=== PATIENT | male | born 1945 | race Caucasian/White ===

== ENCOUNTER 2018-11-05 12:49 | Inpatient (IN) ==
[2018-11-05 13:38] LABS: Basophils # (auto) 0.07 K/uL (0-0.2); Basophils % (auto) 0.8 %; Eosinophils # (auto) 0.49 K/uL (0-0.5); Eosinophils % (auto) 5.3 %; Hematocrit (blood only) 43.8 % (42-52); Hemoglobin 16.2 g/dL (14.0-18.0); Immature Granulocytes # (auto) 0.01 K/uL (0.00-0.02); Immature Granulocytes % (auto) 0.1 %; Lymphocytes # (auto) 3.57 K/uL (1.2-3.4); Mean Corpuscular Volume 86.4 fL (80-100); Mean Platelet Volume 10.6 fL (7.4-10.4); Monocytes # (auto) 1.02 K/uL (0.11-0.59); Monocytes % (auto) 11.1 %; Neutrophils % (auto) 43.7 %; Platelet Count 227 K/uL (130-400); RDW Coefficient of Variation 12.9 % (11.5-14.5); Red Blood Count 5.07 M/uL (4.7-6.1); White Blood Count 9.16 K/uL (4.8-10.8)
--- NOTE | 2018-11-05 13:40 | XRay Report ---
SINGLE VIEW CHEST CLINICAL HISTORY: Dyspnea. Atypical chest pain. FINDINGS: An AP, portable, upright chest radiograph is obtained. No prior studies are available for c omparison at the time of dictation. The examination is degraded by portable technique and patient rot ation. The heart is enlarged and there is atherosclerotic calcification of the thoracic aorta. There is mild pulmonary vascular congestion. Trace pleural effusions are suspected. Atelectasis is noted a t the lung bases. No pneumothorax is seen. The skeletal structures are osteopenic. The bony thorax is grossly intact. IMPRESSION: Cardiomegaly with evidence of mild congestive failure. Electronically signed by: Fei Tovar M.D. 11/05/2018 1:39 PM
[2018-11-05 13:53] LABS: Alanine Aminotransferase 59 U/L (12-78); Aspartate Aminotransferase 30 U/L (15-37); BUN Creatinine Ratio 14.4 (10-20); Blood Urea Nitrogen 12 mg/dl (7-18); Calcium 9.1 mg/dl (8.5-10.1); Carbon Dioxide 27 mmol/L (21-32); Chloride 102 mmol/L (98-107); Creatinine Clr Calc Pharmacy 89.1 ml/min; Est GFR (African American) 100.9; Est GFR (Non-African American) 87.1; Glucose 213 mg/dl (70-99); Potassium 3.4 mmol/L (3.5-5.1); Sodium 137 mmol/L (136-145)
[2018-11-05 13:58] LABS: Albumin Globulin Ratio 1.1 (0.9-2); Alkaline Phosphatase 77 U/L (45-117); Bilirubin,Total 1.3 mg/dl (0.2-1); Globulin 3.8 gm/dl (2.5-4.0); NT Pro B Type Natriuretic Pept 81 pg/ml (0-900); Total Protein 7.8 gm/dl (6.4-8.2); Troponin I < 0.015 ng/ml (0-0.045)
[2018-11-05 13:59] LABS: D Dimer 450 ug/L FEU (0-500)
[2018-11-05] MEDS ORDERED: FUROSEMIDE 40 MG/4 ML VIAL IV STA (14:20)
[2018-11-05] MEDS ORDERED: POTASSIUM CHLORIDE 20 MEQ TABCR PO STA (15:27)
--- NOTE | 2018-11-05 15:41 | History & Physical Report ---
Date of Service November 05, 2018 Assessment & Plan (1) SOB (shortness of breath): (2) CHF (congestive heart failure): Pt presented from PCP office for increased SOB. Pt was noted to be SOB in clinic after walking. Reported some baseline SOB on exertion. Denies orthopnea, PND, CP, dizziness, syncope, N/V, diaphoresis. In ER pt afebrile, P: 62, R:22 down to 12, BP: 163/84, initially on 2L O2 with sat 97% and has been off O2 with sat 95% on RA. No leukocytosis, D-Dimer WNL, Negative initial troponin, BNP: 81 CXR: Cardiomegaly with evidence of mild congestive failure. H/O nuclear stress test 05/2017: No evidence induced ischemia, normal wall motion, EF: 62% Pt with untreated JENNIFER -In ER pt given lasix 20mg IV. He diuresed 650ml while in ER. -Will give additional lasix 20mg IV -Monitor I&O and daily weight -Reassess volume status tomorrow -Echo -Monitor CBC, BMP (3) Hypokalemia: K: 3.4 -Replace and monitor (4) CAD (coronary artery disease): 10/28/06 - MARAH to circumflex, marginal at [facility], Dr Hagan No CP. Initial troponin negative. -Continue aspirin, metoprolol, atorvastatin (5) Diabetes mellitus, type II: A1c: 7.7 on 04/2018 Glucose: 213 -A1c in AM -Hold glimepiride -Novolog sliding scale per protocol (6) HTN (hypertension): In ER SBP 150's-160 -Continue lisinopril, metoprolol -Hold HCTZ since received lasix (7) Dyslipidemia: -Continue atorvastatin (8) Neuropathy: -Continue Lyrica (9) JENNIFER (obstructive sleep apnea): Not on CPAP secondary to h/o intolerance to CPAP and insurance issues in the remote past (10) Gout: -Continue allopurinol DVT Prophylaxis -Lovenox SQ Full Code as per discussion with pt, however reports would not want on prolonged life support if poor prognosis Follows with Dr Nixon for routine care Pt was seen and care coordinated with Dr Hairston. See addendum History of Present Illness Chief Complaint: SOB Primary Care Provider: Cristian Nixon MD Pt is 72 y/o M with PMH CAD s/p AMRAH to circumflex in 2006, HTN, dyslipidemia, GERD, gout, DM II, JENNIFER not using CPAP presented to ER from PCP office for shortness of breath. Patient was at PCP office for well visit and was noted to be short of breath after walking in clinic. Patient was placed on 2 L nasal cannula oxygen and given 3 baby aspirin. Patient reports that he has some chronic shortness of breath on exertion however reports "I do not really notice it" and states is able to go outside to feed his chickens and carry 5 gallon water jug. Patient's daughter reports that she notices when he walks across the yard to her house that he is short of breath. Patient denies any chest pain. He reports that at the end of the day will have some mild swelling of ankles which improves with elevating feet. Reports HCTZ seems to control ankle edema and he hasn't noticed worsening LE edema. Patient denies any orthopnea or PND. He reports he often falls asleep in his recliner chair. He states over the past 3 months has gained 7 pounds. Admits to eating moderate amount of sodium in diet. Patient follows with Dr. Chandler cardiology in [place]. denies fever/chills, diaphoresis, N/V/D/C, ESQUIVEL, dizziness, syncope, vision changes, neck pain, palpitations, cough, sore throat, choking, otalgia, rhinorrhea, abdominal pain, paresthesias, weakness, extremity weakness, rashes, urinary symptoms. History nuclear stress test 05/2017: No evidence induced ischemia, normal wall motion, EF: 62% History echo 2015: EF 55%, normal wall motion, borderline LVH, aortic and mitral sclerotic changes, trace-mild mitral, tricuspid and pulmonary insufficiency Allergies Allergy/AdvReac Type Severity Reaction Status Date / Time No Known Allergies Allergy Unverified 11/05/18 14:32 Home Medications Home Medications Medication Instructions Recorded Confirmed Type allopurinol 300 mg PO DAILY 11/05/18 11/05/18 History aspirin [Aspirin Low Dose] 81 mg PO DAILY 11/05/18 11/05/18 History atorvastatin 40 mg PO DAILY 11/05/18 11/05/18 History clopidogrel 75 mg PO DAILY 11/05/18 11/05/18 History glimepiride 4 mg PO DAILY 11/05/18 11/05/18 History lisinopril 10 mg PO BID 11/05/18 11/05/18 History metoprolol tartrate 25 mg PO BID 11/05/18 11/05/18 History multivitamin 1 tab PO DAILY 11/05/18 11/05/18 History pregabalin [Lyrica] 75 mg PO TID 11/05/18 11/05/18 History ranitidine HCl 150 mg PO BID 11/05/18 11/05/18 History furosemide 20 mg PO DAILY #30 tab 11/07/18 Rx potassium chloride 10 meq PO DAILY #30 cap 11/07/18 Rx Past Med/Surg History Medical History Neuropathy (Chronic) Gout (Chronic) JENNIFER (obstructive sleep apnea) (Chronic) CAD (coronary artery disease) (Chronic) HTN (hypertension) (Chronic) Dyslipidemia (Chronic) Diabetes mellitus, type II (Chronic) Surgical History History of cardiac catheterization (Chronic) 10/28/06 - MARAH to circumflex, marginal at [facility], Dr Hagan H/O heart artery stent (Chronic) Family History Brother Coronary heart disease Lung cancer Other Hypertension Social History Preferred Language: Kinyarwanda Communication Ability: Effective Re Recording Mixer Required: No Beliefs That Will Affect Care: None marital status: / Current Living Situation: Alone current occupational status: retired Feels Safe at Home: Yes Safety Concerns: Feels Safe At This Time Smoking Status: Former smoker Cigarettes Per Day: Quit 1985, smoked 2ppd x 25 years ; Hx Alcohol Use: Yes Alcohol type: beer and wine Hx Substance Use: No Review of Systems Review of Systems: All systems reviewed & are unremarkable except as noted in HPI & below Physical Exam Physical Exam: General: no acute distress, obese Head: normocephalic, atraumatic Eyes: PERRL, EOM's intact, conjunctiva non-injected, anicteric ENT: normal inspection external ears, nose, mucous membranes moist Neck: supple, trachea midline Lungs: clear, no respiratory distress, no wheezing/rhonchi/rales CV: RRR, no murmur, no JVD, trace pretibial edema Abd: normal BS, protuberant, soft, non-tender Ext: no cyanosis, no calf tenderness Neuro: A&O x 3, no focal deficits noted, normal affect Skin: warm, dry Results & Data Vital Signs (Past 12 Hours) Vital Signs Temp Pulse Resp BP Pulse Ox 11/05/18 14:33 66 15 94 11/05/18 14:20 61 17 96 11/05/18 14:10 62 15 96 11/05/18 14:00 58 L 18 136/77 89 L 11/05/18 13:50 57 L 13 92 11/05/18 13:40 59 L 14 93 11/05/18 13:30 58 L 16 166/91 H 94 11/05/18 13:29 97 11/05/18 13:20 61 19 95 11/05/18 13:11 63 19 176/95 H 95 11/05/18 13:10 59 L 20 11/05/18 13:06 69 17 11/05/18 12:56 60 16 163/84 H 11/05/18 12:50 36.7 C 62 22 163/84 H 97 Laboratory Results Short CBC 11/05/18 Range/Units 12:30 WBC 9.16 (4.8-10.8) K/uL Hgb 16.2 (14.0-18.0) g/dL Hct 43.8 (42-52) % Plt Count 227 (130-400) K/uL BMP 11/05/18 12:30 Sodium 137 Potassium 3.4 L Chloride 102 Carbon Dioxide 27 BUN 12 Creatinine 0.85 Glucose 213 H Calcium 9.1 Cardiac Enzymes 11/05/18 Range/Units 12:30 Troponin I < 0.015 (0-0.045) ng/ml Liver Function 11/05/18 Range/Units 12:30 Total Bilirubin 1.3 H (0.2-1) mg/dl AST 30 (15-37) U/L ALT 59 (12-78) U/L Alkaline Phosphatase 77 (45-117) U/L Albumin 4.0 (3.4-5.0) gm/dl Diagnostic Findings CXR: IMPRESSION: Cardiomegaly with evidence of mild congestive failure. ECG Rate (beats per minute): 60 Rhythm: sinus rhythm Findings: + 1st degree AV block, + LAFB, + Q waves (Septal) and + RBBB (incomplete) Supervising Physician Co-Signing Physician Notes Pt was seen and examined. Agreed with Jaz HARRIS exam, assessment and plan. 72 y/o M with PMH CAD s/p MARAH to circumflex in 2007, HTN, dyslipidemia, GERD, gout, DM II, JENNIFER not using CPAP was sent from to the ER from PCP office for shortness of breath. Pt said that she became very SOB today after walking to his PCP clinic. Pt said that he is very active. daughter said that she noticed that she started to get SOB when walking across the yard. Denies any chest pain, palpitation, dizziness and SOB. CXR on admission showed cardiomegaly with evidence of mild congestive failure. Will give lasix 40mg IV for today (Received 20 IV already, will give an additional 20mg). Will consult cardiology. Will get an echo. Will eval in am for any additional IV lasix. Will monitor in tele closely. MD Yovanny (1) CHF (congestive heart failure) Heart failure chronicity: unspecified Heart failure type: unspecified Qualified Code(s): I50.9 - Heart failure, unspecified
[2018-11-05] MEDS ORDERED: GLUCOSE 10 TABS/TUBE PO PRN (16:23)
[2018-11-05] MEDS ORDERED: DEXTROSE 50% 50 ML SYRINGE IV PRN (16:23)
[2018-11-05] MEDS ORDERED: ACETAMINOPHEN 325 MG TAB PO PRN (16:23)
[2018-11-05] MEDS ORDERED: CARBOHYDRATES FOR HYPOGLYCEMIA PO PRN (16:23)
[2018-11-05] MEDS ORDERED: NITROGLYCERIN SL 0.4 MG/TAB TAB SL PRN (16:23)
[2018-11-05] MEDS ORDERED: GLUCOSE 40% GEL 15 GM TUBE PO PRN (16:23)
[2018-11-05] MEDS ORDERED: GLUCAGON FOR INJ 1 MG VIAL SQ PRN (16:23)
[2018-11-05] MEDS ORDERED: FUROSEMIDE 20 MG in SYRINGE 0 ML IV ONE (16:45)
[2018-11-05 17:13] LABS: Prothrombin Time 10.3 Seconds (9.0-12.0)
[2018-11-05] MEDS: INSULIN ASPART 100 UNITS/ML 3 ML PEN SC SCH ×2 (18:14→20:58)
[2018-11-05] MEDS: ENOXAPARIN INJ 40 MG/0.4 ML SYR SQ SCH (18:16)
--- NOTE | 2018-11-05 19:36 | Emergency Department Note ---
Entered by Desi Palumbo acting as a scribe for Alejandro Reaves MD History of Present Illness General Chief complaint: Shortness of Breath/Dyspnea Stated complaint: trouble breathing Time Seen by Provider: 11/05/18 13:19 Source: patient History of Present Illness Onset (ago): minute(s) (prior to arrival) Location: chest Severity: moderate (O2 in the 80s) Pain Consistency: + other (episode) Maximum Pain Intensity: 0 Quality: + other (shortness of breath) Exacerbated By: + movement (exertion) Associated symptoms: + denies other symptoms (dizziness, hematochezia, melena) and + other (leg swelling, let antecubital pain); no chest pain, no fever/chills and no nausea/vomiting The patient is a 72 year old male who presents to the Emergency Room with complaints of an episode of shortness of breath starting prior to arrival. The patient states that today he went to his PCP for a checkup and while they were walking him back, he became short of breath. He states that they decided to walk him around a little and look at his O2. He reports that it would drop to the high 80s. He notes that his PCP made not of mild lower extremity edema. The patient states that he feels fine now. He notes that he did have one episode of left antecubital pain that lasted a few seconds. The patient notes that he is on Aspirin and Plavix. The patient denies chest pain, nausea, vomiting, dizziness, hematochezia, melena, recent illness, fever, chills, recent falls, being on O2 at home, a history of pulmonary disease, a history of blood clots, and using an inhaler. Home Medications Home Medications Medication Instructions Recorded Confirmed Type allopurinol 300 mg PO DAILY 11/05/18 11/05/18 History aspirin [Aspirin Low Dose] 81 mg PO DAILY 11/05/18 11/05/18 History atorvastatin 40 mg PO DAILY 11/05/18 11/05/18 History clopidogrel 75 mg PO DAILY 11/05/18 11/05/18 History glimepiride 4 mg PO DAILY 11/05/18 11/05/18 History hydrochlorothiazide 25 mg PO DAILY 11/05/18 11/05/18 History lisinopril 10 mg PO BID 11/05/18 11/05/18 History metoprolol tartrate 25 mg PO BID 11/05/18 11/05/18 History multivitamin 1 tab PO DAILY 11/05/18 11/05/18 History pregabalin [Lyrica] 75 mg PO TID 11/05/18 11/05/18 History ranitidine HCl 150 mg PO BID 11/05/18 11/05/18 History Allergies Allergy/AdvReac Type Severity Reaction Status Date / Time No Known Allergies Allergy Unverified 11/05/18 14:32 Past Med/Surg History Medical History Neuropathy (Chronic) Gout (Chronic) JENNIFER (obstructive sleep apnea) (Chronic) CAD (coronary artery disease) (Chronic) HTN (hypertension) (Chronic) Dyslipidemia (Chronic) Diabetes mellitus, type II (Chronic) Surgical History History of cardiac catheterization (Chronic) 10/28/06 - MARAH to circumflex, marginal at [facility], Dr Hagan H/O heart artery stent (Chronic) Family History Brother Coronary heart disease Lung cancer Other Hypertension Social History Preferred Language: Sami Communication Ability: Effective 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 and A total of 10 systems reviewed and were otherwise negative Physical Exam Vital Signs Vital Signs - 24 hr 11/05/18 12:50 11/05/18 12:56 11/05/18 13:06 Temperature 36.7 C Temperature Source Oral Sepsis Recent Fever Within 48 Hours No Sepsis New/Unexplained Change in Mental Status No Sepsis Action Taken by Nursing No Action Required Pulse Rate 62 60 69 Pulse Rate from SpO2 Sensor Respiratory Rate 22 16 17 Respiratory Effort / Characteristics Non-Labored Spontaneous Respiratory Depth Normal Respiratory Pattern Regular Blood Pressure 163/84 H 163/84 H Blood Pressure Mean 110 110 Blood Pressure Position Lying Pulse Oximetry 97 Oxygen Delivery Method Room Air Oxygen Flow Rate 2 11/05/18 13:10 11/05/18 13:11 11/05/18 13:20 Temperature Temperature Source Sepsis Recent Fever Within 48 Hours Sepsis New/Unexplained Change in Mental Status Sepsis Action Taken by Nursing Pulse Rate 59 L 63 61 Pulse Rate from SpO2 Sensor 55 L 60 Respiratory Rate 20 19 19 Respiratory Effort / Characteristics Respiratory Depth Respiratory Pattern Blood Pressure 176/95 H Blood Pressure Mean 122 Blood Pressure Position Pulse Oximetry 95 95 Oxygen Delivery Method Nasal Cannula Nasal Cannula Oxygen Flow Rate 2 2 11/05/18 13:29 11/05/18 13:30 11/05/18 13:40 Temperature Temperature Source Sepsis Recent Fever Within 48 Hours Sepsis New/Unexplained Change in Mental Status Sepsis Action Taken by Nursing Pulse Rate 58 L 59 L Pulse Rate from SpO2 Sensor 60 58 L Respiratory Rate 16 14 Respiratory Effort / Characteristics Respiratory Depth Respiratory Pattern Blood Pressure 166/91 H Blood Pressure Mean 116 Blood Pressure Position Pulse Oximetry 97 94 93 Oxygen Delivery Method Nasal Cannula Nasal Cannula Nasal Cannula Oxygen Flow Rate 2 2 11/05/18 13:50 11/05/18 14:00 11/05/18 14:10 Temperature Temperature Source Sepsis Recent Fever Within 48 Hours Sepsis New/Unexplained Change in Mental Status Sepsis Action Taken by Nursing Pulse Rate 57 L 58 L 62 Pulse Rate from SpO2 Sensor 57 L 57 L 61 Respiratory Rate 13 18 15 Respiratory Effort / Characteristics Respiratory Depth Respiratory Pattern Blood Pressure 136/77 Blood Pressure Mean 96 Blood Pressure Position Pulse Oximetry 92 89 L 96 Oxygen Delivery Method Nasal Cannula Nasal Cannula Nasal Cannula Oxygen Flow Rate 2 2 2 11/05/18 14:20 11/05/18 14:33 11/05/18 14:40 Temperature Temperature Source Sepsis Recent Fever Within 48 Hours Sepsis New/Unexplained Change in Mental Status Sepsis Action Taken by Nursing Pulse Rate 61 66 60 Pulse Rate from SpO2 Sensor 62 66 56 L Respiratory Rate 17 15 24 Respiratory Effort / Characteristics Respiratory Depth Respiratory Pattern Blood Pressure Blood Pressure Mean Blood Pressure Position Pulse Oximetry 96 94 95 Oxygen Delivery Method Nasal Cannula Room Air Room Air Oxygen Flow Rate 2 11/05/18 14:50 11/05/18 15:00 11/05/18 15:10 Temperature Temperature Source Sepsis Recent Fever Within 48 Hours Sepsis New/Unexplained Change in Mental Status Sepsis Action Taken by Nursing Pulse Rate 60 61 62 Pulse Rate from SpO2 Sensor 60 52 L 61 Respiratory Rate 17 24 23 Respiratory Effort / Characteristics Respiratory Depth Respiratory Pattern Blood Pressure 161/92 H Blood Pressure Mean 115 Blood Pressure Position Pulse Oximetry 93 91 93 Oxygen Delivery Method Room Air Room Air Room Air Oxygen Flow Rate 11/05/18 15:20 11/05/18 15:30 Temperature Temperature Source Sepsis Recent Fever Within 48 Hours Sepsis New/Unexplained Change in Mental Status Sepsis Action Taken by Nursing Pulse Rate 67 65 Pulse Rate from SpO2 Sensor 55 L 57 L Respiratory Rate 12 18 Respiratory Effort / Characteristics Respiratory Depth Respiratory Pattern Blood Pressure 152/90 H Blood Pressure Mean 110 Blood Pressure Position Pulse Oximetry 94 91 Oxygen Delivery Method Room Air Room Air Oxygen Flow Rate General: Non-ill appearing older male in no acute distress. HEENT: Normal cephalic atraumatic. Pupils are equal round and reactive to light. Extraocular movements are intact. Oropharynx is pink with moist mucous membranes. No swelling of the mouth lips or tongue. Neck: Supple with a midline trachea. No meningeal signs or stiffness, no JVD or bruits. No Stridor. Chest: Clear to auscultation bilaterally. No wheezes or rhonchi. No increased work of breathing. Heart: regular rate and rhythm. Abdomen: Soft nontender, nondistended without rebound guarding or rigidity. Extremities: No cyanosis clubbing. Trace pedal edema. No calf tenderness or asymmetry Spine/Back. Non tender to palpation. No CVA tenderness Skin: Good turgor without rashes. Neurologic exam: Cranial nerves two through 12 are intact. Motor and sensation are intact and symmetrical throughout. Course 1327: Past medical records reviewed. The patient was evaluated in room C11B. A complete history and physical exam was performed. 1407: Upon reevaluation, the patient was resting comfortably. I discussed findings and results with him. He verbalized agreement of the treatment plan. 1421: I discussed the patient's case with STEVEN Dodge. She will evaluate the patient for further management. Consultations Consultation #1: I discussed the patient's case with STEVEN Dodge. She will evaluate the patient for further management. Time: 14:21 Administered Medications Enoxaparin Sodium (Lovenox) 40 mg SQ Q24H [facility] Stop: 12/05/18 17:59 Last Admin: 11/05/18 18:16 Dose: Not Given Documented by: [id number] Insulin Aspart (Novolog Flexpen) 0 units SC ACHS NATASHA Stop: 12/05/18 16:29 Last Admin: 11/05/18 18:14 Dose: 4 units Documented by: [id number] Cosigned by: [id number] Discontinued Medications Furosemide (Lasix) 20 mg IV NOW STA Stop: 11/05/18 14:21 Last Admin: 11/05/18 14:34 Dose: 20 mg Documented by: [id number] Furosemide 20 mg/ Syringe 2 mls @ 4 mls/min IV ONE ONE Stop: 11/05/18 16:46 Last Admin: 11/05/18 18:14 Dose: 4 mls/min Documented by: [id number] Potassium Chloride (Klor-Con M20) 40 meq PO NOW STA Stop: 11/05/18 15:28 Last Admin: 11/05/18 15:43 Dose: 40 meq Documented by: [id number] Medical Decision Making Differential Diagnosis Differential diagnoses include CHF, PE, cardiac disease, COPD, pneumonia, anemia, anxiety. Medical Records Attestation: I reviewed the patient's medical records. Home Medications Current Medication List: was personally reviewed by me Laboratory Data Attestation: I reviewed the patient's lab results. Result diagrams: 11/05/18 12:30 11/05/18 12:30 Lab Results 11/05/18 11/05/18 11/05/18 Range/Units 12:30 12:30 12:30 WBC 9.16 (4.8-10.8) K/uL RBC 5.07 (4.7-6.1) M/uL Hgb 16.2 (14.0-18.0) g/dL Hct 43.8 (42-52) % MCV 86.4 (80-100) fL MCH 32.0 (25-34) pg MCHC 37.0 H (32-36) g/dL RDW Std Deviation 41.0 (36.4-46.3) fL RDW Coeff of Sheri 12.9 (11.5-14.5) % Plt Count 227 (130-400) K/uL MPV 10.6 H (7.4-10.4) fL Immature Gran % (Auto) 0.1 % Neut % (Auto) 43.7 % Lymph % (Auto) 39.0 % [place] % (Auto) 11.1 % Eos % (Auto) 5.3 % Baso % (Auto) 0.8 % Immature Gran # (Auto) 0.01 (0.00-0.02) K/uL Neut # (Auto) 4.00 (1.4-6.5) K/uL Lymph # (Auto) 3.57 H (1.2-3.4) K/uL [place] # (Auto) 1.02 H (0.11-0.59) K/uL Eos # (Auto) 0.49 (0-0.5) K/uL Baso # (Auto) 0.07 (0-0.2) K/uL D-Dimer 450 (0-500) ug/L FEU Sodium 137 (136-145) mmol/L Potassium 3.4 L (3.5-5.1) mmol/L Chloride 102 (98-107) mmol/L Carbon Dioxide 27 (21-32) mmol/L Anion Gap 8.0 (3-11) BUN 12 (7-18) mg/dl Creatinine 0.85 (0.6-1.4) mg/dl Est Cr Clr Drug Dosing 89.1 ml/min Est GFR ( Amer) 100.9 Est GFR (Non-Af Amer) 87.1 BUN/Creatinine Ratio 14.4 (10-20) Glucose 213 H (70-99) mg/dl Calcium 9.1 (8.5-10.1) mg/dl Magnesium (1.8-2.4) mg/dl Total Bilirubin 1.3 H (0.2-1) mg/dl AST 30 (15-37) U/L ALT 59 (12-78) U/L Alkaline Phosphatase 77 (45-117) U/L Troponin I < 0.015 (0-0.045) ng/ml NT-Pro-B Natriuret Pep 81 (0-900) pg/ml Total Protein 7.8 (6.4-8.2) gm/dl Albumin 4.0 (3.4-5.0) gm/dl Globulin 3.8 (2.5-4.0) gm/dl Albumin/Globulin Ratio 1.1 (0.9-2) Lipase 82 (73-393) U/L 11/05/18 Range/Units 12:30 WBC (4.8-10.8) K/uL RBC (4.7-6.1) M/uL Hgb (14.0-18.0) g/dL Hct (42-52) % MCV (80-100) fL MCH (25-34) pg MCHC (32-36) g/dL RDW Std Deviation (36.4-46.3) fL RDW Coeff of Sheri (11.5-14.5) % Plt Count (130-400) K/uL MPV (7.4-10.4) fL Immature Gran % (Auto) % Neut % (Auto) % Lymph % (Auto) % [place] % (Auto) % Eos % (Auto) % Baso % (Auto) % Immature Gran # (Auto) (0.00-0.02) K/uL Neut # (Auto) (1.4-6.5) K/uL Lymph # (Auto) (1.2-3.4) K/uL [place] # (Auto) (0.11-0.59) K/uL Eos # (Auto) (0-0.5) K/uL Baso # (Auto) (0-0.2) K/uL D-Dimer (0-500) ug/L FEU Sodium (136-145) mmol/L Potassium (3.5-5.1) mmol/L Chloride (98-107) mmol/L Carbon Dioxide (21-32) mmol/L Anion Gap (3-11) BUN (7-18) mg/dl Creatinine (0.6-1.4) mg/dl Est Cr Clr Drug Dosing ml/min Est GFR ( Amer) Est GFR (Non-Af Amer) BUN/Creatinine Ratio (10-20) Glucose (70-99) mg/dl Calcium (8.5-10.1) mg/dl Magnesium 1.9 (1.8-2.4) mg/dl Total Bilirubin (0.2-1) mg/dl AST (15-37) U/L ALT (12-78) U/L Alkaline Phosphatase (45-117) U/L Troponin I (0-0.045) ng/ml NT-Pro-B Natriuret Pep (0-900) pg/ml Total Protein (6.4-8.2) gm/dl Albumin (3.4-5.0) gm/dl Globulin (2.5-4.0) gm/dl Albumin/Globulin Ratio (0.9-2) Lipase (73-393) U/L Imaging Data Radiologist's Impression: Radiology results as stated below per my review and the radiologist's interpretation: SINGLE VIEW CHEST CLINICAL HISTORY: Dyspnea. Atypical chest pain. FINDINGS: An AP, portable, upright chest radiograph is obtained. No prior studies are available for comparison at the time of dictation. The examination is degraded by portable technique and patient rotation. The heart is enlarged and there is atherosclerotic calcification of the thoracic aorta. There is mild pulmonary vascular congestion. Trace pleural effusions are suspected. Atelectasis is noted at the lung bases. No pneumothorax is seen. The skeletal structures are osteopenic. The bony thorax is grossly intact. IMPRESSION: Cardiomegaly with evidence of mild congestive failure. Electronically signed by: Fei Tovar M.D. 11/05/2018 1:39 PM ECG Data Attestation: I personally reviewed and interpreted this ECG as follows: Indication: SOB/dyspnea Rate (beats per minute): 60 Rhythm: normal sinus Findings: + nonspecific-ST abn, + PAC (frequent) and + RBBB (incomplete) Comparison ECG Date: no prior available Blood Pressure Blood Pressure Findings: Elevated blood pressure Blood Pressure Disposition: further management by hospitalist [facility] Narrative This patient comes in as described above. He was sent over from his doctor's office after having abrupt onset of shortness of breath and hypoxemia. He was there for checkup but when he started walking he got extremely short of breath. There is documented hypoxemia in the high 80s. The patient does get winded from time to time with walking but this is different for him. he has no underlying pulmonary disease and does not use inhalers or oxygen at baseline. IV access established and blood work was obtained. He also do chest x-ray and EKG. EKG shows some ectopy but no ischemic changes. Chest x-ray shows findings consistent with mild CHF. He was given Lasix 20 mgs IV. His troponin is not e levated nor is his BNP. he has no ongoing chest pain or anything to suggest acute ischemia at this point. His d-dimer is within normal limits at 450 and and in a low pretest probability setting makes PE highly unlikely. Given his hypoxemia and new onset CHF type symptoms, I do think he needs to be admitted and observed for further treatment evaluation and cardiac work-up. Have consulted the [facility]ist to see him in the ER for these measures. Impression & Plan CHF (congestive heart failure), SOB (shortness of breath), Hypoxemia, Antiplatelet or antithrombotic long-term use Discharge Plan Visit Data *Final* Discharge Date/Time: 11/05/18 16:02 Chief Complaint: Shortness of Breath/Dyspnea Stated Complaint: trouble breathing ED Provider: Alejandro Reaves Discharge Problem: CHF (congestive heart failure), SOB (shortness of breath), Hypoxemia, Antiplatelet or antithrombotic long-term use Patient Disposition: Admitted As Inpatient Discharge Instructions Interventions: ED Discharge Assessment Last Done: 11/05/18 16:02 The scribe's documentation has been prepared under my direction and personally reviewed by me in its entirety. I confirm that the note above accurately reflects all work, treatment, procedures, and medical decision making performed by me.
[2018-11-05] MEDS: LISINOPRIL 10 MG TAB PO SCH (20:57)
[2018-11-05] MEDS: PREGABALIN 75 MG CAP PO SCH (20:57)
[2018-11-05] MEDS: METOPROLOL TARTRATE 25 MG TAB PO SCH (20:57)
[2018-11-06] MEDS: ASPIRIN 81 MG ECTAB PO SCH (07:43)
[2018-11-06] MEDS: ATORVASTATIN 40 MG TAB PO SCH (07:43)
[2018-11-06] MEDS: METOPROLOL TARTRATE 25 MG TAB PO SCH ×2 (07:44→21:11)
[2018-11-06] MEDS: PREGABALIN 75 MG CAP PO SCH ×3 (07:44→21:13)
[2018-11-06] MEDS: MULTIVITAMIN TAB PO SCH (07:44)
[2018-11-06] MEDS: CLOPIDOGREL BISULFATE 75 MG TAB PO SCH (07:45)
[2018-11-06] MEDS: ALLOPURINOL 300 MG TAB PO SCH (07:45)
[2018-11-06] MEDS: LISINOPRIL 10 MG TAB PO SCH ×2 (07:45→21:11)
[2018-11-06] MEDS: INSULIN ASPART 100 UNITS/ML 3 ML PEN SC SCH ×4 (07:46→21:06)
[2018-11-06 08:07] LABS: Hematocrit (blood only) 46.2 % (42-52); Hemoglobin 16.9 g/dL (14.0-18.0); Mean Corpuscular Hgb Conc 36.6 g/dL (32-36); Mean Corpuscular Volume 86.8 fL (80-100); Mean Platelet Volume 10.4 fL (7.4-10.4); Platelet Count 217 K/uL (130-400); RDW Standard Deviation 41.3 fL (36.4-46.3); Red Blood Count 5.32 M/uL (4.7-6.1); White Blood Count 10.36 K/uL (4.8-10.8)
[2018-11-06 08:41] LABS: BUN Creatinine Ratio 16.3 (10-20); Calcium 9.6 mg/dl (8.5-10.1); Est GFR (Non-African American) 85.4; Magnesium 1.9 mg/dl (1.8-2.4); Potassium 3.4 mmol/L (3.5-5.1)
[2018-11-06 09:10] LABS: Estimated Average Glucose 200 mg/dl; Hemoglobin A1C 8.6 % (4.5-5.6)
--- NOTE | 2018-11-06 12:00 | Hospitalist Progress Note ---
Date of Service November 06, 2018 Assessment & Plan (1) Acute exacerbation of CHF (congestive heart failure): Clinically SOB with exertion and now at rest, h/o CAD and HTN, Pulmonary congestion on imaging, exam findings above consistent with CHF. Responded well to Lasix 20mg IV x 2 doses. 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 Repeat echo ordered today. Pt denies pain and no evidence of active ischemia. Will give an additional dose of Lasix now, and Cardiology to see. (2) Hypokalemia: 2/2 diuretics. Repeat K: 3.4. As I am giving additional Lasix now, additional KCl 40 MEq was ordered. (3) CAD (coronary artery disease): 10/28/06 - MARAH to circumflex, marginal at [facility], Dr Danya Vega CP. Initial troponin negative. -Continue aspirin, metoprolol, atorvastatin (4) Diabetes mellitus, type II: A1C is worse at 8.6. Inpatient glucose is uncontrolled. Adding glargine. Cont current ISS with carb coverage. (5) HTN (hypertension): Controlled with Lisinopril 10mg PO BID. HCTZ on hold while receiving Lasix. (6) Dyslipidemia: -Continue atorvastatin (7) Neuropathy: -Continue Lyrica (8) JENNIFER (obstructive sleep apnea): Not on CPAP secondary to h/o intolerance to CPAP and insurance issues in the remote past (9) DVT prophylaxis: Lovenox Full Code Dispo-home when medically stable. Lives alone. PT/OT consults to ensure safety to return home. Ema Elliott DO [facility] Hospitalist Subjective 72 yo M with h/o CAD s/p BMS in 2006, followed by Dr. Chandler, who presented to the ER as a recommendation by the PCP office. The patient was notably short of breath in the PCP office and when he performed a trial of ambulation, his pulse ox dropped to 88% on room air. He has no h/o heart failure. He hasn't noted a recent decline in dyspnea, but is clearly short of breath at rest. He reports being able to walk to and from his chicken [place] which [place] 125 ft from his home. He reports a h/o "twinges" of chest pain but has no worsening of this and doesn't feel this is significant. He is lasix naive, and was given Lasix overnight with net 1800cc out. He is still somewhat short of breath when speaking to me. Denies any swelling recently. Trop neg x 3 overnight. EKG with some changes but no clear evidence of acute ischemia. On exam a 3/6 ADIEL was noted that was unknown to the patient. Review of outpatient records reveals an echo in 2016 with EF 55%, borderline LVH, aortic and mitral valve sclerosis, and some other trace valve insufficiencies. Review of Systems Review of Systems: All systems reviewed & are unremarkable except as noted in HPI & below Physical Exam Physical Exam: CONSTITUTIONAL: WNWD, vitals as above, generally well- appearing EYES: normal conjunctivae, no scleral icterus ENT: mucous membranes are moist NECK: no JVD but +hepatojugular reflux RESPIRATORY: clear to auscultation bilaterally, no crackles, rales or wheezes, +conversational dyspnea CARDIOVASCULAR: regular rate and rhythm, S1 and 2 heard with 3/6 ADIEL present at LSB, no peripheral edema GASTROINTESTINAL: normal bowel sounds, soft, nontender, nondistended MUSCULOSKELETAL: strength 5/5 throughout, head is normocephalic and atraumatic SKIN: warm and dry NEUROLOGIC: CN 2-12 grossly intact, normal cognition, normal speech, no tremor, no gross focal deficits. PSYCHIATRIC: alert cooperative and oriented to person, place and time. Results & Data Vital Signs (Past 12 Hours) Vital Signs Temp Pulse Pulse Pulse Resp BP Pulse Ox 11/06/18 11:36 36.8 C 63 20 116/70 95 11/06/18 09:00 66 11/06/18 06:55 36.7 C 62 20 123/82 91 11/06/18 03:58 36.6 C 67 18 125/80 91 Laboratory Results Short CBC 11/05/18 11/06/18 Range/Units 12:30 07:21 WBC 9.16 10.36 (4.8-10.8) K/uL Hgb 16.2 16.9 (14.0-18.0) g/dL Hct 43.8 46.2 (42-52) % Plt Count 227 217 (130-400) K/uL BMP 11/05/18 11/06/18 12:30 07:21 Sodium 137 137 Potassium 3.4 L 3.4 L Chloride 102 99 Carbon Dioxide 27 29 BUN 12 15 Creatinine 0.85 0.89 Glucose 213 H 190 H Calcium 9.1 9.6 Cardiac Enzymes 11/05/18 11/05/18 11/06/18 Range/Units 12:30 18:10 00:16 Troponin I < 0.015 < 0.015 < 0.015 (0-0.045) ng/ml Liver Function 11/05/18 Range/Units 12:30 Total Bilirubin 1.3 H (0.2-1) mg/dl AST 30 (15-37) U/L ALT 59 (12-78) U/L Alkaline Phosphatase 77 (45-117) U/L Albumin 4.0 (3.4-5.0) gm/dl Diagnostic Findings SINGLE VIEW CHEST CLINICAL HISTORY: Dyspnea. Atypical chest pain. FINDINGS: An AP, portable, upright chest radiograph is obtained. No prior studies are available for comparison at the time of dictation. The examination is degraded by portable technique and patient rotation. The heart is enlarged and there is atherosclerotic calcification of the thoracic aorta. There is mild pulmonary vascular congestion. Trace pleural effusions are suspected. Atelectasis is noted at the lung bases. No pneumothorax is seen. The skeletal structures are osteopenic. The bony thorax is grossly intact. IMPRESSION: Cardiomegaly with evidence of mild congestive failure. Medications Administered Current Inpatient Medications Acetaminophen (Tylenol) 650 mg PO Q4H PRN PRN Reason: Pain or Fever Stop: 12/05/18 16:22 Allopurinol (Zyloprim) 300 mg PO DAILY NATASHA Stop: 12/06/18 08:59 Last Admin: 11/06/18 07:45 Dose: 300 mg Documented by: Aspirin (Ecotrin Ectab) 81 mg PO DAILY NATASHA Stop: 12/06/18 08:59 Last Admin: 11/06/18 07:43 Dose: 81 mg Documented by: Atorvastatin Calcium (Lipitor) 40 mg PO DAILY NATASHA Stop: 12/06/18 08:59 Last Admin: 11/06/18 07:43 Dose: 40 mg Documented by: Clopidogrel Bisulfate (Plavix) 75 mg PO DAILY NATASHA Stop: 12/06/18 08:59 Last Admin: 11/06/18 07:45 Dose: 75 mg Documented by: Dextrose (Dextrose 50%) 25 - 50 ml IV UD PRN; Protocol PRN Reason: Hypoglycemia Protocol Stop: 12/05/18 16:22 Enoxaparin Sodium (Lovenox) 40 mg SQ Q24H [facility] Stop: 12/05/18 17:59 Last Admin: 11/05/18 18:16 Dose: Not Given Documented by: Glucagon (Glucagen) 1 mg SQ UD PRN; Protocol PRN Reason: Hypoglycemia Protocol Stop: 12/05/18 16:22 Glucose (Glucose 40%) 15 - 30 gm PO UD PRN; Protocol PRN Reason: Hypoglycemia Protocol Stop: 12/05/18 16:22 Glucose (Dex4 Glucose) 4 - 8 tabs PO UD PRN; Protocol PRN Reason: Hypoglycemia Protocol Stop: 12/05/18 16:22 Insulin Aspart (Novolog Flexpen) 0 units SC ACHS NATASHA Stop: 12/05/18 16:29 Last Admin: 11/06/18 07:46 Dose: 9 units Documented by: Lisinopril (Zestril) 10 mg PO BID [facility] Stop: 12/05/18 20:59 Last Admin: 11/06/18 07:45 Dose: 10 mg Documented by: Metoprolol Tartrate (Lopressor) 25 mg PO BID NATASHA Stop: 12/05/18 20:59 Last Admin: 11/06/18 07:44 Dose: 25 mg Documented by: Miscellaneous (Carbohydrates For Hypoglycemia) 15 - 30 gm PO UD PRN PRN Reason: Hypoglycemia Treatment Stop: 12/05/18 16:22 Multivitamins (Multivitamin Tab) 1 tab PO DAILY [facility] Stop: 12/06/18 08:59 Last Admin: 11/06/18 07:44 Dose: 1 tab Documented by: Nitroglycerin (Nitrostat) 0.4 mg SL UD PRN PRN Reason: Chest Pain Stop: 12/05/18 16:22 Pregabalin (Lyrica) 75 mg PO TID [facility] Stop: 12/05/18 20:59 Last Admin: 11/06/18 07:44 Dose: 75 mg Documented by: Ranitidine HCl (Zantac) 150 mg PO BID [facility] Stop: 12/05/18 20:59 Last Admin: 11/06/18 07:45 Dose: 150 mg Documented by:
[2018-11-06] MEDS ORDERED: PERFLUTREN LIPID MICROSPHERE (DEFINITY) IV ONE (12:16)
[2018-11-06] MEDS ORDERED: FUROSEMIDE 20 MG in SYRINGE 0 ML IV ONE (12:30)
[2018-11-06] MEDS ORDERED: POTASSIUM CHLORIDE 20 MEQ TABCR PO ONE (12:30)
[2018-11-06] MEDS: INSULIN GLARGINE SOLOSTAR 100 UNITS/ML 3 ML PEN SC SCH ×2 (13:33→21:06)
[2018-11-06] MEDS: ENOXAPARIN INJ 40 MG/0.4 ML SYR SQ SCH (17:41)
--- NOTE | 2018-11-06 19:17 | Consultation Report ---
DATE OF CONSULTATION: 11/06/2018 INPATIENT CARDIOLOGY CONSULTATION CONSULTATION REQUESTED BY: Dr. Elliott. REASON FOR CONSULTATION: Dyspnea with exertion. HISTORY OF PRESENT ILLNESS: Mr. Ramirez is a very pleasant 72-year-old gentleman who normally follows with Dr. Chandler for his cardiac care. He presented to [facility] from his PCP's office on 11/05/2018 after found to be significantly dyspneic and hypoxic on presentation. The patient was being seen on 11/05/2018 for a normal wellness check when the nursing notes him to be significantly dyspneic after only a few steps. Pulse ox was taken, he was found to be significantly hypoxic. He was placed on oxygen and sent to [facility] Emergency Department. Upon arrival, he was again found to be hypoxic, continued on oxygen. Upon presentation, he was found to be slightly volume overloaded on chest x-ray. His EKG was unremarkable and troponin was negative. He was admitted to telemetry and diuresed overnight for approximately 2 liters. The patient states that he has noticed that he has been dyspneic; however, his family members have been telling him that. He states that he might have been noticing it for the last month or so and states it seems to come and go. He denies experiencing any chest pain, palpitations, lightheadedness, dizziness, or syncope. 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 His last nuclear stress test was in 05/2017, which was nonischemic. Currently, he states he feels fine at rest. PAST SURGICAL HISTORY: 1. Coronary artery disease, status post PCI in 2006, unknown vessel. 2. Three subsequent cardiac catheterizations, most recently he believes a year or two ago with no intervention performed. 3. Left thumb amputation. MEDICAL ILLNESSES: 1. Coronary artery disease. 2. Diabetes. 3. Ambulatory dysfunction. 4. Gout. 5. Hypertension. 6. GERD. 7. Dyslipidemia. FAMILY HISTORY: Noncontributory. SOCIAL HISTORY: The patient has a [id number] history of tobacco use, quit in 1985. Drinks occasional alcohol. Denies any recreational drug use. He is . He lives by himself. 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 He ambulates with the aid of a cane. REVIEW OF SYSTEMS: As per HPI, all other review of systems reviewed and negative at this time. ALLERGIES: No known drug allergies. MEDICATIONS AN OUTPATIENT: 1. Aspirin 81 mg daily. 2. Plavix 75 mg daily. 3. Lisinopril 10 mg b.i.d. 4. Atorvastatin 40 mg daily. 5. Hydrochlorothiazide 25 mg daily. 6. Metoprolol tartrate 25 mg b.i.d. 7. Lyrica 3 times a day. 8. Amaryl. 9. Allopurinol. PHYSICAL EXAMINATION: VITALS: Temperature 36.6, pulse 61, respiratory rate 12, blood pressure 124/78, saturating 90% on room air. GENERAL: Awake, alert, oriented x3, in no acute distress. HEENT: Normocephalic, atraumatic. Pupils equal, round, reactive to light and accommodation. Extraocular muscles intact. Anicteric sclerae. Moist mucous membranes. NECK: No JVD, no bruit. CARDIOVASCULAR: Regular, but distant. Unable to appreciate any murmurs, rubs or gallops. PULMONARY: Clear to auscultation bilaterally with no rales, rhonchi, or wheezing. ABDOMEN: Bowel sounds x4, soft. No rebound, guarding, or tenderness. No organomegaly. EXTREMITIES: No clubbing, cyanosis or edema. +2 pedal pulses bilaterally. SKIN: Warm and dry. TEST RESULTS: A 12-lead EKG performed in the Emergency Department upon presentation, independently reviewed at this time shows normal sinus rhythm with first degree AV block at 60 beats per minute with premature atrial complexes and blocked premature atrial complexes, incomplete right bundle branch block, left anterior fascicular block without significant change compared to previous study of 2016. A 2D echocardiogram was read as technically difficult study. No comparison studies available. Normal LV chamber size with mild concentric LVH, normal LV systolic function, EF 60%-65%, no segmental left ventricular wall motion abnormalities are noted, grade 1 diastolic dysfunction, poorly visualized valvular structures without significant stenosis or regurgitation by Doppler. Normal RV systolic function with a poorly visualized chamber. IMPRESSION: 1. Dyspnea on exertion. 2. Diastolic dysfunction with normal left ventricular systolic function. 3. History of coronary artery disease. 4. Persistent hypoxemia. 5. Diabetes. RECOMMENDATIONS: It was my pleasure to see Mr. Ramirez in consultation today. From a cardiac standpoint, his LV systolic function is preserved without any wall motion abnormalities and given his ongoing dyspnea, I do believe an ischemic evaluation is warranted, so a dobutamine stress echocardiogram will be performed in the a.m. In the meantime, I would recommend evaluation of his pulmonary status as well and consideration may be given to rule out a possible pulmonary embolism. Otherwise, no medication changes will be made at this time.
[2018-11-06] MEDS ORDERED: OPTIRAY 320 125ml IV PRN (19:55)
--- NOTE | 2018-11-06 20:11 | CT Scan Report ---
CT ANGIOGRAM OF THE CHEST CLINICAL HISTORY: Dyspnea. COMPARISON STUDY: Chest x-ray dated 11/05/2018. TECHNIQUE: Following the IV administration of 120 cc of Optiray 320, CT angiogram of the chest was pe rformed from the upper abdomen to the thoracic inlet utilizing the pulmonary embolus protocol. Images are reviewed in the axial, sagittal, and coronal planes. 3-D MIPS images are created and assessed. I V contrast was administered without complication. A dose lowering technique was utilized adhering to the principles of ALARA. CT DOSE: 790.50 mGy.cm FINDINGS: Thyroid: Imaged portions of the thyroid gland are normal in size and attenuation. Thoracic aorta: There is advanced atherosclerotic calcification of the thoracic aorta, which is enma l in caliber and demonstrates standard 3-vessel arch anatomy. The thoracic aorta is not well opacifie d. Pulmonary vasculature: The pulmonary trunk is normal in caliber. There are no filling defects identif ied in main, lobar, or segmental pulmonary branches to suggest pulmonary embolus. Apparent irregular filling defects within segmental branches of the left upper lobe pulmonary artery (axial images #155 and #163) are likely artifactual. Heart: The heart is enlarged and without pericardial effusion. The coronary arteries are densely calc ified. Lungs and pleural spaces: Evaluation of the lung parenchyma is degraded by motion artifact. Dependent atelectasis is observed. No airspace consolidation or pleural effusion is identified. Mild diffuse p eribronchial thickening is noted. The trachea and central airways are clear. There is mild elevation of the right hemidiaphragm. Mediastinum: There is no mediastinal lymphadenopathy. Katie: Clear. Axillae: There is no axillary lymphadenopathy. Upper abdomen: Partially visualized upper abdominal viscera is within normal limits. Skeletal structures: The skeletal structures are osteopenic. Degenerative change is noted throughout the thoracic spine and in the shoulders. No lytic or blastic bony lesions are seen. IMPRESSION: 1. There is no evidence of acute pulmonary embolus in the main, lobar, or segmental pulmonary arterie s. 2. Small apparent filling defects within the left upper lobe pulmonary artery are likely artifactual. Trace chronic thrombus is considered less likely but could have a similar appearance. 3. Cardiomegaly. 4. There is no airspace consolidation or pleural effusion. 5. There is diffuse nonspecific peribronchial thickening. Clinical correlation will be required. 6. Additional findings as above. Electronically signed by: Fei Tovar M.D. 11/06/2018 8:09 PM
[2018-11-07] MEDS: PREGABALIN 75 MG CAP PO SCH (07:59)
[2018-11-07] MEDS: ALLOPURINOL 300 MG TAB PO SCH (08:00)
[2018-11-07] MEDS: CLOPIDOGREL BISULFATE 75 MG TAB PO SCH (08:00)
[2018-11-07] MEDS: ATORVASTATIN 40 MG TAB PO SCH (08:00)
[2018-11-07] MEDS: MULTIVITAMIN TAB PO SCH (08:01)
[2018-11-07] MEDS: ASPIRIN 81 MG ECTAB PO SCH (08:01)
[2018-11-07] MEDS ORDERED: DOBUTamine HCL 12.5 MG/ML 20 ML VIAL IV ONE (08:13)
[2018-11-07] MEDS ORDERED: ATROPINE SULFATE 0.1 MG/ML 10ML SYR IV ONE (08:13)
[2018-11-07] MEDS ORDERED: METOPROLOL TARTRATE 1 MG/ML VIAL IV ONE ×2 (08:13)
[2018-11-07] MEDS: METOPROLOL TARTRATE 25 MG TAB PO SCH (09:36)
[2018-11-07] MEDS: LISINOPRIL 10 MG TAB PO SCH (09:36)
[2018-11-07] MEDS: INSULIN GLARGINE SOLOSTAR 100 UNITS/ML 3 ML PEN SC SCH (09:37)
[2018-11-07] MEDS: INSULIN ASPART 100 UNITS/ML 3 ML PEN SC SCH ×2 (09:38→12:44)
[2018-11-07 10:45] LABS: BUN Creatinine Ratio 18.9 (10-20); Calcium 9.4 mg/dl (8.5-10.1); Creatinine Clr Calc Pharmacy 71.8 ml/min; Est GFR (African American) 83.7; Est GFR (Non-African American) 72.2; Potassium 3.7 mmol/L (3.5-5.1)
--- NOTE | 2018-11-07 10:48 | Discharge Summary ---
Date of Service November 07, 2018 Admission HPI Per Admitting Provider Pt is 72 y/o M with PMH CAD s/p MARAH to circumflex in 2006, HTN, dyslipidemia, GERD, gout, DM II, JENNIFER not using CPAP presented to ER from PCP office for shortness of breath. Patient was at PCP office for well visit and was noted to be short of breath after walking in clinic. Patient was placed on 2 L nasal cannula oxygen and given 3 baby aspirin. Patient reports that he has some chronic shortness of breath on exertion however reports "I do not really notice it" and states is able to go outside to feed his chickens and carry 5 gallon water jug. Patient's daughter reports that she notices when he walks across the yard to her house that he is short of breath. Patient denies any chest pain. He reports that at the end of the day will have some mild swelling of ankles which improves with elevating feet. Reports HCTZ seems to control ankle edema and he hasn't noticed worsening LE edema. Patient denies any orthopnea or PND. He reports he often falls asleep in his recliner chair. He states over the past 3 months has gained 7 pounds. Admits to eating moderate amount of sodium in diet. Patient follows with Dr. Chandler cardiology in [place]. denies fever/chills, diaphoresis, N/V/D/C, ESQUIVEL, dizziness, syncope, vision changes, neck pain, palpitations, cough, sore throat, choking, otalgia, rhinorrhea, abdominal pain, paresthesias, weakness, extremity weakness, rashes, urinary symptoms. History nuclear stress test 05/2017: No evidence induced ischemia, normal wall motion, EF: 62% History echo 2016: EF 55%, normal wall motion, borderline LVH, aortic and mitral sclerotic changes, trace-mild mitral, tricuspid and pulmonary insufficiency Admission Exam Per Admitting Provider General: no acute distress, obese Head: normocephalic, atraumatic Eyes: PERRL, EOM's intact, conjunctiva non-injected, anicteric ENT: normal inspection external ears, nose, mucous membranes moist Neck: supple, trachea midline Lungs: clear, no respiratory distress, no wheezing/rhonchi/rales CV: RRR, no murmur, no JVD, trace pretibial edema Abd: normal BS, protuberant, soft, non-tender Ext: no cyanosis, no calf tenderness Neuro: A&O x 3, no focal deficits noted, normal affect Skin: warm, dry Principal Diagnosis Acute diastolic heart failure exacerbation JENNIFER with CPAP noncompliance Discharge Data Allergies Allergy/AdvReac Type Severity Reaction Status Date / Time No Known Allergies Allergy Unverified 11/05/18 14:32 Consultations 11/05/18 14:22 ED Decision to Admit Stat 11/05/18 16:23 Consult Case Management - Discharge Planning Routine 11/06/18 11:32 Consult Cardiology Routine Ordered Studies 11/06/18 17:59 CT angio chest PE protocol Stat Hospital Course (1) Acute exacerbation of CHF (congestive heart failure): He was admitted to the hospitalist service and started on IV Lasix with good response. Breathing improved overnight. Cardiology was consulted and after serial troponin was negative for active ischemia, he underwent a dobutamine stress echocardiogram. This revealed no arrhythmias with a normal heart rate and blood pressure response to dobutamine infusion. Symptoms were not reproduced at target heart rate. Overall the dobutamine stress echocardiogram was nonischemic. Pulmonary embolus was also considered as a cause of his shortness of breath and a chest CT with contrast was performed but this was negative for blood clot. Small filling defects were the found in the left upper lobe but this was thought to be artifactual. The patient improved from a symptom standpoint and was not hypoxic. At time of discharge a [id number]-ro-izrw examination was performed revealing a hemodynamically stable and afebrile patient in no acute distress. He was mentating ambulating at baseline and tolerating p.o. Physical exam revealed a 3/6 systolic ejection murmur. Otherwise, he was euvolemic with S1-S2 heard on exam. Lungs were clear to auscultation. There was no evidence of peripheral edema. He was discharged in stable condition with close primary care follow-up recommended. (2) CAD (coronary artery disease): (3) Diabetes mellitus, type II: (4) HTN (hypertension): (5) JENNIFER (obstructive sleep apnea): Total Time Total Time Spent Total Time Spent (In Minutes): 60 Total Time Includes: Examination of the Patient, Discharge Planning, Medication Reconciliation and Communication With Other Providers Discharge Plan Discharge Items Patient Disposition: Home - Self-Care Reason For Visit: FLUID OVERLOAD Discharge Diagnosis: Acute diastolic heart failure exacerbation JENNIFER with CPAP noncompliance Condition: Good Discharge Goals: Improve disease control Activity: Resume your previous activity Non-emergency contact: Primary Care Provider and Se[employer]er Call non-emergency contact if: you have any medication questions, your symptoms worsen, your pain is not controlled, your pain is worsening, your pain is unusual for you, your pain is concerning for you and you have a fever Follow-up/Referrals: Cristian Nixon MD [Primary Care Provider] - Diet: Carb Consistent or DM2 and Low Sodium (2gm) Addtl Provider Instructions: Please take all medications as instructed on discharge list below. It is recommended that you follow-up with Dr. Chandler in Cardiology in one week. You have the following appointments scheduled: PRIMARY CARE 11/13/2018 1:00 PM Cristian Nixon MD Internal Medicine [facility] DERMATOLOGY: 12/03/2018 8:40 AM Dayan Deluna PA-C Dermatology [facility] After starting on FUROSEMIDE, you will need non-fasting bloodwork in one week. This can be ordered by your primary care physician. You will need to take POTAS SIUM CHLORIDE every day that you take FUROSEMIDE. HYDROCHLOROTHIAZIDE has been stopped. It was a pleasure taking care of you! Please call if you have any questions or problems. You can reach a [facility] hospitalist on duty at [facility] 24 hours a day by calling [phone]. Take care of yourself. Ema Elliott, [facility] Hospitalist Prescriptions: New furosemide 20 mg tablet 20 mg PO DAILY Qty: 30 RF: 0 potassium chloride 10 mEq capsule, extended release 10 meq PO DAILY Qty: 30 RF: 0 Continued multivitamin Tablet 1 tab PO DAILY RF: 0 atorvastatin 40 mg tablet 40 mg PO DAILY RF: 0 clopidogrel 75 mg tablet 75 mg PO DAILY RF: 0 aspirin [Aspirin Low Dose] 81 mg Tablet,Delayed Release (Dr/Ec) 81 mg PO DAILY RF: 0 ranitidine HCl 150 mg tablet 150 mg PO BID RF: 0 lisinopril 10 mg tablet 10 mg PO BID RF: 0 glimepiride 4 mg tablet 4 mg PO DAILY RF: 0 allopurinol 300 mg tablet 300 mg PO DAILY RF: 0 metoprolol tartrate 25 mg tablet 25 mg PO BID RF: 0 pregabalin [Lyrica] 75 mg Capsule 75 mg PO TID RF: 0 Discontinued hydrochlorothiazide 25 mg tablet 25 mg PO DAILY RF: 0 Stand-Alone Forms: [facility] Discharge Orders: Discharge Order (Routine); Ordered 11/07/18 Ordered By: Ema Elliott Admission Data Admit Date/Time: 11/05/18 15:34 Attending Provider: Ema Elliott Admit Provider: Lc Hairston Primary Care Provider: Cristian Nixon Other Providers: Aldair Blue Wilkerson Service: Telemetry Medical Other Interventions: Discharge Summary Assessment (RN) Last Done: 11/07/18 11:12 DC Date/Time DO NOT enter until pt leaves facility: 11/07/18 12:39
--- NOTE | 2018-11-07 11:19 | Cardiology Progress Note ---
Date of Service November 07, 2018 Assessment & Plan (1) Acute exacerbation of CHF (congestive heart failure): diuresed approx 2L since admission possible cause of dyspnea symptoms improved would d/c home on lasix 20mg po daily with f/u with primary survey research center director within one week ok to d/c to home from cardiac standpoint (2) SOB (shortness of breath): improved with diuresis stress test nonischemic (3) CAD (coronary artery disease): stable with nonischemic stress test I would question the continuation of asa and plavix combination at this time, will defer to primary survey research center director Subjective Pt seen and examined, states that he felt well overnight. States breathing "seems ok today". No chest discomfort overnight. Denies palpitations, lightheadedness or dizziness. tele reviewed: sinus rhythm without arrhythmia or significant ectopy. Review of Systems Review of Systems: All systems reviewed & are unremarkable except as noted in HPI & below Physical Exam Physical Exam: General: Awake, alert and oriented x 3. No acute distress. HEENT: Normocephalic, atraumatic. Pupils equal, round and reactive to light and accommodation. Extraocular muscles are intact. Anicteric sclera. Moist mucous membranes. Neck: No JVD. No bruit. Cardiovascular: Regular. Positive S-4. Normal S-1 and S-2. No S-3. 3/6 holosystolic ejection murmur, left sternal border, mid-clavicular line with radi ation to the axilla. No rubs. Pulmonary: Clear to auscultation bilaterally. No rales, rhonchi, or wheezing. Abdomen: Bowel sounds x 4, soft. No rebound, guarding or tenderness. No organomegaly. Extremities: No clubbing, cyanosis or edema. +2 pedal pulses bilaterally. Skin: Warm and dry. Results & Data Vital Signs (Past 12 Hours) Vital Signs Temp Pulse Pulse Resp BP Pulse Ox 11/07/18 09:35 78 111/70 11/07/18 07:30 56 L 11/07/18 06:42 36.5 C 58 L 18 125/73 90 11/07/18 03:21 36.9 C 60 20 119/67 90 11/07/18 00:15 61 11/06/18 23:21 36.4 C L 59 L 21 148/87 H 97
--- NOTE | 2018-11-10 16:37 | Coding Query ---
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 Please assist us with the following questions. A diagnosis of Congestive Heart Failure is documented in the patient's medical record. To accurately code this diagnosis and to compare patient severity, we ask that you specify the type of heart failure by placing an X within the parenthesis (x). SYSTOLIC HEART FAILURE ( ) Acute ( ) Chronic ( ) Acute on Chronic ( ) Rheumatic ( ) Unknown DIASTOLIC HEART FAILURE (x) Acute ( ) Chronic ( ) Acute on Chronic ( ) Rheumatic ( ) Unknown COMBINED SYSTOLIC AND DIASTOLIC HEART FAILURE ( ) Acute ( ) Chronic ( ) Acute on Chronic ( ) Rheumatic ( ) Unknown Was the CHF Present On Admission? Please check the appropriate box: (x ) Present on Admission ( ) Not Present On Admission ( ) Clinically undetermined Thank you Bernardo BONILLA
== END 2018-11-07 12:39 | disposition home or self-care (01) | DRG 291 ==
LOC: ED 12:49 → 2W 15:34

== ENCOUNTER 2020-02-21 15:31 | Inpatient (IN) ==
--- NOTE | 2020-02-21 16:23 | Emergency Department Note ---
Impression & Plan Hypoxia, Pneumonia, Acute hyponatremia ED Provider Note NAME: VA CHAVIRA AGE: 74 SEX: M : 1945 ARRIVES VIA: Walk-In INFORMANT: Patient ED PROVIDER(S): James Sanders DO CHIEF COMPLAINT: Cough, chills, shortness of breath and pleuritic left-sided chest pain along with a runny nose HPI: Patient is a 74-year-old male who presents to the ER for chills associated with a cough. Symptoms started in the past 24 hours. He started with a dry cough yesterday and a mild headache. He has had chills. He has a left-sided pleuritic chest pain. Pain is only present when he takes a deep breath. He admits to some shortness of breath. No belly pain, nausea, vomiting or diarrhea. No dysuria, urgency or frequency. No exposure to anyone that is been sick. No exposure to anyone with coronavirus that he is aware of. He was in [place] for a fair amount of time. Denies any other complaints at this time. No history of asthma or COPD. He does have a history of CHF. ROS: See above HPI for pertinent positives & negatives. A total of 10 systems reviewed and were otherwise negative. PAST MEDICAL HISTORY:See Below PAST SURGICAL HISTORY:See Below FAMILY HISTORY:See Below SOCIAL HISTORY:See Below HOME MEDICATIONS:See Below ALLERGIES:See Below VITALS:See Below PHYSICAL EXAMINATION: GENERAL: Sitting up in bed, alert, slightly ill-appearing, diaphoretic EYE EXAM: normal conjunctiva. OROPHARYNX: dry mucus membranes NECK: supple, no nuchal rigidity, no adenopathy, non-tender LUNGS: Clear to auscultation. Normal chest wall mechanics HEART: no murmurs, S1 normal and S2 normal ABDOMEN: abdomen soft, non-tender, normo-active bowel sounds, no masses, no rebound or guarding. BACK: Back is symmetrical on inspection and there is no deformity, no midline tenderness, no CVA tenderness. SKIN: no rashes and no bruising UPPER EXTREMITIES: upper extremities are grossly normal. LOWER EXTREMITIES: No pitting edema. Calves are equal bilateral NEURO EXAM: Normal sensorium, cranial nerves II-XII grossly intact, normal speech, no gross weakness of arms, no gross weakness of legs. MEDICAL DECISION MAKING: Patient is a 74-year-old male who presents the ER for upper respiratory symptoms. Upon arrival he is found to be slightly hypoxic to 87% on room air. Placed on 2 L nasal cannula. IV was established blood work was obtained. He was tachypneic and slightly diaphoretic. Labs show leukocytosis of 15,000. No significant anemia. INR unremarkable. BMP with mild hyponatremia. T bili slightly elevated 2.8. Troponin was negative. Lipase unremarkable. Covid was negative. I did CT his chest to further investigate this if he had diffuse patchy infiltrates. CT shows a focal infiltrate which does not appear to be consistent with coronavirus. Patient was given IV fluids IV Rocephin and oral azithromycin. He was updated bedside. Discussed with the hospitalist and admitted for pneumonia with hypoxia. Triage Nursing notes reviewed. Prior medical records reviewed Vital Signs: reviewed and remarkable for HTN and Tachy Differential diagnosis: Differential diagnosis: Etiologies such as viral syndrome, otitis, pharyngitis, pneumonia, influenza, meningitis, urinary tract infection, sepsis, bacteremia, as well as others were entertained. ER treatment provided: See below Diagnostics interpreted by me: ECG: Sinus rhythm rate of 95 Left axis No PVCs Poor baseline QTC 449 Cardiac Monitoring: An order was placed for continuous cardiac monitoring. The monitor shows a rate of 110 with sinus rhythm. Laboratory studies: As stated above and show below. Imaging studies: Chest x-ray shows left focal infiltrate CT angio of the chest shows focal left mid upper lobe infiltrate Consultation(s): Discussed with the hospitalist for further evaluation ED COURSE: Procedures: none Critical Care: I have personally spent 40 minutes of critical care time in the direct management of this patient. This includes bedside care, interpretation of diagnostic studies, and testing, discussion with consultants, patient, and family members, and other required patient management activities. This 40 minutes is in excess of all separately billable procedures. Past Med/Surg History Medical History (Updated 02/21/20 @ 18:30 by James Sanders DO) CAD (coronary artery disease) Cardiac murmur Chest pain recent episode of intermittent chest pain while at rest 2-3 days ago. reports similar episode 3 weeks ago. did not report to hospital or call PCP, cardio. advised to notify pcp, cardio of symptoms. Confusion reports recently woke up with confusion, memory loss x 1 week ago. describes sitting on recliner and then "blacking out" - woke up not able to recall time, location, events of day. did not notify PCP or go to hospital. advised to notify pcp Diabetes mellitus, type 2 NIDDM Dyslipidemia Gout Herniated intervertebral disc [place] (hard of hearing) HTN (hypertension) Neuropathy Neuropathy JENNIFER (obstructive sleep apnea) does not tolerate CPAP/BiPAP Osteoarthritis Surgical History H/O heart artery stent x 1 (2006) - Follows w/ Dr. Chandler History of amputation of left thumb History of cardiac catheterization 2014 - [facility] - no stents 10/28/06 - [facility] to circumflex, marginal at [facility], Dr Hagan History of colonoscopy History of right cataract surgery Family History Brother Coronary heart disease Lung cancer Mother Family history of diabetes mellitus Other Hypertension Social History (Updated 11/05/18 @ 15:47 by Jaz Duque PA-C) Smoking Status: Former smoker Cigarettes Per Day: Quit 1985, smoked 2ppd x 25 years; Second Hand Exposure: No; Hx Alcohol Use: Yes Alcohol type: beer and wine Hx Substance Use: No Preferred Language: [place]an Communication Ability: Effective 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 Required: No Beliefs That Will Affect Care: None marital status: / Current Living Situation: Alone current occupational status: retired Feels Safe at Home: Yes Assistive Devices: Cane, Denture - Upper, Denture - Lower and Glasses Allergies Allergies Allergy/AdvReac Type Severity Reaction Status Date / Time No Known Allergies Allergy Verified 02/21/20 20:05 Home Meds Home Medications Medication Instructions Recorded Confirmed allopurinol 300 mg PO QAM 11/05/18 02/21/20 aspirin [Aspirin Low Dose] 81 mg PO QAM 11/05/18 02/21/20 clopidogrel 75 mg PO QAM 11/05/18 02/21/20 glimepiride 8 mg PO QAM 11/05/18 02/21/20 lisinopril 10 mg PO BID 11/05/18 02/21/20 metoprolol tartrate 25 mg PO BID 11/05/18 02/21/20 multivitamin 1 tab PO QAM 11/05/18 02/21/20 albuterol sulfate 2 puff INHALATION QID PRN 02/21/20 02/21/20 dulaglutide [Trulicity] 0.75 mg SUBCUT WK 02/21/20 02/21/20 famotidine 20 mg PO BID 02/21/20 02/21/20 hydrochlorothiazide 12.5 mg PO DAILY 02/21/20 02/21/20 insulin degludec [Tresiba 22 unit SUBCUT .WITH RABIA MEAL 02/21/20 02/21/20 FlexTouch U-100] pantoprazole 40 mg PO QAM 02/21/20 02/21/20 pregabalin 100 mg PO TID 02/21/20 02/21/20 rosuvastatin 10 mg PO DAILY 02/21/20 02/21/20 Results & Data (ED) Vital Signs Vital Signs - 24 hr 02/21/20 15:46 02/21/20 15:53 02/21/20 16:00 Temperature Temperature Source Pulse Rate 96 H Pulse Rate from SpO2 Sensor Respiratory Rate 18 Respiratory Effort / Characteristics Non-Labored Non-Labored Spontaneous Respiratory Depth Normal Normal Respiratory Pattern Regular Blood Pressure 147/76 H Blood Pressure Mean 99 Pulse Oximetry 93 93 Oxygen Delivery Method Room Air Room Air Oxygen Flow Rate Sepsis Recent Fever Within 48 Hours No Sepsis New/Unexplained Change in Mental Status No Sepsis Action Taken by Nursing No Action Required 02/21/20 16:20 02/21/20 16:26 02/21/20 16:27 Temperature 37.2 C Temperature Source Oral Pulse Rate Pulse Rate from SpO2 Sensor Respiratory Rate Respiratory Effort / Characteristics Respiratory Depth Respiratory Pattern Blood Pressure Blood Pressure Mean Pulse Oximetry 87 L 93 Oxygen Delivery Method Room Air Nasal Cannula Oxygen Flow Rate 2 Sepsis Recent Fever Within 48 Hours Sepsis New/Unexplained Change in Mental Status Sepsis Action Taken by Nursing 02/21/20 16:36 02/21/20 16:38 02/21/20 17:00 Temperature Temperature Source Pulse Rate 95 H 93 H 93 H Pulse Rate from SpO2 Sensor 95 H 90 93 H Respiratory Rate 28 H 30 H 32 H Respiratory Effort / Characteristics Respiratory Depth Respiratory Pattern Blood Pressure 147/86 H 146/80 H Blood Pressure Mean 110 103 Pulse Oximetry 93 93 95 Oxygen Delivery Method Nasal Cannula Nasal Cannula Nasal Cannula Oxygen Flow Rate 3 3 3 Sepsis Recent Fever Within 48 Hours Sepsis New/Unexplained Change in Mental Status Sepsis Action Taken by Nursing 02/21/20 17:30 02/21/20 18:00 02/21/20 18:30 Temperature Temperature Source Pulse Rate 92 H 94 H 93 H Pulse Rate from SpO2 Sensor 90 95 H 93 H Respiratory Rate 27 H 33 H 31 H Respiratory Effort / Characteristics Respiratory Depth Respiratory Pattern Blood Pressure 171/97 H 164/93 H 152/83 H Blood Pressure Mean 104 111 104 Pulse Oximetry 95 95 96 Oxygen Delivery Method Nasal Cannula Nasal Cannula Nasal Cannula Oxygen Flow Rate 3 3 2 Sepsis Recent Fever Within 48 Hours Sepsis New/Unexplained Change in Mental Status Sepsis Action Taken by Nursing 02/21/20 19:00 02/21/20 19:01 02/21/20 19:30 Temperature Temperature Source Pulse Rate 92 H 94 H 92 H Pulse Rate from SpO2 Sensor 92 H 93 H 85 Respiratory Rate 29 H 24 27 H Respiratory Effort / Characteristics Respiratory Depth Respiratory Pattern Blood Pressure 124/78 Blood Pressure Mean 94 Pulse Oximetry 96 97 95 Oxygen Delivery Method Nasal Cannula Nasal Cannula Nasal Cannula Oxygen Flow Rate 2 2 2 Sepsis Recent Fever Within 48 Hours Sepsis New/Unexplained Change in Mental Status Sepsis Action Taken by Nursing Laboratory Data Result diagrams: 02/21/20 16:40 02/21/20 16:40 Lab Results 02/21/20 02/21/20 02/21/20 Range/Units 16:30 16:30 16:40 WBC 15.45 H (4.8-10.8) K/uL RBC 4.95 (4.7-6.1) M/uL Hgb 15.7 (14.0-18.0) g/dL Hct 44.1 (42-52) % MCV 89.1 (80-100) fL MCH 31.7 (25-34) pg MCHC 35.6 (32-36) g/dL RDW Std Deviation 45.0 (36.4-46.3) fL RDW Coeff of Sheri 13.6 (11.5-14.5) % Plt Count 238 (130-400) K/uL MPV 9.9 (7.4-10.4) fL Immature Gran % (Auto) 0.3 % Neut % (Auto) 74.8 % Lymph % (Auto) 11.5 % [place] % (Auto) 13.2 % Eos % (Auto) 0.1 % Baso % (Auto) 0.1 % Neut # (Auto) 11.54 H (1.4-6.5) K/uL Lymph # (Auto) 1.78 (1.2-3.4) K/uL [place] # (Auto) 2.04 H (0.11-0.59) K/uL Eos # (Auto) 0.02 (0-0.5) K/uL Baso # (Auto) 0.02 (0-0.2) K/uL Immature Gran # (Auto) 0.05 H (0.00-0.02) K/uL PT (9.0-12.0) Seconds INR (0.9-1.1) APTT (21.0-31.0) Seconds PTT Ratio Sodium (136-145) mmol/L Potassium (3.5-5.1) mmol/L Chloride (98-107) mmol/L Carbon Dioxide (21-32) mmol/L Anion Gap (3-11) BUN (7-18) mg/dl Creatinine (0.6-1.4) mg/dl Est Cr Clr Drug Dosing ml/min Est GFR ( Amer) Est GFR (Non-Af Amer) BUN/Creatinine Ratio (10-20) Glucose (70-99) mg/dl Lactate (0.4-2.0) mmol/L Calcium (8.5-10.1) mg/dl Total Bilirubin (0.2-1) mg/dl AST (15-37) U/L ALT (12-78) U/L Alkaline Phosphatase (45-117) U/L Troponin I (0-0.045) ng/ml Total Protein (6.4-8.2) gm/dl Albumin (3.4-5.0) gm/dl Globulin (2.5-4.0) gm/dl Albumin/Globulin Ratio (0.9-2) Lipase (73-393) U/L COVID-19 Eval [facility] [place]-CoV[place]2, RNA, NAAT NEGATIVE (NEGATIVE) 02/21/20 02/21/20 02/21/20 Range/Units 16:40 16:40 19:32 WBC (4.8-10.8) K/uL RBC (4.7-6.1) M/uL Hgb (14.0-18.0) g/dL Hct (42-52) % MCV (80-100) fL MCH (25-34) pg MCHC (32-36) g/dL RDW Std Deviation (36.4-46.3) fL RDW Coeff of Sheri (11.5-14.5) % Plt Count (130-400) K/uL MPV (7.4-10.4) fL Immature Gran % (Auto) % Neut % (Auto) % Lymph % (Auto) % [place] % (Auto) % Eos % (Auto) % Baso % (Auto) % Neut # (Auto) (1.4-6.5) K/uL Lymph # (Auto) (1.2-3.4) K/uL [place] # (Auto) (0.11-0.59) K/uL Eos # (Auto) (0-0.5) K/uL Baso # (Auto) (0-0.2) K/uL Immature Gran # (Auto) (0.00-0.02) K/uL PT 11.8 (9.0-12.0) Seconds INR 1.1 (0.9-1.1) APTT 32.7 H (21.0-31.0) Seconds PTT Ratio 1.2 Sodium 133 L (136-145) mmol/L Potassium 3.6 (3.5-5.1) mmol/L Chloride 100 (98-107) mmol/L Carbon Dioxide 25 (21-32) mmol/L Anion Gap 8.0 (3-11) BUN 16 (7-18) mg/dl Creatinine 0.98 (0.6-1.4) mg/dl Est Cr Clr Drug Dosing 73.6 ml/min Est GFR ( Amer) 87.7 Est GFR (Non-Af Amer) 75.6 BUN/Creatinine Ratio 15.9 (10-20) Glucose 137 H (70-99) mg/dl Lactate 1.1 (0.4-2.0) mmol/L Calcium 9.2 (8.5-10.1) mg/dl Total Bilirubin 2.8 H (0.2-1) mg/dl AST 27 (15-37) U/L ALT 32 (12-78) U/L Alkaline Phosphatase 62 (45-117) U/L Troponin I < 0.015 (0-0.045) ng/ml Total Protein 8.3 H (6.4-8.2) gm/dl Albumin 3.5 (3.4-5.0) gm/dl Globulin 4.8 H (2.5-4.0) gm/dl Albumin/Globulin Ratio 0.7 L (0.9-2) Lipase 202 (73-393) U/L COVID-19 Eval Order SARS-CoV-2, RNA, NAAT (NEGATIVE) Administered Medications Discontinued Medications Azithromycin (Azithromycin 250 Mg Tab) 500 mg PO NOW ONE Stop: 02/21/20 17:55 Last Admin: 02/21/20 18:24 Dose: 500 mg Documented by: [id number] Ceftriaxone Sodium (Rocephin) 1,000 mg in 50 mls @ 100 mls/hr IV NOW STA Stop: 02/21/20 18:23 Last Infusion: 02/21/20 18:55 Dose: 0 mls/hr Documented by: [id number] Admin: 02/21/20 18:25 Dose: 100 mls/hr Documented by: [id number] Ioversol (Optiray 320 125ml) 119 ml IV ONCE ONE Stop: 02/21/20 17:50 Last Admin: 02/21/20 17:50 Dose: 119 ml Documented by: [id number] Discharge Plan Visit Data Chief Complaint: Shortness of Breath/Dyspnea Stated Complaint: SOB/WEAK/HEADACHE/CHILLS ED Provider: James Sanders Discharge Problem: Hypoxia, Pneumonia, Acute hyponatremia Forms Stand Alone Forms: [facility] Prescriptions Prescriptions: No Action multivitamin Tablet 1 tab PO QAM RF: 0 clopidogrel 75 mg tablet 75 mg PO QAM RF: 0 aspirin [Aspirin Low Dose] 81 mg Tablet,Delayed Release (Dr/Ec) 81 mg PO QAM RF: 0 lisinopril 10 mg tablet 10 mg PO BID RF: 0 glimepiride 4 mg tablet 8 mg PO QAM RF: 0 allopurinol 300 mg tablet 300 mg PO QAM RF: 0 metoprolol tartrate 25 mg tablet 25 mg PO BID RF: 0 famotidine 20 mg tablet 20 mg PO BID RF: 0 rosuvastatin 10 mg tablet 10 mg PO DAILY RF: 0 pantoprazole 40 mg tablet,delayed release (DR/EC) 40 mg PO QAM RF: 0 pregabalin 100 mg capsule 100 mg PO TID RF: 0 hydrochlorothiazide 12.5 mg capsule 12.5 mg PO DAILY RF: 0 Trulicity 0.75 mg/0.5 mL pen injector 0.75 mg SUBCUT WK RF: 0 Tresiba FlexTouch U-100 100 unit/mL (3 mL) insulin pen 22 unit SUBCUT .WITH RABIA MEAL RF: 0 albuterol sulfate 90 mcg/actuation Hfa Aerosol Inhaler 2 puff INHALATION QID PRN (Reason: Shortness Of Breath Or Wheezing) RF: 0 Discharge Problem: Pneumonia Qualifiers: Pneumonia type: due to unspecified organism Laterality: unspecified laterality Lung location: unspecified part of lung Qualified Code(s): J18.9 - Pneumonia, unspecified organism
[2020-02-21 16:51] LABS: Basophils # (auto) 0.02 K/uL (0-0.2); Basophils % (auto) 0.1 %; Eosinophils # (auto) 0.02 K/uL (0-0.5); Eosinophils % (auto) 0.1 %; Hematocrit (blood only) 44.1 % (42-52); Hemoglobin 15.7 g/dL (14.0-18.0); Immature Granulocytes # (auto) 0.05 K/uL (0.00-0.02); Immature Granulocytes % (auto) 0.3 %; Lymphocytes # (auto) 1.78 K/uL (1.2-3.4); Lymphocytes % (auto) 11.5 %; Mean Corpuscular Hemoglobin 31.7 pg (25-34); Mean Corpuscular Hgb Conc 35.6 g/dL (32-36); Mean Corpuscular Volume 89.1 fL (80-100); Mean Platelet Volume 9.9 fL (7.4-10.4); Monocytes # (auto) 2.04 K/uL (0.11-0.59); Monocytes % (auto) 13.2 %; Neutrophils # (auto) 11.54 K/uL (1.4-6.5); Neutrophils % (auto) 74.8 %; Platelet Count 238 K/uL (130-400); RDW Coefficient of Variation 13.6 % (11.5-14.5); Red Blood Count 4.95 M/uL (4.7-6.1); White Blood Count 15.45 K/uL (4.8-10.8)
[2020-02-21 17:04] LABS: INR 1.1 (0.9-1.1); Partial Thromboplastin Ratio 1.2; Partial Thromboplastin Time 32.7 Seconds (21.0-31.0); Prothrombin Time 11.8 Seconds (9.0-12.0)
--- NOTE | 2020-02-21 17:08 | XRay Report ---
XR chest 1V portable CLINICAL HISTORY: Atypical chest pain COMPARISON STUDY: 11/05/2018 FINDINGS: The heart is mildly enlarged. There are subtle left mid to upper lung zone airspace opacity suspicious for a pneumonia. There is no overt failure. There are no pleural effusions.[ IMPRESSION: 1. Left lung airspace opacity suspicious for pneumonia. Clinical and radiographic follow-up is recomm ended. ACT 112: Negative or not required by law. Electronically signed by: Jose Dias M.D. 02/21/2020 5:07 PM
[2020-02-21 17:09] LABS: Alanine Aminotransferase 32 U/L (12-78); Albumin Level 3.5 gm/dl (3.4-5.0); Aspartate Aminotransferase 27 U/L (15-37); BUN Creatinine Ratio 15.9 (10-20); Blood Urea Nitrogen 16 mg/dl (7-18); Calcium 9.2 mg/dl (8.5-10.1); Carbon Dioxide 25 mmol/L (21-32); Chloride 100 mmol/L (98-107); Creatinine Clr Calc Pharmacy 73.6 ml/min; Est GFR (African American) 87.7; Est GFR (Non-African American) 75.6; Glucose 137 mg/dl (70-99); Lipase 202 U/L (73-393); Potassium 3.6 mmol/L (3.5-5.1); Sodium 133 mmol/L (136-145)
[2020-02-21 17:14] LABS: Albumin Globulin Ratio 0.7 (0.9-2); Alkaline Phosphatase 62 U/L (45-117); Bilirubin,Total 2.8 mg/dl (0.2-1); Globulin 4.8 gm/dl (2.5-4.0); Total Protein 8.3 gm/dl (6.4-8.2); Troponin I < 0.015 ng/ml (0-0.045)
[2020-02-21] MEDS ORDERED: OPTIRAY 320 125ml IV ONE (17:49)
[2020-02-21] MEDS ORDERED: cefTRIAXone SODIUM 1,000 MG/50 ML BAG IV STA (17:54)
[2020-02-21] MEDS ORDERED: AZITHROMYCIN 250 MG TAB PO ONE (17:54)
--- NOTE | 2020-02-21 18:06 | CT Scan Report ---
CT ANGIOGRAM OF THE CHEST CLINICAL HISTORY: Atypical chest pain. Upper respiratory symptoms. Recent travel history. COMPARISON STUDY: 11/06/2018 TECHNIQUE: Following the IV administration of 119 mL of Optiray-320, CT angiogram of the thorax was p erformed from the thoracic inlet to the lung bases utilizing the pulmonary embolus protocol. Images a re reviewed in the axial, sagittal, and coronal planes. IV contrast was administered without complica tion. MIP imaging was performed. A dose lowering technique was utilized adhering to the principles o f ALARA. CT DOSE: 692.76 mGy.cm FINDINGS: There are minimally enlarged mediastinal and hilar lymph nodes, likely reactive. There was no evidence of thoracic aortic dilatation. There were no pulmonary artery filling defects to indicate acute pulmonary embolism. No pleural effusions are visualized. There is ground glass pulmonary consolidation with the left upper lobe indicative of a pneumonia. The re are dependent airspace opacities within the right lower lobe, likely atelectatic. There is suspected hepatic steatosis. There is probable splenomegaly. There are coronary artery calcifications. IMPRESSION: 1. No evidence of acute pulmonary embolism 2. Left upper lobe airspace opacities consistent with pneumonia. Films subsequent to treatment are re commended in follow-up 3. Mild mediastinal and hilar adenopathy, likely reactive 4. Hepatic steatosis and suspected splenomegaly ACT 112: Negative or not required by law. Electronically signed by: Jose Dias M.D. 02/21/2020 6:05 PM
--- NOTE | 2020-02-21 18:27 | History & Physical Report ---
Date of Service February 21, 2020 Assessment & Plan (1) Pneumonia: Community-acquired pneumonia Acute respiratory failure with Hypoxia -CTA: No evidence of acute pulmonary embolism. Left upper lobe airspace opacities consistent with pneumonia. Films subsequent to treatment are recommended in follow-up. Mild mediastinal and hilar adenopathy, likely reactive. Hepatic steatosis and suspected splenomegaly -Normal lactate, procalcitonin levels -Covid screen negative -Biofire:Negative Start broad spectrum IV Antibiotics-Zosyn, Doxy Oxygen support, Duonebs PRN Blood cultures obtained Aspiration precautions May need 2 step prior to DC IV fluids Hyponatremia Received IV fluids Monitor sodium levels Bilirubinemia Likely secondary to hepatic steatosis Monitor LFTs Mechanical fall Rib pain Obtain rib x-ray Incentive spirometry Fall precautions CAD S/P PCI Continue aspirin, Plavix, Lipitor, Metoprolol DM Type II: Will hold oral diabetic meds Last A1c:8.5 on 10/14/19 Patient unsure about home medications--please confirm with PCP as able Update HbA1C ISS, basal Insulin, Accu checks, Diabetic diet Monitor BGs Diastolic heart failure As per records Not on diuretics at home Currently no signs of decompensation GERD Continue PPI Dyslipidemia Continue lipitor Gout On Allopurinol Hypertension Continue lisinopril Hold HCTZ for now JENNIFER H/O intolerance to CPAP DVT Px: Lovenox SQ Code Status Full Code History of Present Illness Chief Complaint: Cough, shortness of breath, pleuritic chest Pain Primary Care Provider: Cristian Nixon MD Patient is a 74-year-old male with history of CAD S/P PCI, DM II, diastolic heart failure, GERD, dyslipidemia, gout, hypertension, JENNIFER and other medical problems presents with history of cough, shortness of breath, pleuritic left- sided chest pain, runny nose since yesterday. Patient admits to traveling to [place] recently but denies any sick contact. He states having left rib pain which increases with deep breathing, sharp in quality, 6/10 intensity, nonradiating, associated with shortness of breath. He states cough is nonproductive denies any hemoptysis. He admits to falling in bathtub today and was able to get up with assistance from his son. He denies any head trauma, loss of consciousness. Also states having dizziness this morning. CTA showed findings consistent with left upper lobe pneumonia and mediastinal/hilar adenopathy. Denies any history of palpitations, orthopnea, hemoptysis, fever, chills, head trauma, LOC, headache, change in vision, double/blurry vision, vertigo, slurred speech, facial deformity, nausea, vomiting, abdominal pain, diarrhea, dysuria, hematuria, recent change in medications . Allergies Allergy/AdvReac Type Severity Reaction Status Date / Time No Known Allergies Allergy Verified 02/21/20 20:05 Home Medications Medication Instructions Recorded Confirmed Type allopurinol 300 mg PO QAM 11/05/18 02/21/20 History aspirin [Aspirin Low Dose] 81 mg PO QAM 11/05/18 02/21/20 History clopidogrel 75 mg PO QAM 11/05/18 02/21/20 History glimepiride 8 mg PO QAM 11/05/18 02/21/20 History lisinopril 10 mg PO BID 11/05/18 02/21/20 History metoprolol tartrate 25 mg PO BID 11/05/18 02/21/20 History multivitamin 1 tab PO QAM 11/05/18 02/21/20 History albuterol sulfate 2 puff INHALATION QID PRN 02/21/20 02/21/20 History atorvastatin [Lipitor] 40 mg PO DAILY 02/21/20 02/21/20 History dulaglutide [Trulicity] 0.75 mg SUBCUT WK 02/21/20 02/21/20 History famotidine 20 mg PO BID 02/21/20 02/21/20 History hydrochlorothiazide 12.5 mg PO DAILY 02/21/20 02/21/20 History insulin degludec [Tresiba 22 unit SUBCUT .WITH RABIA MEAL 02/21/20 02/21/20 History FlexTouch U-100] pantoprazole 40 mg PO QAM 02/21/20 02/21/20 History pregabalin 100 mg PO TID 02/21/20 02/21/20 History Past Med/Surg History Medical History CAD (coronary artery disease) Cardiac murmur Chest pain recent episode of intermittent chest pain while at rest 2-3 days ago. reports similar episode 3 weeks ago. did not report to hospital or call PCP, cardio. advised to notify pcp, cardio of symptoms. Confusion reports recently woke up with confusion, memory loss x 1 week ago. describes sitting on recliner and then "blacking out" - woke up not able to recall time, location, events of day. did not notify PCP or go to hospital. advised to notify pcp Diabetes mellitus, type 2 NIDDM Dyslipidemia Gout Herniated intervertebral disc UPPER [place] (hard of hearing) HTN (hypertension) Neuropathy Neuropathy JENNIFER (obstructive sleep apnea) does not tolerate CPAP/BiPAP Osteoarthritis Surgical History H/O heart artery stent x 1 (2006) - Follows w/ Dr. Chandler History of amputation of left thumb History of cardiac catheterization [address] - [facility] - no stents 10/28/06 - [facility] to circumflex, marginal at [facility], Dr Hagan History of colonoscopy History of right cataract surgery Family History Brother Coronary heart disease Lung cancer Mother Family history of diabetes mellitus Other Hypertension Social History Smoking Status: Former smoker Cigarettes Per Day: Quit 1985, smoked 2ppd x 25 years; Second Hand Exposure: No; Hx Alcohol Use: Yes Alcohol type: beer and wine Hx Substance Use: No Preferred Language: Tristanian Communication Ability: Effective Restoration Ecologist Required: No Beliefs That Will Affect Care: None marital status: / Current Living Situation: Alone current occupational status: retired Feels Safe at Home: Yes Assistive Devices: Cane, Denture - Upper, Denture - Lower and Glasses Review of Systems Review of Systems: All systems reviewed & are unremarkable except as noted in HPI & below Physical Exam Physical Exam: Physical Exam: Vitals signs as noted above General Appearance:Moderately built and nourished, no apparent distress Head: normocephalic, Atraumatic Eyes: normal inspection, EOMI Neck: supple, Trachea midline Respiratory/Chest: Normal breath sounds, scattered wheezes, mild resp distress Cardiovascular: S1, S2, No murmur Abdomen/GI:Soft, Non tender, Bowel sounds present Extremities/Musculoskelatal:normal inspection, Trace B/L LE edema Neurologic/Psych:AAOX3, grossly no focal neurological deficits Skin: normal color, warm Results & Data Results & Data ([facility]) Vital Signs (Past 12 Hours) Vital Signs Temp Pulse Resp BP Pulse Ox 02/21/20 18:00 94 H 33 H 164/93 H 95 02/21/20 17:30 92 H 27 H 171/97 H 95 02/21/20 17:00 93 H 32 H 146/80 H 95 02/21/20 16:38 93 H 30 H 93 02/21/20 16:36 95 H 28 H 147/86 H 93 02/21/20 16:27 93 02/21/20 16:26 87 L 02/21/20 16:20 37.2 C 02/21/20 15:53 93 02/21/20 15:46 96 H 18 147/76 H 93 Laboratory Results Short CBC 02/21/20 Range/Units 16:40 WBC 15.45 H (4.8-10.8) K/uL Hgb 15.7 (14.0-18.0) g/dL Hct 44.1 (42-52) % Plt Count 238 (130-400) K/uL BMP 02/21/20 16:40 Sodium 133 L Potassium 3.6 Chloride 100 Carbon Dioxide 25 BUN 16 Creatinine 0.98 Glucose 137 H Calcium 9.2 Cardiac Enzymes 02/21/20 Range/Units 16:40 Troponin I < 0.015 (0-0.045) ng/ml Liver Function 02/21/20 Range/Units 16:40 Total Bilirubin 2.8 H (0.2-1) mg/dl AST 27 (15-37) U/L ALT 32 (12-78) U/L Alkaline Phosphatase 62 (45-117) U/L Albumin 3.5 (3.4-5.0) gm/dl Diagnostic Findings CTA: 1. No evidence of acute pulmonary embolism 2. Left upper lobe airspace opacities consistent with pneumonia. Films subsequent to treatment are recommended in follow-up 3. Mild mediastinal and hilar adenopathy, likely reactive 4. Hepatic steatosis and suspected splenomegaly ECG Additional Comments: EKG: Junctional rhythm, left axis deviation, QTC 449, incomplete right bundle branch block (1) Pneumonia Laterality: unspecified laterality Lung location: unspecified part of lung Pneumonia type: due to unspecified organism Qualified Code(s): J18.9 - Pneumonia, unspecified organism
[2020-02-21 20:42] LABS: Adenovirus PCR Not Detected (NotDetected); Bordetella parapertussis PCR Not Detected (NotDetected); Bordetella pertussis PCR Not Detected (NotDetected); Chlamydia pneumoniae PCR Not Detected (NotDetected); Coronavirus 229E PCR Not Detected (NotDetected); Coronavirus CoV-2 (COVID19)PCR Not Detected (NotDetected); Coronavirus HKU1 PCR Not Detected (NotDetected); Coronavirus NL63 PCR Not Detected (NotDetected); Coronavirus OC43PCR Not Detected (NotDetected); Human Metapneumovirus PCR Not Detected (NotDetected); Influenza A PCR Not Detected (NotDetected); Influenza B PCR Not Detected (NotDetected); Mycoplasma pneumoniae PCR Not Detected (NotDetected); Parainfluenza Virus 1 PCR Not Detected (NotDetected); Parainfluenza Virus 2 PCR Not Detected (NotDetected); Parainfluenza Virus 3 PCR Not Detected (NotDetected); Parainfluenza Virus 4 PCR Not Detected (NotDetected); Respiratory Syncytial VirusPCR Not Detected (NotDetected); Rhinovirus/Enterovirus PCR Not Detected (NotDetected)
[2020-02-21] MEDS ORDERED: ALBUTEROL HFA 8 GM INHALER INH PRN (20:42)
[2020-02-21] MEDS ORDERED: ACETAMINOPHEN 325 MG TAB PO PRN (21:50)
[2020-02-21] MEDS ORDERED: DEXTROSE 50% 50 ML SYRINGE IV PRN (21:50)
[2020-02-21] MEDS ORDERED: POLYETHYLENE (MIRALAX) 17 GM PACK PO PRN (21:50)
[2020-02-21] MEDS ORDERED: GLUCOSE 40% GEL 15 GM TUBE PO PRN (21:50)
[2020-02-21] MEDS ORDERED: GLUCOSE 10 TABS/TUBE PO PRN (21:50)
[2020-02-21] MEDS ORDERED: ONDANSETRON INJ 2 MG/ML 2 ML VIAL IV PRN (21:50)
[2020-02-21] MEDS ORDERED: CARBOHYDRATES FOR HYPOGLYCEMIA PO PRN (21:50)
[2020-02-21] MEDS ORDERED: GLUCAGON FOR INJ 1 MG VIAL SQ PRN (21:50)
[2020-02-21] MEDS ORDERED: PIPERACILL/TAZOBAC CONSULT ACTIVE PRN (22:04)
[2020-02-21] MEDS ORDERED: PIPERACILLIN/TAZOBACTAM 3.375 GM in DEXTROSE 5% 100 ML IV ONE (22:15)
[2020-02-21] MEDS ORDERED: NSS + 20MEQ KCL 20 MEQ/1,000 ML BAG IV ONE (22:15)
[2020-02-21] MEDS: METOPROLOL TARTRATE 25 MG TAB PO SCH (22:35)
[2020-02-21] MEDS: lisinopril 10 MG TAB PO SCH (22:35)
[2020-02-21] MEDS: DOXYCYCLINE HYCLATE 100 MG CAP PO SCH (22:36)
[2020-02-21] MEDS: FAMOTIDINE 20 MG TAB PO SCH (22:36)
[2020-02-21] MEDS: INSULIN GLARGINE SOLOSTAR 100 UNITS/ML 3 ML PEN SC SCH (22:40)
[2020-02-21] MEDS: INSULIN ASPART 100 UNITS/ML 3 ML PEN SC SCH (22:41)
[2020-02-21] MEDS: PREGABALIN 100 MG CAP PO SCH (22:43)
[2020-02-21] MEDS: ALBUT/IPRATROP 3MG/0.5MG NEB 3 ML VIAL NEB SCH (23:13)
[2020-02-22 02:54] LABS: Appearance Urine Clear (Clear); Bacteria Urine Automated Negative (Negative); Bilirubin Urine Negative (Negative); Blood Urine Negative (Negative); Cast Urine Automated 0 /lpf (0-5); Color Urine Dark Yellow; Epithelial Cell Urine Auto 0-5 /lpf (0-5); Glucose Urine UA 2+ (Negative); Ketones Urine Trace (Negative); Leukocyte Esterase Urine Negative (Negative); Nitrite Urine Negative (Negative); Protein Urine Trace (Negative); RBC Urine Automated 0-4 /hpf (0-4); Specific Gravity Urine 1.042 (1.000-1.030); Urobilinogen Urine Positive (Negative)
[2020-02-22] MEDS: ALBUT/IPRATROP 3MG/0.5MG NEB 3 ML VIAL NEB SCH ×2 (03:04→07:41)
[2020-02-22] MEDS: PIPERACILLIN/TAZOBACTAM 3.375 GM in DEXTROSE 5% 100 ML IV SCH ×2 (04:26→12:00)
[2020-02-22 06:44] LABS: Alanine Aminotransferase 29 U/L (12-78); Albumin Level 3.2 gm/dl (3.4-5.0); Aspartate Aminotransferase 22 U/L (15-37); BUN Creatinine Ratio 15.2 (10-20); Blood Urea Nitrogen 16 mg/dl (7-18); Calcium 8.7 mg/dl (8.5-10.1); Carbon Dioxide 31 mmol/L (21-32); Chloride 101 mmol/L (98-107); Creatinine Clr Calc Pharmacy 70.1 ml/min; Est GFR (African American) 83.5; Est GFR (Non-African American) 72.1; Glucose 184 mg/dl (70-99); Magnesium 2.3 mg/dl (1.8-2.4); Potassium 3.5 mmol/L (3.5-5.1); Sodium 135 mmol/L (136-145)
[2020-02-22 06:50] LABS: Albumin Globulin Ratio 0.7 (0.9-2); Alkaline Phosphatase 57 U/L (45-117); Bilirubin,Total 2.3 mg/dl (0.2-1); Globulin 4.5 gm/dl (2.5-4.0); Total Protein 7.7 gm/dl (6.4-8.2); Troponin I < 0.015 ng/ml (0-0.045)
[2020-02-22 07:30] LABS: Estimated Average Glucose 157 mg/dl; Hemoglobin A1C 7.1 % (4.5-5.6)
--- NOTE | 2020-02-22 08:12 | XRay Report ---
XR ribs LT min 2V CLINICAL HISTORY: Fall COMPARISON: Chest radiograph and chest CT performed earlier today. FINDINGS: Left upper lobe airspace opacity is noted. This was shown on chest CT. No acute left rib f ractures are noted. There is no left pneumothorax. No pleural effusion is noted. Cardiomegaly is note d. IMPRESSION: 1. No left pneumothorax. No acute left rib fractures. 2. Redemonstration of left upper lobe airspace opacity which favors an infectious process.. Radiograp hic follow-up to ensure resolution is recommended. ACT 112: Negative or not required by law. Electronically signed by: Alden Ibarra M.D. 02/22/2020 8:11 AM
[2020-02-22] MEDS: INSULIN ASPART 100 UNITS/ML 3 ML PEN SC SCH ×4 (08:18→21:08)
[2020-02-22] MEDS: allopurinoL 300 MG TAB PO SCH (08:19)
[2020-02-22] MEDS: lisinopril 10 MG TAB PO SCH ×2 (08:19→21:07)
[2020-02-22] MEDS: DOXYCYCLINE HYCLATE 100 MG CAP PO SCH ×2 (08:19→21:07)
[2020-02-22] MEDS: METOPROLOL TARTRATE 25 MG TAB PO SCH ×2 (08:19→21:08)
[2020-02-22] MEDS: PANTOprazole 40 MG TAB PO SCH (08:19)
[2020-02-22] MEDS: ATORVASTATIN 40 MG TAB PO SCH (08:19)
[2020-02-22] MEDS: CLOPIDOGREL BISULFATE 75 MG TAB PO SCH (08:19)
[2020-02-22] MEDS: INSULIN GLARGINE SOLOSTAR 100 UNITS/ML 3 ML PEN SC SCH ×2 (08:19→21:05)
[2020-02-22] MEDS: ASPIRIN 81 MG ECTAB PO SCH (08:19)
[2020-02-22] MEDS: FAMOTIDINE 20 MG TAB PO SCH ×2 (08:19→21:07)
[2020-02-22] MEDS: ENOXAPARIN INJ 40 MG/0.4 ML SYR SQ SCH (08:19)
[2020-02-22] MEDS: PREGABALIN 100 MG CAP PO SCH ×3 (08:24→21:14)
[2020-02-22] MEDS: ALBUTEROL HFA 8 GM INHALER INH SCH ×3 (11:38→19:06)
[2020-02-22 12:23] LABS: Hematocrit (blood only) 41.5 % (42-52); Hemoglobin 14.5 g/dL (14.0-18.0); Mean Corpuscular Hemoglobin 31.6 pg (25-34); Mean Corpuscular Hgb Conc 34.9 g/dL (32-36); Mean Corpuscular Volume 90.4 fL (80-100); Mean Platelet Volume 10.3 fL (7.4-10.4); Platelet Count 254 K/uL (130-400); RDW Coefficient of Variation 13.8 % (11.5-14.5); RDW Standard Deviation 45.6 fL (36.4-46.3); Red Blood Count 4.59 M/uL (4.7-6.1); White Blood Count 16.13 K/uL (4.8-10.8)
[2020-02-22 12:41] LABS: Basophils # (auto) 0.03 K/uL (0-0.2); Basophils % (auto) 0.2 %; Eosinophils # (auto) 0.02 K/uL (0-0.5); Eosinophils % (auto) 0.1 %; Immature Granulocytes # (auto) 0.05 K/uL (0.00-0.02); Immature Granulocytes % (auto) 0.3 %; Lymphocytes # (auto) 2.68 K/uL (1.2-3.4); Lymphocytes % (auto) 16.6 %; Monocytes # (auto) 3.03 K/uL (0.11-0.59); Monocytes % (auto) 18.8 %; Neutrophils # (auto) 10.32 K/uL (1.4-6.5)
--- NOTE | 2020-02-22 20:03 | Hospitalist Progress Note ---
Date of Service February 22, 2020 Assessment & Plan (1) Pneumonia: Community-acquired pneumonia Acute respiratory failure with Hypoxia Per admitting service notes -CTA: No evidence of acute pulmonary embolism. Left upper lobe airspace opacities consistent with pneumonia. Films subsequent to treatment are recommended in follow-up. Mild mediastinal and hilar adenopathy, likely reactive. Hepatic steatosis and suspected splenomegaly -Normal lactate, procalcitonin levels -Covid screen negative -Biofire:Negative Start broad spectrum IV Antibiotics-Zosyn, Doxy Oxygen support, Duonebs PRN Blood cultures obtained Aspiration precautions May need 2 step prior to DC IV fluids 02/22/2020 Improving clinically Get sputum cultures Condition to ceftriaxone plus doxycycline Wean off oxygen accordingly Hyponatremia Received IV fluids Sodium 135 Bilirubinemia Likely secondary to hepatic steatosis Monitor LFTs Mechanical fall Rib pain X-ray: No fractures CT chest: No acute PE Incentive spirometry Fall precautions CAD S/P PCI Continue aspirin, Plavix, Lipitor, Metoprolol DM Type II: Will hold oral diabetic meds Last A1c:8.5 on 10/14/19 Patient unsure about home medications--please confirm with PCP as able Update HbA1C ISS, basal Insulin, Accu checks, Diabetic diet Monitor BGs Diastolic heart failure As per records Not on diuretics at home Euvolemic GERD Continue PPI Dyslipidemia Continue lipitor Gout On Allopurinol Hypertension Continue lisinopril Hold HCTZ for now JENNIFER H/O intolerance to CPAP DVT Px: Lovenox SQ Code Status Full Code Disposition Patient lives by himself at home PT OT will be ordered Admission and Anticipated Discharge Date Admission Date: February 21, 2020 Subjective Follow-up for community-acquired pneumonia, with hypoxia Seen resting in bed, comfortable, not in distress Patient status with no effort or accessory muscle use On room air, O2 sats 87 to 91% States he feels improved today, no active shortness of breath Still has productive cough, brownish sputum No hemoptysis Has mild to moderate left-sided rib pain, worse with coughing or shortness of breath Denies abdominal pain, nausea vomiting, fevers or chills No other symptoms Review of Systems Review of Systems: All systems reviewed & are unremarkable except as noted in Subjective Physical Exam Physical Exam: General- oriented x 3, not in distress, speaks in sentences with no effort or accessory muscle use Eyes- anicteric Neck- no JVD Lungs-mild rhonchi on the right base, clear on the left No wheezing Heart- normal rate, regular rhythm; no murmurs Abdomen- normal bowel sounds, nondistended, soft, nontender Extremities- no pretibial edema, no calf tenderness Neuro- alert, oriented x 3; no gross focal neurologic deficits Skin- warm & dry Results & Data Results & [facility] ([facility]) Vital Signs (Past 12 Hours) Vital Signs Temp Pulse Pulse Resp BP Pulse Ox 02/22/20 19:06 74 18 91 02/22/20 19:03 37.4 C 77 16 138/70 90 02/22/20 16:00 71 02/22/20 15:56 36.5 C 72 16 113/64 91 02/22/20 15:15 70 18 92 02/22/20 11:39 70 19 94 02/22/20 11:19 37.2 C 69 18 113/55 L 93 (1) Pneumonia Laterality: unspecified laterality Lung location: unspecified part of lung Pneumonia type: due to unspecified organism Qualified Code(s): J18.9 - Pneumonia, unspecified organism
[2020-02-22] MEDS: cefTRIAXone SODIUM 2,000 MG in DEXTROSE 5% 50 ML IV SCH (21:03)
--- NOTE | 2020-02-22 21:28 | Electrocardiogram Report ---
Test Reason : Blood Pressure : / mmHG Vent. Rate : 095 BPM Atrial Rate : 096 BPM P-R Int : 246 ms QRS Dur : 096 ms QT Int : 358 ms P-R-T Axes : 000 -55 028 degrees QTc Int : 449 ms Sinus rhythm with 1st degree A-V block Left axis deviation Incomplete right bundle branch block Possible Anterior infarct (cited on or before 06-NOV-2018) Abnormal ECG When compared with ECG of 06-NOV-2018 07:10, Nonspecific T wave abnormality no longer evident in Lateral leads Confirmed by Fred Presley ([id number]) on 02/22/2020 9:28:05 PM Referred By: REFERRED SELF Confirmed By:Fred Presley
--- NOTE | 2020-02-23 05:46 | Electrocardiogram Report ---
Test Reason : Blood Pressure : / mmHG Vent. Rate : 070 BPM Atrial Rate : 070 BPM P-R Int : 248 ms QRS Dur : 094 ms QT Int : 414 ms P-R-T Axes : 055 -45 031 degrees QTc Int : 447 ms Sinus rhythm with 1st degree A-V block Incomplete right bundle branch block Left anterior fascicular block Abnormal ECG When compared with ECG of 21-FEB-2020 16:35, No significant change Confirmed by Fred Presley ([id number]) on 02/23/2020 5:45:49 AM Referred By: REFERRED SELF Confirmed By:Fred Presley
[2020-02-23] MEDS: ALBUTEROL HFA 8 GM INHALER INH SCH (07:13)
[2020-02-23] MEDS: INSULIN ASPART 100 UNITS/ML 3 ML PEN SC SCH ×4 (08:18→20:14)
[2020-02-23] MEDS: PANTOprazole 40 MG TAB PO SCH (08:19)
[2020-02-23] MEDS: FAMOTIDINE 20 MG TAB PO SCH ×2 (08:19→20:09)
[2020-02-23] MEDS: METOPROLOL TARTRATE 25 MG TAB PO SCH ×2 (08:19→20:09)
[2020-02-23] MEDS: INSULIN GLARGINE SOLOSTAR 100 UNITS/ML 3 ML PEN SC SCH ×2 (08:19→20:10)
[2020-02-23] MEDS: ENOXAPARIN INJ 40 MG/0.4 ML SYR SQ SCH (08:19)
[2020-02-23] MEDS: CLOPIDOGREL BISULFATE 75 MG TAB PO SCH (08:19)
[2020-02-23] MEDS: ATORVASTATIN 40 MG TAB PO SCH (08:19)
[2020-02-23] MEDS: lisinopril 10 MG TAB PO SCH ×2 (08:19→20:09)
[2020-02-23] MEDS: DOXYCYCLINE HYCLATE 100 MG CAP PO SCH ×2 (08:19→20:09)
[2020-02-23] MEDS: ASPIRIN 81 MG ECTAB PO SCH (08:19)
[2020-02-23] MEDS: allopurinoL 300 MG TAB PO SCH (08:20)
[2020-02-23] MEDS: PREGABALIN 100 MG CAP PO SCH ×3 (08:22→20:12)
[2020-02-23] MEDS ORDERED: ALBUTEROL HFA 8 GM INHALER INH PRN (10:13)
[2020-02-23] MEDS: cefTRIAXone SODIUM 2,000 MG in DEXTROSE 5% 50 ML IV SCH (20:06)
--- NOTE | 2020-02-23 21:45 | Hospitalist Progress Note ---
Date of Service delayed entry date of service noted below February 23, 2020 Assessment & Plan (1) Pneumonia: Community-acquired pneumonia Acute respiratory failure with Hypoxia Per admitting service notes -CTA: No evidence of acute pulmonary embolism. Left upper lobe airspace opacities consistent with pneumonia. Films subsequent to treatment are recommended in follow-up. Mild mediastinal and hilar adenopathy, likely reactive. Hepatic steatosis and suspected splenomegaly -Normal lactate, procalcitonin levels -Covid screen negative -Biofire:Negative Start broad spectrum IV Antibiotics-Zosyn, Doxy Oxygen support, Duonebs PRN 02/23/2020 Improving clinically weaned off oxygen sputum culture: awaiting collection blood culture: negative so fary transitioned to ceftriaxone plus doxycycline may need 2 step O2 test Hyponatremia Received IV fluids Sodium 135 Bilirubinemia Likely secondary to hepatic steatosis Monitor LFTs Mechanical fall Rib pain X-ray: No fractures CT chest: No acute PE Incentive spirometry Fall precautions CAD S/P PCI Continue aspirin, Plavix, Lipitor, Metoprolol DM Type II: Will hold oral diabetic meds Last A1c:8.5 on 10/14/19 Patient unsure about home medications--please confirm with PCP as able Update HbA1C: 7.1 ISS, basal Insulin, Accu checks, Diabetic diet Monitor BGs Diastolic heart failure As per records Not on diuretics at home Euvolemic GERD Continue PPI Dyslipidemia Continue lipitor Gout On Allopurinol Hypertension Continue lisinopril Hold HCTZ for now JENNIFER H/O intolerance to CPAP DVT Px: Lovenox SQ Code Status Full Code Disposition Patient lives by himself at home PT OT will be ordered Admission and Anticipated Discharge Date Admission Date: February 21, 2020 Subjective ff up for pneumonia seen resting in bed, comfortable, not in distress on room air states he continues to feel better denies dyspnea, has less cough, sputum is now white left sided chest pain improving no other symptoms Review of Systems Review of Systems: All systems reviewed & are unremarkable except as noted in Subjective Physical Exam Physical Exam: General- oriented x 3, not in distress, speaks in sentences with no effort or accessory muscle use Eyes- anicteric Neck- no JVD Lungs- mild crackles left base no wheezing clear on the right Heart- normal rate, regular rhythm; no murmurs Abdomen- normal bowel sounds, nondistended, soft, nontender Extremities- no pretibial edema, no calf tenderness Neuro- alert, oriented x 3; no gross focal neurologic deficits Skin- warm & dry Results & Data Results & Data ([facility]) Vital Signs (Past 12 Hours) Vital Signs Temp Pulse Pulse Resp BP Pulse Ox 02/23/20 19:51 36.7 C 68 18 156/89 H 91 02/23/20 16:00 66 02/23/20 15:49 36.7 C 65 18 147/79 H 91 02/23/20 11:32 36.6 C 66 20 134/79 92 Laboratory Results Laboratory Results - last 24 hr 02/23/20 02/23/20 02/23/20 07:21 11:46 16:58 POC Glucose 118 H 224 H 181 H 02/23/20 20:14 POC Glucose 211 H Diagnostic Findings all noted and reviewed (1) Pneumonia Laterality: unspecified laterality Lung location: unspecified part of lung Pneumonia type: due to unspecified organism Qualified Code(s): J18.9 - Pneumonia, unspecified organism
--- NOTE | 2020-02-24 04:52 | Electrocardiogram Report ---
Test Reason : Blood Pressure : / mmHG Vent. Rate : 073 BPM Atrial Rate : 073 BPM P-R Int : 236 ms QRS Dur : 094 ms QT Int : 400 ms P-R-T Axes : 049 -48 014 degrees QTc Int : 440 ms Sinus rhythm with 1st degree A-V block Incomplete right bundle branch block Left anterior fascicular block Abnormal ECG When compared with ECG of 22-FEB-2020 06:42, No significant change was found Confirmed by Fred Presley ([id number]) on 02/24/2020 4:52:15 AM Referred By: REFERRED SELF Confirmed By:Fred Presley
[2020-02-24] MEDS: INSULIN ASPART 100 UNITS/ML 3 ML PEN SC SCH ×2 (08:09→12:12)
[2020-02-24] MEDS: ENOXAPARIN INJ 40 MG/0.4 ML SYR SQ SCH (08:10)
[2020-02-24] MEDS: METOPROLOL TARTRATE 25 MG TAB PO SCH (08:10)
[2020-02-24] MEDS: ASPIRIN 81 MG ECTAB PO SCH (08:10)
[2020-02-24] MEDS: INSULIN GLARGINE SOLOSTAR 100 UNITS/ML 3 ML PEN SC SCH (08:10)
[2020-02-24] MEDS: ATORVASTATIN 40 MG TAB PO SCH (08:10)
[2020-02-24] MEDS: PREGABALIN 100 MG CAP PO SCH (08:11)
[2020-02-24] MEDS: CLOPIDOGREL BISULFATE 75 MG TAB PO SCH (08:11)
[2020-02-24] MEDS: FAMOTIDINE 20 MG TAB PO SCH (08:11)
[2020-02-24] MEDS: PANTOprazole 40 MG TAB PO SCH (08:12)
[2020-02-24] MEDS: allopurinoL 300 MG TAB PO SCH (08:12)
[2020-02-24] MEDS: DOXYCYCLINE HYCLATE 100 MG CAP PO SCH (08:12)
[2020-02-24] MEDS: lisinopril 10 MG TAB PO SCH (08:12)
[2020-02-24] MEDS ORDERED: AMOXICILLIN/CLAVULANATE 875 MG TAB PO SCH (09:40)
--- NOTE | 2020-02-24 12:24 | Discharge Summary ---
Date of Service February 24, 2020 Admission HPI Per Admitting Provider Patient is a 74-year-old male with history of CAD S/P PCI, DM II, diastolic heart failure, GERD, dyslipidemia, gout, hypertension, JENNIFER and other medical problems presents with history of cough, shortness of breath, pleuritic left- sided chest pain, runny nose since yesterday. Patient admits to traveling to [place] recently but denies any sick contact. He states having left rib pain which increases with deep breathing, sharp in quality, 6/10 intensity, nonradiating, associated with shortness of breath. He states cough is nonproductive denies any hemoptysis. He admits to falling in bathtub today and was able to get up with assistance from his son. He denies any head trauma, loss of consciousness. Also states having dizziness this morning. CTA showed findings consistent with left upper lobe pneumonia and mediastinal/hilar adenopathy. Denies any history of palpitations, orthopnea, hemoptysis, fever, chills, head trauma, LOC, headache, change in vision, double/blurry vision, vertigo, slurred speech, facial deformity, nausea, vomiting, abdominal pain, diarrhea, dysuria, hematuria, recent change in medications . Admission Exam Per Admitting Provider General Appearance:Moderately built and nourished, no apparent distress Head: normocephalic, Atraumatic Eyes: normal inspection, EOMI Neck: supple, Trachea midline Respiratory/Chest: Normal breath sounds, scattered wheezes, mild resp distress Cardiovascular: S1, S2, No murmur Abdomen/GI:Soft, Non tender, Bowel sounds present Extremities/Musculoskelatal:normal inspection, Trace B/L LE edema Neurologic/Psych:AAOX3, grossly no focal neurological deficits Skin: normal color, warm Principal Diagnosis Left lung pneumonia Discharge Exam Constitutional + well hydrated; no acute distress Eyes PERRL, conjunctivae normal, anicteric sclerae ENMT external ear and nose normal, oropharynx normal Respiratory normal respiratory effort; no respiratory distress Mild left lung crackles Cardiovascular RRR, no murmur, no edema Gastrointestinal (Abdomen) normal bowel sounds, soft, nontender, no hepatosplenomegaly Musculoskeletal no cyanosis or clubbing, extremities motor strength 5/5 Neurologic PERRL, EOMI, accommodation nl, no face palsy, no dysarthria Psychiatric A+Ox3, euthymic affect Discharge Data Allergies Allergy/AdvReac Type Severity Reaction Status Date / Time No Known Allergies Allergy Verified 02/21/20 20:05 Consultations 02/21/20 18:12 ED Decision to Admit Stat 02/21/20 21:50 Consult Case Management - Discharge Planning Routine Ordered Studies 02/21/20 16:17 CT angio chest PE protocol Stat There are minimally enlarged mediastinal and hilar lymph nodes, likely reactive. There was no evidence of thoracic aortic dilatation. There were no pulmonary artery filling defects to indicate acute pulmonary embolism. No pleural effusions are visualized. There is ground glass pulmonary consolidation with the left upper lobe indicative of a pneumonia. There are dependent airspace opacities within the right lower lobe, likely atelectatic. There is suspected hepatic steatosis. There is probable splenomegaly. There are coronary artery calcifications. IMPRESSION: 1. No evidence of acute pulmonary embolism 2. Left upper lobe airspace opacities consistent with pneumonia. Films subsequent to treatment are recommended in follow-up 3. Mild mediastinal and hilar adenopathy, likely reactive 4. Hepatic steatosis and suspected splenomegaly Hospital Course (1) Pneumonia: Community-acquired pneumonia Acute respiratory failure with Hypoxia -CTA: No evidence of acute pulmonary embolism. Left upper lobe airspace opacities consistent with pneumonia. Films subsequent to treatment are recommended in follow-up. Mild mediastinal and hilar adenopathy, likely reactive. Hepatic steatosis and suspected splenomegaly -Normal lactate, procalcitonin levels -Covid screen negative -Biofire:Negative Was intially started on IV Antibiotics-Zosyn, Doxy Weaned off oxygen to room air Discharged on augmentin and doxycycline to complete therapy Hyponatremia Sodium 135 Bilirubinemia Likely secondary to hepatic steatosis Total bilirubin was 2.8 on admission, trending down to 2.3 Other liver enzymes were normal Follow up with PCP Mechanical fall Rib pain X-ray: No fractures CT chest: No acute PE Incentive spirometry Fall precautions Was evaluated by PT today and did well CAD S/P PCI Continue aspirin, Plavix, Lipitor, Metoprolol DM Type II: Last A1c:8.5 on 10/14/19 Patient unsure about home medications Please PCP to follow up with patient to ensure adequate adherence Provided DM education and advised to follow dosage instructions Update HbA1C: 7.1 Diastolic heart failure As per records Not on diuretics at home Euvolemic GERD Continue PPI Dyslipidemia Continue lipitor Gout On Allopurinol Hypertension Continue lisinopril and HCTZ JENNIFER H/O intolerance to CPAP Total Time Total Time Spent Total Time Spent (In Minutes): 35 Total Time Includes: Examination of the Patient, Discharge Planning and Medication Reconciliation Discharge Plan Discharge Items Patient Disposition: Home - Self-Care Reason For Visit: PNEUMONIA Discharge Diagnosis: Left lung pneumonia Activity: Resume your previous activity Non-emergency contact: Primary Care Provider Call non-emergency contact if: you have any medication questions and your symptoms worsen Follow-up/Referrals: Cristian Nixon MD [Primary Care Provider] - Diet: Carb Consistent or DM2 and Heart Healthy Addtl Attending Provider Instructions: Mr Ramirez. You came to the hospital complaining cough, shortness of breath and left sided chest pain. You were evaluated and found to have a left lung pneumonia. You were treated with antibiotics. Your symptoms improved. You are being discharged. Please ensure you complete your antibiotics. Please follow up with your Primary Doctor. It was a pleasure taking care of you. Pending Studies at Discharge: No Stand-Alone Forms: [facility], Smoking Cessation Medications and DC Order Prescriptions: New amoxicillin-pot clavulanate [Augmentin] 875-125 mg Tablet 1 tab PO BIDM 3 Days Qty: 6 RF: 0 doxycycline hyclate 100 mg Capsule 100 mg PO BID 3 Days Qty: 6 RF: 0 Continued multivitamin Tablet 1 tab PO QAM RF: 0 clopidogrel 75 mg tablet 75 mg PO QAM RF: 0 aspirin [Aspirin Low Dose] 81 mg Tablet,Delayed Release (Dr/Ec) 81 mg PO QAM RF: 0 lisinopril 10 mg tablet 10 mg PO BID RF: 0 glimepiride 4 mg tablet 8 mg PO QAM RF: 0 allopurinol 300 mg tablet 300 mg PO QAM RF: 0 metoprolol tartrate 25 mg tablet 25 mg PO BID RF: 0 famotidine 20 mg tablet 20 mg PO BID RF: 0 pantoprazole 40 mg tablet,delayed release (DR/EC) 40 mg PO QAM RF: 0 pregabalin 100 mg capsule 100 mg PO TID RF: 0 hydrochlorothiazide 12.5 mg capsule 12.5 mg PO DAILY RF: 0 Trulicity 0.75 mg/0.5 mL pen injector 0.75 mg SUBCUT WK RF: 0 Tresiba FlexTouch U-100 100 unit/mL (3 mL) insulin pen 22 unit SUBCUT .WITH RABIA MEAL RF: 0 albuterol sulfate 90 mcg/actuation Hfa Aerosol Inhaler 2 puff INHALATION QID PRN (Reason: Shortness Of Breath Or Wheezing) RF: 0 atorvastatin [Lipitor] 40 mg Tablet 40 mg PO DAILY RF: 0 Discharge Orders: Discharge Order (Routine); Ordered 02/24/20 Ordered By: Farrah Alan/Other Patient Handouts: Managing Type 2 Diabetes Admission Data Admit Date/Time: 02/21/20 19:40 Attending Provider: Farrah Espana I. Admit Provider: Lowell Hahn Primary Care Provider: Cristian Nixon Other Providers: Lowell Hahn ; Roger Granados Other Interventions: Discharge Summary Assessment (RN) Last Done: 02/24/20 12:39
== END 2020-02-24 13:57 | disposition home or self-care (01) | DRG 193 ==
LOC: ED 15:31 → 2N 19:40 → SUATTDRO 19:40 → 2N 20:52

== ENCOUNTER 2021-09-02 18:01 | Inpatient (IN) ==
[2021-09-02] MEDS ORDERED: ONDANSETRON INJ 2 MG/ML 2 ML VIAL IV STA (18:31)
[2021-09-02] MEDS ORDERED: MoRPHine SULFATE 10 MG/ML CARP/VIAL IV STA (18:31)
[2021-09-02] MEDS ORDERED: SODIUM CHLORIDE 0.9% 1000ML 500 ML IV ONE (18:31)
[2021-09-02] MEDS ORDERED: ACETAMINOPHEN 500 MG TAB PO STA (18:31)
--- NOTE | 2021-09-02 18:35 | Emergency Department Note ---
Impression & Plan SIRS (systemic inflammatory response syndrome), Bilateral pain of leg and foot, Hypoxia, Hypomagnesemia ED Provider Note Name: VA CHAVIRA Age: 75 Sex: M Arrives Via: Walk-In Informant: Patient, family ED Provider: Leo Rayo MD Chief Complaint: Bilateral foot pain Impression: As per impressions above Medical Decision Makin-year-old gentleman with a long history of CHF, DM2, neuropathy, COPD, hypertension, hyperlipidemia arrives for evaluation of severe bilateral lower foot pain, ambulatory dysfunction and general illness. Mild hypoxia and febrile on arrival. Work-up is concerning for infection though no clear source at this time. Given his recent pneumonia and mild hypoxia I would suspect that this is pneumonia that is just not showing up on the x-rays quite yet. He did have a septic work-up initiated but given his good blood pressure and no lactic acidosis he would not need to 30/kg bolus of fluid especially given his CHF h istory. He was empirically given cefepime for coverage. He was given a small dose of morphine with vast improvement in his pain and patient much more comfortable. He has a soft nontender abdomen thus I feel abdominal source of infection seems unlikely and we will hold off on imaging of the abdomen at this time. Patient and family on board with plan to bring him to the hospital for further evaluation and monitoring. Hospitalist consulted. I suspect his bilateral foot pain was his neuropathy being aggravated by systemic infectious etiology. There is no evidence of cellulitis, he has excellent pulses and his movement remains intact. Prior Medical Record and Triage/Nursing Notes reviewed by Me Additional history obtained from family Differentials:Infection, dehydration, metabolic abnormality, hypo/hyperglycemia, electrolyte disturbance, anemia, hypoxia, cardiac sources, intracerebral event, toxicologic, neurologic, as well as other pathologies. Vital Signs: reviewed and remarkable for fever mild tachycardia mild hypoxia Interventions: Morphine IV, cefepime IV, Tylenol IV, normal saline bolus, Zofran IV Labs:Reviewed and remarkable for hypomagnesemia procalcitonin elevation Imagin view chest x-ray no overt evidence of pneumonia or infiltrate as per radiologist Consults:Dr. Jesse Diaz hospitalist Plan: Disposition:Hospitalization. Condition: Good History of Present Illness:75-year-old gentleman arrives for evaluation of pain. Patient with a long history of neuropathy in his feet periodic pains though never has had anything like this before. He notes rapid worsening over the last 48 hours of bilateral foot pain. He notes some essentially from mid whitten down to his toes he is having severe searing pain. He has never had anything like this before. It is worse with any movement. He usually cannot feel his feet. It is associated with some mild confusion the daughter notes this may be chronic. It is also associated with inability to ambulate. She st ates she is very unsteady and stumbling. She denies any neurologic deficits. He has not had any falls or injuries. He denies any abdominal pain, back pain, shortness of breath. He has had a mild cough the last few days as well. He denies any chest pain with this. He has not had any production of his cough. He denies any nausea, vomiting, fevers, chills, headache, neck pain or any other signs or symptoms. He said no recent rashes. Nothing makes this better or worse. He has no medications prior to arrival. He is on pregabalin for his chronic pain control. ROS: See above HPI for pertinent positives & negatives. A total of 10 systems reviewed and were otherwise negative. Past Medical History:See Below Past Surgical History:See Below Family History:See Below Social History:See Below Home Medications:See Below Allergies:nkda Vitals:Blood Pressure: 126/68, Pulse 100, RR 20, T 38.0C, O2 93% on RA Physical Exam: GENERAL: Patient is dehydrated appearing and in moderate distress. EYES: No scleral icterus, unremarkable pupils. ENT: Mucous membranes dry, no nasal congestion. NECK: No masses appreciated, nomeningismus, trachea is midline. RESPIRATORY: No dyspnea. Clear to auscultation and equal bilaterally. No wheeze, no rhonchi. CARDIOVASCULAR: Tachy.No murmurs, rubs, gallops appreciated. GASTROINTESTINAL: Abdomen soft, non-tender, no peritonitis.Bowel sounds positive.No masses appreciated. BACK: No midline tenderness, no CVA tenderness EXTREMITIES: Normal motion all extremities, no cyanosis, no edema. NEUROLOGIC: Minimal sensation in feet though screams in pain at times with light touch. Alert and oriented, no acute motor or sensory deficits, no focal weakness, cranial nerves grossly intact. SKIN: No rash, no jaundice, no diaphoresis. PSYCH: Appropriate GCS: 15 ED Course: Times/Reassessments: Patient vastly improved with IV morphine. He has mild hypoxia and did end up needing a little bit of nasal cannula O2. Leo Rayo MD Past Med/Surg History Medical History (Updated 09/03/21 @ 12:25 by Leo Rayo MD) CAD (coronary artery disease) Cardiac murmur Chest pain recent episode of intermittent chest pain while at rest 2-3 days ago. reports similar episode 3 weeks ago. did not report to hospital or call PCP, cardio. advised to notify pcp, cardio of symptoms. Confusion reports recently woke up with confusion, memory loss x 1 week ago. describes sitting on recliner and then "blacking out" - woke up not able to recall time, location, events of day. did not notify PCP or go to hospital. advised to notify pcp Diabetes mellitus, type 2 NIDDM Dyslipidemia Gout Herniated intervertebral disc [place] (hard of hearing) HTN (hypertension) Neuropathy Neuropathy JENNIFER (obstructive sleep apnea) does not tolerate CPAP/BiPAP Osteoarthritis Surgical History H/O heart artery stent x 1 (2006) - Follows w/ Dr. Chandler History of amputation of left thumb History of cardiac catheterization [address] - [facility] - no stents 10/28/06 - MARAH to circumflex, marginal at [facility] [place], Dr Hagan History of colonoscopy History of right cataract surgery Family History Brother Coronary heart disease Lung cancer Mother Family history of diabetes mellitus Other Hypertension Social History Smoking Status: Former smoker Cigarettes Per Day: Quit 1985, smoked 2ppd x 25 years; Second Hand Exposure: No; Hx Alcohol Use: Yes Alcohol type: beer Hx Substance Use: No Preferred Language: Greek Communication Ability: Effective Programming Internship Required: No Beliefs That Will Affect Care: None marital status: / Current Living Situation: Alone Current Living Situation Comment: family next door current occupational status: retired Feels Safe at Home: Yes Assistive Devices: Cane Allergies Allergies Allergy/AdvReac Type Severity Reaction Status Date / Time No Known Allergies Allergy Verified 09/02/21 19:04 Home Meds Home Medications Medication Instructions Recorded Confirmed allopurinol 300 mg tablet 300 mg PO QAM 11/05/18 09/02/21 aspirin 81 mg tablet,delayed 81 mg PO QAM 11/05/18 09/02/21 release (Lore Low Dose Aspirin) clopidogrel 75 mg tablet 75 mg PO QAM 11/05/18 09/02/21 lisinopril 10 mg tablet 10 mg PO DAILY 11/05/18 09/02/21 metoprolol tartrate 25 mg tablet 25 mg PO BID 11/05/18 09/02/21 multivitamin 1 tab PO QAM 11/05/18 09/02/21 albuterol sulfate 90 mcg/actuation 2 puff INHALATION QID PRN 02/21/20 09/02/21 aerosol inhaler dulaglutide 0.75 mg/0.5 mL 1.5 mg SUBCUT WK 02/21/20 09/02/21 subcutaneous pen injector (Trulicity) famotidine 20 mg tablet 20 mg PO BID 02/21/20 09/02/21 hydrochlorothiazide 12.5 mg capsule 12.5 mg PO DAILY 02/21/20 09/02/21 insulin degludec 100 unit/mL (3 22 unit SUBCUT .WITH RABIA MEAL 02/21/20 09/02/21 mL) subcutaneous pen (Tresiba FlexTouch U-100 insulin) pregabalin 100 mg capsule 150 mg PO TID 02/21/20 09/02/21 atorvastatin 40 mg tablet 40 mg PO DAILY 06/18/21 09/02/21 spironolactone 25 mg tablet 12.5 mg PO DAILY 06/18/21 09/02/21 metformin 09/03/21 Results & Data (ED) Vital Signs Vital Signs - 24 hr 09/02/21 18:04 09/02/21 20:00 09/02/21 20:30 Temperature 38.0 C H Temperature Source Skin Pulse Rate 100 H 85 81 Pulse Rhythm Regular Pulse Strength Normal Respiratory Rate 20 20 24 Respiratory Effort / Characteristics Non-Labored Spontaneous Respiratory Depth Normal Respiratory Pattern Regular Blood Pressure 126/68 141/72 H 144/69 H Blood Pressure Mean 87 95 94 Pulse Oximetry 93 95 95 Oxygen Delivery Method Room Air Nasal Cannula Oxygen Flow Rate 2 Sepsis Recent Fever Within 48 Hours No Sepsis New/Unexplained Change in Mental Status N/A Sepsis Action Taken by Nursing No Action Required 09/02/21 20:38 09/02/21 21:00 09/02/21 21:30 Temperature 37.0 C Temperature Source Pulse Rate 80 78 Pulse Rhythm Pulse Strength Respiratory Rate 22 24 Respiratory Effort / Characteristics Respiratory Depth Respiratory Pattern Blood Pressure 115/58 L 144/64 H Blood Pressure Mean 77 90 Pulse Oximetry 97 94 Oxygen Delivery Method Oxygen Flow Rate Sepsis Recent Fever Within 48 Hours Sepsis New/Unexplained Change in Mental Status Sepsis Action Taken by Nursing Laboratory Data Result diagrams: 09/03/21 06:41 09/03/21 06:41 Lab Results 09/02/21 09/02/21 09/02/21 Range/Units 19:20 19:20 19:20 WBC 9.84 (4.8-10.8) K/uL RBC 4.00 L (4.7-6.1) M/uL Hgb 13.0 L (14.0-18.0) g/dL Hct 37.0 L (42-52) % MCV 92.5 (80-100) fL MCH 32.5 (25-34) pg MCHC 35.1 (32-36) g/dL RDW Std Deviation 49.4 H (36.4-46.3) fL RDW Coeff of Sheri 14.7 H (11.5-14.5) % Plt Count 137 (130-400) K/uL MPV 10.9 H (7.4-10.4) fL Neutrophils % (Manual) 51.7 % Lymphocytes % (Manual) 6.9 % Reactive Lymphs % (Man) 19.0 % Monocytes % (Manual) 19.8 % Eosinophils % (Manual) 1.7 % Basophils % (Manual) 0.9 % Neutrophils # (Manual) 5.09 (1.4-6.5) K/uL Total Absolute Neuts 5.09 (1.4-6.5) K/uL Lymphocytes # (Manual) 0.68 L (1.2-3.4) K/uL Reactive Lymphs # 1.87 K/uL Total Abs Lymphocytes 2.55 (1.2-3.4) K/uL Monocytes # (Manual) 1.95 H (0.11-0.59) K/uL Eosinophils # (Manual) 0.17 (0-0.5) K/uL Basophils # (Manual) 0.09 (0-0.2) K/uL Sodium 133 L (136-145) mmol/L Potassium 4.3 (3.5-5.1) mmol/L Chloride 99 (98-107) mmol/L Carbon Dioxide 24 (21-32) mmol/L Anion Gap 10 (3-11) BUN 27 H (6-23) mg/dl Creatinine 1.22 (0.6-1.4) mg/dl Est Cr Clr Drug Dosing 57.8 ml/min Est GFR ( Amer) 66.8 ml/min Est GFR (Non-Af Amer) 57.6 ml/min BUN/Creatinine Ratio 22.1 H (10-20) Glucose 260 H (70-99(Fasting)) mg/dl Lactate 1.9 (0.4-2.0) mmol/L Calcium 9.5 (8.5-10.1) mg/dl Magnesium 1.4 L (1.7-2.4) mg/dl Total Bilirubin 3.0 H (0.2-1.0) mg/dl Direct Bilirubin 0.4 H (0-0.2) mg/dl AST 28 (13-39) U/L ALT 31 (7-52) U/L Alkaline Phosphatase 63 (34-104) U/L Total Creatine Kinase (30-223) U/L Troponin I High Sens 8.4 (0-20) pg/ml Total Protein 7.8 (6.0-8.3) gm/dl Albumin 4.2 (3.4-5.0) gm/dl Procalcitonin (0-0.5) ng/ml TSH (0.300-4.500) uIu/ml Urine Color Urine Appearance (Clear) Urine pH (4.5-7.5) Ur Specific Bim (1.000-1.030) Urine Protein (Negative) Urine Glucose (UA) (Negative) Urine Ketones (Negative) Urine Blood (Negative) Urine Nitrite (Negative) Urine Bilirubin (Negative) Urine Urobilinogen (Negative) Ur Leukocyte Esterase (Negative) Urine WBC (Auto) (0-5) /hpf Urine RBC (Auto) (0-4) /hpf U Hyaline Cast (Auto) (0-5) /lpf U Epithel Cells (Auto) (0-5) /lpf Urine Bacteria (Auto) (Negative) SARS-CoV-2 (PCR) (Negative) Influenza Type A (PCR) (Neg) Influenza Type B (PCR) (Neg) RSV (RT-PCR) (Neg) 09/02/21 09/02/21 09/02/21 Range/Units 19:20 19:20 19:20 WBC (4.8-10.8) K/uL RBC (4.7-6.1) M/uL Hgb (14.0-18.0) g/dL Hct (42-52) % MCV (80-100) fL MCH (25-34) pg MCHC (32-36) g/dL RDW Std Deviation (36.4-46.3) fL RDW Coeff of Sheri (11.5-14.5) % Plt Count (130-400) K/uL MPV (7.4-10.4) fL Neutrophils % (Manual) % Lymphocytes % (Manual) % Reactive Lymphs % (Man) % Monocytes % (Manual) % Eosinophils % (Manual) % Basophils % (Manual) % Neutrophils # (Manual) (1.4-6.5) K/uL Total Absolute Neuts (1.4-6.5) K/uL Lymphocytes # (Manual) (1.2-3.4) K/uL Reactive Lymphs # K/uL Total Abs Lymphocytes (1.2-3.4) K/uL Monocytes # (Manual) (0.11-0.59) K/uL Eosinophils # (Manual) (0-0.5) K/uL Basophils # (Manual) (0-0.2) K/uL Sodium (136-145) mmol/L Potassium (3.5-5.1) mmol/L Chloride (98-107) mmol/L Carbon Dioxide (21-32) mmol/L Anion Gap (3-11) BUN (6-23) mg/dl Creatinine (0.6-1.4) mg/dl Est Cr Clr Drug Dosing ml/min Est GFR ( Amer) ml/min Est GFR (Non-Af Amer) ml/min BUN/Creatinine Ratio (10-20) Glucose (70-99(Fasting)) mg/dl Lactate (0.4-2.0) mmol/L Calcium (8.5-10.1) mg/dl Magnesium (1.7-2.4) mg/dl Total Bilirubin (0.2-1.0) mg/dl Direct Bilirubin (0-0.2) mg/dl AST (13-39) U/L ALT (7-52) U/L Alkaline Phosphatase (34-104) U/L Total Creatine Kinase (30-223) U/L Troponin I High Sens (0-20) pg/ml Total Protein (6.0-8.3) gm/dl Albumin (3.4-5.0) gm/dl Procalcitonin 1.61 H (0-0.5) ng/ml TSH (0.300-4.500) uIu/ml Urine Color Dark Yellow Urine Appearance Clear (Clear) Urine pH 5.5 (4.5-7.5) Ur Specific Bim 1.026 (1.000-1.030) Urine Protein Trace H (Negative) Urine Glucose (UA) 3+ H (Negative) Urine Ketones Trace H (Negative) Urine Blood Negative (Negative) Urine Nitrite Negative (Negative) Urine Bilirubin Negative (Negative) Urine Urobilinogen Negative (Negative) Ur Leukocyte Esterase Negative (Negative) Urine WBC (Auto) 1-5 (0-5) /hpf Urine RBC (Auto) 0-4 (0-4) /hpf U Hyaline Cast (Auto) 5-10 H (0-5) /lpf U Epithel Cells (Auto) 5-10 H (0-5) /lpf Urine Bacteria (Auto) Negative (Negative) SARS-CoV-2 (PCR) NEGATIVE (Negative) Influenza Type A (PCR) Negative (Neg) Influenza Type B (PCR) Negative (Neg) RSV (RT-PCR) Negative (Neg) 09/02/21 09/02/21 Range/Units 19:20 19:20 WBC (4.8-10.8) K/uL RBC (4.7-6.1) M/uL Hgb (14.0-18.0) g/dL Hct (42-52) % MCV (80-100) fL MCH (25-34) pg MCHC (32-36) g/dL RDW Std Deviation (36.4-46.3) fL RDW Coeff of Sheri (11.5-14.5) % Plt Count (130-400) K/uL MPV (7.4-10.4) fL Neutrophils % (Manual) % Lymphocytes % (Manual) % Reactive Lymphs % (Man) % Monocytes % (Manual) % Eosinophils % (Manual) % Basophils % (Manual) % Neutrophils # (Manual) (1.4-6.5) K/uL Total Absolute Neuts (1.4-6.5) K/uL Lymphocytes # (Manual) (1.2-3.4) K/uL Reactive Lymphs # K/uL Total Abs Lymphocytes (1.2-3.4) K/uL Monocytes # (Manual) (0.11-0.59) K/uL Eosinophils # (Manual) (0-0.5) K/uL Basophils # (Manual) (0-0.2) K/uL Sodium (136-145) mmol/L Potassium (3.5-5.1) mmol/L Chloride (98-107) mmol/L Carbon Dioxide (21-32) mmol/L Anion Gap (3-11) BUN (6-23) mg/dl Creatinine (0.6-1.4) mg/dl Est Cr Clr Drug Dosing ml/min Est GFR ( Amer) ml/min Est GFR (Non-Af Amer) ml/min BUN/Creatinine Ratio (10-20) Glucose (70-99(Fasting)) mg/dl Lactate (0.4-2.0) mmol/L Calcium (8.5-10.1) mg/dl Magnesium (1.7-2.4) mg/dl Total Bilirubin (0.2-1.0) mg/dl Direct Bilirubin (0-0.2) mg/dl AST (13-39) U/L ALT (7-52) U/L Alkaline Phosphatase (34-104) U/L Total Creatine Kinase 177 (30-223) U/L Troponin I High Sens (0-20) pg/ml Total Protein (6.0-8.3) gm/dl Albumin (3.4-5.0) gm/dl Procalcitonin (0-0.5) ng/ml TSH 1.706 (0.300-4.500) uIu/ml Urine Color Urine Appearance (Clear) Urine pH (4.5-7.5) Ur Specific Bim (1.000-1.030) Urine Protein (Negative) Urine Glucose (UA) (Negative) Urine Ketones (Negative) Urine Blood (Negative) Urine Nitrite (Negative) Urine Bilirubin (Negative) Urine Urobilinogen (Negative) Ur Leukocyte Esterase (Negative) Urine WBC (Auto) (0-5) /hpf Urine RBC (Auto) (0-4) /hpf U Hyaline Cast (Auto) (0-5) /lpf U Epithel Cells (Auto) (0-5) /lpf Urine Bacteria (Auto) (Negative) SARS-CoV-2 (PCR) (Negative) Influenza Type A (PCR) (Neg) Influenza Type B (PCR) (Neg) RSV (RT-PCR) (Neg) Administered Medications [facility] ([facility] 300 Mg Tab) [facility]: 10/03/21 08:59 Last Admin: 09/03/21 08:07 Dose: 300 mg Documented by: [id number] Aspirin (Aspirin 81 Mg Ectab) [facility] [place]: 10/03/21 08:59 Last Admin: 09/03/21 08:07 Dose: 81 mg Documented by: [id number] Atorvastatin Calcium (Atorvastatin 40 Mg Tab) 40 mg PO DAILY [facility] Stop: 10/03/21 08:59 Last Admin: 09/03/21 08:07 Dose: 40 mg Documented by: [id number] Clopidogrel Bisulfate (Clopidogrel Bisulfate 75 Mg Tab) 75 mg PO [facility] Stop: 10/03/21 08:59 Last Admin: 09/03/21 08:08 Dose: 75 mg Documented by: [id number] Doxycycline Hyclate (Doxycycline Hyclate 100 Mg Cap) 100 mg PO BID [facility] Stop: 09/10/21 08:59 Last Admin: 09/03/21 08:08 Dose: 100 mg Documented by: [id number] Enoxaparin Sodium (Enoxaparin Inj 40 Mg/0.4 Ml Syr) [facility] [place]: 10/03/21 08:59 Last Admin: 09/03/21 08:06 Dose: 40 mg Documented by: [id number] Famotidine (Famotidine 20 Mg Tab) 20 mg PO BID [facility] Stop: 10/03/21 08:59 Last Admin: 09/03/21 08:07 Dose: 20 mg Documented by: [id number] Sodium Chloride (Nss 1000ml) 1,000 mls @ 75 mls/hr IV .[id number] ONE Stop: 09/03/21 12:28 Last Admin: 09/03/21 00:17 Dose: 75 mls/hr Documented by: [id number] Insulin Aspart (Insulin Aspart Per Unit) 0 units SC ACHS NATASHA Stop: 10/02/21 23:08 Last Admin: 09/03/21 08:46 Dose: Not Given Documented by: [id number] Admin: 09/03/21 00:17 Dose: 4 units Documented by: [id number] Cosigned by: [id number] Insulin Glargine (Insulin Glargine Solostar 100 Units/Ml 3 Ml Pen) 10 units SC BID NATASHA Stop: 10/03/21 06:59 Last Admin: 09/03/21 09:51 Dose: 10 units Documented by: [id number] Cosigned by: [id number] Lisinopril (Lisinopril 10 Mg Tab) 10 mg PO DAILY NATASHA Stop: 10/03/21 08:59 Last Admin: 09/03/21 08:08 Dose: 10 mg Documented by: [id number] Metoprolol Tartrate (Metoprolol Tartrate 25 Mg Tab) 25 mg PO BID NATASHA Stop: 10/03/21 08:59 Last Admin: 09/03/21 08:08 Dose: 25 mg Documented by: [id number] Miscellaneous (Trulicity~Order Awaiting Action) 1 ea N/A QS [facility] Stop: 10/03/21 07:59 Last Admin: 09/03/21 11:50 Dose: Not Given Documented by: [id number] Admin: 09/03/21 08:09 Dose: Not Given Documented by: [id number] Multivitamins (Multivitamin Tab) 1 tab PO QAM NATASHA Stop: 10/03/21 08:59 Last Admin: 09/03/21 08:07 Dose: 1 tab Documented by: [id number] Pregabalin (Pregabalin 150 Mg Cap) 150 mg PO TID NATASHA Stop: 10/02/21 23:08 Last Admin: 09/03/21 08:11 Dose: 150 mg Documented by: [id number] Admin: 09/03/21 00:17 Dose: 150 mg Documented by: [id number] Discontinued Medications Acetaminophen (Acetaminophen 500 Mg Tab) 1,000 mg PO NOW STA Stop: 09/02/21 18:32 Last Admin: 09/02/21 19:32 Dose: 1,000 mg Documented by: [id number] Sodium Chloride (Nss 1000ml) 500 mls @ 999 mls/hr IV .Q31M ONE Stop: 09/02/21 19:01 Last Infusion: 09/02/21 20:19 Dose: 0 mls/hr Documented by: [id number] Admin: 09/02/21 19:46 Dose: 999 mls/hr Documented by: [id number] Cefepime HCl (Maxipime) 2,000 mg in 20 mls @ 5 mls/min IV NOW STA; Protocol Stop: 09/02/21 20:28 Last Admin: 09/02/21 20:36 Dose: 5 mls/min Documented by: [id number] Magnesium Sulfate/Dextrose (Magnesium Sulfate / D5w) 1 gm in 100 mls @ 100 mls/hr IV NOW STA Stop: 09/02/21 21:24 Last Infusion: 09/02/21 21:47 Dose: 0 mls/hr Documented by: [id number] Admin: 09/02/21 20:38 Dose: 100 mls/hr Documented by: [id number] Doxycycline Hyclate 100 mg/ (Dextrose) 110 mls @ 50 mls/hr IV 2100 ONE Stop: 09/02/21 23:11 Last Infusion: 09/03/21 00:43 Dose: 0 mls/hr Documented by: [id number] Admin: 09/02/21 22:15 Dose: 50 mls/hr Documented by: [id number] Magnesium Sulfate/Dextrose (Magnesium Sulfate / D5w) 1 gm in 100 mls @ 50 mls/hr IV ONE ONE Stop: 09/02/21 23:29 Last Infusion: 09/02/21 23:54 Dose: 0 mls/hr Documented by: [id number] Admin: 09/02/21 21:47 Dose: 50 mls/hr Documented by: [id number] Ipratropium [place] (Ipratropium [place] Neb Soln 0.02% 2.5 Ml Vial) 0.5 mg INH ONE STA Stop: 09/02/21 22:11 Last Admin: 09/02/21 22:28 Dose: 0.5 mg Documented by: [id number] Levalbuterol HCl (Levalbuterol 1.25mg/0.5ml Neb) 1.25 mg INH ONE STA Stop: 09/02/21 22:12 Last Admin: 09/02/21 22:28 Dose: 1.25 mg Documented by: [id number] Morphine Sulfate (Morphine Sulfate 10 Mg/Ml Carp/Vial) 6 mg IV NOW STA Stop: 09/02/21 18:32 Last Admin: 09/02/21 19:45 Dose: Not Given Documented by: [id number] Morphine Sulfate (Morphine Sulfate 2 Mg/Ml Carp) Confirm Administered Dose 2 mg .ROUTE .STK-MED ONE Stop: 09/02/21 19:26 Last Admin: 09/02/21 19:31 Dose: 2 mg Documented by: [id number] Morphine Sulfate (Morphine Sulfate 4 Mg/Ml 1 Ml Carp\\Vial) Confirm Administered Dose 4 mg .ROUTE .STK-MED ONE Stop: 09/02/21 19:27 Last Admin: 09/02/21 19:31 Dose: 4 mg Documented by: [id number] Ondansetron HCl (Ondansetron Inj 2 Mg/Ml 2 Ml Vial) 4 mg IV NOW STA Stop: 09/02/21 18:32 Last Admin: 09/02/21 19:32 Dose: 4 mg Documented by: [id number] Discharge Plan Visit Data Chief Complaint: Pain (Generalized) Stated Complaint: bilat nueropathy,balance trouble,can't walk,edema, ED Provider: Leo Rayo Discharge Problem: SIRS (systemic inflammatory response syndrome), Bilateral pain of leg and foot, Hypoxia, Hypomagnesemia Patient Disposition: Admitted As Inpatient Discharge Instructions Interventions: ED Discharge Assessment Last Done: 09/02/21 22:39
--- NOTE | 2021-09-02 19:05 | XRay Report ---
XR chest 1V portable HISTORY: 75 years-old Male cough, sob, fever Acute cough with shortness of breath and fever COMPARISON: Chest radiograph 06/18/2021, CTA chest 01/24/2021 TECHNIQUE: AP view of the chest FINDINGS: The cardiac silhouette is enlarged. Atherosclerosis of the thoracic aorta. No pneumothorax, pleural e ffusion, airspace consolidation or overt pulmonary edema. Mild chronic interstitial coarsening of the lung bases. Spondylitic spurring of the spine. IMPRESSION: Cardiomegaly without acute process. ACT 112: Negative or not required by law. The above report was generated using voice recognition software. It may contain grammatical, syntax o r spelling errors. Electronically signed by: Joey Schmidt M.D. 09/02/2021 7:03 PM
[2021-09-02] MEDS ORDERED: MoRPHine SULFATE 2 MG/ML CARP ONE (19:25)
[2021-09-02] MEDS ORDERED: MoRPHine SULFATE 4 MG/ML 1 ML CARP\\VIAL ONE (19:26)
[2021-09-02 19:34] LABS: Mean Corpuscular Hemoglobin 32.5 pg (25-34); Mean Corpuscular Hgb Conc 35.1 g/dL (32-36); Mean Corpuscular Volume 92.5 fL (80-100); Mean Platelet Volume 10.9 fL (7.4-10.4); Platelet Count 137 K/uL (130-400); RDW Coefficient of Variation 14.7 % (11.5-14.5); RDW Standard Deviation 49.4 fL (36.4-46.3); White Blood Count 9.84 K/uL (4.8-10.8)
[2021-09-02 19:37] LABS: Appearance Urine Clear (Clear); Bacteria Urine Automated Negative (Negative); Bilirubin Urine Negative (Negative); Blood Urine Negative (Negative); Color Urine Dark Yellow; Glucose Urine UA 3+ (Negative); Ketones Urine Trace (Negative); Leukocyte Esterase Urine Negative (Negative); Nitrite Urine Negative (Negative); Protein Urine Trace (Negative); RBC Urine Automated 0-4 /hpf (0-4); Specific Gravity Urine 1.026 (1.000-1.030); Urobilinogen Urine Negative (Negative); pH Urine 5.5 (4.5-7.5)
[2021-09-02 20:01] LABS: Albumin Level 4.2 gm/dl (3.4-5.0); BUN Creatinine Ratio 22.1 (10-20); Bilirubin Direct 0.4 mg/dl (0-0.2); Calcium 9.5 mg/dl (8.5-10.1); Creatinine Clr Calc Pharmacy 57.8 ml/min; Est GFR (African American) 66.8 ml/min; Est GFR (Non-African American) 57.6 ml/min; Magnesium 1.4 mg/dl (1.7-2.4); Potassium 4.3 mmol/L (3.5-5.1); Total Protein 7.8 gm/dl (6.0-8.3)
[2021-09-02 20:04] LABS: Troponin I High Sensitivity 8.4 pg/ml (0-20)
[2021-09-02 20:09] LABS: Influenza A virus by PCR Negative (Neg); Influenza B virus by PCR Negative (Neg); RSV by PCR Negative (Neg); SARS CoV2 RNA(COVID-19) InHosp NEGATIVE (Negative)
[2021-09-02 20:18] LABS: ALC (manual) 2.55 K/uL (1.2-3.4); ANC (manual) 5.09 K/uL (1.4-6.5); Basophils # (manual) 0.09 K/uL (0-0.2); Basophils % (manual) 0.9 %; Eosinophils # (manual) 0.17 K/uL (0-0.5); Eosinophils % (manual) 1.7 %; Lymphocytes # (manual) 0.68 K/uL (1.2-3.4); Lymphocytes % (manual) 6.9 %; Monocytes # (manual) 1.95 K/uL (0.11-0.59); Monocytes % (manual) 19.8 %; Neutrophils # (manual) 5.09 K/uL (1.4-6.5); Neutrophils % (manual) 51.7 %; Reactive Lymphocytes # (manual) 1.87 K/uL
[2021-09-02] MEDS ORDERED: MAGNESIUM SULFATE / D5W 1 GM/100 ML BAG IV STA (20:25)
[2021-09-02] MEDS ORDERED: CEFEPIME 2,000 MG/20 ML VIAL IV STA (20:25)
[2021-09-02] MEDS ORDERED: DOXYCYCLINE HYCLATE 100 MG in DEXTROSE 5% 100 ML IV ONE (21:00)
[2021-09-02] MEDS ORDERED: MAGNESIUM SULFATE / D5W 1 GM/100 ML BAG IV ONE (21:30)
[2021-09-02] MEDS ORDERED: XOPENEX/ATROVENT 1.25mg/0.5MG NEB COMBO NEB STA (21:56)
--- NOTE | 2021-09-02 21:57 | History & Physical Report ---
Date of Service September 02, 2021 Assessment & Plan (1) Sepsis: Plan: Possible atypical pneumonia/complicated bronchitis given prominent constitutional symptoms chronic diastolic heart failure (EF 55%, TTE 2020 ), patient on the dry side hx CAD status post stent COPD, scattered expiratory wheezes on exam hx JENNIFER/CPAP noncompliance hypertension, slightly elevated hyperlipidemia, on statin Rx DM2 insulin requiring, reasonable control as of recent hemoglobin A1c of 7.31 January 2020 peripheral neuropathy, worsening symptoms as per patient New onset anemia without history of overt bleed, FOBT done at the ER was negative past tobacco abuse Medical telemetry CS, doxycycline Neb treatment 1 dose now given scattered wheezing Consider low-dose steroid course for possible COPD exacerbation if with worsening respiratory distress Anemia work-up, transfuse PRBC if hemoglobin less than 8 and or for symptomatic anemia Basal insulin, ISS BG goal 1 10-1 40, carb count coverage, update hemoglobin A1c PT OT eval DVT prophylaxis. Lovenox subcu Full code Patient daughter requesting updates from providers. Ms. Summer Browning, contact #[phone]. Text document was generated using [employer] voice recognition software. It may contain grammatical or spelling errors. Kindly contact undersigned for clarification of any documentation item in question. History of Present Illness Chief Complaint: Cough, shortness of breath, worsening leg neuropathy Primary Care Provider: Cristian Nixon MD History obtained from patient, family, and records. Medical history significant for chronic diastolic heart failure (EF 55%, TTE 2020 ), CAD status post stent, COPD, JENNIFER/CPAP noncompliance, hypertension, hyperlipidemia, DM2 insulin requiring, gout, peripheral neuropathy, past tobacco abuse. Last confinement January 2020 for left lung pneumonia. Few days history of junky cough symptoms with worsening shortness of breath without weight gain. No chest pain. Feeling weak. Poor appetite. No known sick contacts. Patient completed COVID-19 vaccination. Denies aspiration. Worsening lower extremity neuropathy. Patient thinks he may have sprained his left ankle. Denies abdominal pain/black/bloody stools/hematuria. Patient received cefepime at the ER for sepsis. O2 sats dropped to 80s at the ER after Morphine administered for neuropathy. 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 Allergies Allergy/AdvReac Type Severity Reaction Status Date / Time No Known Allergies Allergy Verified 09/02/21 19:04 Home Medications Medication Instructions Recorded Confirmed Type allopurinol 300 mg tablet 300 mg PO QAM 11/05/18 09/02/21 History aspirin 81 mg tablet,delayed 81 mg PO QAM 11/05/18 09/02/21 History release (Lore Low Dose Aspirin) clopidogrel 75 mg tablet 75 mg PO QAM 11/05/18 09/02/21 History lisinopril 10 mg tablet 10 mg PO DAILY 11/05/18 09/02/21 History metoprolol tartrate 25 mg tablet 25 mg PO BID 11/05/18 09/02/21 History multivitamin 1 tab PO QAM 11/05/18 09/02/21 History albuterol sulfate 90 mcg/actuation 2 puff INHALATION QID PRN 02/21/20 09/02/21 History aerosol inhaler dulaglutide 0.75 mg/0.5 mL 1.5 mg SUBCUT WK 02/21/20 09/02/21 History subcutaneous pen injector (Trulicity) famotidine 20 mg tablet 20 mg PO BID 02/21/20 09/02/21 History hydrochlorothiazide 12.5 mg capsule 12.5 mg PO DAILY 02/21/20 09/02/21 History insulin degludec 100 unit/mL (3 22 unit SUBCUT .WITH RABIA MEAL 02/21/20 09/02/21 History mL) subcutaneous pen (Tresiba FlexTouch U-100 insulin) pregabalin 100 mg capsule 150 mg PO TID 02/21/20 09/02/21 History atorvastatin 40 mg tablet 40 mg PO DAILY 06/18/21 09/02/21 History spironolactone 25 mg tablet 12.5 mg PO DAILY 06/18/21 09/02/21 History metformin 09/03/21 History Past Med/Surg History Medical History (Updated 09/03/21 @ 07:07 by Moses Hargrove MD) CAD (coronary artery disease) Cardiac murmur Chest pain recent episode of intermittent chest pain while at rest 2-3 days ago. reports similar episode 3 weeks ago. did not report to hospital or call PCP, cardio. advised to notify pcp, cardio of symptoms. Confusion reports recently woke up with confusion, memory loss x 1 week ago. describes sitting on recliner and then "blacking out" - woke up not able to recall time, location, events of day. did not notify PCP or go to hospital. advised to notify pcp Diabetes mellitus, type 2 NIDDM Dyslipidemia Gout Herniated intervertebral disc AKHIOK (hard of hearing) HTN (hypertension) Neuropathy Neuropathy JENNIFER (obstructive sleep apnea) does not tolerate CPAP/BiPAP Osteoarthritis Surgical History H/O heart artery stent x 1 (2006) - Follows w/ Dr. Chandler History of amputation of left thumb History of cardiac catheterization 2014 - [facility] - no stents 10/28/06 - [facility] to circumflex, marginal at [facility], Dr Hagan History of colonoscopy History of right cataract surgery Family History Brother Coronary heart disease Lung cancer Mother Family history of diabetes mellitus Other Hypertension Social History Smoking Status: Former smoker Cigarettes Per Day: Quit 1985, smoked 2ppd x 25 years; Second Hand Exposure: No; Hx Alcohol Use: Yes Alcohol type: beer Hx Substance Use: No Preferred Language: Andorran Communication Ability: Effective Pedigree Researcher Required: No Beliefs That Will Affect Care: None marital status: / Current Living Situation: Alone Current Living Situation Comment: family next door current occupational status: retired Feels Safe at Home: Yes Assistive Devices: Cane Review of Systems Review of Systems: As per HPI, all other systems reviewed and negative Physical Exam Physical Exam: GENERAL: Slightly uncomfortable, slightly hard of hearing, obese, pleasant, minimal respiratory distress SKIN: Pallor, warm HEENT: [place] palpebral conjunctivae, no ptosis, dry buccal mucosa, nasal cannula in place NECK : Supple, short neck, no tenderness CHEST : Decreased breath sounds, occasional expiratory wheezes, no tenderness HEART : RRR, no obvious murmurs ABDOMEN: Some distention, nontender RECTAL : Intact sphincter, yellow stool (FOBT negative) EXTREMITIES : Minimal LE swelling, no LE tenderness, no other conspicuous deformities noted NEUROLOGIC : Coherent, no facial asymmetry, slightly hard of hearing, no other gross focality Results & Data Results & Data ([facility]) Vital Signs (Past 12 Hours) Vital Signs Temp Pulse Resp BP Pulse Ox 09/02/21 21:00 80 22 115/58 L 97 09/02/21 20:38 37.0 C 09/02/21 20:30 81 24 144/69 H 95 09/02/21 20:00 85 20 141/72 H 95 09/02/21 18:04 38.0 C H 100 H 20 126/68 93 Laboratory Results Laboratory Results WBC 9.84 K/uL (4.8-10.8) 09/02/21 19:20 RBC 4.00 M/uL (4.7-6.1) L 09/02/21 19:20 Hgb 13.0 g/dL (14.0-18.0) L 09/02/21 19:20 Hct 37.0 % (42-52) L 09/02/21 19:20 MCV 92.5 fL (80-100) 09/02/21 19:20 MCH 32.5 pg (25-34) 09/02/21 19:20 MCHC 35.1 g/dL (32-36) 09/02/21 19:20 RDW Std Deviation 49.4 fL (36.4-46.3) H 09/02/21 19:20 RDW Coeff of Sheri 14.7 % (11.5-14.5) H 09/02/21 19:20 Plt Count 137 K/uL (130-400) 09/02/21 19:20 MPV 10.9 fL (7.4-10.4) H 09/02/21 19:20 Neutrophils % (Manual) 51.7 % 09/02/21 19:20 Lymphocytes % (Manual) 6.9 % 09/02/21 19:20 Reactive Lymphs % (Man) 19.0 % 09/02/21 19:20 Monocytes % (Manual) 19.8 % 09/02/21 19:20 Eosinophils % (Manual) 1.7 % 09/02/21 19:20 Basophils % (Manual) 0.9 % 09/02/21 19:20 Neutrophils # (Manual) 5.09 K/uL (1.4-6.5) 09/02/21 19:20 Total Absolute Neuts 5.09 K/uL (1.4-6.5) 09/02/21 19:20 Lymphocytes # (Manual) 0.68 K/uL (1.2-3.4) L 09/02/21 19:20 Reactive Lymphs # 1.87 K/uL 09/02/21 19:20 Total Abs Lymphocytes 2.55 K/uL (1.2-3.4) 09/02/21 19:20 Monocytes # (Manual) 1.95 K/uL (0.11-0.59) H 09/02/21 19:20 Eosinophils # (Manual) 0.17 K/uL (0-0.5) 09/02/21 19:20 Basophils # (Manual) 0.09 K/uL (0-0.2) 09/02/21 19:20 Sodium 133 mmol/L (136-145) L 09/02/21 19:20 Potassium 4.3 mmol/L (3.5-5.1) 09/02/21 19:20 Chloride 99 mmol/L (98-107) 09/02/21 19:20 Carbon Dioxide 24 mmol/L (21-32) 09/02/21 19:20 Anion Gap 10 (3-11) 09/02/21 19:20 BUN 27 mg/dl (6-23) H 09/02/21 19:20 Creatinine 1.22 mg/dl (0.6-1.4) 09/02/21 19:20 Est Cr Clr Drug Dosing 57.8 ml/min 09/02/21 19:20 Est GFR ( Amer) 66.8 ml/min 09/02/21 19:20 Est GFR (Non-Af Amer) 57.6 ml/min 09/02/21 19:20 BUN/Creatinine Ratio 22.1 (10-20) H 09/02/21 19:20 Glucose 260 mg/dl (70-99(Fasting)) H 09/02/21 19:20 Lactate 1.9 mmol/L (0.4-2.0) 09/02/21 19:20 Calcium 9.5 mg/dl (8.5-10.1) 09/02/21 19:20 Magnesium 1.4 mg/dl (1.7-2.4) L 09/02/21 19:20 Total Bilirubin 3.0 mg/dl (0.2-1.0) H 09/02/21 19:20 Direct Bilirubin 0.4 mg/dl (0-0.2) H 09/02/21 19:20 AST 28 U/L (13-39) 09/02/21 19:20 ALT 31 U/L (7-52) 09/02/21 19:20 Alkaline Phosphatase 63 U/L (34-104) 09/02/21 19:20 Troponin I High Sens 8.4 pg/ml (0-20) 09/02/21 19:20 Total Protein 7.8 gm/dl (6.0-8.3) 09/02/21 19:20 Albumin 4.2 gm/dl (3.4-5.0) 09/02/21 19:20 Procalcitonin 1.61 ng/ml (0-0.5) H 09/02/21 19:20 Urine Color Dark Yellow 09/02/21 19:20 Urine Appearance Clear (Clear) 09/02/21 19:20 Urine pH 5.5 (4.5-7.5) 09/02/21 19:20 Ur Specific [place] 1.026 (1.000-1.030) 09/02/21 19:20 Urine Protein Trace (Negative) H 09/02/21 19:20 Urine Glucose (UA) 3+ (Negative) H 09/02/21 19:20 Urine Ketones Trace (Negative) H 09/02/21 19:20 Urine Blood Negative (Negative) 09/02/21 19:20 Urine Nitrite Negative (Negative) 09/02/21 19:20 Urine Bilirubin Negative (Negative) 09/02/21 19:20 Urine Urobilinogen Negative (Negative) 09/02/21 19:20 Ur Leukocyte Esterase Negative (Negative) 09/02/21 19:20 Urine WBC (Auto) 1-5 /hpf (0-5) 09/02/21 19:20 Urine RBC (Auto) 0-4 /hpf (0-4) 09/02/21 19:20 U Hyaline Cast (Auto) 5-10 /lpf (0-5) H 09/02/21 19:20 U Epithel Cells (Auto) 5-10 /lpf (0-5) H 09/02/21 19:20 Urine Bacteria (Auto) Negative (Negative) 09/02/21 19:20 SARS-CoV-2 (PCR) NEGATIVE (Negative) 09/02/21 19:20 Influenza Type A (PCR) Negative (Neg) 09/02/21 19:20 Influenza Type B (PCR) Negative (Neg) 09/02/21 19:20 RSV (RT-PCR) Negative (Neg) 09/02/21 19:20 Impressions Chest X-Ray 09/02/21 18:31 XR chest 1V portable HISTORY: 75 years-old Male cough, sob, fever Acute cough with shortness of breath and fever COMPARISON: Chest radiograph 06/18/2021, CTA chest 01/24/2021 TECHNIQUE: AP view of the chest FINDINGS: The cardiac silhouette is enlarged. Atherosclerosis of the thoracic aorta. No pneumothorax, pleural effusion, airspace consolidation or overt pulmonary edema. Mild chronic interstitial coarsening of the lung bases. Spondylitic spurring of the spine. IMPRESSION: Cardiomegaly without acute process. ACT 112: Negative or not required by law. The above report was generated using voice recognition software. It may contain grammatical, syntax or spelling errors. Electronically signed by: Joey Schmidt M.D. 09/02/2021 7:03 PM
[2021-09-02] MEDS ORDERED: IPRATROPIUM BROMIDE NEB SOLN 0.02% 2.5 ML VIAL INH STA (22:10)
[2021-09-02] MEDS ORDERED: LEVALBUTEROL 1.25MG/0.5ML NEB INH STA (22:11)
[2021-09-02] MEDS ORDERED: SODIUM CHLORIDE 0.9% 1000ML 1,000 ML IV ONE (23:09)
[2021-09-02] MEDS ORDERED: LEVALBUTEROL 1.25MG/0.5ML NEB INH PRN (23:09)
[2021-09-02] MEDS ORDERED: GLUCAGON FOR INJ 1 MG VIAL SQ PRN (23:09)
[2021-09-02] MEDS ORDERED: GLUCOSE 10 TABS/TUBE PO PRN (23:09)
[2021-09-02] MEDS ORDERED: CARBOHYDRATES FOR HYPOGLYCEMIA PO PRN (23:09)
[2021-09-02] MEDS ORDERED: PROMETHAZINE HCL 12.5 MG in SODIUM CHLORIDE 0.9% 50 ML IV PRN (23:09)
[2021-09-02] MEDS ORDERED: XOPENEX/ATROVENT 1.25mg/0.5MG NEB COMBO NEB PRN (23:09)
[2021-09-02] MEDS ORDERED: traMADol HCL 50 MG TABLET PO PRN (23:09)
[2021-09-02] MEDS ORDERED: DEXTROSE 50% 50 ML SYRINGE IV PRN (23:09)
[2021-09-02] MEDS ORDERED: GLUCOSE 40% GEL 15 GM TUBE PO PRN (23:09)
[2021-09-03] MEDS: INSULIN ASPART PER UNIT SC SCH ×5 (00:17→20:05)
[2021-09-03] MEDS: PREGABALIN 150 MG CAP PO SCH ×3 (00:17→15:19)
[2021-09-03 07:23] LABS: Hematocrit (blood only) 34.9 % (42-52); Mean Corpuscular Hemoglobin 31.5 pg (25-34); Mean Corpuscular Hgb Conc 34.4 g/dL (32-36); Mean Corpuscular Volume 91.6 fL (80-100); Mean Platelet Volume 11.2 fL (7.4-10.4); Platelet Count 116 K/uL (130-400); RDW Coefficient of Variation 14.9 % (11.5-14.5); RDW Standard Deviation 49.6 fL (36.4-46.3); Red Blood Count 3.81 M/uL (4.7-6.1); Reticulocytes # 0.23 10^6/uL (0.02-0.10); White Blood Count 9.13 K/uL (4.8-10.8)
[2021-09-03 07:52] LABS: Basophils # (auto) 0.05 K/uL (0-0.2); Basophils % (auto) 0.5 %; Eosinophils # (auto) 0.15 K/uL (0-0.5); Eosinophils % (auto) 1.6 %; Immature Granulocytes # (auto) 0.03 K/uL (0.00-0.02); Immature Granulocytes % (auto) 0.3 %; Lymphocytes # (auto) 3.67 K/uL (1.2-3.4); Lymphocytes % (auto) 40.2 %; Monocytes # (auto) 1.57 K/uL (0.11-0.59); Monocytes % (auto) 17.2 %; Neutrophils # (auto) 3.66 K/uL (1.4-6.5); Neutrophils % (auto) 40.2 %
[2021-09-03] MEDS: ENOXAPARIN INJ 40 MG/0.4 ML SYR SQ SCH (08:06)
[2021-09-03] MEDS: FAMOTIDINE 20 MG TAB PO SCH ×2 (08:07→20:04)
[2021-09-03] MEDS: ATORVASTATIN 40 MG TAB PO SCH (08:07)
[2021-09-03] MEDS: ASPIRIN 81 MG ECTAB PO SCH (08:07)
[2021-09-03] MEDS: MULTIVITAMIN TAB PO SCH (08:07)
[2021-09-03] MEDS: allopurinoL 300 MG TAB PO SCH (08:07)
[2021-09-03] MEDS: DOXYCYCLINE HYCLATE 100 MG CAP PO SCH ×2 (08:08→20:04)
[2021-09-03] MEDS: METOPROLOL TARTRATE 25 MG TAB PO SCH ×2 (08:08→20:06)
[2021-09-03] MEDS: CLOPIDOGREL BISULFATE 75 MG TAB PO SCH (08:08)
[2021-09-03] MEDS: lisinopril 10 MG TAB PO SCH (08:08)
[2021-09-03 08:11] LABS: BUN Creatinine Ratio 23.3 (10-20); Creatinine Clr Calc Pharmacy 83.2 ml/min; Est GFR (African American) 98.3 ml/min; Est GFR (Non-African American) 84.8 ml/min; Magnesium 1.8 mg/dl (1.7-2.4); Potassium 4.3 mmol/L (3.5-5.1)
[2021-09-03 08:19] LABS: Folate (Folic Acid) > 22.30 ng/ml (>5.38)
[2021-09-03 08:20] LABS: Vitamin B12 423 pg/ml (180-914)
[2021-09-03] MEDS: INSULIN GLARGINE SOLOSTAR 100 UNITS/ML 3 ML PEN SC SCH ×2 (09:51→20:06)
--- NOTE | 2021-09-03 15:09 | Hospitalist Progress Note ---
Date of Service September 03, 2021 Assessment & Plan (1) Sepsis: Plan: Acute bronchitis/atypical pneumonia Hypoxia H/O COPD CXR:Cardiomegaly without acute process. Elevated procalcitonin Flutter valve Cultures pending Continue doxycycline Nebs as needed Wean off of supplemental oxygen as able May need 2 step to discharge H/O JENNIFER Noncompliance with CPAP Chronic diastolic heart failure EF 55%, TTE 2020 No overt signs of volume overload Resume home diuretics as able Monitor volume status CAD S/P stent Continue aspirin, Plavix, statin, metoprolol Hypertension On lisinopril, metoprolol Monitor Hyperlipidemia on statin DM II Update HbA1C Continue Insulin Monitor BGs Peripheral neuropathy Uncontrolled per patient On Lyrica Adjust meds as needed Normocytic Anemia Likely multifactorial Ferritin likely falsely elevated Normal Vitamin B12, Folate Iron studies reviewed FOBT in ED Negative Monitor CBC DVT Px: Lovenox SQ Code Status Full code Admission and Anticipated Discharge Date Admission Date: September 02, 2021 Subjective Patient is seen and examined at bedside States having transient ankle pain, left lower quadrant abdominal pain this morning which currently resolved Also states having none expectorant cough Denies any dyspnea, dizziness, nausea, chest pain Offers no other complaints Review of Systems Review of Systems: All systems reviewed & are unremarkable except as noted in Subjective Physical Exam Physical Exam: Physical Exam: Vitals signs as noted above General Appearance:Obese, no apparent distress Head: normocephalic, Atraumatic Eyes: normal inspection, EOMI Neck: supple, Trachea midline Respiratory/Chest: Normal breath sounds, CTA, No accessory muscle use Cardiovascular: S1, S2, +Murmur Abdomen/GI:Soft, Non tender, Bowel sounds present Extremities/Musculoskeletal:normal inspection, Trace edema Neurologic/Psych:AAOX3, grossly no focal neurological deficits Skin: normal color, warm Results & Data Results & Data ([facility]) Vital Signs (Past 12 Hours) Vital Signs Temp Pulse Resp BP Pulse Ox 09/03/21 14:37 36.7 C 73 18 123/70 94 09/03/21 11:20 37.6 C H 71 18 110/48 L 94 09/03/21 07:41 37.6 C H 85 20 156/78 H 93 09/03/21 04:00 36.8 C 73 20 120/73 92 Laboratory Results Short CBC 09/02/21 09/03/21 Range/Units 19:20 06:41 WBC 9.84 9.13 (4.8-10.8) K/uL Hgb 13.0 L 12.0 L (14.0-18.0) g/dL Hct 37.0 L 34.9 L (42-52) % Plt Count 137 116 L (130-400) K/uL BMP 09/02/21 09/03/21 19:20 06:41 Sodium 133 L 135 L Potassium 4.3 4.3 Chloride 99 103 Carbon Dioxide 24 24 BUN 27 H 20 Creatinine 1.22 0.86 D Glucose 260 H 153 H Calcium 9.5 9.0 Cardiac Enzymes 09/02/21 Range/Units 19:20 Total Creatine Kinase 177 (30-223) U/L Liver Function 09/02/21 Range/Units 19:20 Total Bilirubin 3.0 H (0.2-1.0) mg/dl Direct Bilirubin 0.4 H (0-0.2) mg/dl AST 28 (13-39) U/L ALT 31 (7-52) U/L Alkaline Phosphatase 63 (34-104) U/L Albumin 4.2 (3.4-5.0) gm/dl Urine 09/02/21 Range/Units 19:20 Urine Color Dark Yellow Urine Appearance Clear (Clear) Urine pH 5.5 (4.5-7.5) Ur Specific [place] 1.026 (1.000-1.030) Urine Protein Trace H (Negative) Urine Glucose (UA) 3+ H (Negative)
[2021-09-03] MEDS: oxyCODONE HCL IR 5 MG TAB (IMMEDIATE RELEASE) PO PRN (17:44)
[2021-09-03] MEDS: ACETAMINOPHEN 325 MG TAB PO PRN (18:30)
[2021-09-03] MEDS ORDERED: KETOROLAC TROMETHAMINE 15 MG/ML VIAL IV ONE (19:25)
[2021-09-03] MEDS: PREGABALIN 100 MG CAP PO SCH (19:34)
[2021-09-03] MEDS ORDERED: INSULIN GLARGINE SOLOSTAR 100 UNITS/ML 3 ML PEN SC SCH (21:00)
[2021-09-04] MEDS: ACETAMINOPHEN 325 MG TAB PO PRN ×3 (04:18→18:46)
[2021-09-04] MEDS: oxyCODONE HCL IR 5 MG TAB (IMMEDIATE RELEASE) PO PRN (05:08)
[2021-09-04 06:08] LABS: Hemoglobin 11.1 g/dL (14.0-18.0); Mean Corpuscular Hemoglobin 32.7 pg (25-34); Mean Corpuscular Hgb Conc 35.8 g/dL (32-36); Mean Corpuscular Volume 91.4 fL (80-100); Mean Platelet Volume 11.3 fL (7.4-10.4); Platelet Count 104 K/uL (130-400); RDW Coefficient of Variation 14.9 % (11.5-14.5); RDW Standard Deviation 49.7 fL (36.4-46.3); Red Blood Count 3.39 M/uL (4.7-6.1); White Blood Count 8.88 K/uL (4.8-10.8)
[2021-09-04 06:53] LABS: Estimated Average Glucose 157 mg/dl; Hemoglobin A1C 7.1 % (4.5-5.6)
[2021-09-04] MEDS: ATORVASTATIN 40 MG TAB PO SCH (08:11)
[2021-09-04] MEDS: allopurinoL 300 MG TAB PO SCH (08:11)
[2021-09-04] MEDS: CLOPIDOGREL BISULFATE 75 MG TAB PO SCH (08:12)
[2021-09-04] MEDS: MULTIVITAMIN TAB PO SCH (08:13)
[2021-09-04] MEDS: ASPIRIN 81 MG ECTAB PO SCH (08:13)
[2021-09-04] MEDS: FAMOTIDINE 20 MG TAB PO SCH ×2 (08:13→21:53)
[2021-09-04] MEDS: ENOXAPARIN INJ 40 MG/0.4 ML SYR SQ SCH (08:14)
[2021-09-04] MEDS: DOXYCYCLINE HYCLATE 100 MG CAP PO SCH ×2 (08:14→21:53)
[2021-09-04] MEDS: INSULIN GLARGINE SOLOSTAR 100 UNITS/ML 3 ML PEN SC SCH ×2 (08:15→21:54)
[2021-09-04] MEDS: lisinopril 10 MG TAB PO SCH (08:17)
[2021-09-04] MEDS: METOPROLOL TARTRATE 25 MG TAB PO SCH ×2 (08:19→21:53)
[2021-09-04] MEDS: INSULIN ASPART PER UNIT SC SCH ×4 (08:25→21:53)
[2021-09-04] MEDS: PREGABALIN 100 MG CAP PO SCH ×3 (08:32→21:53)
[2021-09-04] MEDS ORDERED: cefTRIAXone SODIUM 1,000 MG in DEXTROSE 5% 50 ML IV SCH (09:30)
[2021-09-04] MEDS ORDERED: cefTRIAXone SODIUM 2,000 MG in DEXTROSE 5% 50 ML IV SCH (10:00)
[2021-09-04] MEDS ORDERED: FUROSEMIDE INJ 20 MG/2 ML VIAL IV ONE (14:40)
--- NOTE | 2021-09-04 17:16 | Hospitalist Progress Note ---
Date of Service September 04, 2021 Assessment & Plan (1) Sepsis: Plan: Acute bronchitis/atypical pneumonia Hypoxia H/O COPD CXR:Cardiomegaly without acute process. Elevated procalcitonin Flutter valve Blood Culture: Negative to date Continue doxycycline, added Ceftriaxone Nebs as needed Wean off of supplemental oxygen as able May need 2 step to discharge Clinically feels better H/O JENNIFER Noncompliance with CPAP Chronic diastolic heart failure EF 55%, TTE 2020 No overt signs of volume overload Resume home diuretics as able Monitor volume status CAD S/P stent Continue aspirin, Plavix, statin, metoprolol Hypertension On lisinopril, metoprolol Monitor Hyperlipidemia on statin DM II Update HbA1C Continue Insulin Monitor BGs Peripheral neuropathy Uncontrolled per patient On Lyrica--Increased to 200mg TID Normocytic Anemia Likely multifactorial Ferritin likely falsely elevated Normal Vitamin B12, Folate Iron studies reviewed FOBT in ED Negative Monitor CBC DVT Px: Lovenox SQ Code Status Full code Admission and Anticipated Discharge Date Admission Date: September 02, 2021 Subjective Patient is seen and examined at bedside States feeling well today Ankle nerve pain is better No recurrence of abd pain Cough much improved Denies chest pain, dyspnea, dizziness, nausea No other complaints Review of Systems Review of Systems: All systems reviewed & are unremarkable except as noted in Subjective Physical Exam Physical Exam: Physical Exam: Vitals signs as noted above General Appearance:Obese, no apparent distress Head: normocephalic, Atraumatic Eyes: normal inspection, EOMI Neck: supple, Trachea midline Respiratory/Chest: Normal breath sounds, scattered crackles, No accessory muscle use Cardiovascular: S1, S2, +Murmur Abdomen/GI:Soft, Non tender, Bowel sounds present Extremities/Musculoskeletal:normal inspection, Trace edema Neurologic/Psych:AAOX3, grossly no focal neurological deficits Skin: normal color, warm Results & Data Results & Data ([facility]) Vital Signs (Past 12 Hours) Vital Signs Temp Pulse Pulse Resp BP BP Pulse Ox 09/04/21 14:17 73 09/04/21 12:30 37.5 C 09/04/21 11:52 09/04/21 10:59 37.9 C H 90 18 109/65 94 09/04/21 06:26 37 C 71 16 100/57 L 94 09/04/21 06:03 72 Pulse Ox Pulse Ox Pulse Ox 09/04/21 14:17 09/04/21 12:30 09/04/21 11:52 90 92 89 L 09/04/21 10:59 09/04/21 06:26 09/04/21 06:03 Laboratory Results Short CBC 09/04/21 Range/Units 05:21 WBC 8.88 (4.8-10.8) K/uL Hgb 11.1 L (14.0-18.0) g/dL Hct 31.0 L (42-52) % Plt Count 104 L (130-400) K/uL
[2021-09-04] MEDS ORDERED: LEVALBUTEROL HCL 1.25 MG/3 ML NEB ONE (19:59)
[2021-09-04] MEDS: IPRATROPIUM BROMIDE NEB SOLN 0.02% 2.5 ML VIAL INH PRN (20:02)
[2021-09-05 06:50] LABS: Hematocrit (blood only) 32.1 % (42-52); Hemoglobin 11.1 g/dL (14.0-18.0); Mean Corpuscular Hemoglobin 31.4 pg (25-34); Mean Corpuscular Hgb Conc 34.6 g/dL (32-36); Mean Corpuscular Volume 90.9 fL (80-100); RDW Coefficient of Variation 15.2 % (11.5-14.5); RDW Standard Deviation 50.4 fL (36.4-46.3); Red Blood Count 3.53 M/uL (4.7-6.1); White Blood Count 8.83 K/uL (4.8-10.8)
[2021-09-05 07:24] LABS: BUN Creatinine Ratio 24.5 (10-20); Calcium 8.7 mg/dl (8.5-10.1); Creatinine Clr Calc Pharmacy 69.6 ml/min; Est GFR (African American) 82.9 ml/min; Est GFR (Non-African American) 71.6 ml/min; Magnesium 1.8 mg/dl (1.7-2.4)
[2021-09-05 07:39] LABS: Mean Platelet Volume 10.6 fL (7.4-10.4); Platelet Count 99 K/uL (130-400)
[2021-09-05 07:41] LABS: Platelet Estimate Decreased (Normal)
[2021-09-05] MEDS: INSULIN ASPART PER UNIT SC SCH ×4 (08:31→20:27)
[2021-09-05] MEDS: INSULIN GLARGINE SOLOSTAR 100 UNITS/ML 3 ML PEN SC SCH ×2 (08:32→20:27)
[2021-09-05] MEDS: CLOPIDOGREL BISULFATE 75 MG TAB PO SCH (08:33)
[2021-09-05] MEDS: ASPIRIN 81 MG ECTAB PO SCH (08:33)
[2021-09-05] MEDS: MULTIVITAMIN TAB PO SCH (08:33)
[2021-09-05] MEDS: ATORVASTATIN 40 MG TAB PO SCH (08:34)
[2021-09-05] MEDS: allopurinoL 300 MG TAB PO SCH (08:34)
[2021-09-05] MEDS: FAMOTIDINE 20 MG TAB PO SCH ×2 (08:34→20:19)
[2021-09-05] MEDS: ENOXAPARIN INJ 40 MG/0.4 ML SYR SQ SCH (08:34)
[2021-09-05] MEDS: DOXYCYCLINE HYCLATE 100 MG CAP PO SCH ×2 (08:34→20:19)
[2021-09-05] MEDS: hydroCHLOROthiazide 25 MG TAB PO SCH (08:35)
[2021-09-05] MEDS: METOPROLOL TARTRATE 25 MG TAB PO SCH ×2 (08:35→20:18)
[2021-09-05] MEDS: PREGABALIN 100 MG CAP PO SCH ×3 (08:41→20:20)
--- NOTE | 2021-09-05 09:44 | XRay Report ---
XR chest 1V portable CLINICAL HISTORY: fever TECHNIQUE: Single frontal radiograph of the chest was obtained. Comparison: Comparison is made to chest radiograph 09/02/2021 FINDINGS: No lines and tubes are seen. Calcified aortic knob is seen. Prominence and cephalization of the vascu lature is seen. No evidence of pleural effusion or pneumothorax. IMPRESSION: Mild pulmonary edema. ACT 112: Negative or not required by law. Electronically signed by: Vito Connell M.D. 09/05/2021 9:42 AM
[2021-09-05] MEDS ORDERED: PIPERACILLIN/TAZOBACTAM 4.5 GM in DEXTROSE 5% 100 ML IV ONE (09:45)
[2021-09-05] MEDS: SPIRONOLACTONE 12.5 MG TAB PO SCH (10:12)
[2021-09-05 13:55] LABS: Lyme Ab IgG w/WB Rflx Negative (Negative); Lyme Ab IgM w/WB Rflx Negative (Negative)
[2021-09-05] MEDS: PIPERACILLIN/TAZOBACTAM 3.375 GM in DEXTROSE 5% 100 ML IV SCH ×2 (15:04→23:25)
--- NOTE | 2021-09-05 17:15 | Hospitalist Progress Note ---
Date of Service September 05, 2021 Assessment & Plan (1) Sepsis: Plan: Acute bronchitis/atypical pneumonia Hypoxia H/O COPD Mild pulmonary edema CXR:Cardiomegaly without acute process. Elevated procalcitonin Negative Lyme Screen Flutter valve Blood Culture: Negative to date Continue doxycycline, Ceftriaxone >> Zosyn, Doxy given persistent fever Nebs as needed Wean off of supplemental oxygen as able May need 2 step to discharge Repeat blood cultures today Resume home diuretics H/O JENNIFER Noncompliance with CPAP Chronic diastolic heart failure EF 55%, TTE 2020 No overt signs of volume overload Resume home diuretics as able Monitor volume status CAD S/P stent Continue aspirin, Plavix, statin, metoprolol Hypertension On lisinopril, metoprolol Monitor Hyperlipidemia on statin DM II HbA1C 7.1 Continue Insulin Monitor BGs Peripheral neuropathy Uncontrolled per patient On Lyrica--Increased to 200mg TID Normocytic Anemia Likely multifactorial Ferritin likely falsely elevated Normal Vitamin B12, Folate Iron studies reviewed FOBT in ED Negative Monitor CBC DVT Px: Lovenox SQ Code Status Full code Admission and Anticipated Discharge Date Admission Date: September 02, 2021 Subjective Patient is seen and examined at bedside States having minimal cough Also feels tired and weak No other complaints Denies chest pain, dyspnea, dizziness, nausea Review of Systems Review of Systems: All systems reviewed & are unremarkable except as noted in Subjective Physical Exam Physical Exam: Physical Exam: Vitals signs as noted above General Appearance:Obese, no apparent distress Head: normocephalic, Atraumatic Eyes: normal inspection, EOMI Neck: supple, Trachea midline Respiratory/Chest: Normal breath sounds, scattered wheezing, No accessory muscle use Cardiovascular: S1, S2, +Murmur Abdomen/GI:Soft, Non tender, Bowel sounds present Extremities/Musculoskeletal:normal inspection, Trace edema Neurologic/Psych:AAOX3, grossly no focal neurological deficits Skin: normal color, warm Results & Data Results & Data ([facility]) Vital Signs (Past 12 Hours) Vital Signs Temp Pulse Pulse Resp BP BP Pulse Ox 09/05/21 15:00 37.7 C H 76 20 118/71 93 09/05/21 14:20 75 09/05/21 11:00 37.6 C H 72 20 87/51 L 90 09/05/21 06:42 80 09/05/21 06:40 38.0 C H 82 22 127/66 95 Laboratory Results Short CBC 09/05/21 Range/Units 06:35 WBC 8.83 (4.8-10.8) K/uL Hgb 11.1 L (14.0-18.0) g/dL Hct 32.1 L (42-52) % Plt Count 99 L (130-400) K/uL BMP 09/05/21 06:35 Sodium 132 L Potassium 4.0 Chloride 101 Carbon Dioxide 25 BUN 25 H Creatinine 1.02 Glucose 133 H Calcium 8.7
[2021-09-06] MEDS: PIPERACILLIN/TAZOBACTAM 3.375 GM in DEXTROSE 5% 100 ML IV SCH (06:16)
[2021-09-06 06:32] LABS: Hematocrit (blood only) 32.1 % (42-52); Hemoglobin 11.1 g/dL (14.0-18.0); Mean Corpuscular Hemoglobin 31.4 pg (25-34); Mean Corpuscular Hgb Conc 34.6 g/dL (32-36); Mean Corpuscular Volume 90.7 fL (80-100); Platelet Count 106 K/uL (130-400); RDW Coefficient of Variation 14.8 % (11.5-14.5); RDW Standard Deviation 49.7 fL (36.4-46.3); Red Blood Count 3.54 M/uL (4.7-6.1); White Blood Count 9.14 K/uL (4.8-10.8)
[2021-09-06 06:47] LABS: BUN Creatinine Ratio 24.2 (10-20); Calcium 8.9 mg/dl (8.5-10.1); Creatinine Clr Calc Pharmacy 73.8 ml/min; Est GFR (African American) 90.4 ml/min; Potassium 3.9 mmol/L (3.5-5.1)
[2021-09-06] MEDS: INSULIN ASPART PER UNIT SC SCH ×4 (08:19→20:51)
[2021-09-06] MEDS: FAMOTIDINE 20 MG TAB PO SCH ×2 (08:25→20:50)
[2021-09-06] MEDS: allopurinoL 300 MG TAB PO SCH (08:25)
[2021-09-06] MEDS: DOXYCYCLINE HYCLATE 100 MG CAP PO SCH (08:25)
[2021-09-06] MEDS: MULTIVITAMIN TAB PO SCH (08:26)
[2021-09-06] MEDS: ATORVASTATIN 40 MG TAB PO SCH (08:26)
[2021-09-06] MEDS: SPIRONOLACTONE 12.5 MG TAB PO SCH (08:26)
[2021-09-06] MEDS: CLOPIDOGREL BISULFATE 75 MG TAB PO SCH (08:26)
[2021-09-06] MEDS: ASPIRIN 81 MG ECTAB PO SCH (08:26)
[2021-09-06] MEDS: INSULIN GLARGINE SOLOSTAR 100 UNITS/ML 3 ML PEN SC SCH ×2 (08:29→20:51)
[2021-09-06] MEDS: ENOXAPARIN INJ 40 MG/0.4 ML SYR SQ SCH (08:29)
[2021-09-06] MEDS: PREGABALIN 100 MG CAP PO SCH ×3 (08:36→20:50)
[2021-09-06] MEDS: METOPROLOL TARTRATE 25 MG TAB PO SCH ×2 (08:38→20:49)
[2021-09-06] MEDS: hydroCHLOROthiazide 25 MG TAB PO SCH (09:50)
[2021-09-06] MEDS: IPRATROPIUM BROMIDE NEB SOLN 0.02% 2.5 ML VIAL INH PRN (10:16)
--- NOTE | 2021-09-06 11:06 | Hospitalist Progress Note ---
Date of Service September 06, 2021 Assessment & Plan (1) Sepsis: Plan: Acute bronchitis/atypical pneumonia Hypoxia H/O COPD Mild pulmonary edema reported on CXR from 09/05/21. CXR on admission reported cardiomegaly without acute process. Procalcitonin continues to trend up from 1.61>1.85>2.77 Negative Lyme Screen Blood Culture 09/02/21: Negative to date Blood culture 09/05/21. Negative so far Currently on Zosyn, Doxy Nebs as needed Wean off of supplemental oxygen as able Will need 2 step to discharge Home HCTZ was resumed yesterday In view of these, will get CT Angio of chest to rule out PE and assess lungs better H/O JENNIFER Noncompliance with CPAP Chronic diastolic heart failure EF 55%, TTE 2020 No overt signs of volume overload Home HCTZ was resume yesterday Monitor volume status CAD S/P stent Continue aspirin, Plavix, statin, metoprolol Hypertension Lisinopril on hold due to hypotension Monitor Hyperlipidemia on statin DM II HbA1C 7.1 Continue Insulin Monitor BGs Peripheral neuropathy Uncontrolled per patient On Lyrica--Increased to 200mg TID Normocytic Anemia Likely multifactorial Ferritin likely falsely elevated Normal Vitamin B12, Folate Iron studies reviewed FOBT in ED Negative Hb stable DVT Px: Lovenox SQ Code Status Full code Admission and Anticipated Discharge Date Admission Date: September 02, 2021 Subjective Patient seen and examined. Continues to report cough with tube of scant sputum. Reports shortness of breath sometimes. States he has chronic dyspnea on exertion. Has chronic lower extremity paresthesia. Denies any chest pain, palpitations Reports some nausea this morning. Denies Abdominal pain, diarrhea Denies dysuria, frequency, urgency Had a Tmax of 38 yesterday Physical Exam Constitutional: + well hydrated and + obese; no acute distress Eyes: PERRL, conjunctivae normal, anicteric sclerae ENMT: external ear and nose normal, oropharynx normal Respiratory: Not in respiratory distress. On nasal cannula. No crackles. Some wheeze Cardiovascular: Rate/Rhythm: regular rate and regular rhythm S1 S2 Gastrointestinal (Abdomen): normal bowel sounds, soft, nontender, no hepatosplenomegaly Musculoskeletal: no cyanosis or clubbing, extremities motor strength 5/5 Neurologic: PERRL, EOMI, accommodation nl, no face palsy, no dysarthria Psychiatric: A+Ox3, euthymic affect Results & Data Results & Data ([facility]) Vital Signs (Past 12 Hours) Vital Signs Temp Pulse Pulse Resp BP Pulse Ox 09/06/21 10:19 66 22 94 09/06/21 07:59 37.0 C 84 20 104/65 91 09/06/21 03:25 37.4 C 79 20 127/71 92 09/06/21 01:49 85 09/05/21 23:15 37.3 C 80 24 130/69 92 Laboratory Results Abnormal lab results 09/05/21 09/05/21 09/05/21 Range/Units 11:27 16:46 20:13 RBC (4.7-6.1) M/uL Hgb (14.0-18.0) g/dL Hct (42-52) % RDW Std Deviation (36.4-46.3) fL RDW Coeff of Sheri (11.5-14.5) % Plt Count (130-400) K/uL MPV (7.4-10.4) fL Sodium (136-145) mmol/L BUN/Creatinine Ratio (10-20) Glucose (70-99(Fasting)) mg/dl POC Glucose 231 H 182 H 258 H (70-99) mg/dl Procalcitonin (0-0.5) ng/ml 09/06/21 09/06/21 09/06/21 Range/Units 05:40 05:40 05:40 RBC 3.54 L (4.7-6.1) M/uL Hgb 11.1 L (14.0-18.0) g/dL Hct 32.1 L (42-52) % RDW Std Deviation 49.7 H (36.4-46.3) fL RDW Coeff of Sheri 14.8 H (11.5-14.5) % Plt Count 106 L (130-400) K/uL MPV 12.0 H (7.4-10.4) fL Sodium 130 L (136-145) mmol/L BUN/Creatinine Ratio 24.2 H (10-20) Glucose 137 H (70-99(Fasting)) mg/dl POC Glucose (70-99) mg/dl Procalcitonin 2.77 H (0-0.5) ng/ml 09/06/21 Range/Units 07:49 RBC (4.7-6.1) M/uL Hgb (14.0-18.0) g/dL Hct (42-52) % RDW Std Deviation (36.4-46.3) fL RDW Coeff of Sheri (11.5-14.5) % Plt Count (130-400) K/uL MPV (7.4-10.4) fL Sodium (136-145) mmol/L BUN/Creatinine Ratio (10-20) Glucose (70-99(Fasting)) mg/dl POC Glucose 147 H (70-99) mg/dl Procalcitonin (0-0.5) ng/ml
[2021-09-06] MEDS: ATOVAQUONE 750 MG/5 ML UDC PO SCH ×2 (13:09→21:21)
[2021-09-06] MEDS ORDERED: OPTIRAY 320 125ml IV ONE (13:27)
[2021-09-06] MEDS: AZITHROMYCIN 500 MG in DEXTROSE 5% 250 ML IV SCH (13:43)
--- NOTE | 2021-09-06 13:55 | CT Scan Report ---
CT ANGIOGRAM OF THE CHEST CLINICAL HISTORY: Fever. Dyspnea. COMPARISON STUDY: Chest CT dated 01/24/2021. Chest x-ray dated 09/05/2021. TECHNIQUE: Following the IV administration of 120 cc of Optiray 320, CT angiogram of the chest was pe rformed from the upper abdomen to the thoracic inlet utilizing the pulmonary embolus protocol. Images are reviewed in the axial, sagittal, and coronal planes. 3-D MIPS images are created and assessed. I V contrast was administered without complication. A dose lowering technique was utilized adhering to the principles of ALARA. CT DOSE: 516.18 mGycm FINDINGS: Thyroid: Imaged portions of the thyroid gland are normal in size and attenuation. Thoracic aorta: There is atherosclerotic calcification of the thoracic aorta, which is normal in holger micaela and demonstrates standard 3-vessel arch anatomy. No dissection is seen. Pulmonary vasculature: The pulmonary trunk is normal in caliber. There are no filling defects identif ied in main, lobar, or segmental pulmonary branches to suggest pulmonary embolus. Heart: The heart is top normal in size and without pericardial effusion. The coronary arteries are de nsely calcified. Lungs and pleural spaces: There is mild emphysematous change. No airspace consolidation or pleural ef fusion is identified. Foci of scarring/atelectasis are seen throughout both lungs, greatest at the martin ng bases. The trachea and central airways are clear. Mediastinum: There is no mediastinal lymphadenopathy. Katie: Clear. Axillae: There is no axillary lymphadenopathy. Upper abdomen: Partially visualized upper abdominal viscera is within normal limits. Skeletal structures: The skeletal structures are osteopenic. No lytic or blastic bony lesions are see n. IMPRESSION: 1. There is no evidence of pulmonary embolus in the main, lobar, or segmental pulmonary arteries. 2. There is no airspace consolidation or pleural effusion. 3. Mild emphysema. 4. Additional findings as above. ACT 112: Negative or not required by law. Electronically signed by: Fei Tovar M.D. 09/06/2021 1:53 PM
[2021-09-06] MEDS ORDERED: cefTRIAXone SODIUM 2,000 MG in DEXTROSE 5% 50 ML IV SCH (15:00)
[2021-09-07] MEDS ORDERED: PHARMACY GLYCEMIC MGMT CONSULT PRN (07:45)
[2021-09-07] MEDS: FAMOTIDINE 20 MG TAB PO SCH ×2 (07:49→20:36)
[2021-09-07] MEDS: METOPROLOL TARTRATE 25 MG TAB PO SCH ×2 (07:49→20:35)
[2021-09-07] MEDS: hydroCHLOROthiazide 25 MG TAB PO SCH (07:50)
[2021-09-07] MEDS: MULTIVITAMIN TAB PO SCH ×2 (07:50→09:22)
[2021-09-07] MEDS: CLOPIDOGREL BISULFATE 75 MG TAB PO SCH (07:51)
[2021-09-07] MEDS: allopurinoL 300 MG TAB PO SCH (07:51)
[2021-09-07] MEDS: ASPIRIN 81 MG ECTAB PO SCH (07:51)
[2021-09-07 07:52] LABS: Hematocrit (blood only) 33.8 % (42-52); Hemoglobin 11.8 g/dL (14.0-18.0); Mean Corpuscular Hemoglobin 31.8 pg (25-34); Mean Corpuscular Hgb Conc 34.9 g/dL (32-36); Mean Corpuscular Volume 91.1 fL (80-100); Mean Platelet Volume 11.7 fL (7.4-10.4); Platelet Count 124 K/uL (130-400); RDW Coefficient of Variation 14.8 % (11.5-14.5); RDW Standard Deviation 49.5 fL (36.4-46.3); Red Blood Count 3.71 M/uL (4.7-6.1); White Blood Count 10.88 K/uL (4.8-10.8)
[2021-09-07] MEDS: ATORVASTATIN 40 MG TAB PO SCH (07:52)
[2021-09-07] MEDS: SPIRONOLACTONE 12.5 MG TAB PO SCH (07:53)
[2021-09-07] MEDS: ENOXAPARIN INJ 40 MG/0.4 ML SYR SQ SCH (07:53)
[2021-09-07] MEDS: INSULIN GLARGINE SOLOSTAR 100 UNITS/ML 3 ML PEN SC SCH (07:54)
[2021-09-07] MEDS: PREGABALIN 100 MG CAP PO SCH ×3 (08:08→20:39)
[2021-09-07 08:13] LABS: BUN Creatinine Ratio 22.9 (10-20); Calcium 9.2 mg/dl (8.5-10.1); Creatinine Clr Calc Pharmacy 72.7 ml/min; Est GFR (African American) 89.3 ml/min; Potassium 4.1 mmol/L (3.5-5.1)
[2021-09-07] MEDS: INSULIN ASPART PER UNIT SC SCH ×4 (08:15→20:35)
[2021-09-07] MEDS ORDERED: INSULIN GLARGINE SOLOSTAR 100 UNITS/ML 3 ML PEN SC SCH ×2 (09:00→16:30)
[2021-09-07] MEDS: ATOVAQUONE 750 MG/5 ML UDC PO SCH ×2 (10:18→20:35)
--- NOTE | 2021-09-07 10:28 | Pharmacy Report ---
Pharmacy Glycemic Short Note 2 - Date of Service September 07, 2021 - Glycemic Short BSG Results (Last 24 hours): 09/06/21 09/06/21 09/06/21 11:16 16:47 20:26 Glucose POC Glucose 154 H 204 H 313 H* 09/06/21 09/06/21 09/07/21 20:27 20:31 07:24 Glucose 145 H POC Glucose 244 H 249 H 09/07/21 07:36 Glucose POC Glucose 158 H OUTPATIENT ANTIDIABETIC REGIMEN: * Tresiba 22 units SQ qPM * Trulicity 1.5 mg SQ weekly on Mondays * Metformin * A1c = 7.1% (09/04/21) ASSESSMENT: * Homer is a 75 yr male who presented with cough and shortness of breath with PMH significant for chronic diastolic heart failure, CAD status post stent, COPD, JENNIFER/CPAP noncompliance, hypertension, hyperlipidemia, DM2 insulin requiring, gout, and peripheral neuropathy. Concern for bronchitis vs. atypical pneumonia. Peripheral smear noted intracytoplasmic red cell inclusion indicating possible babesiosis vs. malaria. Azithromycin and atovaquone started for possible babesiosis. * A1c indicated adequate outpatient glycemic control, although, patient is hyperglycemia since admission. * Fasting BSG has been slightly elevated on Lantus 10 units BID. Will increase Lantus and transition to once daily dosing since this is how patient administers at home. * Will also tighten carb coverage due to increasing post prandial BSG throughout the day. PLAN FOR INPATIENT GLYCEMIC CONTROL: * Hold outpatient oral diabetes medications * Basal insulin * Lantus 10 units SQ given this AM + Lantus 14 units SQ @1630 (total 24 units today) * Start Lantus 24 units SQ daily on 09/08 * Bolus insulin * NovoLog per scale ACHS or Q6hrs while NPO * Goal Range: Low 110 mg/dL - High 140 mg/dL * Correction Factor: 25 mg/dL/unit * Nutritional / Prandial insulin per carb ratio of 1 unit per 8 grams CHO consumed
[2021-09-07] MEDS ORDERED: guaiFENesin SUGAR FREE 100 MG/5 ML UDC PO PRN (11:14)
--- NOTE | 2021-09-07 11:15 | Hospitalist Progress Note ---
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 Ceftriaxone stopped No fever in the past 24h Possible acute bronchitis Hypoxia H/O COPD Mild pulmonary edema reported on CXR from 09/05/21. CXR on admission reported cardiomegaly without acute process. Procalcitonin trended up from 1.61>1.85>2.77 Negative Lyme Screen Blood Culture 09/02/21: Negative to date Blood culture 09/05/21. Negative so far Wean off of supplemental oxygen as able Antitussives prn Will need 2 step to discharge Continue home HCTZ CT PE was negative for PE, pneumonia. H/O JENNIFER Noncompliance with CPAP Chronic diastolic heart failure EF 55%, TTE 2020 No overt signs of volume overload Continue home meds Monitor volume status CAD S/P stent Continue aspirin, Plavix, statin, metoprolol Hypertension Lisinopril on hold due to hypotension. BP improving. Will continue to hold for now and monitor Hyperlipidemia on statin DM II HbA1C 7.1 Continue Insulin Monitor BGs Peripheral neuropathy Uncontrolled per patient On Lyrica--Increased to 200mg TID Normocytic Anemia Likely multifactorial Ferritin likely falsely elevated Normal Vitamin B12, Folate Iron studies reviewed FOBT in ED Negative Hb stable DVT Px: Lovenox SQ Code Status Full code Admission and Anticipated Discharge Date Admission Date: September 02, 2021 Subjective Patient seen and examined. Reports cough and generalized weakness Reports occasional shortness of breath. Chronic dyspnea on exertion. Has chronic lower extremity paresthesia Denies any chest pain, palpitations Denies Nausea, vomiting, Abdominal pain, diarrhea Denies dysuria, frequency, urgency No fever in the past 24h Physical Exam Constitutional: + well hydrated and + obese; no acute distress Eyes: PERRL, conjunctivae normal, anicteric sclerae ENMT: external ear and nose normal, oropharynx normal Respiratory: normal respiratory effort, lungs clear to auscultation Cardiovascular: Rate/Rhythm: regular rate and regular rhythm S1 S2 Gastrointestinal (Abdomen): normal bowel sounds, soft, nontender, no hepatosplenomegaly Musculoskeletal: no cyanosis or clubbing, extremities motor strength 5/5 Neurologic: PERRL, EOMI, accommodation nl, no face palsy, no dysarthria Psychiatric: A+Ox3, euthymic affect Results & Data Results & Data ([facility]) Vital Signs (Past 12 Hours) Vital Signs Temp Pulse Pulse Resp BP Pulse Ox 09/07/21 06:51 36.8 C 75 20 146/76 H 92 09/07/21 03:50 37.1 C 73 18 129/72 92 09/07/21 00:32 78 09/06/21 23:36 37.2 C 72 20 122/70 94 Laboratory Results Abnormal lab results 09/06/21 09/06/21 09/06/21 Range/Units 05:40 16:47 20:26 WBC (4.8-10.8) K/uL RBC (4.7-6.1) M/uL Hgb (14.0-18.0) g/dL Hct (42-52) % RDW Std Deviation (36.4-46.3) fL RDW Coeff of Sheri (11.5-14.5) % Plt Count (130-400) K/uL MPV (7.4-10.4) fL Sodium (136-145) mmol/L BUN/Creatinine Ratio (10-20) Glucose (70-99(Fasting)) mg/dl POC Glucose 204 H 313 H* (70-99) mg/dl Procalcitonin (0-0.5) ng/ml Babesia Smear See Comment A 09/06/21 09/06/21 09/07/21 Range/Units 20:27 20:31 07:24 WBC 10.88 H (4.8-10.8) K/uL RBC 3.71 L (4.7-6.1) M/uL Hgb 11.8 L (14.0-18.0) g/dL Hct 33.8 L (42-52) % RDW Std Deviation 49.5 H (36.4-46.3) fL RDW Coeff of Sheri 14.8 H (11.5-14.5) % Plt Count 124 L (130-400) K/uL MPV 11.7 H (7.4-10.4) fL Sodium (136-145) mmol/L BUN/Creatinine Ratio (10-20) Glucose (70-99(Fasting)) mg/dl POC Glucose 244 H 249 H (70-99) mg/dl Procalcitonin (0-0.5) ng/ml Babesia Smear 09/07/21 09/07/21 09/07/21 Range/Units 07:24 07:36 08:28 WBC (4.8-10.8) K/uL RBC (4.7-6.1) M/uL Hgb (14.0-18.0) g/dL Hct (42-52) % RDW Std Deviation (36.4-46.3) fL RDW Coeff of Sheri (11.5-14.5) % Plt Count (130-400) K/uL MPV (7.4-10.4) fL Sodium 131 L (136-145) mmol/L BUN/Creatinine Ratio 22.9 H (10-20) Glucose 145 H (70-99(Fasting)) mg/dl POC Glucose 158 H (70-99) mg/dl Procalcitonin 2.91 H (0-0.5) ng/ml Babesia Smear
[2021-09-07] MEDS: DOXYCYCLINE HYCLATE 100 MG in DEXTROSE 5% 100 ML IV SCH ×2 (11:43→23:09)
[2021-09-07] MEDS: AZITHROMYCIN 500 MG in DEXTROSE 5% 250 ML IV SCH (13:36)
--- NOTE | 2021-09-07 22:54 | Electrocardiogram Report ---
Test Reason : Blood Pressure : / mmHG Vent. Rate : 071 BPM Atrial Rate : 071 BPM P-R Int : 256 ms QRS Dur : 094 ms QT Int : 402 ms P-R-T Axes : 045 -40 021 degrees QTc Int : 436 ms Sinus rhythm with 1st degree A-V block Left axis deviation Abnormal ECG When compared with ECG of 18-JUN-2021 16:09, Criteria for Anterior infarct are no longer Present Criteria for Anterolateral infarct are no longer Present Confirmed by Fred Presley ([id number]) on 09/07/2021 10:54:19 PM Referred By: REFERRED SELF Confirmed By:Fred Presley
[2021-09-08 06:38] LABS: Hematocrit (blood only) 34.9 % (42-52); Hemoglobin 12.3 g/dL (14.0-18.0); Mean Corpuscular Hemoglobin 32.3 pg (25-34); Mean Corpuscular Hgb Conc 35.2 g/dL (32-36); Mean Corpuscular Volume 91.6 fL (80-100); Mean Platelet Volume 11.6 fL (7.4-10.4); Platelet Count 133 K/uL (130-400); RDW Coefficient of Variation 14.7 % (11.5-14.5); Red Blood Count 3.81 M/uL (4.7-6.1); White Blood Count 10.38 K/uL (4.8-10.8)
[2021-09-08 07:02] LABS: Albumin Globulin Ratio 0.9 (0.9-2); Albumin Level 3.6 gm/dl (3.4-5.0); Bilirubin,Total 1.9 mg/dl (0.2-1.0); Calcium 9.4 mg/dl (8.5-10.1); Creatinine Clr Calc Pharmacy 82.9 ml/min; Est GFR (African American) 99.3 ml/min; Est GFR (Non-African American) 85.7 ml/min; Globulin 3.8 gm/dl (2.5-4.0); Potassium 3.9 mmol/L (3.5-5.1); Total Protein 7.4 gm/dl (6.0-8.3)
[2021-09-08] MEDS: allopurinoL 300 MG TAB PO SCH (08:02)
[2021-09-08] MEDS: hydroCHLOROthiazide 25 MG TAB PO SCH (08:02)
[2021-09-08] MEDS: FAMOTIDINE 20 MG TAB PO SCH ×2 (08:02→20:04)
[2021-09-08] MEDS: ATORVASTATIN 40 MG TAB PO SCH (08:02)
[2021-09-08] MEDS: ASPIRIN 81 MG ECTAB PO SCH (08:03)
[2021-09-08] MEDS: MULTIVITAMIN TAB PO SCH (08:03)
[2021-09-08] MEDS: SPIRONOLACTONE 12.5 MG TAB PO SCH (08:03)
[2021-09-08] MEDS: METOPROLOL TARTRATE 25 MG TAB PO SCH ×2 (08:03→20:04)
[2021-09-08] MEDS: CLOPIDOGREL BISULFATE 75 MG TAB PO SCH (08:03)
[2021-09-08] MEDS: ENOXAPARIN INJ 40 MG/0.4 ML SYR SQ SCH (08:06)
[2021-09-08] MEDS: PREGABALIN 100 MG CAP PO SCH ×3 (08:06→20:03)
[2021-09-08] MEDS: INSULIN ASPART PER UNIT SC SCH ×4 (08:50→21:04)
[2021-09-08] MEDS: ATOVAQUONE 750 MG/5 ML UDC PO SCH ×2 (10:36→21:04)
--- NOTE | 2021-09-08 11:26 | Hospitalist Progress Note ---
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 CXR on admission reported cardiomegaly without acute process. Procalcitonin trended up from 1.61>1.85>2.77>2.91>2.58 Negative Lyme Screen Blood Culture 09/02/21: Negative to date Blood culture 09/05/21. Negative so far Weaned off oxygen Antitussives prn Will need 2 step prior to discharge Continue home HCTZ CT PE was negative for PE, pneumonia. H/O JENNIFER Noncompliance with CPAP Chronic diastolic heart failure EF 55%, TTE 2020 No overt signs of volume overload Continue home meds Monitor volume status CAD S/P stent Continue aspirin, Plavix, statin, metoprolol Hypertension Lisinopril on hold due to hypotension. BP improving. Will continue to hold for now and monitor Hyperlipidemia on statin DM II HbA1C 7.1 Pharmacy on board for glycemic control. Continue Insulin Monitor BGs Peripheral neuropathy Uncontrolled per patient On Lyrica--Increased to 200mg TID Normocytic Anemia Likely multifactorial Ferritin likely falsely elevated Normal Vitamin B12, Folate Iron studies reviewed FOBT in ED Negative Hb stable DVT Px: Lovenox SQ Code Status Full code Daughter called and updated Dispo - Plan to dc home when medically stable Admission and Anticipated Discharge Date Admission Date: September 02, 2021 Subjective Patient seen and examined. Reports cough and generalized weakness are improving Denied any Shortness of breath today. Has chronic dyspnea on exertion. Has chronic lower extremity paresthesia Denies any chest pain, palpitations Denies Nausea, vomiting, Abdominal pain, diarrhea Denies dysuria, frequency, urgency No fever in the past 48h Physical Exam Constitutional: + well hydrated and + obese; no acute distress Eyes: PERRL, conjunctivae normal, anicteric sclerae ENMT: external ear and nose normal, oropharynx normal Respiratory: normal respiratory effort, lungs clear to auscultation Cardiovascular: Rate/Rhythm: regular rate and regular rhythm S1 S2 Gastrointestinal (Abdomen): normal bowel sounds, soft, nontender, no hepatosplenomegaly Musculoskeletal: no cyanosis or clubbing, extremities motor strength 5/5 Neurologic: PERRL, EOMI, accommodation nl, no face palsy, no dysarthria Psychiatric: A+Ox3, euthymic affect Results & Data Results & Data ([facility]) Vital Signs (Past 12 Hours) Vital Signs Temp Pulse Pulse Pulse Resp BP BP 09/08/21 08:14 36.5 C 70 18 128/72 09/08/21 03:20 36.8 C 64 20 138/77 09/08/21 00:00 66 Pulse Ox 09/08/21 08:14 92 09/08/21 03:20 93 09/08/21 00:00 Laboratory Results Abnormal lab results 09/07/21 09/07/21 09/07/21 Range/Units 11:35 16:35 20:27 RBC (4.7-6.1) M/uL Hgb (14.0-18.0) g/dL Hct (42-52) % RDW Std Deviation (36.4-46.3) fL RDW Coeff of Sheri (11.5-14.5) % MPV (7.4-10.4) fL Sodium (136-145) mmol/L BUN/Creatinine Ratio (10-20) Glucose (70-99(Fasting)) mg/dl POC Glucose 245 H 200 H 196 H (70-99) mg/dl Total Bilirubin (0.2-1.0) mg/dl AST (13-39) U/L ALT (7-52) U/L Procalcitonin (0-0.5) ng/ml 09/08/21 09/08/21 09/08/21 Range/Units 06:13 06:13 06:13 RBC 3.81 L (4.7-6.1) M/uL Hgb 12.3 L (14.0-18.0) g/dL Hct 34.9 L (42-52) % RDW Std Deviation 50.0 H (36.4-46.3) fL RDW Coeff of Sheri 14.7 H (11.5-14.5) % MPV 11.6 H (7.4-10.4) fL Sodium 133 L (136-145) mmol/L BUN/Creatinine Ratio 25.0 H (10-20) Glucose 116 H (70-99(Fasting)) mg/dl POC Glucose (70-99) mg/dl Total Bilirubin 1.9 H (0.2-1.0) mg/dl AST 53 H (13-39) U/L ALT 62 H (7-52) U/L Procalcitonin 2.58 H (0-0.5) ng/ml 09/08/21 Range/Units 07:37 RBC (4.7-6.1) M/uL Hgb (14.0-18.0) g/dL Hct (42-52) % RDW Std Deviation (36.4-46.3) fL RDW Coeff of Sheri (11.5-14.5) % MPV (7.4-10.4) fL Sodium (136-145) mmol/L BUN/Creatinine Ratio (10-20) Glucose (70-99(Fasting)) mg/dl POC Glucose 135 H (70-99) mg/dl Total Bilirubin (0.2-1.0) mg/dl AST (13-39) U/L ALT (7-52) U/L Procalcitonin (0-0.5) ng/ml
[2021-09-08] MEDS: DOXYCYCLINE HYCLATE 100 MG in DEXTROSE 5% 100 ML IV SCH (12:18)
[2021-09-08] MEDS: INSULIN GLARGINE SOLOSTAR 100 UNITS/ML 3 ML PEN SC SCH (12:19)
--- NOTE | 2021-09-08 12:45 | Pharmacy Report ---
Pharmacy Glycemic Short Note 2 - Date of Service September 08, 2021 - Glycemic Short BSG Results (Last 24 hours): 09/07/21 09/07/21 09/08/21 16:35 20:27 06:13 Glucose 116 H POC Glucose 200 H 196 H 09/08/21 09/08/21 07:37 11:21 Glucose POC Glucose 135 H 248 H OUTPATIENT ANTIDIABETIC REGIMEN: * Tresiba 22 units SQ qPM * Trulicity 1.5 mg SQ weekly on Mondays * Metformin * A1c = 7.1% (09/04/21) ASSESSMENT: 09/08 * Blood sugars rising throughout the day - tighten CF/CR * Fasting at goal, continue current basal * Continued work up pending for baseosis/lyme/anaplasmosis and IV Doxy + Azithromycin + PO Atovaquone 09/07 * Homer is a 75 yr male who presented with cough and shortness of breath with PMH significant for chronic diastolic heart failure, CAD status post stent, COPD, JENNIFER/CPAP noncompliance, hypertension, hyperlipidemia, DM2 insulin requiring, gout, and peripheral neuropathy. Concern for bronchitis vs. atypical pneumonia. Peripheral smear noted intracytoplasmic red cell inclusion indicating possible babesiosis vs. malaria. Azithromycin and atovaquone started for possible babesiosis. * A1c indicated adequate outpatient glycemic control, although, patient is hyperglycemia since admission. * Fasting BSG has been slightly elevated on Lantus 10 units BID. Will increase Lantus and transition to once daily dosing since this is how patient administers at home. * Will also tighten carb coverage due to increasing post prandial BSG throughout the day. PLAN FOR INPATIENT GLYCEMIC CONTROL: * Hold outpatient diabetes medications * Basal insulin * Lantus 24 units SQ daily * Bolus insulin * NovoLog per scale ACHS or Q6hrs while NPO * Goal Range: Low 110 mg/dL - High 140 mg/dL * Correction Factor: 20 mg/dL/unit * Nutritional / Prandial insulin per carb ratio of 1 unit per 7 grams CHO consumed
[2021-09-08] MEDS: AZITHROMYCIN 500 MG in DEXTROSE 5% 250 ML IV SCH (13:54)
[2021-09-09] MEDS: DOXYCYCLINE HYCLATE 100 MG in DEXTROSE 5% 100 ML IV SCH ×2 (00:13→12:28)
[2021-09-09 07:21] LABS: Albumin Globulin Ratio 0.9 (0.9-2); Albumin Level 3.8 gm/dl (3.4-5.0); BUN Creatinine Ratio 21.3 (10-20); Bilirubin,Total 2.1 mg/dl (0.2-1.0); Calcium 9.5 mg/dl (8.5-10.1); Creatinine Clr Calc Pharmacy 73.8 ml/min; Est GFR (African American) 91.6 ml/min; Globulin 4.2 gm/dl (2.5-4.0); Potassium 4.2 mmol/L (3.5-5.1)
[2021-09-09] MEDS: METOPROLOL TARTRATE 25 MG TAB PO SCH ×2 (08:45→20:05)
[2021-09-09] MEDS: PREGABALIN 100 MG CAP PO SCH ×3 (08:45→20:05)
[2021-09-09] MEDS: FAMOTIDINE 20 MG TAB PO SCH ×2 (08:45→20:05)
[2021-09-09] MEDS: MULTIVITAMIN TAB PO SCH (08:45)
[2021-09-09] MEDS: CLOPIDOGREL BISULFATE 75 MG TAB PO SCH (08:45)
[2021-09-09] MEDS: hydroCHLOROthiazide 25 MG TAB PO SCH (08:46)
[2021-09-09] MEDS: ATORVASTATIN 40 MG TAB PO SCH (08:46)
[2021-09-09] MEDS: SPIRONOLACTONE 12.5 MG TAB PO SCH (08:46)
[2021-09-09] MEDS: ASPIRIN 81 MG ECTAB PO SCH (08:46)
[2021-09-09] MEDS: INSULIN ASPART PER UNIT SC SCH ×4 (08:47→20:09)
[2021-09-09] MEDS: ENOXAPARIN INJ 40 MG/0.4 ML SYR SQ SCH (08:47)
[2021-09-09] MEDS: allopurinoL 300 MG TAB PO SCH (08:47)
[2021-09-09] MEDS: ATOVAQUONE 750 MG/5 ML UDC PO SCH ×2 (10:22→21:11)
--- NOTE | 2021-09-09 12:25 | Hospitalist Progress Note ---
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 CXR on admission reported cardiomegaly without acute process. Procalcitonin trended up from 1.61>1.85>2.77>2.91>2.58 Negative Lyme Screen Blood Culture 09/02/21: Negative to date Blood culture 09/05/21. Negative so far Weaned off oxygen Antitussives prn Will need 2 step prior to discharge if going home Continue home HCTZ CT PE was negative for PE, pneumonia. H/O JENNIFER Noncompliance with CPAP Chronic diastolic heart failure EF 55%, TTE 2020 No overt signs of volume overload Continue home meds Monitor volume status CAD S/P stent Continue aspirin, Plavix, statin, metoprolol Hypertension Lisinopril on hold due to hypotension. BP improving. Will continue to hold for now and monitor Hyperlipidemia on statin DM II HbA1C 7.1 Pharmacy on board for glycemic control. Continue Insulin Monitor BGs Peripheral neuropathy Uncontrolled per patient On Lyrica--Increased to 200mg TID Normocytic Anemia Likely multifactorial Ferritin likely falsely elevated Normal Vitamin B12, Folate Iron studies reviewed FOBT in ED Negative Hb stable DVT Px: Lovenox SQ Code Status Full code Admission and Anticipated Discharge Date Admission Date: September 02, 2021 Subjective Patient seen and examined. Reports cough greatly improved Reports occasional shortness of breath. Chronic dyspnea on exertion. Has chronic lower extremity paresthesia Denies any chest pain, palpitations Denies nausea, vomiting, abdominal pain, diarrhea Denies dysuria, frequency, urgency Physical Exam Constitutional: + well hydrated and + obese; no acute distress Eyes: PERRL, conjunctivae normal, anicteric sclerae ENMT: external ear and nose normal, oropharynx normal Respiratory: normal respiratory effort, lungs clear to auscultation Cardiovascular: Rate/Rhythm: regular rate and regular rhythm S1 S2 Gastrointestinal (Abdomen): normal bowel sounds, soft, nontender, no hepatosplenomegaly Musculoskeletal: no cyanosis or clubbing, extremities motor strength 5/5 Neurologic: PERRL, EOMI, accommodation nl, no face palsy, no dysarthria Psychiatric: A+Ox3, euthymic affect Results & Data Results & Data ([facility]) Vital Signs (Past 12 Hours) Vital Signs Temp Pulse Pulse Resp BP BP Pulse Ox 09/09/21 07:51 66 09/09/21 06:26 36.9 C 68 18 133/75 97 09/09/21 03:36 37 C 58 L 18 102/66 95 09/09/21 00:56 67 Laboratory Results Abnormal lab results 09/08/21 09/08/21 09/09/21 Range/Units 16:31 20:20 06:27 Sodium 132 L (136-145) mmol/L BUN/Creatinine Ratio 21.3 H (10-20) Glucose 128 H (70-99(Fasting)) mg/dl POC Glucose 180 H 213 H (70-99) mg/dl Total Bilirubin 2.1 H (0.2-1.0) mg/dl AST 48 H (13-39) U/L ALT 61 H (7-52) U/L Globulin 4.2 H (2.5-4.0) gm/dl 09/09/21 09/09/21 09/09/21 Range/Units 07:37 11:34 11:35 Sodium (136-145) mmol/L BUN/Creatinine Ratio (10-20) Glucose (70-99(Fasting)) mg/dl POC Glucose 138 H 335 H* 309 H* (70-99) mg/dl Total Bilirubin (0.2-1.0) mg/dl AST (13-39) U/L ALT (7-52) U/L Globulin (2.5-4.0) gm/dl
[2021-09-09] MEDS: AZITHROMYCIN 500 MG in DEXTROSE 5% 250 ML IV SCH (12:27)
[2021-09-09] MEDS: INSULIN GLARGINE SOLOSTAR 100 UNITS/ML 3 ML PEN SC SCH (17:17)
[2021-09-10] MEDS: DOXYCYCLINE HYCLATE 100 MG in DEXTROSE 5% 100 ML IV SCH (00:18)
[2021-09-10] MEDS: FAMOTIDINE 20 MG TAB PO SCH (07:57)
[2021-09-10] MEDS: hydroCHLOROthiazide 25 MG TAB PO SCH (07:58)
[2021-09-10] MEDS: SPIRONOLACTONE 12.5 MG TAB PO SCH (07:58)
[2021-09-10] MEDS: allopurinoL 300 MG TAB PO SCH (07:58)
[2021-09-10] MEDS: ATORVASTATIN 40 MG TAB PO SCH (07:58)
[2021-09-10] MEDS: MULTIVITAMIN TAB PO SCH (07:58)
[2021-09-10] MEDS: ASPIRIN 81 MG ECTAB PO SCH (07:58)
[2021-09-10] MEDS: CLOPIDOGREL BISULFATE 75 MG TAB PO SCH (07:58)
[2021-09-10] MEDS: ATOVAQUONE 750 MG/5 ML UDC PO SCH (07:59)
[2021-09-10] MEDS: ENOXAPARIN INJ 40 MG/0.4 ML SYR SQ SCH (08:00)
[2021-09-10] MEDS: METOPROLOL TARTRATE 25 MG TAB PO SCH (08:09)
[2021-09-10] MEDS: PREGABALIN 100 MG CAP PO SCH (08:13)
[2021-09-10] MEDS: INSULIN ASPART PER UNIT SC SCH ×2 (08:15→12:26)
[2021-09-10 09:27] LABS: Albumin Globulin Ratio 0.9 (0.9-2); Albumin Level 3.7 gm/dl (3.4-5.0); BUN Creatinine Ratio 22.1 (10-20); Calcium 9.4 mg/dl (8.5-10.1); Creatinine Clr Calc Pharmacy 73.2 ml/min; Est GFR (African American) 90.4 ml/min; Globulin 4.1 gm/dl (2.5-4.0); Potassium 4.1 mmol/L (3.5-5.1); Total Protein 7.8 gm/dl (6.0-8.3)
[2021-09-10 09:34] LABS: Hematocrit (blood only) 39.1 % (42-52); Hemoglobin 13.5 g/dL (14.0-18.0); Mean Corpuscular Hemoglobin 31.8 pg (25-34); Mean Corpuscular Hgb Conc 34.5 g/dL (32-36); Mean Corpuscular Volume 92.2 fL (80-100); Mean Platelet Volume 10.6 fL (7.4-10.4); Platelet Count 216 K/uL (130-400); RDW Coefficient of Variation 15.1 % (11.5-14.5); RDW Standard Deviation 50.5 fL (36.4-46.3); Red Blood Count 4.24 M/uL (4.7-6.1); White Blood Count 12.65 K/uL (4.8-10.8)
--- NOTE | 2021-09-10 11:34 | Discharge Summary ---
Date of Service September 10, 2021 Admission HPI Per Admitting Provider History obtained from patient, family, and records. Medical history significant for chronic diastolic heart failure (EF 55%, TTE 2020 ), CAD status post stent, COPD, JENNIFER/CPAP noncompliance, hypertension, hyperlipidemia, DM2 insulin requiring, gout, peripheral neuropathy, past tobacco abuse. Last confinement January 2020 for left lung pneumonia. Few days history of junky cough symptoms with worsening shortness of breath without weight gain. No chest pain. Feeling weak. Poor appetite. No known sick contacts. Patient completed COVID-19 vaccination. Denies aspiration. Worsening lower extremity neuropathy. Patient thinks he may have sprained his left ankle. Denies abdominal pain/black/bloody stools/hematuria. Patient received cefepime at the ER for sepsis. O2 sats dropped to 80s at the ER after Morphine administered for neuropathy. 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 Admission Exam Per Admitting Provider GENERAL: Slightly uncomfortable, slightly hard of hearing, obese, pleasant, minimal respiratory distress SKIN: Pallor, warm HEENT: [place] palpebral conjunctivae, no ptosis, dry buccal mucosa, nasal cannula in place NECK : Supple, short neck, no tenderness CHEST : Decreased breath sounds, occasional expiratory wheezes, no tenderness HEART : RRR, no obvious murmurs ABDOMEN: Some distention, nontender RECTAL : Intact sphincter, yellow stool (FOBT negative) EXTREMITIES : Minimal LE swelling, no LE tenderness, no other conspicuous deformities noted NEUROLOGIC : Coherent, no facial asymmetry, slightly hard of hearing, no other gross focality Principal Diagnosis Babesiosis Acute bronchitis Discharge Exam Constitutional + well hydrated and + obese; no acute distress Eyes PERRL, conjunctivae normal, anicteric sclerae ENMT external ear and nose normal, oropharynx normal Respiratory normal respiratory effort, lungs clear to auscultation Cardiovascular Rate/Rhythm: regular rate and regular rhythm S1 S2 Gastrointestinal (Abdomen) normal bowel sounds, soft, nontender, no hepatosplenomegaly Musculoskeletal no cyanosis or clubbing, extremities motor strength 5/5 Neurologic PERRL, EOMI, accommodation nl, no face palsy, no dysarthria Psychiatric A+Ox3, euthymic affect Discharge Data Allergies Allergy/AdvReac Type Severity Reaction Status Date / Time No Known Allergies Allergy Verified 09/02/21 19:04 Consultations 09/02/21 20:43 ED Decision to Admit Stat 09/06/21 12:09 Consult Infectious Diseases Routine Ordered Studies 09/06/21 11:03 CT angio chest PE protocol Urgent Thyroid: Imaged portions of the thyroid gland are normal in size and attenuation. Thoracic aorta: There is atherosclerotic calcification of the thoracic aorta, which is normal in caliber and demonstrates standard 3-vessel arch anatomy. No dissection is seen. Pulmonary vasculature: The pulmonary trunk is normal in caliber. There are no filling defects identified in main, lobar, or segmental pulmonary branches to suggest pulmonary embolus. Heart: The heart is top normal in size and without pericardial effusion. The coronary arteries are densely calcified. Lungs and pleural spaces: There is mild emphysematous change. No airspace conso lidation or pleural effusion is identified. Foci of scarring/atelectasis are seen throughout both lungs, greatest at the lung bases. The trachea and central airways are clear. Mediastinum: There is no mediastinal lymphadenopathy. Katie: Clear. Axillae: There is no axillary lymphadenopathy. Upper abdomen: Partially visualized upper abdominal viscera is within normal limits. Skeletal structures: The skeletal structures are osteopenic. No lytic or blastic bony lesions are seen. IMPRESSION: 1. There is no evidence of pulmonary embolus in the main, lobar, or segmental pulmonary arteries. 2. There is no airspace consolidation or pleural effusion. 3. Mild emphysema. 4. Additional findings as above. Hospital Course (1) Sepsis: Patient initially presented with fever, cough, shortness of breath and weakness Treatment for sepsis and possible bronchitis was initially started with broad spectrum antibiotics Work-up such as serial blood cultures were negative. Procalcitonin was initially trending up 1.61>1.85>2.77>2.91 CT angio of chest did not show any acute findings or acute PE Patient continued to have persistent fevers and developed thrombocytopenia as well Peripheral smear reported to have red cell intracytoplasmic inclusions by pathologist on 09/06/21 Per patient and daughter, no travels out of country but patient is an outdoor person and a lot of wooded area around home. Also has had history of tick bites in the past Likely Babesiosis Was started on atovaquone and azithromycin Babesia PCR and Anaplasma PCR pending ID recommendations appreciated. Doxycycline was added Fever is resolved All symptoms currently resolved per patient today Thrombocytopenia resolved Procalcitonin trended down. Currently 1.55 today Patient discharged on atovaquone, azithromycin and doxycycline to complete a total of 10 days of treatment Patient also required oxygen briefly for hypoxia while inpatient. Has a history of COPD Patient was successfully weaned off oxygen. Two-step done today did not indicate any oxygen requirement hypoxia H/O JENNIFER Noncompliance with CPAP Chronic diastolic heart failure EF 55%, TTE 2020 No overt signs of volume overload Continue home meds Monitor volume status CAD S/P stent Continue aspirin, Plavix, statin, metoprolol Hypertension Lisinopril was held briefly during hospital stay due to hypotension. Hypotension resolved. Resume home lisinopril and monitor Hyperlipidemia on statin DM II HbA1C 7.1 Continue home antidiabetic's Peripheral neuropathy Continue home [place] Normocytic Anemia Likely related to babesiosis Hb stable. 13.5 today Called daughter and updated her. Home health services arranged Total Time Total Time Spent Total Time Spent (In Minutes): 50 Total Time Includes: Examination of the Patient, Discharge Planning and Medication Reconciliation Discharge Plan Discharge Items Patient Disposition: Home - Home Health Services Reason For Visit: Cough, shortness of breath Discharge Diagnosis: Babesiosis Acute bronchitis Activity: Resume your previous activity Activity Comment: Per physical therapist recs Non-emergency contact: Primary Care Provider Call non-emergency contact if: you have any medication questions and your symptoms worsen Follow-up/Referrals: Cristian Nixon MD [Primary Care Provider] - (Call for appointment within the week) Diet: Heart Healthy Addtl Attending Provider Instructions: Mr Ramirez You came to the hospital complaining of cough, shortness of breath, weakness. You were noted to have persistent fevers. Evaluation with peripheral blood smear suggested babesia infection. You were started on treatment and your symptoms resolved. You are being charged home with home health services and physical therapy. Please continue the medications as prescribed on discharge to complete treatment. Please ensure follow-up with your primary doctor. It was a pleasure taking care of you Pending Studies at Discharge: Yes (Babesia PCR. Anaplasma PCR) Stand-Alone Forms: My Regenerate, Smoking Cessation Medications and DC Order Prescriptions: New doxycycline hyclate 100 mg tablet 100 mg PO BID 7 Days Qty: 14 RF: 0 atovaquone 750 mg/5 mL suspension 750 mg PO BID 7 Days Qty: 70 RF: 0 azithromycin 250 mg tablet 250 mg PO DAILY 7 Days Qty: 7 RF: 0 Continued multivitamin Tablet 1 tab PO QAM RF: 0 clopidogrel 75 mg tablet 75 mg PO QAM RF: 0 aspirin [Lore Low Dose Aspirin] 81 mg Tablet,Delayed Release (Dr/Ec) 81 mg PO QAM RF: 0 lisinopril 10 mg tablet 10 mg PO DAILY RF: 0 allopurinol 300 mg tablet 300 mg PO QAM RF: 0 metoprolol tartrate 25 mg tablet 25 mg PO BID RF: 0 famotidine 20 mg tablet 20 mg PO BID RF: 0 pregabalin 100 mg capsule 150 mg PO TID RF: 0 hydrochlorothiazide 12.5 mg capsule 12.5 mg PO DAILY RF: 0 Trulicity 0.75 mg/0.5 mL pen injector 1.5 mg SUBCUT WK RF: 0 Tresiba FlexTouch U-100 100 unit/mL (3 mL) insulin pen 22 unit SUBCUT .WITH RABIA MEAL RF: 0 albuterol sulfate 90 mcg/actuation Hfa Aerosol Inhaler 2 puff INHALATION QID PRN (Reason: Shortness Of Breath Or Wheezing) RF: 0 atorvastatin 40 mg tablet 40 mg PO DAILY RF: 0 spironolactone 25 mg tablet 12.5 mg PO DAILY RF: 0 metformin RF: 0 Discharge Orders: Discharge Order (Routine); Ordered 09/10/21 Ordered By: Farrah Alan/Other Patient Handouts: Managing Type 2 Diabetes Admission Data Admit Date/Time: 09/02/21 22:03 Attending Provider: Farrah Espana I. Admit Provider: Moses Hargrove Primary Care Provider: Cristian Nixon Other Providers: Moses Hargrove ; Lowell Hahn ; [facility] ; Speedy Villegas ; Shira Novoa ; Wei Jean-Baptiste I. ; Junaid Ramsey II ; Tricia Young ; Kevin Juarez ; Sav Parker ; [facility] Other Interventions: Discharge Summary Assessment (RN) Last Done: 09/10/21 12:42
--- NOTE | 2021-09-13 13:53 | Coding Query ---
SEPSIS To promote full compliance with coding requirements relating to patient care, physician participation is requested in all cases of power and recovery supervisor uncertainty. Please assist us with the question(s) below: In responding to this query, please exercise your independent professional judgement. The fact that a question is asked does not imply that any particular answer is desired or expected. We appreciate your clarification on this issue. Throughout the medical record, you have clearly documented a localized infection and your patient has clinical evidence of a generalized sepsis or severe sepsis. The term urosepsis is a nonspecific entity and is coded as an UTI. If the patient has sepsis, severe sepsis, from an urinary source or some other source, please clarify in your response below. The medical record reflects the following clinical findings: Pt adm with fever,sob,weakness. Hx of tick bites. Discharge Summary stated pt treated for possible sepsis and possible bronchitis. Started on broad antibiotics Blood cultures negative, procalcitonin trended upward initially. Blood test positive for babeosis. Please check below if Sepsis was treated during this Inpatient stay. Thanks for your help! [facility] ____ ( )Bacteremia (Nonspecific laboratory finding of bacteria in the blood) Specify Organism ( ) Present on Admission ( ) Not present on admission ( ) Unable to clinically determine ( ) Septicemia (Systemic disease associated with the presence of pathogenic microorganisms in the blood): Specify Organism ( ) Present on Admission ( ) Not present on admission ( ) Unable to clinically determine ( x ) Sepsis Specify Organism Specify Associated Condition/Diagnosis ( x ) Present on Admission ( ) Not present on admission ( ) Unable to clinically determine ( ) Severe Sepsis (Sepsis associated with acute organ dysfunction) Specify Organism Specify Associated Condition/Diagnosis ( ) Present on Admission ( ) Not present on admission () Unable to clinically determine ( ) Septic Shock (Severe sepsis with acute circulatory failure, unexplained by other causes) ( ) Present on Admission () Not present on admission () Unable to clinically determine ( ) Other, patient has: MTDD
[2021-09-14 18:08] LABS: Babesia microti Ab Interpret Past Infection; Babesia microti DNA Detected (Not Detected); Babesia microti IgG >=1:1024 titer (<1:64)
== END 2021-09-10 13:39 | disposition home health service (06) | DRG 872 ==
LOC: ED 18:01 → 2N 22:03 → SUATTDRO 22:03 → 2N 22:39

== ENCOUNTER 2022-02-17 13:50 | Inpatient (IN) ==
--- NOTE | 2022-02-17 14:39 | Emergency Department Note ---
Impression & Plan Acute dehydration, COVID-19, Weakness, Hyperglycemia ED Provider Note NAME: VA CHAVIRA AGE: 76 SEX: M : 1945 ARRIVES VIA: Walk-In INFORMANT: [Patient][, ] ED PROVIDER(S): [Shravan Yin MD] Chief Complaint: Cough, fever HPI: Patient presents due to concern for cough and congestion which she states initially began around Saturday or Saturday but is gotten progressively worse over the course the week. Presents that his cough has been productive with thick white and yellow sputum. Patient states that he feels as though he has been hydrating relatively well but does feel little dry and thirsty. The patient does take a diuretic. The patient states that his appetite has been slightly decreased. No chest pains or shortness of breath. Former smoker less smoking in 1985. The patient has had a mild headache that occasionally nauseates him but denies wanting any current meds and does not complain of specific headache at this time. Patient states that he does take neuropathy medications along with Tylenol each day but did not take it today. No numbness tingling or focal weakness and denies any strokelike symptoms. Has had the occasional nausea but no vomiting. The patient did feel warm at home but did not take a temperature. The patient did not self test for COVID. Patient denies any known sick contacts. He was in [place] 2 months ago but no recent travel other than that. ROS: See HPI for pertinent positives and negatives. A total of 10 systems were reviewed and otherwise negative. Past medical history: See below Surgical history: See below Social history: See below Physical Exam: GENERAL: NAD, [wearing a mask,] non-toxic. EYE EXAM: Normal conjunctiva. PERRL, no anisocoria and EOM's grossly intact w/o pain. NECK: Supple, no nuchal rigidity, no adenopathy, non-tender. No signs of meningismus. FROM of the neck with good chin to chest and neck extension. No stridor. LUNGS: Crackles at the right base. Normal chest wall mechanics. HEART: NSR, no MRG. ABDOMEN: Abdomen soft, non-tender, normo-active bowel sounds, no masses, no rebound or guarding. BACK: No CVA TTP. SKIN: No rashes and no bruising. UPPER EXTREMITIES: Upper extremities are grossly normal. LOWER EXTREMITIES: Grossly normal, trace symmetric pretibial edema without any asymmetry or erythema. NEURO EXAM: A&O x3, cranial nerves II-XII grossly intact, normal speech, moves all 4 extremities. Differential diagnoses: Infection, dehydration, metabolic abnormality, hypo/hyperglycemia, electrolyte disturbance, anemia, hypoxia, cardiac sources, intracerebral event, toxicologic, neurologic, as well as other pathologies. Course: Patient was seen and evaluated the bedside. Full history physical exam was performed. EKG interpreted by me Sinus with first-degree AV block, rate of 74, prolonged NM normal QRS, left axis deviation, Q-wave in lead III and anteriorly. Patient's morphology appears g rossly unchanged from comparison September 06, 2021. Imaging Studies: See Below Cardiac monitoring: An order was placed for continuous cardiac monitoring. The monitor shows a rate of 77 with sinus rhythm. MDM: Patient was seen due to concern for URI related symptoms. Blood work is obtained along with an EKG troponin and chest x-ray. Patient was ordered IV fluids. Patient declines any Tylenol at this time. The patient has a white count of 14 with normal H&H and platelet count. The patient's kidney function is unremarkable. Glucose slightly elevated to 42 bilirubin at 3. Patient has no right upper quadrant pain. Troponin is negative. COVID-positive. The patient would desat with sleep so dexamethasone IV 6 mg was ordered. Chest x-ray with no acute findings. I did speak with the on-call hospitalist Dr. Joaquin and the patient was admitted to the medicine service Past Med/Surg History Medical History (Updated 02/17/22 @ 19:50 by Shravan Yin MD) CAD (coronary artery disease) Cardiac murmur Chest pain recent episode of intermittent chest pain while at rest 2-3 days ago. reports similar episode 3 weeks ago. did not report to hospital or call PCP, cardio. advised to notify pcp, cardio of symptoms. Confusion reports recently woke up with confusion, memory loss x 1 week ago. describes sitting on recliner and then "blacking out" - woke up not able to recall time, location, events of day. did not notify PCP or go to hospital. advised to notify pcp Diabetes mellitus, type 2 NIDDM Dyslipidemia Gout Herniated intervertebral disc [place] (hard of hearing) HTN (hypertension) Neuropathy Neuropathy JENNIFER (obstructive sleep apnea) does not tolerate CPAP/BiPAP Osteoarthritis Surgical History H/O heart artery stent x 1 (2006) - Follows w/ Dr. Chandler History of amputation of left thumb History of cardiac catheterization 2014 - [facility] - no stents 10/28/06 - [facility] to circumflex, marginal at [facility], Dr Hagan History of colonoscopy History of right cataract surgery Family History Brother Coronary heart disease Lung cancer Mother Family history of diabetes mellitus Other Hypertension Social History Smoking Status: Former smoker Tobacco Type: Cigarettes Cigarettes Per Day: Quit 1985, smoked 2ppd x 25 years; Second Hand Exposure: No; Hx Alcohol Use: Yes Alcohol type: beer Hx Substance Use: No Preferred Language: Maori Communication Ability: Effective Automotive Professional Required: No Beliefs That Will Affect Care: None marital status: / Current Living Situation: Alone Current Living Situation Comment: family next door current occupational status: retired Feels Safe at Home: Yes Assistive Devices: Cane, Glasses and Walker Allergies Allergies Allergy/AdvReac Type Severity Reaction Status Date / Time No Known Allergies Allergy Verified 02/17/22 14:59 Home Meds Home Medications Medication Instructions Recorded Confirmed allopurinol 300 mg tablet 300 mg PO QAM 11/05/18 02/17/22 aspirin 81 mg tablet,delayed 81 mg PO QAM 11/05/18 02/17/22 release (Lore Low Dose Aspirin) clopidogrel 75 mg tablet 75 mg PO QAM heart 11/05/18 02/17/22 metoprolol tartrate 25 mg tablet 25 mg PO QAM 11/05/18 02/17/22 multivitamin 1 tab PO QAM 11/05/18 02/17/22 albuterol sulfate 90 mcg/actuation 2 puff inhalation QID PRN 02/21/20 02/17/22 aerosol inhaler Shortness Of Breath Or Wheezing dulaglutide 0.75 mg/0.5 mL 1.5 mg subcut WK 02/21/20 02/17/22 subcutaneous [facility] famotidine 20 mg tablet 20 mg PO BID 02/21/20 02/17/22 hydrochlorothiazide 12.5 mg capsule 12.5 mg PO DAILY 02/21/20 02/17/22 insulin degludec 100 unit/mL (3 24 unit subcut QDD 02/21/20 02/17/22 mL) subcutaneous pen (Tresiba FlexTouch U-100 insulin) pregabalin 100 mg capsule 150 mg PO TID 02/21/20 02/17/22 atorvastatin 40 mg tablet 40 mg PO HS 06/18/21 02/17/22 spironolactone 25 mg tablet 12.5 mg PO DAILY 06/18/21 02/17/22 metformin 500 mg tablet,extended 500 mg PO BID 02/17/22 02/17/22 release 24 hr Results & Data (ED) Vital Signs Vital Signs - 24 hr 02/17/22 14:03 02/17/22 14:26 02/17/22 15:30 Temperature 36.8 C Temperature Source Temporal Artery Scan Pulse Rate 72 Pulse Rate [Left Finger] 76 66 Pulse Rhythm [Left Finger] Pulse Strength [Left Finger] Respiratory Rate 20 20 18 Respiratory Effort / Characteristics Non-Labored Respiratory Depth Normal Respiratory Pattern Blood Pressure 129/75 Blood Pressure [Left Arm] 158/94 H 143/81 H Blood Pressure Mean 93 Blood Pressure Mean [Left Arm] 115 101 Blood Pressure Position [Left Arm] Sitting Sitting Pulse Oximetry 93 99 95 Oxygen Delivery Method Room Air Sepsis Recent Fever Within 48 Hours No Sepsis New/Unexplained Change in Mental Status N/A Sepsis Action Taken by Nursing No Action Required 02/17/22 17:00 02/17/22 19:00 Temperature Temperature Source Pulse Rate Pulse Rate [Left Finger] 70 63 Pulse Rhythm [Left Finger] Regular Pulse Strength [Left Finger] Normal Respiratory Rate 23 18 Respiratory Effort / Characteristics Non-Labored Respiratory Depth Normal Respiratory Pattern Regular Blood Pressure Blood Pressure [Left Arm] 160/83 H 175/80 H Blood Pressure Mean Blood Pressure Mean [Left Arm] 108 111 Blood Pressure Position [Left Arm] Sitting Pulse Oximetry 91 92 Oxygen Delivery Method Room Air Room Air Sepsis Recent Fever Within 48 Hours Sepsis New/Unexplained Change in Mental Status Sepsis Action Taken by Shelter Medications Current Medication List: was personally reviewed by me Laboratory Data Attestation: I reviewed the patient's lab results. Result diagrams: 02/17/22 14:39 02/17/22 14:39 Lab Results 02/17/22 02/17/22 02/17/22 Range/Units 14:39 14:39 14:39 WBC 14.43 H (4.8-10.8) K/ul RBC 5.33 (4.63-6.08) M/uL Hgb 17.0 (14.0-18.0) g/dl Hct 46.7 (40.1-51.0) % MCV 87.6 (80.0-100.0) fL MCH 31.9 (25.0-34.0) pg MCHC 36.4 H (32.0-36.0) g/dL RDW Std Deviation 42.8 (36.4-46.3) fL RDW Coeff of Sheri 13.4 (11.5-14.5) % Plt Count 257 (130-400) K/uL MPV 10.1 (9.4-12.4) fL Immature Gran % (Auto) 0.3 % Neut % (Auto) 64.8 % Lymph % (Auto) 20.5 % [place] % (Auto) 11.0 % Eos % (Auto) 2.8 % Baso % (Auto) 0.6 % Neut # (Auto) 9.33 H (1.4-6.5) K/uL Lymph # (Auto) 2.96 (1.2-3.4) K/uL [place] # (Auto) 1.59 H (0.24-0.82) K/uL Eos # (Auto) 0.41 (0-0.50) K/uL Baso # (Auto) 0.09 (0-0.2) K/uL Immature Gran # (Auto) 0.05 H (0.00-0.02) K/uL PT 10.7 (9.0-12.0) Seconds INR 1.0 (0.9-1.1) APTT 28.8 (21.0-31.0) Seconds PTT Ratio 1.0 Sodium 135 L (136-145) mmol/L Potassium 3.9 (3.5-5.1) mmol/L Chloride 99 (98-107) mmol/L Carbon Dioxide 28 (21-32) mmol/L Anion Gap 8 (3-11) BUN 14 (6-23) mg/dl Creatinine 0.77 (0.6-1.4) mg/dl Est Cr Clr Drug Dosing 89.1 ml/min Est GFR ( Amer) 102.2 ml/min Est GFR (Non-Af Amer) 88.1 ml/min BUN/Creatinine Ratio 18.2 (10-20) Glucose 242 H (70-99(Fasting)) mg/dl Calcium 9.6 (8.5-10.1) mg/dl Total Bilirubin 3.0 H (0.2-1.0) mg/dl AST 26 (13-39) U/L ALT 32 (7-52) U/L Alkaline Phosphatase 62 (34-104) U/L Troponin I High Sens (0-20) pg/ml Total Protein 7.9 (6.0-8.3) gm/dl Albumin 4.5 (3.4-5.0) gm/dl Globulin 3.4 (2.5-4.0) gm/dl Albumin/Globulin Ratio 1.3 (0.9-2) TSH (0.300-4.500) uIu/ml Adenovirus (PCR) (NotDetected) B. pertussis DNA (PCR) (NotDetected) B.parapertussis DNA PCR (NotDetected) C. pneumoniae DNA (PCR) (NotDetected) Coronavirus OC43 (PCR) (NotDetected) Coronavirus HKU1 (PCR) (NotDetected) Coronavirus 229E (PCR) (NotDetected) SARS-CoV-2 (PCR) (NotDetected) Coronavirus NL63 (PCR) (NotDetected) Human Metapneumovir PCR (NotDetected) Influenza Type A (PCR) (NotDetected) Influenza Type B (PCR) (NotDetected) M. pneumoniae (PCR) (NotDetected) Parainfluenza 1 (PCR) (NotDetected) Parainfluenza 2 (PCR) (NotDetected) Parainfluenza 3 (PCR) (NotDetected) Parainfluenza 4 (PCR) (NotDetected) RSV (PCR) (NotDetected) Entero/Rhino (PCR) (NotDetected) 02/17/22 02/17/22 02/17/22 Range/Units 14:39 14:39 Unknown WBC (4.8-10.8) K/ul RBC (4.63-6.08) M/uL Hgb (14.0-18.0) g/dl Hct (40.1-51.0) % MCV (80.0-100.0) fL MCH (25.0-34.0) pg MCHC (32.0-36.0) g/dL RDW Std Deviation (36.4-46.3) fL RDW Coeff of Sheri (11.5-14.5) % Plt Count (130-400) K/uL MPV (9.4-12.4) fL Immature Gran % (Auto) % Neut % (Auto) % Lymph % (Auto) % [place] % (Auto) % Eos % (Auto) % Baso % (Auto) % Neut # (Auto) (1.4-6.5) K/uL Lymph # (Auto) (1.2-3.4) K/uL [place] # (Auto) (0.24-0.82) K/uL Eos # (Auto) (0-0.50) K/uL Baso # (Auto) (0-0.2) K/uL Immature Gran # (Auto) (0.00-0.02) K/uL PT (9.0-12.0) Seconds INR (0.9-1.1) APTT (21.0-31.0) Seconds PTT Ratio Sodium (136-145) mmol/L Potassium (3.5-5.1) mmol/L Chloride (98-107) mmol/L Carbon Dioxide (21-32) mmol/L Anion Gap (3-11) BUN (6-23) mg/dl Creatinine (0.6-1.4) mg/dl Est Cr Clr Drug Dosing ml/min Est GFR ( Amer) ml/min Est GFR (Non-Af Amer) ml/min BUN/Creatinine Ratio (10-20) Glucose (70-99(Fasting)) mg/dl Calcium (8.5-10.1) mg/dl Total Bilirubin (0.2-1.0) mg/dl AST (13-39) U/L ALT (7-52) U/L Alkaline Phosphatase (34-104) U/L Troponin I High Sens 10.6 (0-20) pg/ml Total Protein (6.0-8.3) gm/dl Albumin (3.4-5.0) gm/dl Globulin (2.5-4.0) gm/dl Albumin/Globulin Ratio (0.9-2) TSH 2.423 (0.300-4.500) uIu/ml Adenovirus (PCR) Not Detected (NotDetected) B. pertussis DNA (PCR) Not Detected (NotDetected) B.parapertussis DNA PCR Not Detected (NotDetected) C. pneumoniae DNA (PCR) Not Detected (NotDetected) Coronavirus OC43 (PCR) DETECTED A* (NotDetected) Coronavirus HKU1 (PCR) Not Detected (NotDetected) Coronavirus 229E (PCR) Not Detected (NotDetected) SARS-CoV-2 (PCR) Not Detected (NotDetected) Coronavirus NL63 (PCR) Not Detected (NotDetected) Human Metapneumovir PCR Not Detected (NotDetected) Influenza Type A (PCR) Not Detected (NotDetected) Influenza Type B (PCR) Not Detected (NotDetected) M. pneumoniae (PCR) Not Detected (NotDetected) Parainfluenza 1 (PCR) Not Detected (NotDetected) Parainfluenza 2 (PCR) Not Detected (NotDetected) Parainfluenza 3 (PCR) Not Detected (NotDetected) Parainfluenza 4 (PCR) Not Detected (NotDetected) RSV (PCR) Not Detected (NotDetected) Entero/Rhino (PCR) Not Detected (NotDetected) Administered Medications Discontinued Medications Acetaminophen (Acetaminophen 500 Mg Tab) 1,000 mg PO NOW STA Stop: 02/17/22 14:47 Last Admin: 02/17/22 15:05 Dose: 1,000 mg Documented By: LEONA Albuterol (Albut/Ipratrop 3mg/0.5mg Neb 3 Ml Vial) 3 ml NEB NOW STA; Protocol Stop: 02/17/22 14:52 Last Admin: 02/17/22 15:05 Dose: 3 ml Documented By: LEONA Dexamethasone Sodium Phosphate (DexamethasonePf 10 Mg/Ml Vial) 6 mg IV NOW ONE Stop: 02/17/22 17:08 Last Admin: 02/17/22 17:11 Dose: 6 mg Documented By: LEONA Sodium Chloride (Nss) 500 mls @ 999 mls/hr IV .Q31M NATASHA Stop: 02/17/22 15:30 Last Infusion: 02/17/22 15:36 Dose: 0 mls/hr Documented By: Admin: 02/17/22 15:05 Dose: 999 mls/hr Documented By: LEONA Imaging Data Radiologist's Impression: Chest X-Ray 02/17/22 14:11 XR chest 1V portable CLINICAL HISTORY: Congestion. COMPARISON STUDY: Chest radiograph September 05, [address] September 06, 2021. FINDINGS: Low lung volumes are again noted. This is unchanged. Cardiomediastinal silhouette is stable. No pneumothorax or pleural effusion is present. Lower lung predominant interstitial thickening is unchanged. The appearance of the chest is similar to prior study. IMPRESSION: No acute cardiopulmonary findings. No significant change in appearance of the chest. Stable interstitial thickening. ACT 112: Negative or not required by law. Electronically signed by: Alden Ibarra M.D. 02/17/2022 2:42 PM Discharge Plan Visit Data Chief Complaint: Flu Like Symptoms Stated Complaint: COUGH, CONGESTION, ESQUIVEL, FEVER ABD PAIN ED Provider: Shravan Yin Discharge Problem: Acute dehydration, COVID-19, Weakness, Hyperglycemia Patient Disposition: Admitted As Inpatient Forms Stand Alone Forms: [facility] Prescriptions Prescriptions: No Action multivitamin Tablet 1 tab PO QAM clopidogrel 75 mg tablet 75 mg PO QAM aspirin [Lore Low Dose Aspirin] 81 mg Tablet,Delayed Release (Dr/Ec) 81 mg PO QAM allopurinol 300 mg tablet 300 mg PO QAM metoprolol tartrate 25 mg tablet 25 mg PO QAM Rx Instructions: PER PT "ONLY TAKING IN AM", EXT MED HX "BID". famotidine 20 mg tablet 20 mg PO BID pregabalin 100 mg capsule 150 mg PO TID hydrochlorothiazide 12.5 mg capsule 12.5 mg PO DAILY Trulicity 0.75 mg/0.5 mL pen injector 1.5 mg SUBCUT WK Rx Instructions: TAKE THIS MED EVERY SATURDAY insulin degludec [Tresiba FlexTouch U-100] 100 unit/mL (3 mL) insulin pen 24 unit SUBCUT QDD albuterol sulfate 90 mcg/actuation Hfa Aerosol Inhaler 2 puff INHALATION QID PRN (Reason: Shortness Of Breath Or Wheezing) atorvastatin 40 mg tablet 40 mg PO HS spironolactone 25 mg tablet 12.5 mg PO DAILY metformin 500 mg tablet extended release 24 hr 500 mg PO BID Referrals Referrals: Cristian Nixon MD [Primary Care Provider] -
--- NOTE | 2022-02-17 14:44 | XRay Report ---
XR chest 1V portable CLINICAL HISTORY: Congestion. COMPARISON STUDY: Chest radiograph September 05, [address] September 06, 2021. FINDINGS: Low lung volumes are again noted. This is unchanged. Cardiomediastinal silhouette is stable . No pneumothorax or pleural effusion is present. Lower lung predominant interstitial thickening is u nchanged. The appearance of the chest is similar to prior study. IMPRESSION: No acute cardiopulmonary findings. No significant change in appearance of the chest. Sta ble interstitial thickening. ACT 112: Negative or not required by law. Electronically signed by: Alden Ibarra M.D. 02/17/2022 2:42 PM
[2022-02-17] MEDS ORDERED: ACETAMINOPHEN 500 MG TAB PO STA (14:46)
[2022-02-17] MEDS ORDERED: ALBUT/IPRATROP 3MG/0.5MG NEB 3 ML VIAL NEB STA (14:51)
[2022-02-17 14:53] LABS: Basophils # (auto) 0.09 K/uL (0-0.2); Basophils % (auto) 0.6 %; Eosinophils # (auto) 0.41 K/uL (0-0.50); Eosinophils % (auto) 2.8 %; Hematocrit (blood only) 46.7 % (40.1-51.0); Immature Granulocytes # (auto) 0.05 K/uL (0.00-0.02); Immature Granulocytes % (auto) 0.3 %; Lymphocytes # (auto) 2.96 K/uL (1.2-3.4); Lymphocytes % (auto) 20.5 %; Mean Corpuscular Hemoglobin 31.9 pg (25.0-34.0); Mean Corpuscular Hgb Conc 36.4 g/dL (32.0-36.0); Mean Corpuscular Volume 87.6 fL (80.0-100.0); Mean Platelet Volume 10.1 fL (9.4-12.4); Monocytes # (auto) 1.59 K/uL (0.24-0.82); Neutrophils # (auto) 9.33 K/uL (1.4-6.5); Neutrophils % (auto) 64.8 %; Platelet Count 257 K/uL (130-400); RDW Coefficient of Variation 13.4 % (11.5-14.5); RDW Standard Deviation 42.8 fL (36.4-46.3); Red Blood Count 5.33 M/uL (4.63-6.08); White Blood Count 14.43 K/ul (4.8-10.8)
[2022-02-17] MEDS ORDERED: SODIUM CHLORIDE 0.9% 500 ML IV SCH (15:00)
[2022-02-17 15:07] LABS: Partial Thromboplastin Time 28.8 Seconds (21.0-31.0); Prothrombin Time 10.7 Seconds (9.0-12.0)
[2022-02-17 15:16] LABS: Albumin Globulin Ratio 1.3 (0.9-2); Albumin Level 4.5 gm/dl (3.4-5.0); BUN Creatinine Ratio 18.2 (10-20); Calcium 9.6 mg/dl (8.5-10.1); Creatinine Clr Calc Pharmacy 89.1 ml/min; Est GFR (African American) 102.2 ml/min; Est GFR (Non-African American) 88.1 ml/min; Globulin 3.4 gm/dl (2.5-4.0); Potassium 3.9 mmol/L (3.5-5.1); Total Protein 7.9 gm/dl (6.0-8.3)
[2022-02-17 16:04] LABS: Adenovirus PCR Not Detected (NotDetected); Bordetella parapertussis PCR Not Detected (NotDetected); Bordetella pertussis PCR Not Detected (NotDetected); Chlamydia pneumoniae PCR Not Detected (NotDetected); Coronavirus 229E PCR Not Detected (NotDetected); Coronavirus CoV-2 (COVID19)PCR Not Detected (NotDetected); Coronavirus HKU1 PCR Not Detected (NotDetected); Coronavirus NL63 PCR Not Detected (NotDetected); Human Metapneumovirus PCR Not Detected (NotDetected); Influenza A PCR Not Detected (NotDetected); Influenza B PCR Not Detected (NotDetected); Mycoplasma pneumoniae PCR Not Detected (NotDetected); Parainfluenza Virus 1 PCR Not Detected (NotDetected); Parainfluenza Virus 2 PCR Not Detected (NotDetected); Parainfluenza Virus 3 PCR Not Detected (NotDetected); Parainfluenza Virus 4 PCR Not Detected (NotDetected); Respiratory Syncytial VirusPCR Not Detected (NotDetected); Rhinovirus/Enterovirus PCR Not Detected (NotDetected)
[2022-02-17 16:25] LABS: Coronavirus OC43PCR DETECTED (NotDetected)
[2022-02-17] MEDS ORDERED: dexAMETHasone**PF** 10 MG/ML VIAL IV ONE (17:07)
--- NOTE | 2022-02-17 17:23 | History & Physical Report ---
Date of Service February 17, 2022 Assessment & Plan (1) Hypoxia: Plan: Suspect related to #2 - mostly with falling asleep, exertion - Admit and monitor for oxygen requirement - Hx of sleep apnea but unable to tolerate CPAP/BiPAP - if persistent nocturnal hypoxia after acute illness improving, may need to consider sending home with nocturnal O2 - PT/OT since pt reports weakness related to acute illness, lives alone (2) Viral respiratory infection: Plan: Testing positive for coronavirus but not COVID-19 - Continue supportive care - see plan for #1 - Steroids not indicated at this point (3) Diabetes mellitus, type II: Plan: Sugars at home have been in the 200s and 300s - Check A1c, BSG ACHS - Baseline Lantus and insulin sliding scale - Holding outpatient meds - Diabetic diet (4) Neuropathy: (5) JENNIFER (obstructive sleep apnea): (6) CAD (coronary artery disease): (7) HTN (hypertension): (8) Dyslipidemia: Plan Continue other home medications as appropriate. Pt seen and reviewed with collaborating physician, Dr. Ariza. Plan of care discussed and as outlined above Code Status: Full Code DVT Prophylaxis: Oliverio Sparks PA-C History of Present Illness Chief Complaint: Cough and weakness Primary Care Provider: Cristian Nixon MD This is a 76 y/o male with a PMH of CAD s/p stent placement, DDM2, HTN, JENNIFER but not tolerant of CPAP/BiPAP, dyslipidemia, neuropathy, and gout who presented to the ED today with respiratory symptoms that have gradually worsened. He reports that the symptoms started [address] then developed cough, body aches. Cough productive of yellow-green mucus - no hemoptysis. Intermittent subjective fevers and feeling cold. Has been more fatigued and weak than baseline. He has now developed dyspnea with moderate exertion, improves with rest. Appetite is good. Associated diarrhea for 1-2 days - improved with Pepto. Lightheaded at times but not severe. No falls but pt does live alone. He came in today because he was frustrated with persistent/worsening symptoms. +sick contacts prior to symptoms started. Sugars at home in the 200s, sometimes 300s. 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 Medications have been titrated because of this. Allergies Allergy/AdvReac Type Severity Reaction Status Date / Time No Known Allergies Allergy Verified 02/17/22 14:59 Home Medications Medication Instructions Recorded Confirmed Type allopurinol 300 mg tablet 300 mg PO QAM 11/05/18 02/17/22 History aspirin 81 mg tablet,delayed 81 mg PO QAM 11/05/18 02/17/22 History release (Lore Low Dose Aspirin) clopidogrel 75 mg tablet 75 mg PO QAM heart 11/05/18 02/17/22 History metoprolol tartrate 25 mg tablet 25 mg PO QAM 11/05/18 02/17/22 History multivitamin 1 tab PO QAM 11/05/18 02/17/22 History albuterol sulfate 90 mcg/actuation 2 puff inhalation QID PRN 02/21/20 02/17/22 History aerosol inhaler Shortness Of Breath Or Wheezing dulaglutide 0.75 mg/0.5 mL 1.5 mg subcut WK 02/21/20 02/17/22 History subcutaneous pen injector (Trulicity) famotidine 20 mg tablet 20 mg PO BID 02/21/20 02/17/22 History hydrochlorothiazide 12.5 mg capsule 12.5 mg PO DAILY 02/21/20 02/17/22 History insulin degludec 100 unit/mL (3 24 unit subcut QDD 02/21/20 02/17/22 History mL) subcutaneous pen (Tresiba FlexTouch U-100 insulin) pregabalin 100 mg capsule 150 mg PO TID 02/21/20 02/17/22 History atorvastatin 40 mg tablet 40 mg PO HS 06/18/21 02/17/22 History spironolactone 25 mg tablet 12.5 mg PO DAILY 06/18/21 02/17/22 History metformin 500 mg tablet,extended 500 mg PO BID 02/17/22 02/17/22 History release 24 hr Past Med/Surg History Medical History CAD (coronary artery disease) Cardiac murmur Chest pain recent episode of intermittent chest pain while at rest 2-3 days ago. reports similar episode 3 weeks ago. did not report to hospital or call PCP, cardio. advised to notify pcp, cardio of symptoms. Confusion reports recently woke up with confusion, memory loss x 1 week ago. describes sitting on recliner and then "blacking out" - woke up not able to recall time, location, events of day. did not notify PCP or go to hospital. advised to notify pcp Diabetes mellitus, type 2 NIDDM Dyslipidemia Gout Herniated intervertebral disc [place] (hard of hearing) HTN (hypertension) Neuropathy Neuropathy JENNIFER (obstructive sleep apnea) does not tolerate CPAP/BiPAP Osteoarthritis Surgical History H/O heart artery stent x 1 (2006) - Follows w/ Dr. Chandler History of amputation of left thumb History of cardiac catheterization 2014 - [facility] - no stents 10/28/06 - [facility] to circumflex, marginal at [facility], Dr Hagan History of colonoscopy History of right cataract surgery Family History Brother Coronary heart disease Lung cancer Mother Family history of diabetes mellitus Other Hypertension Social History Smoking Status: Former smoker Tobacco Type: Cigarettes Cigarettes Per Day: Quit 1985, smoked 2ppd x 25 years; Second Hand Exposure: No; Hx Alcohol Use: Yes Alcohol type: beer Hx Substance Use: No Preferred Language: Persian Communication Ability: Effective Stripper Preliminary Required: No Beliefs That Will Affect Care: None marital status: / Current Living Situation: Alone Current Living Situation Comment: family next door current occupational status: retired Feels Safe at Home: Yes Assistive Devices: Cane, Glasses and Walker Review of Systems Review of Systems: All systems reviewed & are unremarkable except as noted in HPI & below Constitutional: + fever, + chills and + fatigue Eyes: no diplopia Ear, Nose, Mouth, Throat: as per Subjective / HPI Respiratory: + cough, + change in sputum and + dyspnea on exertion Cardiovascular: + lightheadedness; no chest pain, no palpitations and no syncope Gastrointestinal: + diarrhea/loose stools; no abdominal pain, no nausea and no vomiting Genitourinary: no dysuria or no hematuria Musculoskeletal: + myalgia Integumentary: no yellowing of the skin Neurologic: + generalized weakness and + dizziness; no headache(s) Psychiatric: no depression and no anxiety Physical Exam 2 Constitutional: well developed and well nourished; no acute distress Eyes: + anicteric sclerae ENMT: external ear and nose normal, oropharynx normal Neck: trachea midline Respiratory: no respiratory distress and no labored breathing Auscultation: lungs clear to auscultation bilaterally; no rales, no rhonchi and no wheezes Cardiovascular: Rate/Rhythm: regular rate and regular rhythm Vessels: radial pulses present Extremities: no pedal edema Gastrointestinal (Abdomen): Inspection/Auscultation: normal bowel sounds; abdomen not distended Percussion/Palpation: abdomen soft; abdomen nontender Musculoskeletal: Head/Neck/Chest: normocephalic, head atraumatic and neck supple Skin: no jaundice Neurologic: moves all extremities; no focal motor deficits and not confused Psychiatric: A+Ox3, euthymic affect Results & Data Results & Data ([facility]) Vital Signs (Past 12 Hours) Vital Signs Temp Pulse Pulse Resp BP BP Pulse Ox 02/17/22 17:00 70 23 160/83 H 91 02/17/22 15:30 66 18 143/81 H 95 02/17/22 14:26 76 20 158/94 H 99 02/17/22 14:03 36.8 C 72 20 129/75 93 O2 Del Method 02/17/22 17:00 Room Air 02/17/22 15:30 02/17/22 14:26 02/17/22 14:03 Room Air Laboratory Results Laboratory Results - last 24 hr 02/17/22 02/17/22 02/17/22 14:39 14:39 14:39 WBC 14.43 H RBC 5.33 Hgb 17.0 Hct 46.7 MCV 87.6 MCH 31.9 MCHC 36.4 H RDW Std Deviation 42.8 RDW Coeff of Sheri 13.4 Plt Count 257 MPV 10.1 Immature Gran % (Auto) 0.3 Neut % (Auto) 64.8 Lymph % (Auto) 20.5 Ashe % (Auto) 11.0 Eos % (Auto) 2.8 Baso % (Auto) 0.6 Neut # (Auto) 9.33 H Lymph # (Auto) 2.96 Ashe # (Auto) 1.59 H Eos # (Auto) 0.41 Baso # (Auto) 0.09 Immature Gran # (Auto) 0.05 H PT 10.7 INR 1.0 APTT 28.8 PTT Ratio 1.0 Sodium 135 L Potassium 3.9 Chloride 99 Carbon Dioxide 28 Anion Gap 8 BUN 14 Creatinine 0.77 Est Cr Clr Drug Dosing 89.1 Est GFR ( Amer) 102.2 Est GFR (Non-Af Amer) 88.1 BUN/Creatinine Ratio 18.2 Glucose 242 H Calcium 9.6 Total Bilirubin 3.0 H AST 26 ALT 32 Alkaline Phosphatase 62 Troponin I High Sens Total Protein 7.9 Albumin 4.5 Globulin 3.4 Albumin/Globulin Ratio 1.3 TSH Adenovirus (PCR) B. pertussis DNA (PCR) B.parapertussis DNA PCR C. pneumoniae DNA (PCR) Coronavirus OC43 (PCR) Coronavirus HKU1 (PCR) Coronavirus 229E (PCR) SARS-CoV-2 (PCR) Coronavirus NL63 (PCR) Human Metapneumovir PCR Influenza Type A (PCR) Influenza Type B (PCR) M. pneumoniae (PCR) Parainfluenza 1 (PCR) Parainfluenza 2 (PCR) Parainfluenza 3 (PCR) Parainfluenza 4 (PCR) RSV (PCR) Entero/Rhino (PCR) 02/17/22 02/17/22 02/17/22 14:39 14:39 Unknown WBC RBC Hgb Hct MCV MCH MCHC RDW Std Deviation RDW Coeff of Sheri Plt Count MPV Immature Gran % (Auto) Neut % (Auto) Lymph % (Auto) Ashe % (Auto) Eos % (Auto) Baso % (Auto) Neut # (Auto) Lymph # (Auto) Ashe # (Auto) Eos # (Auto) Baso # (Auto) Immature Gran # (Auto) PT INR APTT PTT Ratio Sodium Potassium Chloride Carbon Dioxide Anion Gap BUN Creatinine Est Cr Clr Drug Dosing Est GFR ( Amer) Est GFR (Non-Af Amer) BUN/Creatinine Ratio Glucose Calcium Total Bilirubin AST ALT Alkaline Phosphatase Troponin I High Sens 10.6 Total Protein Albumin Globulin Albumin/Globulin Ratio TSH Pending Adenovirus (PCR) Not Detected B. pertussis DNA (PCR) Not Detected B.parapertussis DNA PCR Not Detected C. pneumoniae DNA (PCR) Not Detected Coronavirus OC43 (PCR) DETECTED A* Coronavirus HKU1 (PCR) Not Detected Coronavirus 229E (PCR) Not Detected SARS-CoV-2 (PCR) Not Detected Coronavirus NL63 (PCR) Not Detected Human Metapneumovir PCR Not Detected Influenza Type A (PCR) Not Detected Influenza Type B (PCR) Not Detected M. pneumoniae (PCR) Not Detected Parainfluenza 1 (PCR) Not Detected Parainfluenza 2 (PCR) Not Detected Parainfluenza 3 (PCR) Not Detected Parainfluenza 4 (PCR) Not Detected RSV (PCR) Not Detected Entero/Rhino (PCR) Not Detected Diagnostic Findings Chest X-ray - IMPRESSION: No acute cardiopulmonary findings. No significant change in appearance of the chest. Stable interstitial thickening. Medications Administered Discontinued Medications Acetaminophen (Acetaminophen 500 Mg Tab) 1,000 mg PO NOW STA Stop: 02/17/22 14:47 Last Admin: 02/17/22 15:05 Dose: 1,000 mg Documented By: LEONA Albuterol (Albut/Ipratrop 3mg/0.5mg Neb 3 Ml Vial) 3 ml NEB NOW STA; Protocol Stop: 02/17/22 14:52 Last Admin: 02/17/22 15:05 Dose: 3 ml Documented By: LEONA Dexamethasone Sodium Phosphate (DexamethasonePf 10 Mg/Ml Vial) 6 mg IV NOW ONE Stop: 02/17/22 17:08 Last Admin: 02/17/22 17:11 Dose: 6 mg Documented By: LEONA Sodium Chloride (Nss) 500 mls @ 999 mls/hr IV .Q31M [facility] Stop: 02/17/22 15:30 Last Infusion: 02/17/22 15:36 Dose: 0 mls/hr Documented By: Admin: 02/17/22 15:05 Dose: 999 mls/hr Documented By: LEONA Code Status & VTE Plan VTE Prophylaxis Plan VTE Prophylaxis will be ordered: Yes Supervising Physician Co-Signing Physician Notes Pt is a 76 y/o M with hx of CAD s/p stent, HTN with diastolic dysfunction, Mild COPD, DMII, HLD, JENNIFER (not on CPAP), Gout, GERD admitted for hypoxia with sleeping and URI symptoms. PE: NAD, well developed Cards: Systolic murmur, normal S1/S2 Lungs: CTA, no wheezing or crackles Abd: obese abd, NT, soft MSK: mild b/l leg edema Psych: AAOX3, normal affect A/P: Viral respiratory infection (non-COVID) and hypoxia with sleeping: -CXR was unremarkable -Lung exam is overall normal -Respiratory panel + for Coronavirus 0C43 & neg for Sars-CoV-2 -due to hx of COPD will do duoneb q6hrs -pt has hx of JENNIFER but does not wear CPAP --- his hypoxia likely due to JENNIFER. If pt continues to have hypoxia while sleeping then recommend discharging on nocturnal oxygen (pt does not want to wear CPAP) Other chronic conditions: Plan as above Agree with A/P by Felecia Sparks PA-C
[2022-02-17] MEDS ORDERED: GLUCOSE 40% GEL 15 GM TUBE PO PRN (20:51)
[2022-02-17] MEDS ORDERED: CARBOHYDRATES FOR HYPOGLYCEMIA PO PRN (20:51)
[2022-02-17] MEDS ORDERED: DEXTROSE 50% 50 ML SYRINGE IV PRN (20:51)
[2022-02-17] MEDS ORDERED: ACETAMINOPHEN 325 MG TAB PO PRN (20:51)
[2022-02-17] MEDS ORDERED: GLUCOSE 10 TAB/TUBE PO PRN (20:51)
[2022-02-17] MEDS ORDERED: ALBUTEROL HFA 8 GM INHALER INH PRN (20:51)
[2022-02-17] MEDS ORDERED: GLUCAGON FOR INJ 1 MG VIAL SQ PRN (20:51)
[2022-02-17] MEDS: ATORVASTATIN 40 MG TAB PO SCH (21:42)
[2022-02-17] MEDS: INSULIN ASPART PER UNIT SC SCH (21:43)
[2022-02-17] MEDS: FAMOTIDINE 20 MG TAB PO SCH (21:43)
[2022-02-17] MEDS: LANTUS PER UNIT CHARGE SQ SCH (21:44)
[2022-02-17] MEDS: PREGABALIN 150 MG CAP PO SCH (21:45)
[2022-02-18] MEDS: ALBUT/IPRATROP 3MG/0.5MG NEB 3 ML VIAL NEB SCH ×4 (06:56→18:55)
[2022-02-18 07:43] LABS: Basophils # (auto) 0.06 K/uL (0-0.2); Basophils % (auto) 0.4 %; Eosinophils % (auto) 2.6 %; Hematocrit (blood only) 45.5 % (40.1-51.0); Hemoglobin 16.3 g/dl (14.0-18.0); Immature Granulocytes # (auto) 0.06 K/uL (0.00-0.02); Immature Granulocytes % (auto) 0.4 %; Lymphocytes # (auto) 3.21 K/uL (1.2-3.4); Lymphocytes % (auto) 20.9 %; Mean Corpuscular Hemoglobin 31.5 pg (25.0-34.0); Mean Corpuscular Hgb Conc 35.8 g/dL (32.0-36.0); Monocytes # (auto) 1.79 K/uL (0.24-0.82); Monocytes % (auto) 11.6 %; Neutrophils # (auto) 9.86 K/uL (1.4-6.5); Neutrophils % (auto) 64.1 %; Platelet Count 234 K/uL (130-400); RDW Coefficient of Variation 13.1 % (11.5-14.5); RDW Standard Deviation 42.5 fL (36.4-46.3); Red Blood Count 5.17 M/uL (4.63-6.08); White Blood Count 15.38 K/ul (4.8-10.8)
[2022-02-18 08:02] LABS: BUN Creatinine Ratio 17.4 (10-20); Calcium 9.2 mg/dl (8.5-10.1); Creatinine Clr Calc Pharmacy 99.7 ml/min; Est GFR (African American) 106.9 ml/min; Est GFR (Non-African American) 92.2 ml/min; Potassium 3.5 mmol/L (3.5-5.1)
[2022-02-18] MEDS: METOPROLOL TARTRATE 25 MG TAB PO SCH (08:47)
[2022-02-18] MEDS: CLOPIDOGREL BISULFATE 75 MG TAB PO SCH (08:47)
[2022-02-18] MEDS: PREGABALIN 150 MG CAP PO SCH ×3 (08:47→20:30)
[2022-02-18] MEDS: ASPIRIN 81 MG ECTAB PO SCH (08:47)
[2022-02-18] MEDS: allopurinoL 300 MG TAB PO SCH (08:47)
[2022-02-18] MEDS: ENOXAPARIN INJ 40 MG/0.4 ML SYR SQ SCH (08:48)
[2022-02-18] MEDS: MULTIVITAMIN TAB PO SCH (08:48)
[2022-02-18] MEDS: FAMOTIDINE 20 MG TAB PO SCH ×2 (08:48→20:32)
[2022-02-18] MEDS: SPIRONOLACTONE 12.5 MG TAB PO SCH (08:48)
[2022-02-18] MEDS: LANTUS PER UNIT CHARGE SQ SCH ×2 (08:53→20:39)
[2022-02-18] MEDS: INSULIN ASPART PER UNIT SC SCH ×4 (08:54→20:39)
[2022-02-18] MEDS ORDERED: hydroCHLOROthiazide 25 MG TAB PO SCH (09:00)
[2022-02-18] MEDS: DOXYCYCLINE HYCLATE 100 MG CAP PO SCH ×2 (12:49→20:30)
[2022-02-18] MEDS: predniSONE 10 MG TABLET PO SCH (12:50)
--- NOTE | 2022-02-18 13:48 | Hospitalist Progress Note ---
Date of Service February 18, 2022 Assessment & Plan (1) Hypoxia: Plan: Suspected nocturnal hypoxia H/O JENNIFER intolerant to CPAP Will obtain nocturnal pulse oximetry study Saturating low 90s on room air currently (2) Viral respiratory infection: Plan: Acute bronchitis Secondary to coronavirus OC43 (not COVID-19) Negative influenza, RSV screen --CXR:No acute cardiopulmonary findings. No significant change in appearance of the chest. Stable interstitial thickening. Check procalcitonin Continue doxycycline, on low-dose prednisone Continue supportive care PT/OT as able (3) Diabetes mellitus, type II: Plan: HbA1c pending Continue Lantus and insulin sliding scale per protocol Hold outpatient meds Monitor BGs (4) Neuropathy: Plan: On Lyrica (5) JENNIFER (obstructive sleep apnea): Plan: Intolerant to CPAP (6) CAD (coronary artery disease): Plan: Continue aspirin, Plavix, atorvastatin, metoprolol (7) HTN (hypertension): Plan: Continue metoprolol, HCTZ (8) Dyslipidemia: Plan: on statin Chronic diastolic heart failure Continue home diuretics Monitor volume status Plan Gout On allopurinol DVT Px: Lovenox SQ Code Status: Full Code Admission and Anticipated Discharge Date Admission Date: February 17, 2022 Subjective Patient is seen and examined at bedside Dizziness much improved Reports cough with greenish to yellow expectoration Reports chronic b/l feet pain which he attributes to neuropathy Denies any chest pain, dyspnea, nausea, abdominal pain No other complaints Review of Systems Review of Systems: All systems reviewed & are unremarkable except as noted in Subjective Physical Exam Physical Exam: Physical Exam: Vitals signs as noted above General Appearance:Obese, no apparent distress Head: normocephalic, Atraumatic Eyes: normal inspection, EOMI Neck: supple, Trachea midline Respiratory/Chest: Normal breath sounds, scattered wheezing, No accessory muscle use Cardiovascular: S1, S2, No murmur Abdomen/GI:Soft, Non tender, Bowel sounds present Extremities/Musculoskeletal:normal inspection, no edema Neurologic/Psych:AAOX3, grossly no focal neurological deficits Skin: normal color, warm Results & Data Results & Data ([facility]) Vital Signs (Past 12 Hours) Vital Signs Temp Pulse Pulse Resp BP Pulse Ox O2 Del Method 02/18/22 11:10 37.2 C 79 20 136/76 91 Room Air 02/18/22 11:03 83 18 91 Room Air 02/18/22 08:00 Room Air 02/18/22 08:06 37.2 C 100 H 20 143/76 H 90 Room Air 02/18/22 07:16 93 H 02/18/22 06:57 95 H 18 90 Room Air 02/18/22 04:09 36.8 C 79 20 146/70 H 92 Room Air Laboratory Results Short CBC 02/17/22 02/18/22 Range/Units 14:39 06:45 WBC 14.43 H 15.38 H (4.8-10.8) K/ul Hgb 17.0 16.3 (14.0-18.0) g/dl Hct 46.7 45.5 (40.1-51.0) % Plt Count 257 234 (130-400) K/uL BMP 02/17/22 02/18/22 14:39 06:45 Sodium 135 L 134 L Potassium 3.9 3.5 Chloride 99 98 Carbon Dioxide 28 27 BUN 14 12 Creatinine 0.77 0.69 Glucose 242 H 158 H Calcium 9.6 9.2 Liver Function 02/17/22 Range/Units 14:39 Total Bilirubin 3.0 H (0.2-1.0) mg/dl AST 26 (13-39) U/L ALT 32 (7-52) U/L Alkaline Phosphatase 62 (34-104) U/L Albumin 4.5 (3.4-5.0) gm/dl
[2022-02-18] MEDS ORDERED: LACTATED RINGER'S 1,000 ML IV ONE (20:27)
[2022-02-18] MEDS: ATORVASTATIN 40 MG TAB PO SCH (20:31)
--- NOTE | 2022-02-18 22:31 | Electrocardiogram Report ---
Test Reason : Blood Pressure : / mmHG Vent. Rate : 074 BPM Atrial Rate : 074 BPM P-R Int : 260 ms QRS Dur : 098 ms QT Int : 400 ms P-R-T Axes : 042 -62 045 degrees QTc Int : 444 ms Sinus rhythm with 1st degree A-V block Left axis deviation Incomplete right bundle branch block Anterior infarct Inferior infarct Abnormal ECG When compared with ECG of 06-SEP-2021 12:12, Anterior infarct is now Present Inferior infarct is now Present Confirmed by Fred Presley [id number]) on 02/18/2022 10:31:25 PM Referred By: REFERRED SELF Confirmed By:Fred Presley
[2022-02-19] MEDS ORDERED: ALBUT/IPRATROP 3MG/0.5MG NEB 3 ML VIAL NEB PRN (00:07)
[2022-02-19 06:40] LABS: Basophils # (auto) 0.07 K/uL (0-0.2); Basophils % (auto) 0.6 %; Eosinophils # (auto) 0.18 K/uL (0-0.50); Eosinophils % (auto) 1.5 %; Hematocrit (blood only) 44.6 % (40.1-51.0); Hemoglobin 16.1 g/dl (14.0-18.0); Immature Granulocytes # (auto) 0.05 K/uL (0.00-0.02); Immature Granulocytes % (auto) 0.4 %; Lymphocytes # (auto) 3.32 K/uL (1.2-3.4); Lymphocytes % (auto) 27.3 %; Mean Corpuscular Hemoglobin 31.8 pg (25.0-34.0); Mean Corpuscular Hgb Conc 36.1 g/dL (32.0-36.0); Mean Platelet Volume 9.7 fL (9.4-12.4); Monocytes # (auto) 1.54 K/uL (0.24-0.82); Monocytes % (auto) 12.7 %; Neutrophils # (auto) 6.99 K/uL (1.4-6.5); Neutrophils % (auto) 57.5 %; Platelet Count 229 K/uL (130-400); RDW Coefficient of Variation 13.2 % (11.5-14.5); RDW Standard Deviation 42.4 fL (36.4-46.3); Red Blood Count 5.07 M/uL (4.63-6.08); White Blood Count 12.15 K/ul (4.8-10.8)
[2022-02-19 07:07] LABS: BUN Creatinine Ratio 19.7 (10-20); Calcium 9.6 mg/dl (8.5-10.1); Creatinine Clr Calc Pharmacy 88.9 ml/min; Est GFR (African American) 102.7 ml/min; Est GFR (Non-African American) 88.6 ml/min; Magnesium 1.7 mg/dl (1.7-2.4); Potassium 3.5 mmol/L (3.5-5.1)
[2022-02-19 07:18] LABS: Estimated Average Glucose 194 mg/dl; Hemoglobin A1C 8.4 % (4.5-5.6)
[2022-02-19] MEDS: DOXYCYCLINE HYCLATE 100 MG CAP PO SCH ×2 (08:32→21:45)
[2022-02-19] MEDS: METOPROLOL TARTRATE 25 MG TAB PO SCH (08:32)
[2022-02-19] MEDS: MULTIVITAMIN TAB PO SCH (08:32)
[2022-02-19] MEDS: FAMOTIDINE 20 MG TAB PO SCH ×2 (08:32→21:46)
[2022-02-19] MEDS: ASPIRIN 81 MG ECTAB PO SCH (08:32)
[2022-02-19] MEDS: predniSONE 10 MG TABLET PO SCH (08:32)
[2022-02-19] MEDS: CLOPIDOGREL BISULFATE 75 MG TAB PO SCH (08:32)
[2022-02-19] MEDS: allopurinoL 300 MG TAB PO SCH (08:32)
[2022-02-19] MEDS: SPIRONOLACTONE 12.5 MG TAB PO SCH (08:33)
[2022-02-19] MEDS: ENOXAPARIN INJ 40 MG/0.4 ML SYR SQ SCH (08:33)
[2022-02-19] MEDS: INSULIN ASPART PER UNIT SC SCH ×4 (08:35→21:46)
[2022-02-19] MEDS: PREGABALIN 150 MG CAP PO SCH ×3 (08:40→21:46)
[2022-02-19] MEDS: LANTUS PER UNIT CHARGE SQ SCH ×2 (08:41→21:47)
--- NOTE | 2022-02-19 15:29 | Hospitalist Progress Note ---
Date of Service February 19, 2022 Assessment & Plan (1) Hypoxia: Plan: Suspected nocturnal hypoxia H/O JENNIFER intolerant to CPAP Reviewed nocturnal oximetry study : Qualifies for oxygen at bedtime Needs sleep study as outpatient (2) Viral respiratory infection: Plan: Acute bronchitis Secondary to coronavirus OC43 (not COVID-19) Negative influenza, RSV screen --CXR:No acute cardiopulmonary findings. No significant change in appearance of the chest. Stable interstitial thickening. Check procalcitonin Continue doxycycline, on low-dose prednisone Continue supportive care PT/OT as able Clinically improving (3) Diabetes mellitus, type II: Plan: HbA1c 8.4 Continue Lantus and insulin sliding scale per protocol Hold outpatient meds Monitor BGs (4) Neuropathy: Plan: On Lyrica (5) JENNIFER (obstructive sleep apnea): Plan: Intolerant to CPAP (6) CAD (coronary artery disease): Plan: Continue aspirin, Plavix, atorvastatin, metoprolol (7) HTN (hypertension): Plan: Continue metoprolol, HCTZ (8) Dyslipidemia: Plan: on statin Chronic diastolic heart failure Continue home diuretics Monitor volume status Plan Gout On allopurinol DVT Px: Lovenox SQ Code Status: Full Code Disposition Home as able Admission and Anticipated Discharge Date Admission Date: February 17, 2022 Subjective Patient is seen and examined at bedside States feeling better today Less dyspnea, cough No new complaints Denies any chest pain, dyspnea, dizziness, nausea, abdominal pain No other complaints Review of Systems Review of Systems: All systems reviewed & are unremarkable except as noted in Subjective Physical Exam Physical Exam: Physical Exam: Vitals signs as noted above General Appearance:Obese, no apparent distress Head: normocephalic, Atraumatic Eyes: normal inspection, EOMI Neck: supple, Trachea midline Respiratory/Chest: Normal breath sounds, scattered wheezing, No accessory muscle use Cardiovascular: S1, S2, No murmur Abdomen/GI:Soft, Non tender, Bowel sounds present Extremities/Musculoskeletal:normal inspection, no edema Neurologic/Psych:AAOX3, grossly no focal neurological deficits Skin: normal color, warm Results & Data Results & Data ([facility]) Vital Signs (Past 12 Hours) Vital Signs Temp Pulse Pulse Pulse Resp BP Pulse Ox 02/19/22 14:36 36.5 C 77 18 136/74 94 02/19/22 10:37 36.9 C 80 18 132/75 95 02/19/22 08:00 02/19/22 08:06 80 02/19/22 07:15 36.7 C 71 18 167/91 H 92 02/19/22 04:10 71 Pulse Ox O2 Del Method O2 Del Method 02/19/22 14:36 Room Air 02/19/22 10:37 Room Air 02/19/22 08:00 Room Air 02/19/22 08:06 02/19/22 07:15 Room Air 02/19/22 04:10 89 L Room Air Laboratory Results Short CBC 02/19/22 Range/Units 06:11 WBC 12.15 H (4.8-10.8) K/ul Hgb 16.1 (14.0-18.0) g/dl Hct 44.6 (40.1-51.0) % Plt Count 229 (130-400) K/uL BMP 02/19/22 06:11 Sodium 137 Potassium 3.5 Chloride 102 Carbon Dioxide 26 BUN 15 Creatinine 0.76 Glucose 175 H Calcium 9.6
[2022-02-19] MEDS: ATORVASTATIN 40 MG TAB PO SCH (21:45)
[2022-02-20] MEDS: FAMOTIDINE 20 MG TAB PO SCH (08:02)
[2022-02-20] MEDS: DOXYCYCLINE HYCLATE 100 MG CAP PO SCH (08:02)
[2022-02-20] MEDS: SPIRONOLACTONE 12.5 MG TAB PO SCH (08:03)
[2022-02-20] MEDS: predniSONE 10 MG TABLET PO SCH (08:03)
[2022-02-20] MEDS: METOPROLOL TARTRATE 25 MG TAB PO SCH (08:03)
[2022-02-20] MEDS: allopurinoL 300 MG TAB PO SCH (08:03)
[2022-02-20] MEDS: ENOXAPARIN INJ 40 MG/0.4 ML SYR SQ SCH (08:04)
[2022-02-20] MEDS: ASPIRIN 81 MG ECTAB PO SCH (08:04)
[2022-02-20] MEDS: CLOPIDOGREL BISULFATE 75 MG TAB PO SCH (08:04)
[2022-02-20] MEDS: MULTIVITAMIN TAB PO SCH (08:04)
[2022-02-20] MEDS: INSULIN ASPART PER UNIT SC SCH ×3 (08:14→17:00)
[2022-02-20] MEDS: PREGABALIN 150 MG CAP PO SCH ×2 (08:14→13:43)
[2022-02-20] MEDS: LANTUS PER UNIT CHARGE SQ SCH (08:15)
[2022-02-20 08:42] LABS: Basophils # (auto) 0.09 K/uL (0-0.2); Basophils % (auto) 0.7 %; Eosinophils # (auto) 0.56 K/uL (0-0.50); Eosinophils % (auto) 4.2 %; Hematocrit (blood only) 45.9 % (40.1-51.0); Hemoglobin 16.2 g/dl (14.0-18.0); Immature Granulocytes # (auto) 0.04 K/uL (0.00-0.02); Immature Granulocytes % (auto) 0.3 %; Lymphocytes # (auto) 3.98 K/uL (1.2-3.4); Lymphocytes % (auto) 29.9 %; Mean Corpuscular Hemoglobin 31.3 pg (25.0-34.0); Mean Corpuscular Hgb Conc 35.3 g/dL (32.0-36.0); Mean Corpuscular Volume 88.6 fL (80.0-100.0); Mean Platelet Volume 9.5 fL (9.4-12.4); Monocytes # (auto) 1.67 K/uL (0.24-0.82); Monocytes % (auto) 12.6 %; Neutrophils # (auto) 6.95 K/uL (1.4-6.5); Neutrophils % (auto) 52.3 %; Platelet Count 271 K/uL (130-400); RDW Coefficient of Variation 13.3 % (11.5-14.5); RDW Standard Deviation 43.2 fL (36.4-46.3); Red Blood Count 5.18 M/uL (4.63-6.08); White Blood Count 13.29 K/ul (4.8-10.8)
[2022-02-20 09:05] LABS: BUN Creatinine Ratio 20.5 (10-20); Calcium 9.6 mg/dl (8.5-10.1); Creatinine Clr Calc Pharmacy 76.8 ml/min; Est GFR (African American) 96.7 ml/min; Est GFR (Non-African American) 83.4 ml/min; Potassium 3.5 mmol/L (3.5-5.1)
--- NOTE | 2022-02-20 13:13 | Hospitalist Progress Note ---
Date of Service February 20, 2022 Assessment & Plan (1) Hypoxia: Plan: Suspected nocturnal hypoxia H/O JENNIFER intolerant to CPAP Reviewed nocturnal oximetry study : Qualifies for oxygen at bedtime Advised to get sleep study as outpatient Plan to discharge on supplemental oxygen (2) Viral respiratory infection: Plan: Acute bronchitis Secondary to coronavirus OC43 (not COVID-19) Negative influenza, RSV screen --CXR:No acute cardiopulmonary findings. No significant change in appearance of the chest. Stable interstitial thickening. Check procalcitonin Continue doxycycline, on low-dose prednisone Continue supportive care Improved (3) Diabetes mellitus, type II: Plan: HbA1c 8.4 Continue Lantus and insulin sliding scale per protocol Hold outpatient meds Monitor BGs Advised to follow up with PCP for further adjustment of diabetic meds as able (4) Neuropathy: Plan: On Lyrica (5) JENNIFER (obstructive sleep apnea): Plan: Intolerant to CPAP (6) CAD (coronary artery disease): Plan: Continue aspirin, Plavix, atorvastatin, metoprolol (7) HTN (hypertension): Plan: Continue metoprolol, HCTZ (8) Dyslipidemia: Plan: on statin Chronic diastolic heart failure Continue home diuretics Monitor volume status Plan Gout On allopurinol DVT Px: Lovenox SQ Code Status: Full Code Disposition Home Admission and Anticipated Discharge Date Admission Date: February 17, 2022 Subjective Patient is seen and examined at bedside No new complaints cough continues to improve Denies any chest pain, dyspnea, dizziness, nausea, abdominal pain Plan to discharge home today Review of Systems Review of Systems: All systems reviewed & are unremarkable except as noted in Subjective Physical Exam Physical Exam: Physical Exam: Vitals signs as noted above General Appearance:Obese, no apparent distress Head: normocephalic, Atraumatic Eyes: normal inspection, EOMI Neck: supple, Trachea midline Respiratory/Chest: Normal breath sounds, CTA, No accessory muscle use Cardiovascular: S1, S2, No murmur Abdomen/GI:Soft, Non tender, Bowel sounds present Extremities/Musculoskeletal:normal inspection, no edema Neurologic/Psych:AAOX3, grossly no focal neurological deficits Skin: normal color, warm Results & Data Results & Data ([facility]) Vital Signs (Past 12 Hours) Vital Signs Temp Pulse Pulse Resp BP Pulse Ox O2 Del Method 02/20/22 11:52 36.7 C 67 18 136/76 94 Room Air 02/20/22 06:15 47 L 02/20/22 07:56 Room Air 02/20/22 07:36 36.7 C 78 18 168/85 H 95 Room Air 02/20/22 04:29 36.8 C 73 18 161/92 H 90 Room Air Laboratory Results Short CBC 02/20/22 Range/Units 08:23 WBC 13.29 H (4.8-10.8) K/ul Hgb 16.2 (14.0-18.0) g/dl Hct 45.9 (40.1-51.0) % Plt Count 271 (130-400) K/uL BMP 02/20/22 08:23 Sodium 137 Potassium 3.5 Chloride 99 Carbon Dioxide 30 BUN 18 Creatinine 0.88 Glucose 173 H Calcium 9.6
--- NOTE | 2022-02-20 13:25 | Discharge Summary ---
Date of Service February 20, 2022 Admission HPI Per Admitting Provider This is a 76 y/o male with a PMH of CAD s/p stent placement, DDM2, HTN, JENNIFER but not tolerant of CPAP/BiPAP, dyslipidemia, neuropathy, and gout who presented to the ED today with respiratory symptoms that have gradually worsened. He reports that the symptoms started [address] then developed cough, body aches. Cough productive of yellow-green mucus - no hemoptysis. Intermittent subjective fevers and feeling cold. Has been more fatigued and weak than baseline. He has now developed dyspnea with moderate exertion, improves with rest. Appetite is good. Associated diarrhea for 1-2 days - improved with Pepto. Lightheaded at times but not severe. No falls but pt does live alone. He came in today because he was frustrated with persistent/worsening symptoms. +sick contacts prior to symptoms started. Sugars at home in the 200s, sometimes 300s. 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 Medications have been titrated because of this. Admission Exam Per Admitting Provider Physical Exam Constitutional: well developed and well nourished; no acute distress Eyes: + anicteric sclerae ENMT: external ear and nose normal, oropharynx normal Neck: trachea midline Respiratory: no respiratory distress and no labored breathing Auscultation: lungs clear to auscultation bilaterally; no rales, no rhonchi and no wheezes Cardiovascular: Rate/Rhythm: regular rate and regular rhythm Vessels: radial pulses present Extremities: no pedal edema Gastrointestinal (Abdomen): Inspection/Auscultation: normal bowel sounds; abdomen not distended Percussion/Palpation: abdomen soft; abdomen nontender Musculoskeletal: Head/Neck/Chest: normocephalic, head atraumatic and neck supple Skin: no jaundice Neurologic: moves all extremities; no focal motor deficits and not confused Psychiatric: A+Ox3, euthymic affect Principal Diagnosis Acute bronchitis Nocturnal Hypoxia Discharge Data Allergies Allergy/AdvReac Type Severity Reaction Status Date / Time No Known Allergies Allergy Verified 02/17/22 14:59 Consultations 02/17/22 17:26 ED Decision to Admit Stat Procedures Performed Laboratory Results WBC 13.29 K/ul (4.8-10.8) H 02/20/22 08:23 RBC 5.18 M/uL (4.63-6.08) 02/20/22 08:23 Hgb 16.2 g/dl (14.0-18.0) 02/20/22 08: Hct 45.9 % (40.1-51.0) 02/20/22 08: MCV 88.6 fL (80.0-100.0) 02/20/22 08: MCH 31.3 pg (25.0-34.0) 02/20/22 08: MCHC 35.3 g/dL (32.0-36.0) 02/20/22 08: RDW Std Deviation 43.2 fL (36.4-46.3) 02/20/22 08: RDW Coeff of Sheri 13.3 % (11.5-14.5) 02/20/22 08: Plt Count 271 K/uL (130-400) 02/20/22 08: MPV 9.5 fL (9.4-12.4) 02/20/22 08: Immature Gran % (Auto) 0.3 % 02/20/22 08: Neut % (Auto) 52.3 % 02/20/22 08: Lymph % (Auto) 29.9 % 02/20/22 08: Carolina % (Auto) 12.6 % 02/20/22 08: Eos % (Auto) 4.2 % 02/20/22 08: Baso % (Auto) 0.7 % 02/20/22 08: Neut # (Auto) 6.95 K/uL (1.4-6.5) H 02/20/22 08:23 Lymph # (Auto) 3.98 K/uL (1.2-3.4) H 02/20/22 08:23 Carolina # (Auto) 1.67 K/uL (0.24-0.82) H 02/20/22 08: Eos # (Auto) 0.56 K/uL (0-0.50) H 02/20/22 08: Baso # (Auto) 0.09 K/uL (0-0.2) 02/20/22 08: Immature Gran # (Auto) 0.04 K/uL (0.00-0.02) H 02/20/22 08: PT 10.7 Seconds (9.0-12.0) 02/17/22 14:39 INR 1.0 (0.9-1.1) 02/17/22 14:39 APTT 28.8 Seconds (21.0-31.0) 02/17/22 14:39 PTT Ratio 1.0 02/17/22 14:39 Sodium 137 mmol/L (136-145) 02/20/22 08:23 Potassium 3.5 mmol/L (3.5-5.1) 02/20/22 08:23 Chloride 99 mmol/L (98-107) 02/20/22 08:23 Carbon Dioxide 30 mmol/L (21-32) 02/20/22 08:23 Anion Gap 8 (3-11) 02/20/22 08:23 BUN 18 mg/dl (6-23) 02/20/22 08:23 Creatinine 0.88 mg/dl (0.6-1.4) 02/20/22 08:23 Est Cr Clr Drug Dosing 76.8 ml/min 02/20/22 08:23 Est GFR ( Amer) 96.7 ml/min 02/20/22 08:23 Est GFR (Non-Af Amer) 83.4 ml/min 02/20/22 08:23 BUN/Creatinine Ratio 20.5 (10-20) H 02/20/22 08:23 Glucose 173 mg/dl (70-99(Fasting)) H 02/20/22 08:23 POC Glucose 199 mg/dl (70-99) H 02/20/22 11:39 Estimat Average Glucose 194 mg/dl 02/18/22 06:45 Hemoglobin A1c 8.4 % (4.5-5.6) H 02/18/22 06:45 Calcium 9.6 mg/dl (8.5-10.1) 02/20/22 08:23 Magnesium 1.7 mg/dl (1.7-2.4) 02/19/22 06:11 Total Bilirubin 3.0 mg/dl (0.2-1.0) H 02/17/22 14:39 AST 26 U/L (13-39) 02/17/22 14:39 ALT 32 U/L (7-52) 02/17/22 14:39 Alkaline Phosphatase 62 U/L (34-104) 02/17/22 14:39 Troponin I High Sens 10.6 pg/ml (0-20) 02/17/22 14:39 Total Protein 7.9 gm/dl (6.0-8.3) 02/17/22 14:39 Albumin 4.5 gm/dl (3.4-5.0) 02/17/22 14:39 Globulin 3.4 gm/dl (2.5-4.0) 02/17/22 14:39 Albumin/Globulin Ratio 1.3 (0.9-2) 02/17/22 14:39 Procalcitonin 0.06 ng/ml (0-0.5) 02/19/22 06:11 TSH 2.423 uIu/ml (0.300-4.500) 02/17/22 14:39 Adenovirus (PCR) Not Detected (NotDetected) 02/17/22 Unknown B. pertussis DNA (PCR) Not Detected (NotDetected) 02/17/22 Unknown B.parapertussis DNA PCR Not Detected (NotDetected) 02/17/22 Unknown C. pneumoniae DNA (PCR) Not Detected (NotDetected) 02/17/22 Unknown Coronavirus OC43 (PCR) DETECTED (NotDetected) A* 02/17/22 Unknown Coronavirus HKU1 (PCR) Not Detected (NotDetected) 02/17/22 Unknown Coronavirus 229E (PCR) Not Detected (NotDetected) 02/17/22 Unknown SARS-CoV-2 (PCR) Not Detected (NotDetected) 02/17/22 Unknown Coronavirus NL63 (PCR) Not Detected (NotDetected) 02/17/22 Unknown Human Metapneumovir PCR Not Detected (NotDetected) 02/17/22 Unknown Influenza Type A (PCR) Not Detected (NotDetected) 02/17/22 Unknown Influenza Type B (PCR) Not Detected (NotDetected) 02/17/22 Unknown M. pneumoniae (PCR) Not Detected (NotDetected) 02/17/22 Unknown Parainfluenza 1 (PCR) Not Detected (NotDetected) 02/17/22 Unknown Parainfluenza 2 (PCR) Not Detected (NotDetected) 02/17/22 Unknown Parainfluenza 3 (PCR) Not Detected (NotDetected) 02/17/22 Unknown Parainfluenza 4 (PCR) Not Detected (NotDetected) 02/17/22 Unknown RSV (PCR) Not Detected (NotDetected) 02/17/22 Unknown Entero/Rhino (PCR) Not Detected (NotDetected) 02/17/22 Unknown Impressions Chest X-Ray 02/17/22 14:11 XR chest 1V portable CLINICAL HISTORY: Congestion. COMPARISON STUDY: Chest radiograph September 05, [address] September 06, 2021. FINDINGS: Low lung volumes are again noted. This is unchanged. Cardiomediastinal silhouette is stable. No pneumothorax or pleural effusion is present. Lower lung predominant interstitial thickening is unchanged. The appearance of the chest is similar to prior study. IMPRESSION: No acute cardiopulmonary findings. No significant change in appearance of the chest. Stable interstitial thickening. ACT 112: Negative or not required by law. Electronically signed by: Alden Ibarra M.D. 02/17/2022 2:42 PM Hospital Course (1) Hypoxia: Suspected nocturnal hypoxia H/O JENNIFER intolerant to CPAP Reviewed nocturnal oximetry study : Qualifies for oxygen at bedtime Advised to get sleep study as outpatient Plan to discharge on supplemental oxygen (2) Viral respiratory infection: Acute bronchitis Secondary to coronavirus OC43 (not COVID-19) Negative influenza, RSV screen --CXR:No acute cardiopulmonary findings. No significant change in appearance of the chest. Stable interstitial thickening. Check procalcitonin Continue doxycycline, on low-dose prednisone Continue supportive care Improved (3) Diabetes mellitus, type II: HbA1c 8.4 Continue Lantus and insulin sliding scale per protocol Hold outpatient meds Monitor BGs Advised to follow up with PCP for further adjustment of diabetic meds as able (4) Neuropathy: On Lyrica (5) JENNIFER (obstructive sleep apnea): Intolerant to CPAP (6) CAD (coronary artery disease): Continue aspirin, Plavix, atorvastatin, metoprolol (7) HTN (hypertension): Continue metoprolol, HCTZ (8) Dyslipidemia: on statin Chronic diastolic heart failure Continue home diuretics Monitor volume status Plan Gout On allopurinol DVT Px: Lovenox SQ Code Status: Full Code Disposition Home Total Time Total Time Spent Total Time Spent (In Minutes): 48 minutes Discharge Plan Discharge Items Patient Disposition: Home - Self-Care Reason For Visit: hypoxia, viral respiratory infection Discharge Diagnosis: Acute bronchitis Nocturnal Hypoxia Activity: Per Instructions section Exercise/Sports: Wait until after follow-up appointment Non-emergency contact: Primary Care Provider Call non-emergency contact if: you have any medication questions, your symptoms worsen, your pain is concerning for you and you have a fever Follow-up/Referrals: Cristian Nixon MD [Primary Care Provider] - Diet: Carb Consistent or DM2 and Heart Healthy Addtl Attending Provider Instructions: Follow up with your Primary Care physician in 1 week as advised ---Complete the antibiotic course--Doxycycline as prescribed --Use Supplemental Oxygen 2 liters at bedtime as advised. --Get outpatient sleep study as outpatient as advised Seek immediate medical attention if your symptoms reoccur or worsen Please take all medications as instructed on discharge list below. Please call if you have any questions or problems. You can reach a [facility] hospitalist on duty at [facility] 24 hours a day by calling [phone] Pending Studies at Discharge: No Stand-Alone Forms: My [facility] Ceram Hyd, Smoking Cessation Medications and DC Order Prescriptions: New doxycycline hyclate 100 mg Capsule 100 mg PO BID Qty: 9 0RF Continued multivitamin Tablet 1 tab PO QAM clopidogrel 75 mg tablet 75 mg PO QAM aspirin [Lore Low Dose Aspirin] 81 mg Tablet,Delayed Release (Dr/Ec) 81 mg PO QAM allopurinol 300 mg tablet 300 mg PO QAM metoprolol tartrate 25 mg tablet 25 mg PO QAM Rx Instructions: PER PT "ONLY TAKING IN AM", EXT MED HX "BID". famotidine 20 mg tablet 20 mg PO BID pregabalin 100 mg capsule 150 mg PO TID hydrochlorothiazide 12.5 mg capsule 12.5 mg PO DAILY Trulicity 0.75 mg/0.5 mL pen injector 1.5 mg SUBCUT WK Rx Instructions: TAKE THIS MED EVERY SATURDAY insulin degludec [Tresiba FlexTouch U-100] 100 unit/mL (3 mL) insulin pen 26 unit SUBCUT QDD Label Comments: provider increased dose from 24 units to 26 units prior to admit albuterol sulfate 90 mcg/actuation Hfa Aerosol Inhaler 2 puff INHALATION QID PRN (Reason: Shortness Of Breath Or Wheezing) atorvastatin 40 mg tablet 40 mg PO HS spironolactone 25 mg tablet 12.5 mg PO DAILY metformin 500 mg tablet extended release 24 hr 500 mg PO BID Discharge Orders: Discharge Order (Routine); Ordered 02/20/22 Ordered By: Lowell Alan/Other Patient Handouts: High Blood Sugar (Hyperglycemia), Managing Type 2 Diabetes Admission Data Admit Date/Time: 02/17/22 17:21 Attending Provider: Lowell Hahn Admit Provider: Naya Ariza Primary Care Provider: Cristian Nixon Other Providers: Naya Ariza
== END 2022-02-20 18:13 | disposition home or self-care (01) | DRG 202 ==
LOC: ED 13:50 → SUATTDRO 17:21 → 2W 17:21

== ENCOUNTER 2022-04-26 08:54 | Inpatient (IN) ==
--- NOTE | 2022-04-26 09:17 | Emergency Department Note ---
Impression & Plan Acute and chronic respiratory failure with hypoxia, COPD exacerbation, Hypomagnesemia, Elevated troponin, New onset atrial fibrillation, Atrial fibrillation with RVR ED Provider Note NAME: VA CHAVIRA AGE: 76 SEX: M ARRIVES VIA: Walk-In INFORMANT: Patient ED PROVIDER(S): William Christensen MD CHIEF COMPLAINT: SOB PLAN: Disposition: Admit MEDICAL DECISION MAKING: The patient is a pleasant 76-year-old gentleman with a past medical history of COPD with nocturnal home oxygen as needed, diastolic heart failure, gout, JENNIFER, hypertension, hyperlipidemia who presents to the department from home accompanied by family for evaluation of worsening shortness of breath. The patient reports shortness of breath over the past couple of days but did not have cough or congestion until today. He notes he has been feeling increasingly thirsty. He denies nausea, vomiting or diarrhea. Denies objective fevers. On arrival the patient is uncomfortable, mildly dyspneic but no acute distress, afebrile with heart in the 110s-140s with question of a flutter with variable block versus atrial ectopic rhythm. He appears clinically dry. Lungs with intermittent wheezes of bilateral lung nieves otherwise clear. EKG without overt acute ischemia the with question of new onset atrial flutter versus atrial ectopic rhythm. Chest x-ray negative for acute cardiopulmonary p rocess WBC 15K with neutrophil predominance. Chemistry without metabolic acidosis. Glucose 362. Magnesium 1.6 with repletion initiated. Total bilirubin 2.7, similar to prior. LFTs unremarkable. High-sensitivity troponin 230 and BNP nonspecific in the setting of the patient's ongoing tachycardia. Lipase within normal limits. COVID-19, influenza and RSV PCR were negative. CTA of the chest was performed and was negative for PE. Note is made of bibasilar groundglass densities suspicious for pneumonia in the clinical context. Blood cultures, procalcitonin and lactate ordered. Empiric Zosyn ordered. Patient did experience some improvement initially with IV fluid hydration, guaifenesin, Solu-Medrol and Xopenex. However still with flares of bronchospasm/wheezing and increased shortness of breath. He was ordered for additional Xopenex nebulizer treatment as well as BiPAP. Cautious IV fluid hydration (1L NSS) administered (30cc/kg deferred) given history of diastolic HF as the patient does appear dry and heart rate did improve with hydration. Case was discussed with Dayan TAFOYA with Dr. Rainey, [facility] hospitalist, who will evaluate the patient for admission. Repeat EKG demonstrates new onset afib with RVR. Further management per admitting team. Triage Nursing notes reviewed and agree them. Prior/outside medical records reviewed Vital Signs: reviewed Differential diagnosis: Reactive airway disease, pneumonia, pneumothorax, COPD, CHF, infections, cardiac ischemia, pulmonary embolism, musculoskeletal, gastrointestinal, as well as other pathologies. ER treatment provided: See below. Diagnostics interpreted by me: ECG 0914: Suspected atrial flutter with variable AV block versus MAT, 148 bpm, incomplete RBBB, No overt ST elevation or depression, QTC 508, QRS 102. ECG 1150: Atrial fibrillation, RVR, 137 bpm, no overt ST elevation or depression, QTC 498, QRS 88. Cardiac Monitoring: An order for continuous cardiac monitoring was placed and demonstrated Atrial fibrillation, RVR, 137 bpm, no ectopy. Laboratory studies: See below Imaging studies: See below Consultation(s): Dayan TAFOYA with Dr. Rainey, [facility] hospitalist, HPI: The patient is a pleasant 76-year-old gentleman with a past medical history of COPD with nocturnal home oxygen as needed, diastolic heart failure, gout, JENNIFER, hypertension, hyperlipidemia who presents to the department from home accompanied by family for evaluation of worsening shortness of breath. The patient reports shortness of breath over the past couple of days but did not have cough or congestion until today. He notes he has been feeling increasingly thirsty. He denies nausea, vomiting or diarrhea. Denies objective fevers. ROS: See above HPI for pertinent positives & negatives. A total of 10 systems reviewed and were otherwise negative. VITALS:See Below PHYSICAL EXAMINATION: GENERAL: Awake, alert, mildly dyspneic but in no acute distress. BMI 34.0. HENT: Normocephalic, atraumatic. Oropharynx with dry mucous membranes and otherwise unremarkable. EYES: Normal conjunctiva. Sclera non-icteric. NECK: Supple. No nuchal rigidity. FROM. No JVD. RESPIRATORY: Intermittent wheezes of bilateral lung nieves otherwise clear. CARDIAC: Regular rate, irregular rhythm. Extremities warm and well perfused. Pulses equal. ABDOMEN: Soft, non-distended. No tenderness to palpation. No rebound or guarding. No masses. RECTAL: Deferred. MUSCULOSKELETAL: Chest examination reveals no tenderness. The back is symmetrical on inspection without obvious abnormality. There is no CVA tenderness to palpation. No joint edema. LOWER EXTREMITIES: Calves are equal size bilaterally and non-tender. No edema. No discoloration. NEURO: Normal sensorium. No sensory or motor deficits noted. SKIN: No rash or jaundice noted. ED COURSE: Critical Care: I have personally spent greater than 45 minutes of critical care time in the direct management of this patient. This includes bedside care, interpretation of diagnostic studies, and testing, discussion with consultants, patient, and family members, and other required patient management activities. This 45 minutes is in excess of all separately billable procedures. William Christensen MD Past Med/Surg History Medical History Antiplatelet or antithrombotic long-term use CAD (coronary artery disease) status post coronary intervention with stent to the circumflex marginal branch 2006, moderate diffuse atherosclerosis nonobstructive 2014 Cardiac murmur Chronic diastolic CHF (congestive heart failure) COPD, mild Diabetes mellitus, type 2 Dyslipidemia Gout Herniated intervertebral disc [place] (hard of hearing) HTN (hypertension) Neuropathy JENNIFER (obstructive sleep apnea) does not tolerate CPAP/BiPAP Osteoarthritis Surgical History H/O heart artery stent x 1 (2006) - Follows w/ Dr. Chandler History of amputation of left thumb History of cardiac catheterization 2014 - [facility] - no stents 10/28/06 - [facility] to circumflex, marginal at [facility], Dr Hagan History of colonoscopy History of right cataract surgery Family History Brother Coronary heart disease Lung cancer Mother Family history of diabetes mellitus Other Hypertension Social History Smoking Status: Former smoker Tobacco Type: Cigarettes Cigarettes Per Day: Quit 1985, smoked 2ppd x 25 years; Second Hand Exposure: No; Hx Alcohol Use: Yes Alcohol type: beer Hx Substance Use: No Preferred Language: Nauruan Communication Ability: Effective Youth Care Professional Required: No Beliefs That Will Affect Care: None marital status: / Current Living Situation: Family Current Living Situation Comment: family next door current occupational status: retired How many Children do You have: 2 Feels Safe at Home: Yes Assistive Devices: Cane, Walker and Other Allergies Allergies Allergy/AdvReac Type Severity Reaction Status Date / Time No Known Allergies Allergy Verified 04/26/22 10:02 Home Meds Home Medications Medication Instructions Recorded Confirmed allopurinol 300 mg tablet 300 mg PO QAM 11/05/18 04/26/22 aspirin 81 mg tablet,delayed 81 mg PO QAM 11/05/18 04/26/22 release (Lore Low Dose Aspirin) clopidogrel 75 mg tablet 75 mg PO QAM heart 11/05/18 04/26/22 metoprolol tartrate 25 mg tablet 25 mg PO QAM 11/05/18 04/26/22 multivitamin 1 tab PO QAM 11/05/18 04/26/22 albuterol sulfate 90 mcg/actuation 2 puff inhalation QID PRN 02/21/20 04/26/22 aerosol inhaler Shortness Of Breath Or Wheezing dulaglutide 0.75 mg/0.5 mL 1.5 mg subcut WK 02/21/20 04/26/22 subcutaneous pen injector (Trulicity) famotidine 20 mg tablet 20 mg PO BID 02/21/20 04/26/22 hydrochlorothiazide 12.5 mg capsule 12.5 mg PO DAILY 02/21/20 04/26/22 insulin degludec 100 unit/mL (3 26 unit subcut QDD 02/21/20 04/26/22 mL) subcutaneous pen (Tresiba FlexTouch U-100 insulin) pregabalin 100 mg capsule 150 mg PO TID 02/21/20 04/26/22 atorvastatin 40 mg tablet 40 mg PO HS 06/18/21 04/26/22 spironolactone 25 mg tablet 12.5 mg PO DAILY 06/18/21 04/26/22 metformin 500 mg tablet,extended 500 mg PO BID 02/17/22 04/26/22 release 24 hr Results & Data (ED) Vital Signs Vital Signs - 24 hr 04/26/22 08:58 04/26/22 10:02 04/26/22 09:30 Temperature 36.4 C L Temperature Source Temporal Artery Scan Pulse Rate 125 H 132 H Pulse Rate from SpO2 Sensor 132 H Respiratory Rate 18 20 Respiratory Effort / Characteristics Non-Labored Spontaneous SOB on Exertion Respiratory Depth Normal Respiratory Pattern Tachypnea Blood Pressure 112/77 123/81 Blood Pressure Mean 88 95 Pulse Oximetry 94 95 Oxygen Delivery Method Room Air Nasal Cannula Oxygen Flow Rate 3 3 Sepsis Recent Fever Within 48 Hours No Sepsis New/Unexplained Change in Mental Status No Sepsis Action Taken by Nursing No Action Required 04/26/22 10:00 Temperature Temperature Source Pulse Rate 140 H Pulse Rate from SpO2 Sensor 139 H Respiratory Rate 24 Respiratory Effort / Characteristics Respiratory Depth Respiratory Pattern Blood Pressure Blood Pressure Mean Pulse Oximetry 94 Oxygen Delivery Method Oxygen Flow Rate Sepsis Recent Fever Within 48 Hours Sepsis New/Unexplained Change in Mental Status Sepsis Action Taken by Nursing Laboratory Data Attestation: I reviewed the patient's lab results. 04/26/22 09:12 04/26/22 09:12 Lab Results 04/26/22 04/26/22 04/26/22 Range/Units 09:12 09:12 10:00 WBC 15.62 H (4.8-10.8) K/ul RBC 5.16 (4.70-6.10) M/uL Hgb 16.3 (14.0-18.0) g/dl Hct 45.8 (42.0-52.0) % MCV 88.8 (80.0-100.0) fL MCH 31.6 (25.0-34.0) pg MCHC 35.6 (32.0-36.0) g/dL RDW Std Deviation 43.8 (36.4-46.3) fL RDW Coeff of Sheri 13.5 (11.5-14.5) % Plt Count 289 (130-400) K/uL MPV 10.8 (9.4-12.4) fL Immature Gran % (Auto) 1.7 % Neut % (Auto) 64.7 % Lymph % (Auto) 20.4 % Emanuel % (Auto) 11.1 % Eos % (Auto) 1.3 % Baso % (Auto) 0.8 % Neut # (Auto) 10.11 H (1.40-6.50) K/uL Lymph # (Auto) 3.19 (1.2-3.4) K/uL Emanuel # (Auto) 1.73 H (0.11-0.59) K/uL Eos # (Auto) 0.20 (0-0.50) K/uL Baso # (Auto) 0.12 (0-0.2) K/uL Immature Gran # (Auto) 0.27 H (0.01-0.20) K/uL Sodium 136 (136-145) mmol/L Potassium 4.5 (3.5-5.1) mmol/L Chloride 100 (98-107) mmol/L Carbon Dioxide 28 (21-32) mmol/L Anion Gap 8 (3-11) BUN 18 (6-23) mg/dl Creatinine 0.98 (0.6-1.4) mg/dl Est Cr Clr Drug Dosing 71.7 ml/min Est GFR ( Amer) 86.5 ml/min Est GFR (Non-Af Amer) 74.6 ml/min BUN/Creatinine Ratio 18.4 (10-20) Glucose 362 H* (70-99(Fasting)) mg/dl Calcium 9.7 (8.5-10.1) mg/dl Phosphorus 3.2 (2.5-4.9) mg/dl Magnesium 1.6 L (1.7-2.4) mg/dl Total Bilirubin 2.7 H (0.2-1.0) mg/dl AST 25 (13-39) U/L ALT 32 (7-52) U/L Alkaline Phosphatase 66 (34-104) U/L Troponin I High Sens 231.9 H* (0-20) pg/ml B-Natriuretic Peptide 450 H (0-100) pg/ml Total Protein 7.3 (6.0-8.3) gm/dl Albumin 4.2 (3.4-5.0) gm/dl Globulin 3.1 (2.5-4.0) gm/dl Albumin/Globulin Ratio 1.4 (0.9-2) Lipase 28 (11-82) U/L SARS-CoV-2 (PCR) (Negative) Influenza Type A (PCR) (Neg) Influenza Type B (PCR) (Neg) RSV (RT-PCR) (Neg) 04/26/22 Range/Units 10:00 WBC (4.8-10.8) K/ul RBC (4.70-6.10) M/uL Hgb (14.0-18.0) g/dl Hct (42.0-52.0) % MCV (80.0-100.0) fL MCH (25.0-34.0) pg MCHC (32.0-36.0) g/dL RDW Std Deviation (36.4-46.3) fL RDW Coeff of Sheri (11.5-14.5) % Plt Count (130-400) K/uL MPV (9.4-12.4) fL Immature Gran % (Auto) % Neut % (Auto) % Lymph % (Auto) % Emanuel % (Auto) % Eos % (Auto) % Baso % (Auto) % Neut # (Auto) (1.40-6.50) K/uL Lymph # (Auto) (1.2-3.4) K/uL Emanuel # (Auto) (0.11-0.59) K/uL Eos # (Auto) (0-0.50) K/uL Baso # (Auto) (0-0.2) K/uL Immature Gran # (Auto) (0.01-0.20) K/uL Sodium (136-145) mmol/L Potassium (3.5-5.1) mmol/L Chloride (98-107) mmol/L Carbon Dioxide (21-32) mmol/L Anion Gap (3-11) BUN (6-23) mg/dl Creatinine (0.6-1.4) mg/dl Est Cr Clr Drug Dosing ml/min Est GFR ( Amer) ml/min Est GFR (Non-Af Amer) ml/min BUN/Creatinine Ratio (10-20) Glucose (70-99(Fasting)) mg/dl Calcium (8.5-10.1) mg/dl Phosphorus (2.5-4.9) mg/dl Magnesium (1.7-2.4) mg/dl Total Bilirubin (0.2-1.0) mg/dl AST (13-39) U/L ALT (7-52) U/L Alkaline Phosphatase (34-104) U/L Troponin I High Sens (0-20) pg/ml B-Natriuretic Peptide (0-100) pg/ml Total Protein (6.0-8.3) gm/dl Albumin (3.4-5.0) gm/dl Globulin (2.5-4.0) gm/dl Albumin/Globulin Ratio (0.9-2) Lipase (11-82) U/L SARS-CoV-2 (PCR) NEGATIVE (Negative) Influenza Type A (PCR) Negative (Neg) Influenza Type B (PCR) Negative (Neg) RSV (RT-PCR) Negative (Neg) Administered Medications Heparin Sodium/Dextrose (Heparin Sodium/Dextrose) 25,000 units in 500 mls @ 28 mls/hr IV .[id number] [facility]; Protocol Stop: 05/26/22 13:44 Last Admin: 04/26/22 16:33 Dose: 1,400 units/hr, 28 mls/hr Documented By: MARY Co-signed By: LISA Ceftriaxone Sodium 2,000 mg/ (Dextrose) 70 mls @ 100 mls/hr IV Q24H [facility]; Protocol Stop: 05/03/22 16:14 Last Infusion: 04/26/22 18:10 Dose: 0 mls/hr Documented By: Admin: 04/26/22 17:11 Dose: 100 mls/hr Documented By: MARY Doxycycline Hyclate 100 mg/ (Dextrose) 110 mls @ 50 mls/hr IV Q12H [facility] Stop: 05/03/22 16:14 Last Admin: 04/26/22 17:11 Dose: 50 mls/hr Documented By: MARY Methylprednisolone 40 mg/ (Syringe) 0.64 mls @ 1.5 mls/min IV Q8H [facility] Stop: 05/26/22 17:59 Last Admin: 04/26/22 17:42 Dose: 1.5 mls/min Documented By: MARY Insulin Aspart (Insulin Aspart Per Unit) 0 units SC ACHS [facility] Stop: 05/26/22 16:29 Last Admin: 04/26/22 17:12 Dose: 17 units Documented By: MARY Co-signed By: Ipratropium [place] (Ipratropium [place] Neb Soln 0.02% 2.5 Ml Vial) 0.5 mg INH QIDR NATASHA Stop: 05/26/22 18:59 Last Admin: 04/26/22 19:44 Dose: 0.5 mg Documented By: PIPER Levalbuterol HCl (Levalbuterol 1.25mg/0.5ml Neb) 1.25 mg INH QIDR NATASHA Stop: 05/26/22 18:59 Last Admin: 04/26/22 19:44 Dose: 1.25 mg Documented By: PIPER Metoprolol Tartrate (Metoprolol Tartrate 25 Mg Tab) 25 mg PO Q6H NATASHA Stop: 05/26/22 16:59 Last Admin: 04/26/22 17:12 Dose: 25 mg Documented By: MARY Pregabalin (Pregabalin 150 Mg Cap) 150 mg PO TID NATASHA Stop: 05/26/22 15:38 Last Admin: 04/26/22 16:33 Dose: 150 mg Documented By: MARY Discontinued Medications Albuterol (Albut/Ipratrop 3mg/0.5mg Neb 3 Ml Vial) 3 ml NEB Q4R NATASHA; Protocol Stop: 05/26/22 15:38 Last Admin: 04/26/22 16:01 Dose: 3 ml Documented By: HAYLEY Guaifenesin (Guaifenesin 600 Mg Tabcr) 600 mg PO NOW STA Stop: 04/26/22 09:26 Last Admin: 04/26/22 09:54 Dose: 600 mg Documented By: EHSAN Heparin Sodium/Dextrose (Heparin Iv Adult Wt-Based Standard *No* Bolus Protocol) 1 each IV Q5M NATASHA; Protocol Stop: 05/26/22 13:28 Last Admin: 04/26/22 16:30 Dose: 1 each Documented By: Admin: 04/26/22 16:30 Dose: 1 each Documented By: Admin: 04/26/22 16:29 Dose: 1 each Documented By: Admin: 04/26/22 16:29 Dose: 1 each Documented By: Admin: 04/26/22 16:29 Dose: 1 each Documented By: Admin: 04/26/22 16:29 Dose: 1 each Documented By: Admin: 04/26/22 16:29 Dose: 1 each Documented By: Admin: 04/26/22 16:29 Dose: 1 each Documented By: Admin: 04/26/22 16:29 Dose: 1 each Documented By: Admin: 04/26/22 16:29 Dose: 1 each Documented By: Admin: 04/26/22 16:29 Dose: 1 each Documented By: Admin: 04/26/22 16:29 Dose: 1 each Documented By: Admin: 04/26/22 16:29 Dose: 1 each Documented By: Admin: 04/26/22 16:29 Dose: 1 each Documented By: Admin: 04/26/22 16:28 Dose: 1 each Documented By: Admin: 04/26/22 16:28 Dose: 1 each Documented By: Admin: 04/26/22 16:28 Dose: 1 each Documented By: Admin: 04/26/22 16:28 Dose: 1 each Documented By: Admin: 04/26/22 16:28 Dose: 1 each Documented By: Admin: 04/26/22 16:28 Dose: 1 each Documented By: Admin: 04/26/22 16:28 Dose: 1 each Documented By: Admin: 04/26/22 16:28 Dose: 1 each Documented By: Admin: 04/26/22 16:28 Dose: 1 each Documented By: Admin: 04/26/22 16:28 Dose: 1 each Documented By: S Admin: 04/26/22 16:28 Dose: 1 each Documented By: Admin: 04/26/22 16:27 Dose: 1 each Documented By: Admin: 04/26/22 16:27 Dose: 1 each Documented By: Admin: 04/26/22 16:27 Dose: 1 each Documented By: Admin: 04/26/22 16:27 Dose: 1 each Documented By: Admin: 04/26/22 16:27 Dose: 1 each Documented By: Admin: 04/26/22 16:27 Dose: 1 each Documented By: Admin: 04/26/22 16:27 Dose: 1 each Documented By: Admin: 04/26/22 16:27 Dose: 1 each Documented By: Admin: 04/26/22 16:27 Dose: 1 each Documented By: Admin: 04/26/22 16:27 Dose: 1 each Documented By: Admin: 04/26/22 16:27 Dose: 1 each Documented By: Admin: 04/26/22 16:26 Dose: 1 each Documented By: Admin: 04/26/22 16:26 Dose: 1 each Documented By: Admin: 04/26/22 16:26 Dose: 1 each Documented By: Admin: 04/26/22 16:26 Dose: 1 each Documented By: Admin: 04/26/22 16:26 Dose: 1 each Documented By: MARY Sodium Chloride (Nss) 500 mls @ 999 mls/hr IV .Q31M ONE Stop: 04/26/22 09:55 Last Infusion: 04/26/22 11:49 Dose: 0 mls/hr Documented By: Admin: 04/26/22 09:54 Dose: 999 mls/hr Documented By: EHSAN Magnesium Sulfate/Dextrose (Magnesium Sulfate / D5w) 1 gm in 100 mls @ 100 mls/hr IV Q1H NATASHA Stop: 04/26/22 12:16 Last Infusion: 04/26/22 14:59 Dose: 0 mls/hr Documented By: Admin: 04/26/22 11:48 Dose: 100 mls/hr Documented By: Infusion: 04/26/22 11:48 Dose: 100 mls/hr Documented By: Admin: 04/26/22 10:52 Dose: 100 mls/hr Documented By: EHSAN Sodium Chloride (Nss) 500 mls @ 999 mls/hr IV .Q31M ONE Stop: 04/26/22 11:24 Last Infusion: 04/26/22 11:49 Dose: 0 mls/hr Documented By: Admin: 04/26/22 11:00 Dose: 999 mls/hr Documented By: EHSAN Piperacillin Sod/Tazobactam Sod (Zosyn) 4.5 gm in 120 mls @ 240 mls/hr IV NOW ONE Stop: 04/26/22 11:34 Last Infusion: 04/26/22 14:59 Dose: 0 mls/hr Documented By: Admin: 04/26/22 12:32 Dose: 240 mls/hr Documented By: EHSAN Sodium Chloride (Nss) 500 mls @ 500 mls/hr IV .Q1H NATASHA Stop: 04/26/22 18:59 Last Admin: 04/26/22 18:47 Dose: 500 mls/hr Documented By: MARY Insulin Human Regular 6 units/ (Syringe) 6 mls @ 30 mls/min IV ONE STA Stop: 04/26/22 17:52 Last Admin: 04/26/22 18:29 Dose: 30 mls/min Documented By: MARY Co-signed By: Insulin Glargine (Lantus Per Unit Charge) 15 units SQ ONE NATASHA Stop: 04/26/22 17:15 Last Admin: 04/26/22 17:12 Dose: 15 units Documented By: MARY Co-signed By: Ioversol (Optiray 320 500ml) 112 ml IV ONCE ONE Stop: 04/26/22 10:38 Last Admin: 04/26/22 10:37 Dose: 112 ml Documented By: JOSÉ Levalbuterol HCl (Levalbuterol Hcl 1.25 Mg/3 Ml Neb) 1.25 mg NEB NOW STA; Protocol Stop: 04/26/22 09:26 Last Admin: 04/26/22 09:54 Dose: 1.25 mg Documented By: EHSAN Levalbuterol HCl (Levalbuterol Hcl 1.25 Mg/3 Ml Neb) 1.25 mg NEB NOW STA; Protocol Stop: 04/26/22 11:06 Last Admin: 04/26/22 12:34 Dose: 1.25 mg Documented By: EHSAN Methylprednisolone (Methylprednisolone 125 Mg/2 Ml Vial) 125 mg IV NOW STA Stop: 04/26/22 09:26 Last Admin: 04/26/22 09:54 Dose: 125 mg Documented By: EHSAN Metoprolol Tartrate (Metoprolol Tartrate 1 Mg/Ml Vial) 5 mg IV NOW STA Stop: 04/26/22 12:15 Last Admin: 04/26/22 12:26 Dose: 5 mg Documented By: EHSAN Metoprolol Tartrate (Metoprolol Tartrate 25 Mg Tab) 25 mg PO ONE ONE Stop: 04/26/22 13:33 Last Admin: 04/26/22 15:56 Dose: Not Given Documented By: MARY Metoprolol Tartrate (Metoprolol Tartrate 25 Mg Tab) 25 mg PO Q6H [facility] Stop: 05/26/22 15:38 Last Admin: 04/26/22 15:56 Dose: Not Given Documented By: MARY Metoprolol Tartrate (Metoprolol Tartrate 1 Mg/Ml Vial) 5 mg IV NOW STA Stop: 04/26/22 15:41 Last Admin: 04/26/22 15:59 Dose: 5 mg Documented By: MARY Imaging Data Radiologist's Impression: Chest X-Ray 04/26/22 09:09 XR chest 1V portable CLINICAL HISTORY: Chest pain TECHNIQUE: Single frontal radiograph of the chest was obtained. Comparison: None available at the time of this dictation. FINDINGS: No lines and tubes are seen. Calcified aortic knob is seen. The lungs are clear. No evidence of pleural effusion or pneumothorax. IMPRESSION: No acute chest disease. ACT 112: Negative or not required by law. Electronically signed by: Vito Connell M.D. 04/26/2022 9:50 AM Chest CTA 04/26/22 10:16 CT angio chest PE protocol CT DOSE: 765.95 mGy.cm HISTORY: 76 years-old Male with sob, r/o PE. Acute shortness of breath TECHNIQUE: Multiple CTA images of the chest were obtained after the intravenous administration of 112 ml Optiray. Coronal and sagittal MIPS were obtained from the axial data set and were submitted for review. All measurements were obtained according to NASCET criteria. A dose lowering technique was utilized adhering to the principles of ALARA. COMPARISON: CTA chest 09/06/2021 FINDINGS: CTA: Mild cardiomegaly without pericardial effusion. Extensive coronary artery calcifications. Atherosclerosis of the thoracic aorta without aneurysm. Study is degraded by respiratory motion artifact. No definite pulmonary emboli identified. CT CHEST: No thyroid nodule identified. Mildly enlarged right hilar lymph nodes measure up to 1.2 cm, nonspecific. Mild right hemidiaphragmatic elevation. No pneumothorax, pleural effusion or overt pulmonary edema. Subsegmental bibasilar groundglass densities are noted in conjunction with bronchial wall thickening. Central airways are patent. No acute process of the imaged upper abdomen. Hepatic steatosis. Unremarkable soft tissues. No acute fracture. Spondylitic spurring of the spine. IMPRESSION: 1. Limited exam secondary to respiratory motion artifact. No pulmonary emboli identified. 2. Bibasilar predominant groundglass densities suggest atelectasis. 3. Hepatic steatosis. ACT 112: Negative or not required by law. The above report was generated using voice recognition software. It may contain grammatical, syntax or spelling errors. Electronically signed by: Joey Schmidt M.D. 04/26/2022 11:24 AM Discharge Plan Visit Data Chief Complaint: Shortness of Breath/Dyspnea Stated Complaint: SOB, LOW O2 ED Provider: William Christensen Discharge Problem: Acute and chronic respiratory failure with hypoxia, COPD exacerbation, Hypomagnesemia, Elevated troponin, New onset atrial fibrillation, Atrial fibrillation with RVR Patient Disposition: Admitted As Inpatient Discharge Instructions Interventions: ED Discharge Assessment Last Done: 04/26/22 14:21
[2022-04-26] MEDS ORDERED: LEVALBUTEROL HCL 1.25 MG/3 ML NEB NEB STA ×2 (09:25→11:05)
[2022-04-26] MEDS ORDERED: methylPREDNISolone 125 MG/2 ML VIAL IV STA (09:25)
[2022-04-26] MEDS ORDERED: SODIUM CHLORIDE 0.9% 500 ML IV ONE ×2 (09:25→10:54)
[2022-04-26] MEDS ORDERED: guaiFENesin 600 MG TABCR PO STA (09:25)
[2022-04-26 09:58] LABS: Albumin Globulin Ratio 1.4 (0.9-2); Albumin Level 4.2 gm/dl (3.4-5.0); BUN Creatinine Ratio 18.4 (10-20); Bilirubin,Total 2.7 mg/dl (0.2-1.0); Calcium 9.7 mg/dl (8.5-10.1); Creatinine Clr Calc Pharmacy 71.7 ml/min; Est GFR (African American) 86.5 ml/min; Est GFR (Non-African American) 74.6 ml/min; Globulin 3.1 gm/dl (2.5-4.0); Magnesium 1.6 mg/dl (1.7-2.4); Phosphorus 3.2 mg/dl (2.5-4.9); Potassium 4.5 mmol/L (3.5-5.1); Total Protein 7.3 gm/dl (6.0-8.3); Troponin I High Sensitivity 231.9 pg/ml (0-20)
--- NOTE | 2022-04-26 10:00 | XRay Report ---
XR chest 1V portable CLINICAL HISTORY: Chest pain TECHNIQUE: Single frontal radiograph of the chest was obtained. Comparison: None available at the time of this dictation. FINDINGS: No lines and tubes are seen. Calcified aortic knob is seen. The lungs are clear. No evidence of pleur al effusion or pneumothorax. IMPRESSION: No acute chest disease. ACT 112: Negative or not required by law. Electronically signed by: Vito Connell M.D. 04/26/2022 9:50 AM
[2022-04-26] MEDS ORDERED: OPTIRAY 320 500ml IV ONE (10:37)
[2022-04-26] MEDS: MAGNESIUM SULFATE / D5W 1 GM/100 ML BAG IV SCH ×2 (10:52→11:48)
[2022-04-26] MEDS ORDERED: PIPERACILLIN/TAZOBACTAM 4.5 GM/120 ML BAG IV ONE (11:05)
[2022-04-26 11:08] LABS: Influenza A virus by PCR Negative (Neg); Influenza B virus by PCR Negative (Neg); RSV by PCR Negative (Neg); SARS CoV2 RNA(COVID-19) Ceph NEGATIVE (Negative)
--- NOTE | 2022-04-26 11:25 | CT Scan Report ---
CT angio chest PE protocol CT DOSE: 765.95 mGy.cm HISTORY: 76 years-old Male with sob, r/o PE. Acute shortness of breath TECHNIQUE: Multiple CTA images of the chest were obtained after the intravenous administration of 112 ml Optiray. Coronal and sagittal MIPS were obtained from the axial data set and were submitted for review. All measurements were obtained according to NASCET criteria. A dose lowering technique was u tilized adhering to the principles of ALARA. COMPARISON: CTA chest 09/06/2021 FINDINGS: CTA: Mild cardiomegaly without pericardial effusion. Extensive coronary artery calcifications. Atheroscler osis of the thoracic aorta without aneurysm. Study is degraded by respiratory motion artifact. No def inite pulmonary emboli identified. CT CHEST: No thyroid nodule identified. Mildly enlarged right hilar lymph nodes measure up to 1.2 cm, nonspecif ic. Mild right hemidiaphragmatic elevation. No pneumothorax, pleural effusion or overt pulmonary joey a. Subsegmental bibasilar groundglass densities are noted in conjunction with bronchial wall thickeni ng. Central airways are patent. No acute process of the imaged upper abdomen. Hepatic steatosis. Unremarkable soft tissues. No acute fracture. Spondylitic spurring of the spine. IMPRESSION: 1. Limited exam secondary to respiratory motion artifact. No pulmonary emboli identified. 2. Bibasilar predominant groundglass densities suggest atelectasis. 3. Hepatic steatosis. ACT 112: Negative or not required by law. The above report was generated using voice recognition software. It may contain grammatical, syntax o r spelling errors. Electronically signed by: Joey Schmidt M.D. 04/26/2022 11:24 AM
[2022-04-26] MEDS ORDERED: METOPROLOL TARTRATE 1 MG/ML VIAL IV STA ×2 (12:14→15:40)
[2022-04-26 12:43] LABS: Base Excess ABG 0.1 mEq/L (-9-1.8); HCO3 ABG 24 mmol/L (19-24); Oxygen Saturation ABG 97.2 % (90-95); PCO2 ABG 35 mmHg (35-46); PO2 ABG 77 mmHg (80-95); pH ABG 7.44 (7.35-7.45)
[2022-04-26 12:44] LABS: Allen Test Pos (Pos)
--- NOTE | 2022-04-26 13:05 | History & Physical Report ---
Date of Service April 26, 2022 Assessment & Plan (1) Acute and chronic respiratory failure with hypoxia: (2) Sepsis: (3) COPD exacerbation: Plan: Admit to telemetry Patient presenting from home with reports of worsening shortness of breath and cough x 1 week In the ED, hypoxic in the high 80s on room air, currently requiring 3L. Typically wears 2 L at night. Meets severe sepsis criteria with WBC 15 K, tachycardia, lactate 3.4. Afebrile, BP stable. Hypoxia may be contributing to elevated lactate. ABG-pH 7.4, PCO2 35, PO2 77, HCO3 24 S/p Solu-Medrol 125 mg IV in the ED, continue with Solu-Medrol 40 mg IV q8h Pulmonary toilet with Mucinex, nebs, incentive parameter, flutter valve S/p Zosyn in the ED. Will continue with IV doxycycline and IV ceftriaxone. Procalcitonin <0.05 Follow blood cultures (4) Atrial fibrillation with RVR: (5) New onset atrial fibrillation: Plan: Presented with heart rate in the 150s, EKG showing new onset atrial fibrillation with RVR COPD exacerbation/hypoxia likely contributing Will give metoprolol 5 mg IV x 1 now, followed by metoprolol tartrate 25 mg PO q6h [id number]-Spum score 5 -- will start IV heparin Echo Cardio consult, Dr. Sharp notified (6) CAD (coronary artery disease): (7) Elevated troponin: Plan: HS trop 231, likley demand ischemia in the setting of COPD exacerbation, hypoxia, A. fib with RVR Remote hx stenting in 2006 Continue to trend troponin Resting echo Continue ASA, Plavix, statin, beta-joe. 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 bili 2.7, per chart review appears chronic (13) DVT prophylaxis: Plan: On IV heparin I spent a total of 90 minutes coordinating, documenting, and providing care for this patient excluding time spent in the performance of separately billed services. This included personally reviewing all current laboratories and imaging studies, medication reconciliation, outpatient chart review, and discussion with specialists. History of Present Illness Chief Complaint: Shortness of breath Primary Care Provider: Cristian Nixon MD 76-year-old male with PMH DM type II, COPD, nocturnal hypoxia on 2 L of oxygen, CAD, chronic diastolic CHF, HTN, GERD, and other problems listed below who presents to the ED for evaluation of shortness of breath. Patient reports he has been feeling ill for the past 1 week. Reports progressive worsening shortness of breath. He has had a cough occasionally productive for thick, white mucus. Patient denies fevers and chills. He reports an occasional sharp left-sided chest pain. No specific causative or alleviating factors. Denies lightheadedness, dizziness, diaphoresis, syncopal events. Denies abdominal pain, nausea, vomiting or diarrhea. No urinary symptoms. In the ED, patient was hypoxic in the high 80s on room air, currently requiring 3L to maintain saturations. Patient was also found to be in atrial fibrillation with RVR. Labs show WBC 15 K, HS troponin 231. CTA chest negative for pulmonary embolism. Patient was given nebulizer treatment, guaifenesin, magnesium replacement, IV Solu-Medrol, IV Zosyn, IVF. Allergies Allergy/AdvReac Type Severity Reaction Status Date / Time No Known Allergies Allergy Verified 04/26/22 10:02 Home Medications Medication Instructions Recorded Confirmed Type allopurinol 300 mg tablet 300 mg PO QAM 11/05/18 04/26/22 History aspirin 81 mg tablet,delayed 81 mg PO QAM 11/05/18 04/26/22 History release (Lore Low Dose Aspirin) clopidogrel 75 mg tablet 75 mg PO QAM heart 11/05/18 04/26/22 History metoprolol tartrate 25 mg tablet 25 mg PO QAM 11/05/18 04/26/22 History multivitamin 1 tab PO QAM 11/05/18 04/26/22 History albuterol sulfate 90 mcg/actuation 2 puff inhalation QID PRN 02/21/20 04/26/22 History aerosol inhaler Shortness Of Breath Or Wheezing dulaglutide 0.75 mg/0.5 mL 1.5 mg subcut WK 02/21/20 04/26/22 History subcutaneous pen injector (Trulicity) famotidine 20 mg tablet 20 mg PO BID 02/21/20 04/26/22 History hydrochlorothiazide 12.5 mg capsule 12.5 mg PO DAILY 02/21/20 04/26/22 History insulin degludec 100 unit/mL (3 26 unit subcut QDD 02/21/20 04/26/22 History mL) subcutaneous pen (Tresiba FlexTouch U-100 insulin) pregabalin 100 mg capsule 150 mg PO TID 02/21/20 04/26/22 History atorvastatin 40 mg tablet 40 mg PO HS 06/18/21 04/26/22 History spironolactone 25 mg tablet 12.5 mg PO DAILY 06/18/21 04/26/22 History metformin 500 mg tablet,extended 500 mg PO BID 02/17/22 04/26/22 History release 24 hr Past Med/Surg History Medical History Antiplatelet or antithrombotic long-term use CAD (coronary artery disease) status post coronary intervention with stent to the circumflex marginal branch 2006, moderate diffuse atherosclerosis nonobstructive 2014 Cardiac murmur Chronic diastolic CHF (congestive heart failure) COPD, mild Diabetes mellitus, type 2 Dyslipidemia Gout Herniated intervertebral disc [place] (hard of hearing) HTN (hypertension) Neuropathy JENNIFER (obstructive sleep apnea) does not tolerate CPAP/BiPAP Osteoarthritis Surgical History H/O heart artery stent x 1 (2006) - Follows w/ Dr. Chandler History of amputation of left thumb History of cardiac catheterization 2014 - [facility] - no stents 10/28/06 - [facility] to circumflex, marginal at [facility], Dr Hagan History of colonoscopy History of right cataract surgery Family History Brother Coronary heart disease Lung cancer Mother Family history of diabetes mellitus Other Hypertension Social History Smoking Status: Former smoker Tobacco Type: Cigarettes Cigarettes Per Day: Quit 1985, smoked 2ppd x 25 years; Second Hand Exposure: No; Do You Dip or Chew Tobacco: No; Tobacco Cessation Education Requested by Patient: No Hx Alcohol Use: Yes Alcohol type: beer Hx Substance Use: No Preferred Language: [place]ian Communication Ability: Effective 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: No Beliefs That Will Affect Care: None marital status: / Current Living Situation: Family Current Living Situation Comment: family next door current occupational status: retired How many Children do You have: 2 Other Information That Helps Us Care for You: No Feels Safe at Home: Yes Safety Concerns: Feels Safe At This Time Assistive Devices: Cane, Walker and Other Review of Systems Review of Systems: ROS per HPI, all other systems reviewed and negative Physical Exam Constitutional: WD/WN, vitals as above + ill appearing; no acute distress Eyes: PERRL, conjunctivae normal, anicteric sclerae ENMT: external ear and nose normal, oropharynx normal Respiratory: + labored breathing and able to speak in complete sentences Auscultation: + diminished lung sounds and + wheezes (expiratory) Cardiovascular: Rate/Rhythm: + tachycardic and + irregularly irregular Vessels: normal peripheral pulses Extremities: no edema Gastrointestinal (Abdomen): normal bowel sounds, soft, nontender, no hepatosplenomegaly Musculoskeletal: no cyanosis or clubbing, extremities motor strength 5/5 Skin: no rashes, warm and dry Neurologic: PERRL, EOMI, accommodation nl, no face palsy, no dysarthria Psychiatric: A+Ox3, euthymic affect Results & Data Results & Data ([facility]) Vital Signs (Past 12 Hours) Vital Signs Temp Pulse Resp BP Pulse Ox O2 Del Method O2 Flow Rate 04/26/22 12:00 137 H 25 H 131/103 H 93 3 04/26/22 12:26 135 H 131/103 H 04/26/22 10:00 140 H 24 94 04/26/22 09:30 132 H 20 123/81 95 3 04/26/22 10:02 Nasal Cannula 3 04/26/22 08:58 36.4 C L 125 H 18 112/77 94 Room Air Laboratory Results BMP 04/26/22 09:12 Sodium 136 Potassium 4.5 Chloride 100 Carbon Dioxide 28 BUN 18 Creatinine 0.98 Glucose 362 H* Calcium 9.7 Liver Function 04/26/22 Range/Units 09:12 Total Bilirubin 2.7 H (0.2-1.0) mg/dl AST 25 (13-39) U/L ALT 32 (7-52) U/L Alkaline Phosphatase 66 (34-104) U/L Albumin 4.2 (3.4-5.0) gm/dl Diagnostic Findings Chest X-Ray 04/26/22 09:09 XR chest 1V portable CLINICAL HISTORY: Chest pain TECHNIQUE: Single frontal radiograph of the chest was obtained. Comparison: None available at the time of this dictation. FINDINGS: No lines and tubes are seen. Calcified aortic knob is seen. The lungs are clear. No evidence of pleural effusion or pneumothorax. IMPRESSION: No acute chest disease. ACT 112: Negative or not required by law. Electronically signed by: Vito Connell M.D. 04/26/2022 9:50 AM Chest CTA 04/26/22 10:16 CT angio chest PE protocol CT DOSE: 765.95 mGy.cm HISTORY: 76 years-old Male with sob, r/o PE. Acute shortness of breath TECHNIQUE: Multiple CTA images of the chest were obtained after the intravenous administration of 112 ml Optiray. Coronal and sagittal MIPS were obtained from the axial data set and were submitted for review. All measurements were obtained according to NASCET criteria. A dose lowering technique was utilized adhering to the principles of ALARA. COMPARISON: CTA chest 09/06/2021 FINDINGS: CTA: Mild cardiomegaly without pericardial effusion. Extensive coronary artery calcifications. Atherosclerosis of the thoracic aorta without aneurysm. Study is degraded by respiratory motion artifact. No definite pulmonary emboli identified. CT CHEST: No thyroid nodule identified. Mildly enlarged right hilar lymph nodes measure up to 1.2 cm, nonspecific. Mild right hemidiaphragmatic elevation. No pneumothorax, pleural effusion or overt pulmonary edema. Subsegmental bibasilar groundglass densities are noted in conjunction with bronchial wall thickening. Central airways are patent. No acute process of the imaged upper abdomen. Hepatic steatosis. Unremarkable soft tissues. No acute fracture. Spondylitic spurring of the spine. IMPRESSION: 1. Limited exam secondary to respiratory motion artifact. No pulmonary emboli identified. 2. Bibasilar predominant groundglass densities suggest atelectasis. 3. Hepatic steatosis. ACT 112: Negative or not required by law. The above report was generated using voice recognition software. It may contain grammatical, syntax or spelling errors. Electronically signed by: Joey Schmidt M.D. 04/26/2022 11:24 AM Code Status & VTE Plan Code Status Patient is a full code as per my discussion with him. Supervising Physician Co-Signing Physician Notes Care coordinated with MICHELET Dodson. Agree with above note. Patient seen and examined. Please refer to her notes for full details. Vital signs reviewed. Physical exam: General exam: Alert and oriented. Not in acute distress. CVS: S1 and S2 heard, irregular rhythm, Tachycardia no murmurs. RS: Clear to auscultation, no wheezing or crackles. ABD: Soft, bowel sounds present, nontender, no distention. SUPERVISOR FITTING: Nonfocal. EXT: No edema, no erythema. Labs: Reviewed. Assessment and plan: 76M with hx of CAD, COPD Diastolic CHF, DM, HTN, HLD, GERD, GOUT presents with worsening sob going on sice about a week associated with cough and sputum. Having left sided chest pains on and off. No fevers. NO nausea. Found to be in rapid a fib in ER. Getting Neb tx.Requiring oxygen. Says feeling better now. COPD ex nebx atc and prn iv solumedrol iv rocephin and doxy will monitor response elevated lactic acid mostly from above on abx as aobove gettting fluids will f/u repeat levels Rapid afib received iv lopressor placed on po lopressor 25mg q6hrs and prn iv lopressor iv heparin f/u ce and echo consult cardio.npo after mid night Chest pain f/u serial ce and echo cardio consult monitor in tele DM Lantus and iSS close monitor as patient getting steroids Other diagnosis and plan of care as per MICHELET Dodson.. González contreras MD.
[2022-04-26] MEDS ORDERED: METOPROLOL TARTRATE 25 MG TAB PO ONE (13:32)
[2022-04-26 13:40] LABS: Basophils # (auto) 0.12 K/uL (0-0.2); Basophils % (auto) 0.8 %; Eosinophils % (auto) 1.3 %; Hematocrit (blood only) 45.8 % (42.0-52.0); Hemoglobin 16.3 g/dl (14.0-18.0); Immature Granulocytes # (auto) 0.27 K/uL (0.01-0.20); Immature Granulocytes % (auto) 1.7 %; Lymphocytes # (auto) 3.19 K/uL (1.2-3.4); Lymphocytes % (auto) 20.4 %; Mean Corpuscular Hemoglobin 31.6 pg (25.0-34.0); Mean Corpuscular Hgb Conc 35.6 g/dL (32.0-36.0); Mean Corpuscular Volume 88.8 fL (80.0-100.0); Mean Platelet Volume 10.8 fL (9.4-12.4); Monocytes # (auto) 1.73 K/uL (0.11-0.59); Monocytes % (auto) 11.1 %; Neutrophils # (auto) 10.11 K/uL (1.40-6.50); Neutrophils % (auto) 64.7 %; Platelet Count 289 K/uL (130-400); RDW Coefficient of Variation 13.5 % (11.5-14.5); RDW Standard Deviation 43.8 fL (36.4-46.3); Red Blood Count 5.16 M/uL (4.70-6.10); White Blood Count 15.62 K/ul (4.8-10.8)
--- NOTE | 2022-04-26 13:59 | Electrocardiogram Report ---
Test Reason : Blood Pressure : / mmHG Vent. Rate : 137 BPM Atrial Rate : 110 BPM P-R Int : 000 ms QRS Dur : 088 ms QT Int : 330 ms P-R-T Axes : 000 192 027 degrees QTc Int : 498 ms Atrial fibrillation with rapid ventricular response Inferior infarct (cited on or before 26-APR-2022) Anterolateral infarct (cited on or before 24-JAN-2021) Abnormal ECG Confirmed by Brain Lei ([id number]) on 04/26/2022 1:59:30 PM Referred By: REFERRED SELF Confirmed By:Stiven Lei
[2022-04-26] MEDS ORDERED: PHARMACY GLYCEMIC MGMT CONSULT PRN (15:39)
[2022-04-26] MEDS ORDERED: DEXTROSE 50% 50 ML SYRINGE IV PRN (15:39)
[2022-04-26] MEDS ORDERED: METOPROLOL TARTRATE 25 MG TAB PO SCH (15:39)
[2022-04-26] MEDS ORDERED: ALBUT/IPRATROP 3MG/0.5MG NEB 3 ML VIAL NEB SCH (15:39)
[2022-04-26] MEDS ORDERED: GLUCOSE 40% GEL 15 GM TUBE PO PRN (15:39)
[2022-04-26] MEDS ORDERED: ACETAMINOPHEN 325 MG TAB PO PRN (15:39)
[2022-04-26] MEDS ORDERED: CARBOHYDRATES FOR HYPOGLYCEMIA PO PRN (15:39)
[2022-04-26] MEDS ORDERED: GLUCAGON FOR INJ 1 MG VIAL SQ PRN (15:39)
[2022-04-26] MEDS ORDERED: GLUCOSE 10 TAB/TUBE PO PRN (15:39)
[2022-04-26] MEDS ORDERED: cefTRIAXone SODIUM 2,000 MG in DEXTROSE 5% 50 ML IV SCH (16:15)
[2022-04-26] MEDS: Heparin IV Adult Wt-Based Standard *NO* Bolus Protocol IV SCH ×5 (16:26→16:30)
[2022-04-26] MEDS: PREGABALIN 150 MG CAP PO SCH ×2 (16:33→20:08)
[2022-04-26] MEDS: HEPARIN SODIUM/DEXTROSE 25,000 UNITS/500 ML BAG IV SCH (16:33)
[2022-04-26] MEDS ORDERED: LANTUS PER UNIT CHARGE SQ SCH (16:45)
[2022-04-26] MEDS: DOXYCYCLINE HYCLATE 100 MG in DEXTROSE 5% 100 ML IV SCH (17:11)
[2022-04-26] MEDS: INSULIN ASPART PER UNIT SC SCH ×3 (17:12→23:05)
[2022-04-26] MEDS: METOPROLOL TARTRATE 25 MG TAB PO SCH ×2 (17:12→22:53)
[2022-04-26 17:33] LABS: Partial Thromboplastin Time 28.6 Seconds (21.0-31.0); Prothrombin Time 11.1 Seconds (9.0-12.0)
[2022-04-26] MEDS ORDERED: INSULIN HUMAN REGULAR PER UNIT 6 UNITS in SYRINGE 5.94 ML IV STA (17:51)
[2022-04-26] MEDS ORDERED: XOPENEX/ATROVENT 1.25mg/0.5MG NEB COMBO NEB PRN (17:55)
[2022-04-26] MEDS ORDERED: SODIUM CHLORIDE 0.9% 1000ML 1,000 ML IV SCH (18:00)
[2022-04-26] MEDS ORDERED: LEVALBUTEROL 1.25MG/0.5ML NEB INH PRN (18:00)
[2022-04-26] MEDS ORDERED: SODIUM CHLORIDE 0.9% 500 ML IV SCH (18:00)
[2022-04-26] MEDS ORDERED: methylPREDNISolone 40 MG in SYRINGE 0 ML IV SCH (18:00)
[2022-04-26 19:05] LABS: Adenovirus PCR Not Detected (NotDetected); Bordetella parapertussis PCR Not Detected (NotDetected); Bordetella pertussis PCR Not Detected (NotDetected); Chlamydia pneumoniae PCR Not Detected (NotDetected); Coronavirus 229E PCR Not Detected (NotDetected); Coronavirus CoV-2 (COVID19)PCR Not Detected (NotDetected); Coronavirus HKU1 PCR Not Detected (NotDetected); Coronavirus NL63 PCR Not Detected (NotDetected); Coronavirus OC43PCR Not Detected (NotDetected); Human Metapneumovirus PCR Not Detected (NotDetected); Influenza A PCR Not Detected (NotDetected); Influenza B PCR Not Detected (NotDetected); Mycoplasma pneumoniae PCR Not Detected (NotDetected); Parainfluenza Virus 1 PCR Not Detected (NotDetected); Parainfluenza Virus 2 PCR Not Detected (NotDetected); Parainfluenza Virus 3 PCR Not Detected (NotDetected); Parainfluenza Virus 4 PCR Not Detected (NotDetected); Respiratory Syncytial VirusPCR Not Detected (NotDetected); Rhinovirus/Enterovirus PCR Not Detected (NotDetected)
[2022-04-26 19:06] LABS: Basophils # (auto) 0.01 K/uL (0-0.2); Basophils % (auto) 0.1 %; Eosinophils # (auto) 0.01 K/uL (0-0.50); Eosinophils % (auto) 0.1 %; Hematocrit (blood only) 42.4 % (42.0-52.0); Hemoglobin 15.1 g/dl (14.0-18.0); Immature Granulocytes # (auto) 0.04 K/uL (0.01-0.20); Immature Granulocytes % (auto) 0.5 %; Lymphocytes # (auto) 1.01 K/uL (1.2-3.4); Lymphocytes % (auto) 11.7 %; Mean Corpuscular Hemoglobin 31.6 pg (25.0-34.0); Mean Corpuscular Hgb Conc 35.6 g/dL (32.0-36.0); Mean Corpuscular Volume 88.7 fL (80.0-100.0); Monocytes # (auto) 0.08 K/uL (0.11-0.59); Monocytes % (auto) 0.9 %; Neutrophils # (auto) 7.48 K/uL (1.40-6.50); Neutrophils % (auto) 86.7 %; Platelet Count 226 K/uL (130-400); RDW Coefficient of Variation 13.8 % (11.5-14.5); RDW Standard Deviation 44.9 fL (36.4-46.3); Red Blood Count 4.78 M/uL (4.70-6.10); White Blood Count 8.63 K/ul (4.8-10.8)
[2022-04-26] MEDS: IPRATROPIUM BROMIDE NEB SOLN 0.02% 2.5 ML VIAL INH SCH (19:44)
[2022-04-26] MEDS: LEVALBUTEROL 1.25MG/0.5ML NEB INH SCH (19:44)
[2022-04-26] MEDS: FAMOTIDINE 20 MG TAB PO SCH (20:07)
[2022-04-26] MEDS: ATORVASTATIN 40 MG TAB PO SCH (20:07)
[2022-04-26] MEDS: guaiFENesin 600 MG TABCR PO SCH (20:08)
[2022-04-26] MEDS ORDERED: XOPENEX/ATROVENT 1.25mg/0.5MG NEB COMBO NEB SCH (21:00)
[2022-04-26 22:12] LABS: Calcium 8.6 mg/dl (8.5-10.1); Potassium 4.1 mmol/L (3.5-5.1)
[2022-04-26 22:27] LABS: BUN Creatinine Ratio 16.1 (10-20); Creatinine Clr Calc Pharmacy 59.6 ml/min; Est GFR (African American) 69.1 ml/min; Est GFR (Non-African American) 59.6 ml/min
[2022-04-26] MEDS ORDERED: LANTUS PER UNIT CHARGE SQ ONE (22:30)
[2022-04-26 23:03] LABS: Partial Thromboplastin Ratio 1.9
[2022-04-26 23:09] LABS: Partial Thromboplastin Time 52.1 Seconds (21.0-31.0)
[2022-04-26] MEDS ORDERED: METOPROLOL TARTRATE 1 MG/ML VIAL IV PRN ×2 (23:32→23:36)
[2022-04-27] MEDS: INSULIN ASPART PER UNIT SC SCH ×5 (04:21→20:57)
[2022-04-27] MEDS: METOPROLOL TARTRATE 25 MG TAB PO SCH (04:37)
[2022-04-27] MEDS: DOXYCYCLINE HYCLATE 100 MG in DEXTROSE 5% 100 ML IV SCH (04:37)
[2022-04-27] MEDS: LEVALBUTEROL 1.25MG/0.5ML NEB INH SCH ×4 (06:54→19:33)
[2022-04-27] MEDS: IPRATROPIUM BROMIDE NEB SOLN 0.02% 2.5 ML VIAL INH SCH ×4 (06:54→19:34)
[2022-04-27 06:58] LABS: Hematocrit (blood only) 41.2 % (42.0-52.0); Hemoglobin 14.7 g/dl (14.0-18.0); Mean Corpuscular Hemoglobin 31.5 pg (25.0-34.0); Mean Corpuscular Hgb Conc 35.7 g/dL (32.0-36.0); Mean Corpuscular Volume 88.4 fL (80.0-100.0); Mean Platelet Volume 10.5 fL (9.4-12.4); Platelet Count 245 K/uL (130-400); RDW Standard Deviation 44.8 fL (36.4-46.3); Red Blood Count 4.66 M/uL (4.70-6.10); White Blood Count 17.08 K/ul (4.8-10.8)
[2022-04-27 07:16] LABS: Calcium 8.8 mg/dl (8.5-10.1); Potassium 3.8 mmol/L (3.5-5.1)
[2022-04-27 07:22] LABS: BUN Creatinine Ratio 20.8 (10-20); Creatinine Clr Calc Pharmacy 73.2 ml/min; Est GFR (African American) 88.6 ml/min; Est GFR (Non-African American) 76.5 ml/min
[2022-04-27] MEDS ORDERED: INSULIN ASPART PER UNIT SC SCH (07:30)
[2022-04-27 07:31] LABS: Partial Thromboplastin Ratio 2.2
[2022-04-27 07:34] LABS: Troponin I High Sensitivity 237.2 pg/ml (0-20)
[2022-04-27 07:42] LABS: Partial Thromboplastin Time 61.2 Seconds (21.0-31.0)
--- NOTE | 2022-04-27 07:56 | Cardiology Consultation ---
Date of Consultation April 27, 2022 Assessment & Plan (1) Atrial fibrillation with RVR: (2) Elevated troponin: (3) Acute and chronic respiratory failure with hypoxia: (4) Chronic diastolic CHF (congestive heart failure): (5) CAD (coronary artery disease): Plan 76 year old male with new onset PAF with RVR in the setting of COPD exacerbation/hypoxia. Patient appears euvolemic on exam- imaging and exam not suggestive of acute on chronic HFpEF. Patient with active wheezing and SOB at rest. Patient remains in AFIB with RVR. HR elevated in the 90-140s on telemetry. No chest pain symptoms- does carry a history of CAD requiring PCI in the remote past- most recent DSE negative for ischemia with normal LVEF 05/2021 as an outpatient. Elevated HS trop likely in the setting of demand ischemia, PAF RVR, and hypoxia. Due to ongoing SOB/wheezing- stop metoprolol. Start Diltiazem drip and titrate per protocol. Will start with a 10 mg Dilt bolus. Okay to continue Heparin gtt at this time for stroke prophylaxis, future considerations of transitioning to Eliquis vs Coumadin pending cost Patient is on ASA and Plavix due to chronic CAD, due to chronic CAD- will stop Plavix due to heparin/AC use. ASA continued indefinitely. Continue to monitor on Tele while inpatient. Further recommendations pending echo results. Case discussed with Dr. Sharp- will follow. Supervising Physician Co-Signing Physician Notes I have seen and examined the patient. Reviewed the medical record and discussed the case with the nurse practitioner. I agree with the plan as outlined above. History of Present Illness Reason for Consultation: Shortness of breath/hypoxia New onset atrial fibrillation with RVR Elevated troponin with remote history of CAD Requesting Physician: Joe pro Attending Physician: Lowell Hahn MD History of Present Illness 76-year-old male who initially presented to the [facility] emergency department due to progressive shortness of breath and cough x1 week. Patient was found to be hypoxic in the 80s on room air. Heart rates were elevated on initial presentation and patient was diagnosed with new onset atrial fibrillation with RVR with rates in the 150s, likely in the setting of COPD exacerbation/hypoxia, ? Sepsis. (Bcx pending) [id number] score of 5, IV heparin initiated. Patient was given 5 mg of IV metoprolol x1 and was started on metoprolol tartrate 25 mg PO every 6 hours Echocardiogram pending Renal function stable this AM. Potassium within normal limits. Troponins elevated: 231.9>>160.5>>126.7>>237.2 (this am) Chest x-ray without acute disease CTA of the chest limited due to respiratory motion artifact however no pulmonary emboli was identified. Mild cardiomegaly without pericardial effusion. Extensive CAD. Atherosclerosis of the thoracic aorta without aneurysm. Tele: AFIB with PVCs 90-120s Upon entrance into the room patient resting in bed. Visibly short of breath with cough, notes that he is bringing up phlegm following his breathing treatment. + Wheezing. Denies exertional chest pain. Asymptomatic with PAF- no palpitations, lightheadedness. No symptoms of fluid retention. Currently requiring 2L NC O2 Last DSE dated 05/2021 as an outpatient was nonischemic should chronic diastolic dysfunction. LVEF 55-59%. Primary work distributor: Dr. Juan and Jennifer Blank PA-C PMH: 1. Chronic ischemic heart disease status post coronary intervention with stent to the circumflex marginal branch 2006, moderate diffuse atherosclerosis nonobstructive 2014, Nonischemic DSE 05/15/2021 - On ASA and Plavix 2. Dyslipidemia 3. Chronic obstructive lung disease with dyspnea 4. Hypertension with diastolic dysfunction 5. Obstructive sleep apnea not on CPAP 6. Conduction system disease, first-degree AV block, left anterior fascicular block , incomplete right bundle-branch block Allergies Allergy/AdvReac Type Severity Reaction Status Date / Time No Known Allergies Allergy Verified 04/26/22 10:02 Home Medications Medication Instructions Recorded Confirmed Type allopurinol 300 mg tablet 300 mg PO QAM 11/05/18 04/26/22 History aspirin 81 mg tablet,delayed 81 mg PO QAM 11/05/18 04/26/22 History release (Lore Low Dose Aspirin) clopidogrel 75 mg tablet 75 mg PO QA heart 11/05/18 04/26/22 History metoprolol tartrate 25 mg tablet 25 mg PO QAM 11/05/18 04/26/22 History multivitamin 1 tab PO QAM 11/05/18 04/26/22 History albuterol sulfate 90 mcg/actuation 2 puff inhalation QID PRN 02/21/20 04/26/22 History aerosol inhaler Shortness Of Breath Or Wheezing dulaglutide 0.75 mg/0.5 mL 1.5 mg subcut WK 02/21/20 04/26/22 History subcutaneous pen injector (Trulicity) famotidine 20 mg tablet 20 mg PO BID 02/21/20 04/26/22 History hydrochlorothiazide 12.5 mg capsule 12.5 mg PO DAILY 02/21/20 04/26/22 History insulin degludec 100 unit/mL (3 26 unit subcut QDD 02/21/20 04/26/22 History mL) subcutaneous pen (Tresiba FlexTouch U-100 insulin) pregabalin 100 mg capsule 150 mg PO TID 02/21/20 04/26/22 History atorvastatin 40 mg tablet 40 mg PO HS 06/18/21 04/26/22 History spironolactone 25 mg tablet 12.5 mg PO DAILY 06/18/21 04/26/22 History metformin 500 mg tablet,extended 500 mg PO BID 02/17/22 04/26/22 History release 24 hr Patient History Medical History Antiplatelet or antithrombotic long-term use CAD (coronary artery disease) status post coronary intervention with stent to the circumflex marginal branch 2006, moderate diffuse atherosclerosis nonobstructive 2014 Cardiac murmur Chronic diastolic CHF (congestive heart failure) COPD, mild Diabetes mellitus, type 2 Dyslipidemia Gout Herniated intervertebral disc ANDREAFSKI (hard of hearing) HTN (hypertension) Neuropathy JENNIFER (obstructive sleep apnea) does not tolerate CPAP/BiPAP Osteoarthritis Surgical History H/O heart artery stent x 1 (2006) - Follows w/ Dr. Chandler History of amputation of left thumb History of cardiac catheterization 2014 - [facility] - no stents 10/28/06 - [facility] to circumflex, marginal at [facility], Dr Hagan History of colonoscopy History of right cataract surgery Family History Brother Coronary heart disease Lung cancer Mother Family history of diabetes mellitus Other Hypertension Social History Smoking Status: Former smoker Tobacco Type: Cigarettes Cigarettes Per Day: Quit 1985, smoked 2ppd x 25 years; Second Hand Exposure: No; Hx Alcohol Use: Yes Alcohol type: beer Hx Substance Use: No Preferred Language: Sinhala Communication Ability: Effective Canoe Builder Required: No Beliefs That Will Affect Care: None marital status: / Current Living Situation: Family Current Living Situation Comment: family next door current occupational status: retired How many Children do You have: 2 Feels Safe at Home: Yes Assistive Devices: Cane, Walker and Other Review of Systems Review of Systems: All systems reviewed & are unremarkable except as noted in HPI & below Physical Exam Constitutional: WD/WN, vitals as above no acute distress Eyes: PERRL, conjunctivae normal, anicteric sclerae Neck: normal visual inspection and trachea midline Respiratory: + labored breathing, + cough and + tachypneic; no respiratory distress Auscultation: + wheezes; no rales and no rhonchi Cardiovascular: Rate/Rhythm: + tachycardic and + irregularly irregular Vessels: no JVD Extremities: no edema Skin: no rashes, warm and dry Psychiatric: A+Ox3, euthymic affect Results & Data ([facility]) Vital Signs (Past 12 Hours) Vital Signs Temp Pulse Pulse Pulse Resp BP Pulse Ox 04/27/22 06:55 73 16 94 04/27/22 06:45 36.6 C 108 H 18 133/95 96 04/26/22 23:43 117 H 04/27/22 03:51 36.6 C 101 H 18 116/88 92 04/26/22 23:09 04/26/22 23:00 36.6 C 124 H 18 119/75 90 O2 Del Method O2 Flow Rate 04/27/22 06:55 Nasal Cannula 1.5 04/27/22 06:45 Nasal Cannula 04/26/22 23:43 04/27/22 03:51 Room Air 04/26/22 23:09 Room Air 04/26/22 23:00 Room Air Laboratory Results Cardiac Enzymes 04/26/22 04/26/22 04/26/22 Range/Units 09:12 10:00 15:47 AST 25 (13-39) U/L Troponin I High Sens 160.5 H* D (0-20) pg/ml B-Natriuretic Peptide 450 H (0-100) pg/ml 04/26/22 04/27/22 Range/Units 21:00 06:42 AST (13-39) U/L Troponin I High Sens 126.7 H* D 237.2 H* D (0-20) pg/ml B-Natriuretic Peptide (0-100) pg/ml Coagulation 04/26/22 04/26/22 04/26/22 Range/Units 10:00 16:51 22:24 PT 11.1 (9.0-12.0) Seconds APTT 28.6 52.1 H* (21.0-31.0) Seconds B-Natriuretic Peptide 450 H (0-100) pg/ml 04/27/22 Range/Units 06:42 PT (9.0-12.0) Seconds APTT 61.2 H* (21.0-31.0) Seconds B-Natriuretic Peptide (0-100) pg/ml CBC 04/26/22 04/26/22 04/27/22 Range/Units 09:12 15:51 06:42 WBC 15.62 H 8.63 17.08 H (4.8-10.8) K/ul RBC 5.16 4.78 4.66 L (4.70-6.10) M/uL Hgb 16.3 15.1 14.7 (14.0-18.0) g/dl Hct 45.8 42.4 41.2 L (42.0-52.0) % Plt Count 289 226 245 (130-400) K/uL Neut # (Auto) 10.11 H 7.48 H (1.40-6.50) K/uL Lymph # (Auto) 3.19 1.01 L (1.2-3.4) K/uL [place] # (Auto) 1.73 H 0.08 L (0.11-0.59) K/uL Eos # (Auto) 0.20 0.01 (0-0.50) K/uL Baso # (Auto) 0.12 0.01 (0-0.2) K/uL Comprehensive Metabolic Panel 04/26/22 04/26/22 04/27/22 Range/Units 09:12 21:00 06:42 Sodium 133 L 136 (136-145) mmol/L Potassium 4.1 3.8 (3.5-5.1) mmol/L Chloride 100 102 (98-107) mmol/L Carbon Dioxide 20 L 25 (21-32) mmol/L BUN 19 20 (6-23) mg/dl Creatinine 1.18 0.96 (0.6-1.4) mg/dl Glucose 387 H* 217 H (70-99(Fasting)) mg/dl Calcium 8.6 8.8 (8.5-10.1) mg/dl AST 25 (13-39) U/L Intake and Output 04/26/22 04/27/22 04/27/22 22:59 06:59 14:59 Intake Total 880 / 3200 1000 / 3200 610.000 / 610.000 Output Total Balance 880 / 3199 999 / 3199 610.000 / 610.000 Intake: IV 680 / 3000 1000 / 3000 610.000 / 610.000 Doxycycline Hyclate 100 mg In 110 / 110 110 / 110 Dextrose 5% 100 ml @ 50 mls/hr IV Q12H NATASHA Rx#:[id number] Heparin Sodium/Dextrose 25,000 500.000 / 500.000 units In 500 ml @ 1,400 UNITS/ HR 28 mls/hr IV .[id number] NATASHA Rx #:[id number] Sodium Chloride 0.9% 1000ML 1, 1000 / 1000 000 ml @ 100 mls/hr IV .Q10H NATASHA Rx#:[id number] Sodium Chloride 0.9% 500 ml @ 500 / 500 500 mls/hr IV .Q1H NATASHA Rx#: [id number] cefTRIAXone SODIUM 2,000 mg In 70 / 70 Dextrose 5% 50 ml @ 100 mls/hr IV Q24H NATASHA Rx#:[id number] Oral 200 / 200 Output: # Bowel Movements Other: Weight 98.6 kg 98.5 kg Weight Measurement Method Built in [facility]
[2022-04-27] MEDS: PREGABALIN 150 MG CAP PO SCH ×3 (08:16→20:57)
[2022-04-27] MEDS: methylPREDNISolone 40 MG in SYRINGE 0 ML IV SCH (08:17)
[2022-04-27] MEDS: hydroCHLOROthiazide 25 MG TAB PO SCH (08:18)
[2022-04-27] MEDS: SPIRONOLACTONE 12.5 MG TAB PO SCH (08:20)
[2022-04-27] MEDS: ASPIRIN 81 MG ECTAB PO SCH (08:20)
[2022-04-27] MEDS: guaiFENesin 600 MG TABCR PO SCH ×2 (08:22→20:56)
[2022-04-27] MEDS: allopurinoL 300 MG TAB PO SCH (08:22)
[2022-04-27] MEDS: FAMOTIDINE 20 MG TAB PO SCH ×2 (08:22→20:56)
[2022-04-27] MEDS ORDERED: LANTUS PER UNIT CHARGE SQ SCH (09:00)
[2022-04-27] MEDS ORDERED: CLOPIDOGREL BISULFATE 75 MG TAB PO SCH (09:00)
[2022-04-27] MEDS ORDERED: STAT IV Infusion **Titration per Protocol STA (10:15)
[2022-04-27] MEDS ORDERED: dilTIAZem HCl 5 MG/ML 5 ML VIAL IV STA (10:15)
[2022-04-27] MEDS: HEPARIN SODIUM/DEXTROSE 25,000 UNITS/500 ML BAG IV SCH (10:36)
[2022-04-27] MEDS: dilTIAZem HCL 125 MG in DEXTROSE 5% 100 ML IV SCH ×2 (10:38→23:26)
--- NOTE | 2022-04-27 11:22 | Pharmacy Report ---
Pharmacy Glycemic Short Note 2 - Date of Service April 27, 2022 - Glycemic Short BSG Results (Last 24 hours): 04/26/22 04/26/22 04/26/22 16:41 16:42 18:39 Glucose POC Glucose 416 H* 438 H* 524 H* 04/26/22 04/26/22 04/26/22 18:43 20:22 20:23 Glucose POC Glucose 462 H* 368 H* 376 H* 04/26/22 04/26/22 04/27/22 21:00 22:56 03:34 Glucose 387 H* POC Glucose 341 H* 296 H 04/27/22 04/27/22 06:42 07:25 Glucose 217 H POC Glucose 244 H OUTPATIENT ANTIDIABETIC REGIMEN: * Metformin ER 500 mg BID * Tresiba U-200: 26 units daily * Trulicity 1.5 mg subcutaneous injection weekly ASSESSMENT: * Patient presented to the ED with shortness of breath likely due to sepsis/COPD exacerbation. Patient is currently on IV steroids (Solumedol 125 mg once on 04/26/22; now Solumedrol 40 mg daily). As of today, diet was changed to NPO status and Novolog schedule was adjusted to q6h. PLAN FOR INPATIENT GLYCEMIC CONTROL: * Hold outpatient oral diabetes medications * Basal insulin * Lantus 15 units SQ BID * Bolus insulin * NovoLog per scale Q6hrs while NPO * Goal Range: Low 100 mg/dL - High 140 mg/dL * Correction Factor: 20 mg/dL/unit * Nutritional / Prandial insulin per carb ratio of 1 unit per 8 grams CHO consumed
[2022-04-27] MEDS ORDERED: LANTUS PER UNIT CHARGE SQ ONE (11:45)
[2022-04-27] MEDS: ADVANCED PROBIOTIC 1250 MG CAPSULE PO SCH (13:03)
[2022-04-27] MEDS ORDERED: Nursing to Pharmacy Communication SCH (13:15)
--- NOTE | 2022-04-27 13:22 | Hospitalist Progress Note ---
Date of Service April 27, 2022 Assessment & Plan (1) Acute and chronic respiratory failure with hypoxia: (2) Sepsis: (3) COPD exacerbation: Plan: Acute on chronic respiratory failure with hypoxia Acute COPD Exacerbation --CTA:Limited exam secondary to respiratory motion artifact. No pulmonary emboli identified. Bibasilar predominant groundglass densities suggest atelectasis. Hepatic steatosis. --Blood Cx: Negative to date --Procalcitonin <0.05 --Biofire: Negative --continue doxycycline, IV solu-medrol, bronchodilators Continue supplemental Oxygen to keep Sats 88-92% (4) Atrial fibrillation with RVR: (5) New onset atrial fibrillation: Plan: Atrial fibrillation with RVR Elevated troponin--? Demand Ischemia due to COPD, Afib RVR [id number] score 5 -ECHO:pending On Cardizem drip Also on IV heparin for anticoagulation Plavix discontinued Appreciate cardiology input Diarrhea Check stool for C diff (6) CAD (coronary artery disease): Plan: Continue aspirin, Lipitor Plavix discontinued as above (7) Elevated troponin: (8) Hyperglycemia: (9) Diabetes mellitus, type II: Plan: Last HbA1C: 8.4 hold home agents utilize Lantus and Novolog Glycemic pharmacy consulted (10) Hypomagnesemia: Plan: Replace electrolytes as needed Monitor (11) Chronic diastolic CHF (congestive heart failure): Plan: Euvolemic Continue home diuretics Monitor volume status (12) Elevated bilirubin: Plan: Likely hepatic steatosis (13) DVT prophylaxis: Plan: IV heparin Admission and Anticipated Discharge Date Admission Date: April 26, 2022 Subjective Patient is seen and examined at bedside Patient states having Dyspnea, cough, intermittent chest pain Also reports diarrhea No other complaints Review of Systems Review of Systems: All systems reviewed & are unremarkable except as noted in Subjective Physical Exam Physical Exam: Physical Exam: Vitals signs as noted above General Appearance:Obese, no apparent distress Head: normocephalic, Atraumatic Eyes: normal inspection, EOMI Neck: supple, Trachea midline Respiratory/Chest: Decreased breath sounds, CTA, No accessory muscle use Cardiovascular: Irregularly irregular, No murmur Abdomen/GI:Soft, Non tender, Bowel sounds present Extremities/Musculoskeletal:normal inspection, no edema Neurologic/Psych:AAOX3, grossly no focal neurological deficits Skin: normal color, warm Results & Data Results & Data ([facility]) Vital Signs (Past 12 Hours) Vital Signs Temp Pulse Pulse Pulse Resp BP Pulse Ox 04/27/22 12:54 90 20 129/77 92 04/27/22 10:22 62 16 94 04/27/22 08:29 142 H 04/27/22 06:55 73 16 94 04/27/22 06:45 36.6 C 108 H 18 133/95 96 04/27/22 03:51 36.6 C 101 H 18 116/88 92 O2 Del Method O2 Flow Rate 04/27/22 12:54 Nasal Cannula 2 04/27/22 10:22 Nasal Cannula 1 04/27/22 08:29 04/27/22 06:55 Nasal Cannula 1.5 04/27/22 06:45 Nasal Cannula 04/27/22 03:51 Room Air Laboratory Results Short CBC 04/26/22 04/26/22 04/27/22 Range/Units 09:12 15:51 06:42 WBC 15.62 H 8.63 17.08 H (4.8-10.8) K/ul Hgb 16.3 15.1 14.7 (14.0-18.0) g/dl Hct 45.8 42.4 41.2 L (42.0-52.0) % Plt Count 289 226 245 (130-400) K/uL BMP 04/26/22 04/27/22 21:00 06:42 Sodium 133 L 136 Potassium 4.1 3.8 Chloride 100 102 Carbon Dioxide 20 L 25 BUN 19 20 Creatinine 1.18 0.96 Glucose 387 H* 217 H Calcium 8.6 8.8
--- NOTE | 2022-04-27 15:26 | Electrocardiogram Report ---
Test Reason : Blood Pressure : / mmHG Vent. Rate : 122 BPM Atrial Rate : 147 BPM P-R Int : 000 ms QRS Dur : 096 ms QT Int : 348 ms P-R-T Axes : 000 -82 018 degrees QTc Int : 495 ms Atrial fibrillation with rapid ventricular response Left axis deviation Inferior infarct (cited on or before 26-APR-2022) Abnormal ECG Confirmed by Brain Lei ([id number] on 04/27/2022 3:26:38 PM Referred By: REFERRED SELF Confirmed By:Stiven Lei
[2022-04-27] MEDS: DOXYCYCLINE HYCLATE 100 MG CAP PO SCH (16:21)
[2022-04-27] MEDS: ATORVASTATIN 40 MG TAB PO SCH (20:55)
[2022-04-28] MEDS: INSULIN ASPART PER UNIT SC SCH ×6 (00:36→21:06)
[2022-04-28] MEDS: HEPARIN SODIUM/DEXTROSE 25,000 UNITS/500 ML BAG IV SCH ×2 (04:36→21:07)
[2022-04-28] MEDS: DOXYCYCLINE HYCLATE 100 MG CAP PO SCH ×2 (04:45→16:50)
[2022-04-28] MEDS: LEVALBUTEROL 1.25MG/0.5ML NEB INH SCH ×4 (05:29→18:29)
[2022-04-28] MEDS: IPRATROPIUM BROMIDE NEB SOLN 0.02% 2.5 ML VIAL INH SCH ×3 (05:29→14:29)
[2022-04-28 07:05] LABS: Hematocrit (blood only) 42.5 % (42.0-52.0); Mean Corpuscular Hemoglobin 31.2 pg (25.0-34.0); Mean Corpuscular Hgb Conc 35.3 g/dL (32.0-36.0); Mean Corpuscular Volume 88.4 fL (80.0-100.0); Mean Platelet Volume 10.7 fL (9.4-12.4); Platelet Count 244 K/uL (130-400); RDW Coefficient of Variation 13.9 % (11.5-14.5); RDW Standard Deviation 44.5 fL (36.4-46.3); Red Blood Count 4.81 M/uL (4.70-6.10); White Blood Count 18.93 K/ul (4.8-10.8)
--- NOTE | 2022-04-28 07:16 | Electrocardiogram Report ---
Test Reason : Blood Pressure : / mmHG Vent. Rate : 084 BPM Atrial Rate : 441 BPM P-R Int : 000 ms QRS Dur : 098 ms QT Int : 394 ms P-R-T Axes : 000 -26 016 degrees QTc Int : 465 ms Atrial fibrillation Poor R wave progression, consider anterior MN vs. lead placement vs. LVH Abnormal ECG When compared with ECG of 27-APR-2022 05:16, Criteria for Inferior infarct are no longer Present Confirmed by Brain Lei ([id number] on 04/28/2022 7:16:08 AM Referred By: REFERRED SELF Confirmed By:Stiven Lei
[2022-04-28 07:34] LABS: Partial Thromboplastin Ratio 1.9
[2022-04-28 07:35] LABS: Partial Thromboplastin Time 52.3 Seconds (21.0-31.0)
[2022-04-28 07:38] LABS: Calcium 9.5 mg/dl (8.5-10.1); Magnesium 1.9 mg/dl (1.7-2.4); Potassium 3.2 mmol/L (3.5-5.1)
[2022-04-28 08:15] LABS: BUN Creatinine Ratio 24.4 (10-20); Creatinine Clr Calc Pharmacy 80.6 ml/min; Est GFR (African American) 97.6 ml/min; Est GFR (Non-African American) 84.2 ml/min
[2022-04-28] MEDS: FAMOTIDINE 20 MG TAB PO SCH ×2 (08:26→20:18)
[2022-04-28] MEDS: allopurinoL 300 MG TAB PO SCH (08:26)
[2022-04-28] MEDS: hydroCHLOROthiazide 25 MG TAB PO SCH (08:26)
[2022-04-28] MEDS: guaiFENesin 600 MG TABCR PO SCH ×2 (08:26→20:19)
[2022-04-28] MEDS: ASPIRIN 81 MG ECTAB PO SCH (08:26)
[2022-04-28] MEDS: ADVANCED PROBIOTIC 1250 MG CAPSULE PO SCH (08:27)
[2022-04-28] MEDS: methylPREDNISolone 40 MG in SYRINGE 0 ML IV SCH (08:28)
[2022-04-28] MEDS: SPIRONOLACTONE 12.5 MG TAB PO SCH (08:28)
[2022-04-28] MEDS: PREGABALIN 150 MG CAP PO SCH ×3 (08:32→20:19)
[2022-04-28] MEDS ORDERED: LANTUS PER UNIT CHARGE SQ ONE ×2 (09:00→21:00)
[2022-04-28] MEDS ORDERED: POTASSIUM CHLORIDE CRTAB 20 MEQ TABCR PO ONE (09:10)
[2022-04-28] MEDS: dilTIAZem HCL 125 MG in DEXTROSE 5% 100 ML IV SCH (11:49)
[2022-04-28] MEDS ORDERED: INSULIN ASPART PER UNIT SC ONE (12:00)
--- NOTE | 2022-04-28 13:19 | Pharmacy Report ---
Pharmacy Glycemic Short Note 2 - Date of Service April 28, 2022 - Glycemic Short BSG Results (Last 24 hours): 04/27/22 04/27/22 04/27/22 16:22 16:24 20:01 Glucose POC Glucose 378 H* 339 H* 359 H* 04/27/22 04/28/22 04/28/22 20:02 00:04 04:30 Glucose POC Glucose 352 H* 265 H 218 H 04/28/22 04/28/22 04/28/22 06:03 07:49 11:46 Glucose 196 H POC Glucose 201 H 296 H OUTPATIENT ANTIDIABETIC REGIMEN: * Metformin ER 500 mg BID * Tresiba U-200: 26 units daily * Trulicity 1.5 mg subcutaneous injection weekly ASSESSMENT: * BSGs yesterday were [phone] and overnight were 265-218 mg/dL. * BSGs today are 201-296 mg/dL. * Patient continues on Solu-Medrol 40 mg IV once daily in AM. * Yesterday patient received 110 units of insulin (30 units of basal and 80 units of bolus). * Will give Lantus 45 units this morning (dose determined from yesterday's dose + overnight Novolog administration). * Tighten Novolog substantially. BACKGROUND * Patient presented to the ED with shortness of breath likely due to sepsis/COPD exacerbation. Patient is currently on IV steroids (Solumedol 125 mg once on 04/26/22; now Solumedrol 40 mg daily). As of today, diet was changed to NPO status and Novolog schedule was adjusted to q6h. PLAN FOR INPATIENT GLYCEMIC CONTROL: * Hold outpatient oral diabetes medications * Basal insulin * Lantus 45 units SQ daily * Bolus insulin * NovoLog per scale Q6hrs while NPO * Goal Range: Low 100 mg/dL - High 140 mg/dL * Correction Factor: 12 mg/dL/unit * Nutritional / Prandial insulin per carb ratio of 1 unit per 4 grams CHO consumed
--- NOTE | 2022-04-28 14:35 | Hospitalist Progress Note ---
Date of Service April 28, 2022 Assessment & Plan (1) Acute and chronic respiratory failure with hypoxia: (2) Sepsis: (3) COPD exacerbation: Plan: Acute on chronic respiratory failure with hypoxia Acute COPD Exacerbation --CTA:Limited exam secondary to respiratory motion artifact. No pulmonary emboli identified. Bibasilar predominant groundglass densities suggest atelectasis. Hepatic steatosis. --Blood Cx: Negative to date --Procalcitonin <0.05 --Biofire: Negative --continue doxycycline, bronchodilators Continue supplemental Oxygen to keep Sats 88-92% Transition IV solu-medrol to prednisone tomorrow Continue Pulmonary Hygiene (4) Atrial fibrillation with RVR: (5) New onset atrial fibrillation: Plan: Atrial fibrillation with RVR Elevated troponin--? Demand Ischemia due to COPD, Afib RVR [id number] score 5 -ECHO: Atrial fibrillation with ventricular rate in 90s to low 100s during echo study. Moderate asymmetric left ventricular hypertrophy. No regional wall motion abnormality. EF 55%. Right ventricle is normal size and function. Left atrium is mildly dilated. Mild mitral regurgitation. Left ventricular diastolic function is abnormal. On Cardizem drip Also on IV heparin for anticoagulation Plavix discontinued Appreciate cardiology input Diarrhea Check stool for C diff (6) CAD (coronary artery disease): Plan: Continue aspirin, Lipitor Plavix discontinued as above (7) Elevated troponin: (8) Hyperglycemia: (9) Diabetes mellitus, type II: Plan: Last HbA1C: 8.4 hold home agents utilize Lantus and Novolog Glycemic pharmacy consulted (10) Hypomagnesemia: Plan: Replace electrolytes as needed Monitor (11) Chronic diastolic CHF (congestive heart failure): Plan: Euvolemic Continue home diuretics Monitor volume status (12) Elevated bilirubin: Plan: Likely hepatic steatosis (13) DVT prophylaxis: Plan: IV heparin Admission and Anticipated Discharge Date Admission Date: April 26, 2022 Subjective Patient is seen and examined at bedside Dyspnea, cough improving No new complaints Feels better Palpitations resolved Denies any chest pain, dizziness, nausea, abd pain Review of Systems Review of Systems: All systems reviewed & are unremarkable except as noted in Subjective Physical Exam Physical Exam: Physical Exam: Vitals signs as noted above General Appearance:Obese, no apparent distress Head: normocephalic, Atraumatic Eyes: normal inspection, EOMI Neck: supple, Trachea midline Respiratory/Chest: Decreased breath sounds, CTA, No accessory muscle use Cardiovascular: Irregularly irregular, No murmur Abdomen/GI:Soft, Non tender, Bowel sounds present Extremities/Musculoskeletal:normal inspection, no edema Neurologic/Psych:AAOX3, grossly no focal neurological deficits Skin: normal color, warm Results & Data Results & Data ([facility]) Vital Signs (Past 12 Hours) Vital Signs Temp Pulse Pulse Resp BP Pulse Ox O2 Del Method 04/28/22 14:31 93 H 20 94 Nasal Cannula 04/28/22 11:46 36.6 C 101 H 18 128/74 95 Nasal Cannula 04/28/22 11:10 87 24 96 Nasal Cannula 04/28/22 08:00 Nasal Cannula 04/28/22 07:47 36.3 C L 99 H 18 142/79 H 93 Nasal Cannula 04/28/22 05:29 74 18 96 Nasal Cannula 04/28/22 02:44 36.6 C 89 18 127/79 95 Nasal Cannula O2 Flow Rate 04/28/22 14:31 2 04/28/22 11:46 2 04/28/22 11:10 2 04/28/22 08:00 2 04/28/22 07:47 2 04/28/22 05:29 3 04/28/22 02:44 Laboratory Results Short CBC 04/28/22 Range/Units 06:03 WBC 18.93 H (4.8-10.8) K/ul Hgb 15.0 (14.0-18.0) g/dl Hct 42.5 (42.0-52.0) % Plt Count 244 (130-400) K/uL BMP 04/28/22 06:03 Sodium 138 Potassium 3.2 L Chloride 102 Carbon Dioxide 26 BUN 21 Creatinine 0.86 Glucose 196 H Calcium 9.5
--- NOTE | 2022-04-28 15:34 | Cardiology Progress Note ---
Date of Service April 28, 2022 Assessment & Plan (1) Atrial fibrillation with RVR: Plan: - Patient presented with over 1 week of progressive dyspnea on exertion, and had newly diagnosed atrial fibrillation with rapid ventricular response as well as an acute exacerbation of COPD. Echocardiogram reveals preserved left ventricular systolic function. -Ventricular rate currently well controlled on diltiazem 10 mg/h intravenously -Continue IV diltiazem. Add back metoprolol tartrate 25 mg twice daily. -Anticipate ventricular rates become better controlled as his COPD improves. -He has been prescribed metoprolol tartrate 25 mg twice daily as an outpatient, but was only actually taking it 1 time per day. He does have underlying conduction system disease with previously noted first-degree AV block, incomplete right bundle branch block, we will therefore utilize beta-joe with caution. -With regards to stroke prophylaxis, his [id number] score is 5 for risk factors of age over 75 (2 points) CAD, hypertension, and diabetes predicting a high risk of cardioembolic stroke. Renal function is stable. Hemoglobin stable. We will plan on transitioning him from heparin to Eliquis 5 mg twice daily on 04/28/2022, 2100. (2) COPD exacerbation: Plan: - As per hospitalist service. (3) CAD (coronary artery disease): Plan: - Patient transition to our practice relatively recently having previously followed with Dr. Vázquez in [place]. Per Dr Chandler's outpatient note scanned to [facility], dated 07/27/2020, patient has a longstanding history of recurrent chest discomfort -2006, angioplasty and stenting of the circumflex coronary artery, [place]- seemingly he has been maintained on aspirin and clopidogrel since this inte rvention. -2009, repeat cardiac catheterization [place] 30% stenosis of LAD, 30% circumflex, 30% RCA -2016, cardiac catheterization, [place], 60% distal RCA stenosis, 50% distal circumflex in-stent stenosis-medical management recommended -Nonischemic dobutamine stress echocardiogram studies May 2021. -Continue aspirin 81 mg daily, atorvastatin, metoprolol. -Clopidogrel discontinued, in favor of Eliquis given development of atrial fibrillation. (4) HTN (hypertension): Plan: - Patient had not been taking his home lisinopril due to recent hypotension. -Metoprolol to be added as noted above. -Continue prior to arrival hydrochlorothiazide 12.5 mg daily, spironolactone 12.5 mg daily. Admission and Anticipated Discharge Date Admission Date: April 26, 2022 Subjective Patient seen in cardiology follow-up. Remains in atrial fibrillation with ventricular rate in the 90s. Heparin infusion ongoing. Currently on diltiazem 10 mg/h. Physical Exam Constitutional: + ill appearing (Chronically ill in appearance, with no acute distress) Respiratory: Auscultation: + diminished lung sounds (Decreased breath sounds at the bases bilaterally); no crackles Cardiovascular: Rate/Rhythm: + irregularly irregular Heart Sounds: no murmur Vessels: no JVD Extremities: + edema (1 +lower extremity edema) Neurologic: PERRL, EOMI, accommodation nl, no face palsy, no dysarthria Results & Data ([facility]) Vital Signs (Past 12 Hours) Vital Signs Temp Pulse Pulse Resp BP Pulse Ox O2 Del Method 04/28/22 14:31 93 H 20 94 Nasal Cannula 04/28/22 11:46 36.6 C 101 H 18 128/74 95 Nasal Cannula 04/28/22 11:10 87 24 96 Nasal Cannula 04/28/22 08:00 Nasal Cannula 04/28/22 07:47 36.3 C L 99 H 18 142/79 H 93 Nasal Cannula 04/28/22 05:29 74 18 96 Nasal Cannula O2 Flow Rate 04/28/22 14:31 2 04/28/22 11:46 2 04/28/22 11:10 2 04/28/22 08:00 2 04/28/22 07:47 2 04/28/22 05:29 3 Laboratory Results Coagulation 04/28/22 Range/Units 06:03 APTT 52.3 H* (21.0-31.0) Seconds CBC 04/28/22 Range/Units 06:03 WBC 18.93 H (4.8-10.8) K/ul RBC 4.81 (4.70-6.10) M/uL Hgb 15.0 (14.0-18.0) g/dl Hct 42.5 (42.0-52.0) % Plt Count 244 (130-400) K/uL Comprehensive Metabolic Panel 04/28/22 Range/Units 06:03 Sodium 138 (136-145) mmol/L Potassium 3.2 L (3.5-5.1) mmol/L Chloride 102 (98-107) mmol/L Carbon Dioxide 26 (21-32) mmol/L BUN 21 (6-23) mg/dl Creatinine 0.86 (0.6-1.4) mg/dl Glucose 196 H (70-99(Fasting)) mg/dl Calcium 9.5 (8.5-10.1) mg/dl Diagnostic Findings EKG performed today 04/28/2022 revealed atrial fibrillation at 84 bpm with poor R wave progression. Compared to the outpatient tracing performed 04/11/2021, atrial fibrillation has replaced sinus rhythm with first-degree AV block (MD interval 254 ms at that time), the poor R wave progression is chronic. Echocardiogram performed today revealed LVEF of 55% with moderate concentric left ventricular hypertrophy, mild MR.
[2022-04-28] MEDS: IPRATROPIUM BROMIDE NEB SOLN 0.02% 2.5 ML VIAL INH PRN (18:30)
[2022-04-28] MEDS: ATORVASTATIN 40 MG TAB PO SCH (20:18)
[2022-04-28] MEDS: METOPROLOL TARTRATE 25 MG TAB PO SCH (20:19)
[2022-04-28] MEDS ORDERED: HEPARIN: STOP ORDER ONE (21:00)
[2022-04-28] MEDS: APIXABAN 5 MG TABLET PO SCH (21:08)
[2022-04-29] MEDS ORDERED: INSULIN ASPART PER UNIT SC SCH
[2022-04-29] MEDS: dilTIAZem HCL 125 MG in DEXTROSE 5% 100 ML IV SCH ×2 (00:57→13:38)
[2022-04-29] MEDS ORDERED: INSULIN ASPART PER UNIT SC ONE (02:00)
[2022-04-29] MEDS: DOXYCYCLINE HYCLATE 100 MG CAP PO SCH ×2 (05:17→16:51)
[2022-04-29] MEDS: LEVALBUTEROL 1.25MG/0.5ML NEB INH SCH ×4 (05:32→19:13)
[2022-04-29] MEDS: IPRATROPIUM BROMIDE NEB SOLN 0.02% 2.5 ML VIAL INH PRN ×4 (05:32→14:59)
[2022-04-29 07:23] LABS: Hematocrit (blood only) 43.7 % (42.0-52.0); Hemoglobin 15.2 g/dl (14.0-18.0); Mean Corpuscular Hgb Conc 34.8 g/dL (32.0-36.0); Mean Platelet Volume 10.3 fL (9.4-12.4); Platelet Count 256 K/uL (130-400); RDW Coefficient of Variation 14.2 % (11.5-14.5); RDW Standard Deviation 45.5 fL (36.4-46.3); Red Blood Count 4.91 M/uL (4.70-6.10); White Blood Count 16.61 K/ul (4.8-10.8)
[2022-04-29] MEDS: PREGABALIN 150 MG CAP PO SCH ×3 (08:11→20:11)
[2022-04-29] MEDS: INSULIN ASPART PER UNIT SC SCH ×4 (08:12→20:45)
[2022-04-29] MEDS: allopurinoL 300 MG TAB PO SCH (08:15)
[2022-04-29] MEDS: METOPROLOL TARTRATE 25 MG TAB PO SCH ×3 (08:16→20:06)
[2022-04-29] MEDS: FAMOTIDINE 20 MG TAB PO SCH ×2 (08:16→20:05)
[2022-04-29] MEDS: guaiFENesin 600 MG TABCR PO SCH ×2 (08:16→20:05)
[2022-04-29] MEDS: hydroCHLOROthiazide 25 MG TAB PO SCH (08:17)
[2022-04-29] MEDS: APIXABAN 5 MG TABLET PO SCH ×2 (08:17→20:06)
[2022-04-29] MEDS: ASPIRIN 81 MG ECTAB PO SCH (08:17)
[2022-04-29] MEDS: ADVANCED PROBIOTIC 1250 MG CAPSULE PO SCH (08:18)
[2022-04-29 08:19] LABS: Calcium 9.6 mg/dl (8.5-10.1); Est GFR (African American) 102.2 ml/min; Est GFR (Non-African American) 88.1 ml/min; Magnesium 1.9 mg/dl (1.7-2.4); Potassium 4.2 mmol/L (3.5-5.1)
[2022-04-29] MEDS: predniSONE 20 MG TAB PO SCH (08:19)
[2022-04-29] MEDS: SPIRONOLACTONE 12.5 MG TAB PO SCH (08:19)
[2022-04-29] MEDS ORDERED: LANTUS PER UNIT CHARGE SQ ONE (09:00)
--- NOTE | 2022-04-29 11:56 | XRay Report ---
XR chest 1V portable CLINICAL HISTORY: dyspnea COMPARISON STUDY: Chest radiograph and chest CT April 26, 2022. FINDINGS: Lung volumes are mildly diminished. This is unchanged. No pneumothorax or pleural effusion is present. Interstitial thickening has developed. Cardiomediastinal silhouette is stable. No consoli dation is identified. IMPRESSION: Interval development of pulmonary vascular congestion with suspected mild pulmonary joey a. ACT 112: Negative or not required by law. Electronically signed by: Alden Ibarra M.D. 04/29/2022 11:54 AM
[2022-04-29] MEDS ORDERED: FUROSEMIDE 40 MG/4 ML VIAL IV ONE (12:51)
--- NOTE | 2022-04-29 14:11 | Cardiology Progress Note ---
Date of Service April 29, 2022 Assessment & Plan (1) Atrial fibrillation with RVR: Plan: - Discontinue diltiazem infusion. Increase metoprolol to tartrate 25 mg 4 times daily. -Patient was already prescribed furosemide 40 mg IV earlier today by Dr. Kohler. We will continue 40 mg IV daily. Prior to hospital treatment with HCTZ has been placed on hold. Continue spironolactone. Repeat chemistry panel tomorrow. (2) COPD exacerbation: Plan: - As per hospitalist service. (3) CAD (coronary artery disease): Plan: - Patient transition to our practice relatively recently having previously followed with Dr. Vázquez in [place]. Per Dr Chandler's outpatient note scanned to [facility], dated 07/27/2020, patient has a longstanding history of recurrent chest discomfort -2006, angioplasty and stenting of the circumflex coronary artery, [place]- seemingly he has been maintained on aspirin and clopidogrel since this intervention. -2009, repeat cardiac catheterization [place] 30% stenosis of LAD, 30% circumflex, 30% RCA -2015, cardiac catheterization, [place], 60% distal RCA stenosis, 50% distal circumflex in-stent stenosis-medical management recommended -Nonischemic dobutamine stress echocardiogram studies 2018, May 2021. -Continue aspirin 81 mg daily, atorvastatin, metoprolol. -Clopidogrel discontinued, in favor of Eliquis given development of atrial fibrillation. (4) HTN (hypertension): Plan: - Patient had not been taking his home lisinopril due to recent hypotension. -Metoprolol to be added as noted above. -Otherwise patient is on furosemide and spironolactone. Admission and Anticipated Discharge Date Admission Date: April 26, 2022 Subjective Patient seen in cardiology follow-up. Significant dyspnea noted with minimal exertion just moving around in bed. He remains in atrial fibrillation per review of telemetry with heart rates in the 80s, and occasional PVCs. Compared to yesterday, as diltiazem infusion has been reduced from a 10 mg/min to 5 mg/min. A chest x-ray was performed today revealing pulmonary edema. Physical Exam Constitutional: + ill appearing Respiratory: Auscultation: + diminished lung sounds (Decreased breath sounds at the bases bilaterally); no crackles Cardiovascular: Rate/Rhythm: + irregularly irregular Heart Sounds: no murmur Vessels: no JVD Extremities: + edema (1 +lower extremity edema) Gastrointestinal (Abdomen): normal bowel sounds, soft, nontender, no hepatosplenomegaly Neurologic: PERRL, EOMI, accommodation nl, no face palsy, no dysarthria Results & Data ([facility]) Vital Signs (Past 12 Hours) Vital Signs Temp Pulse Pulse Resp BP Pulse Ox O2 Del Method 04/29/22 11:34 36.8 C 83 22 142/64 H 94 Nasal Cannula 04/29/22 11:17 72 19 90 Nasal Cannula 04/29/22 08:00 Nasal Cannula 04/29/22 08:53 63 18 93 Nasal Cannula 04/29/22 07:30 36.4 C L 82 20 125/87 92 Nasal Cannula 04/29/22 05:33 53 L 22 89 L Nasal Cannula 04/29/22 02:28 36.6 C 75 18 124/82 94 Nasal Cannula O2 Flow Rate 04/29/22 11:34 2 04/29/22 11:17 2 04/29/22 08:00 2 04/29/22 08:53 2 04/29/22 07:30 2 04/29/22 05:33 2 04/29/22 02:28 Laboratory Results CBC 04/29/22 Range/Units 06:16 WBC 16.61 H (4.8-10.8) K/ul RBC 4.91 (4.70-6.10) M/uL Hgb 15.2 (14.0-18.0) g/dl Hct 43.7 (42.0-52.0) % Plt Count 256 (130-400) K/uL Comprehensive Metabolic Panel 04/29/22 Range/Units 06:16 Sodium 137 (136-145) mmol/L Potassium 4.2 D (3.5-5.1) mmol/L Chloride 102 (98-107) mmol/L Carbon Dioxide 27 (21-32) mmol/L BUN 20 (6-23) mg/dl Creatinine 0.77 (0.6-1.4) mg/dl Glucose 189 H (70-99(Fasting)) mg/dl Calcium 9.6 (8.5-10.1) mg/dl
--- NOTE | 2022-04-29 14:32 | Pharmacy Report ---
Pharmacy Glycemic Short Note 2 - Date of Service April 29, 2022 - Glycemic Short BSG Results (Last 24 hours): 04/28/22 04/28/22 04/29/22 16:22 20:03 01:53 Glucose POC Glucose 282 H 254 H 122 H 04/29/22 04/29/22 04/29/22 06:16 07:16 11:08 Glucose 189 H POC Glucose 188 H 259 H OUTPATIENT ANTIDIABETIC REGIMEN: * Metformin ER 500 mg BID * Tresiba U-200: 26 units daily * Trulicity 1.5 mg subcutaneous injection weekly ASSESSMENT: 04/29/22 * BSGs yesterday were [phone] mg/dL. Patient received 182 units of insulin (65 units of basal and 117 units of bolus - this represents a 65% increase in insulin from the previous day). * Fasting this AM is 188 mg/dL. * Patient received Solu-Medrol 40 mg IV yesterday and was transitioned to PO prednisone this AM. NPH was not given due to concern for extra basal given last evening. The extra basal did not cause hypoglycemia ... NPH 0.4 units/kg or 40 units ordered for tomorrow with PO prednisone. * For Lantus, give 45 units this AM then scale for this evening. Expect PO prednisone's effects to not last as long as IV solu-Medrol? Full weight-based stress of 3 or 50 units of Lantus for tomorrow morning with NPH. * Novolog is currently extremely tight due to rapidly increasing BSGs. Can loosen slightly with NPH. * Overnight checks to see how long PO prednisone effects last. 04/28/22 * BSGs yesterday were [phone] and overnight were 265-218 mg/dL. * BSGs today are 201-296 mg/dL. * Patient continues on Solu-Medrol 40 mg IV once daily in AM. * Yesterday patient received 110 units of insulin (30 units of basal and 80 units of bolus). * Will give Lantus 45 units this morning (dose determined from yesterday's dose + overnight Novolog administration). * Tighten Novolog substantially. BACKGROUND * Patient presented to the ED with shortness of breath likely due to sepsis/COPD exacerbation. Patient is currently on IV steroids (Solumedol 125 mg once on 04/26/22; now Solumedrol 40 mg daily). As of today, diet was changed to NPO status and Novolog schedule was adjusted to q6h. PLAN FOR INPATIENT GLYCEMIC CONTROL: * Hold outpatient oral diabetes medications * Basal insulin * Lantus 45 units SQ today then 50 units SQ daily starting tomorrow * Lantus 0-20 units HS tonight * Bolus insulin * NovoLog per scale Q6hrs while NPO * Goal Range: Low 100 mg/dL - High 140 mg/dL * Correction Factor: 8 mg/dL/unit * Nutritional / Prandial insulin per carb ratio of 1 unit per 1 grams CHO consumed
--- NOTE | 2022-04-29 15:32 | Hospitalist Progress Note ---
Date of Service April 29, 2022 Assessment & Plan (1) Atrial fibrillation with RVR: Plan: Acute on chronic respiratory failure with hypoxia Acute COPD Exacerbation --CTA:Limited exam secondary to respiratory motion artifact. No pulmonary emboli identified. Bibasilar predominant groundglass densities suggest atelectasis. Hepatic steatosis. --Blood Cx: Negative to date --Procalcitonin <0.05 --Biofire: Negative --continue doxycycline, bronchodilators Continue supplemental Oxygen to keep Sats 88-92% Transition IV solu-medrol to prednisone Continue Pulmonary Hygiene Atrial fibrillation with RVR New Onset Elevated troponin--? Demand Ischemia due to COPD, Afib RVR [id number] score 5 -ECHO: Atrial fibrillation with ventricular rate in 90s to low 100s during echo study. Moderate asymmetric left ventricular hypertrophy. No regional wall motion abnormality. EF 55%. Right ventricle is normal size and function. Left atrium is mildly dilated. Mild mitral regurgitation. Left ventricular diastolic function is abnormal. On Cardizem drip--DCed IV heparin>>changed to Eliquis for anticoagulation Plavix discontinued Appreciate cardiology input Continue Metoprolol Acute on Chronic diastolic CHF CXR:Interval development of pulmonary vascular congestion with suspected mild pulmonary edema. Hold PO diuretics Monitor volume status Continue IV Lasix Diarrhea Check stool for C diff if re-occurs Currently resolved CAD (coronary artery disease): Continue aspirin, Lipitor Plavix discontinued as above Diabetes mellitus, type II: Last HbA1C: 8.4 hold home agents utilize Lantus and Novolog Glycemic pharmacy consulted Hypomagnesemia: Replace electrolytes as needed Monitor Elevated bilirubin: Likely hepatic steatosis DVT Px: Eliquis Admission and Anticipated Discharge Date Admission Date: April 26, 2022 Subjective Patient is seen and examined at bedside States having dyspnea today Also reports wheezing Less cough Denies any chest pain, dizziness, nausea, abd pain CXR today suggestive of pulmonary edema Review of Systems Review of Systems: All systems reviewed & are unremarkable except as noted in Subjective Physical Exam Physical Exam: Physical Exam: Vitals signs as noted above General Appearance:Obese, no apparent distress Head: normocephalic, Atraumatic Eyes: normal inspection, EOMI Neck: supple, Trachea midline Respiratory/Chest: Decreased breath sounds, Crackles, No accessory muscle use Cardiovascular: Irregularly irregular, No murmur Abdomen/GI:Soft, Non tender, Bowel sounds present Extremities/Musculoskeletal:normal inspection, no edema Neurologic/Psych:AAOX3, grossly no focal neurological deficits Skin: normal color, warm Results & Data Results & Data ([facility]) Vital Signs (Past 12 Hours) Vital Signs Temp Pulse Pulse Resp BP Pulse Ox O2 Del Method 04/29/22 14:59 95 H 19 93 Nasal Cannula 04/29/22 11:34 36.8 C 83 22 142/64 H 94 Nasal Cannula 04/29/22 11:17 72 19 90 Nasal Cannula 04/29/22 08:00 Nasal Cannula 04/29/22 08:53 63 18 93 Nasal Cannula 04/29/22 07:30 36.4 C L 82 20 125/87 92 Nasal Cannula 04/29/22 05:33 53 L 22 89 L Nasal Cannula O2 Flow Rate 04/29/22 14:59 4 04/29/22 11:34 2 04/29/22 11:17 2 04/29/22 08:00 2 04/29/22 08:53 2 04/29/22 07:30 2 04/29/22 05:33 2 Laboratory Results Short CBC 04/29/22 Range/Units 06:16 WBC 16.61 H (4.8-10.8) K/ul Hgb 15.2 (14.0-18.0) g/dl Hct 43.7 (42.0-52.0) % Plt Count 256 (130-400) K/uL BMP 04/29/22 06:16 Sodium 137 Potassium 4.2 D Chloride 102 Carbon Dioxide 27 BUN 20 Creatinine 0.77 Glucose 189 H Calcium 9.6
[2022-04-29] MEDS: ATORVASTATIN 40 MG TAB PO SCH (20:07)
[2022-04-29] MEDS ORDERED: LANTUS PER UNIT CHARGE SQ SCH (21:00)
[2022-04-30] MEDS ORDERED: INSULIN ASPART PER UNIT SC SCH
[2022-04-30] MEDS: DOXYCYCLINE HYCLATE 100 MG CAP PO SCH ×2 (05:27→17:31)
[2022-04-30] MEDS: IPRATROPIUM BROMIDE NEB SOLN 0.02% 2.5 ML VIAL INH PRN ×4 (07:03→20:24)
[2022-04-30] MEDS: LEVALBUTEROL 1.25MG/0.5ML NEB INH SCH ×4 (07:04→20:25)
--- NOTE | 2022-04-30 07:30 | Cardiology Progress Note ---
Date of Service April 30, 2022 Assessment & Plan (1) Atrial fibrillation with RVR: Plan: -Remain off of diltiazem due to recent episode of acute on chronic HFpEF. Continue metoprolol to tartrate 25 mg 4 times daily. -Volume status remains positive, but clinically patient's volume status improving. Responding well to IV Lasix. Continue 40 mg IV daily. Prior to hospital treatment with HCTZ has been placed on hold. Continue spironolactone. -2 g sodium diet, daily standing weights. Strict I&O -Potassium goal of 4.0 mag goal of 2.0. Replete electrolytes as necessary. -Can anticipate as patient's respiratory and volume status improves heart rates will start to trend down. He is asymptomatic with AFIB- will continue rate control method at this time. Continue Eliquis 5 mg BID. (2) COPD exacerbation: Plan: - As per hospitalist service. (3) CAD (coronary artery disease): Plan: - Patient transition to our practice relatively recently having previously followed with Dr. Vázquez in [place]. Per Dr Chandler's outpatient note scanned to [facility], dated 07/27/2020, patient has a longstanding history of recurrent chest discomfort -2006, angioplasty and stenting of the circumflex coronary artery, [place]- seemingly he has been maintained on aspirin and clopidogrel since this intervention. -2009, repeat cardiac catheterization [place] 30% stenosis of LAD, 30% circumflex, 30% RCA -2016, cardiac catheterization, [place], 60% distal RCA stenosis, 50% distal circumflex in-stent stenosis-medical management recommended -Nonischemic dobutamine stress echocardiogram studies 2018, May 2021. -Continue aspirin 81 mg daily, atorvastatin, metoprolol. -Clopidogrel discontinued, in favor of Eliquis given development of atrial fibrillation. (4) HTN (hypertension): Plan: -Patient had not been taking his home lisinopril due to recent hypotension. -Metoprolol to be added as noted above. -Otherwise patient is on furosemide and spironolactone. Plan Case discussed with Dr. Montalvo- will follow. Admission and Anticipated Discharge Date Admission Date: April 26, 2022 Supervising Physician Co-Signing Physician Notes Cardiology Attending: I personally performed a history and physical examination on Mr Hylton. Agree with Guanaco Han'sMICHELET's findings and plan with additions as noted below. S: Shortness of breath significantly improved. IV diltiazem weaned to off. Exam: Pulm: mildly reduced BS at the bases CV: irregular, no murmur, no edema Continue Eliquis, Metoprolol, furosemide 40 mg IV daily, spironolactone 12.5 mg daily. Subjective 76 year old male with new onset PAF with RVR in the setting of COPD exacerbation/hypoxia. 04/27: Progressive shortness of breath/wheezing. Metoprolol stopped in favor of diltiazem drip. Was given 10 mg diltiazem bolus to start. Anticoagulated with heparin 04/28: Ventricular rates controlled on diltiazem drip. Metoprolol tartrate 25 mg twice daily restarted. Heparin transitioning to Eliquis. Plavix discontinued. Patient maintained on aspirin 81 mg daily -ECHO: Atrial fibrillation with ventricular rate in 90s to low 100s during echo study. Moderate asymmetric left ventricular hypertrophy. No regional wall motion abnormality. EF 55%. Right ventricle is normal size and function. Left atrium is mildly dilated. Mild mitral regurgitation. Left ventricular diastolic function is abnormal. 04/29: Acute on chronic diastolic CHF noted. Diltiazem discontinued. Metoprolol tartrate increased to 25 mg 4 times daily. Diuresed with 40 mg of IV Lasix-hydrochlorothiazide held. Spironolactone continued. 04/30: Patient seen an examined at bedside- chart and tele reviewed. Upon entrance into the room patient resting comfortably in bed. Stated that he is feeling much better compared to yesterday- decrease in SOB. Notes increased urination with IV lasix. No lower extremity edema. Remains on o2. Tele: AFIB with occasional PVCs 90-110s I&O: +3.9L Weight: 98.6kg >> 89.6 kg (04/30) Review of Systems Review of Systems: All systems reviewed & are unremarkable except as noted in HPI & below Physical Exam Constitutional: WD/WN, vitals as above no acute distress Eyes: PERRL, conjunctivae normal, anicteric sclerae Neck: normal visual inspection and trachea midline Respiratory: + labored breathing, + cough and + tachypneic; no respiratory distress Auscultation: + wheezes; no rales and no rhonchi Cardiovascular: Rate/Rhythm: + tachycardic and + irregularly irregular Vessels: no JVD Extremities: no edema Skin: no rashes, warm and dry Psychiatric: A+Ox3, euthymic affect Results & Data ([facility]) Vital Signs (Past 12 Hours) Vital Signs Temp Pulse Pulse Pulse Resp BP Pulse Ox 04/30/22 07:04 86 18 91 04/30/22 04:14 36.6 C 95 H 20 121/73 94 04/29/22 23:33 36.3 C L 89 22 119/79 95 04/29/22 22:07 96 H 04/29/22 20:00 O2 Del Method O2 Flow Rate 04/30/22 07:04 Nasal Cannula 3 04/30/22 04:14 Nasal Cannula 3.0 04/29/22 23:33 Nasal Cannula 3.0 04/29/22 22:07 04/29/22 20:00 3 Laboratory Results Comprehensive Metabolic Panel 04/30/22 Range/Units 06:24 Sodium 139 (136-145) mmol/L Potassium 3.9 (3.5-5.1) mmol/L Chloride 102 (98-107) mmol/L Carbon Dioxide 31 (21-32) mmol/L BUN 25 H (6-23) mg/dl Creatinine 0.87 (0.6-1.4) mg/dl Glucose 73 (70-99(Fasting)) mg/dl Calcium 10.1 (8.5-10.1) mg/dl Intake and Output 04/29/22 04/30/22 04/30/22 22:59 06:59 14:59 Intake Total 420 / 1325.667 250 / 1325.667 Output Total 3600 / 4200 600 / 4200 Balance -3180 / -2874.333 -350 / -2874.333 Intake: Oral 420 / 1190 250 / 1190 Output: Urine 3600 / 4200 600 / 4200 Other: Weight 89.6 kg Weight Measurement Method Built in [facility]
[2022-04-30 07:48] LABS: Calcium 10.1 mg/dl (8.5-10.1); Potassium 3.9 mmol/L (3.5-5.1)
[2022-04-30 07:54] LABS: BUN Creatinine Ratio 28.7 (10-20); Creatinine Clr Calc Pharmacy 77.1 ml/min; Est GFR (African American) 97.2 ml/min; Est GFR (Non-African American) 83.8 ml/min
--- NOTE | 2022-04-30 08:02 | Electrocardiogram Report ---
Test Reason : Blood Pressure : / mmHG Vent. Rate : 148 BPM Atrial Rate : 144 BPM P-R Int : 000 ms QRS Dur : 102 ms QT Int : 324 ms P-R-T Axes : 000 209 039 degrees QTc Int : 508 ms Poor data quality, interpretation may be adversely affected Atrial flutter Incomplete right bundle branch block Inferior infarct , age undetermined Anterolateral infarct (cited on or before 24-JAN-2021) Abnormal ECG Confirmed by Brain Lei ([id number] on 04/27/2022 3:13:15 PM Referred By: REFERRED SELF Confirmed By:Stiven Lei
[2022-04-30] MEDS: APIXABAN 5 MG TABLET PO SCH ×2 (08:06→21:22)
[2022-04-30] MEDS: ADVANCED PROBIOTIC 1250 MG CAPSULE PO SCH (08:07)
[2022-04-30] MEDS: guaiFENesin 600 MG TABCR PO SCH ×2 (08:07→21:22)
[2022-04-30] MEDS: FAMOTIDINE 20 MG TAB PO SCH ×2 (08:07→21:22)
[2022-04-30] MEDS: allopurinoL 300 MG TAB PO SCH (08:08)
[2022-04-30] MEDS: SPIRONOLACTONE 12.5 MG TAB PO SCH (08:08)
[2022-04-30] MEDS: predniSONE 20 MG TAB PO SCH (08:08)
[2022-04-30] MEDS: ASPIRIN 81 MG ECTAB PO SCH (08:08)
[2022-04-30] MEDS: METOPROLOL TARTRATE 25 MG TAB PO SCH ×4 (08:09→21:21)
[2022-04-30] MEDS: INSULIN HUMAN NPH SC SCH (08:15)
[2022-04-30] MEDS: PREGABALIN 150 MG CAP PO SCH ×3 (08:22→21:24)
[2022-04-30] MEDS: INSULIN ASPART PER UNIT SC SCH ×4 (08:23→21:24)
[2022-04-30] MEDS ORDERED: LANTUS PER UNIT CHARGE SQ SCH ×2 (09:00→21:00)
[2022-04-30] MEDS: FUROSEMIDE 40 MG/4 ML VIAL IV SCH (09:59)
--- NOTE | 2022-04-30 14:14 | Pharmacy Report ---
Pharmacy Glycemic Short Note 2 - Date of Service April 30, 2022 - Glycemic Short BSG Results (Last 24 hours): 04/29/22 04/29/22 04/30/22 16:11 20:11 06:24 Glucose 73 POC Glucose 77 75 04/30/22 04/30/22 07:20 11:38 Glucose POC Glucose 87 172 H OUTPATIENT ANTIDIABETIC REGIMEN: * Metformin ER 500 mg BID * Tresiba U-200: 26 units daily * Trulicity 1.5 mg subcutaneous injection weekly ASSESSMENT: 04/30/22 * Patient received total of 205 units of insulin yesterday, of which 45 units were basal insulin * Patient continues on prednisone 40 mg daily - will change to NPH to provide better coverage for steroid effects. Will trial 0.4 units/kg daily NPH with prednisone 40 mg * BSGs yesterday trending down at HS time yesterday, had very tight novolog parameters - plan to loosen for this morning * Fasting BSG 87 mg/dL - feel that patient may require some basal as he is on basal at home. Will add conservative scale for HS of 0-10 units in case BSGs are rising today 04/29/22 * BSGs yesterday were [phone] mg/dL. Patient received 182 units of insulin (65 units of basal and 117 units of bolus - this represents a 65% increase in insulin from the previous day). * Fasting this AM is 188 mg/dL. * Patient received Solu-Medrol 40 mg IV yesterday and was transitioned to PO prednisone this AM. NPH was not given due to concern for extra basal given last evening. The extra basal did not cause hypoglycemia ... NPH 0.4 units/kg or 40 units ordered for tomorrow with PO prednisone. * For Lantus, give 45 units this AM then scale for this evening. Expect PO prednisone's effects to not last as long as IV solu-Medrol? Full weight-based stress of 3 or 50 units of Lantus for tomorrow morning with NPH. * Novolog is currently extremely tight due to rapidly increasing BSGs. Can loosen slightly with NPH. * Overnight checks to see how long PO prednisone effects last. 04/28/22 * BSGs yesterday were [phone] and overnight were 265-218 mg/dL. * BSGs today are 201-296 mg/dL. * Patient continues on Solu-Medrol 40 mg IV once daily in AM. * Yesterday patient received 110 units of insulin (30 units of basal and 80 units of bolus). * Will give Lantus 45 units this morning (dose determined from yesterday's dose + overnight Novolog administration). * Tighten Novolog substantially. BACKGROUND * Patient presented to the ED with shortness of breath likely due to sepsis/COPD exacerbation. Patient is currently on IV steroids (Solumedol 125 mg once on 04/26/22; now Solumedrol 40 mg daily). As of today, diet was changed to NPO status and Novolog schedule was adjusted to q6h. PLAN FOR INPATIENT GLYCEMIC CONTROL: * Hold outpatient oral diabetes medications * Basal insulin * NPH 40 units daily with prednisone 40 mgd * Lantus 0-10 units HS tonight * Bolus insulin * NovoLog per scale Q6hrs while NPO * Goal Range: Low 100 mg/dL - High 140 mg/dL * Correction Factor: 12 mg/dL/unit * Nutritional / Prandial insulin per carb ratio of 1 unit per 4 grams CHO consumed
--- NOTE | 2022-04-30 16:30 | Hospitalist Progress Note ---
Date of Service April 30, 2022 Assessment & Plan (1) Atrial fibrillation with RVR: Plan: Acute on chronic respiratory failure with hypoxia Acute COPD Exacerbation Chronic Oxygen dependency: on 2L at baseline --CTA:Limited exam secondary to respiratory motion artifact. No pulmonary emboli identified. Bibasilar predominant groundglass densities suggest atelectasis. Hepatic steatosis. --Blood Cx: Negative to date --Procalcitonin <0.05 --Biofire: Negative --continue doxycycline, bronchodilators Continue supplemental Oxygen to keep Sats 88-92% Transition IV solu-medrol to prednisone Continue Pulmonary Hygiene May need 2 step prior to discharge Atrial fibrillation with RVR New Onset Elevated troponin--? Demand Ischemia due to COPD, Afib RVR [id number] score 5 -ECHO: Atrial fibrillation with ventricular rate in 90s to low 100s during echo study. Moderate asymmetric left ventricular hypertrophy. No regional wall motion abnormality. EF 55%. Right ventricle is normal size and function. Left atrium is mildly dilated. Mild mitral regurgitation. Left ventricular diastolic function is abnormal. On Cardizem drip--DCed IV heparin>>changed to Eliquis for anticoagulation Plavix discontinued Continue Metoprolol Appreciate cardiology input Checked cost for Eliquis $15 Acute on Chronic diastolic CHF CXR:Interval development of pulmonary vascular congestion with suspected mild pulmonary edema. Hold PO diuretics Monitor volume status Continue IV Lasix Diarrhea Check stool for C diff if re-occurs Currently resolved CAD (coronary artery disease): Continue aspirin, Lipitor Plavix discontinued as above Diabetes mellitus, type II: Last HbA1C: 8.4 hold home agents utilize Lantus and Novolog Glycemic pharmacy consulted Hypomagnesemia: Replace electrolytes as needed Monitor Elevated bilirubin: Likely hepatic steatosis DVT Px: Eliquis Admission and Anticipated Discharge Date Admission Date: April 26, 2022 Subjective Patient is seen and examined at bedside Dyspnea much improved No new complaints cough improved as well Denies any chest pain, dizziness, nausea, abd pain Review of Systems Review of Systems: All systems reviewed & are unremarkable except as noted in Subjective Physical Exam Physical Exam: Physical Exam: Vitals signs as noted above General Appearance:Obese, no apparent distress Head: normocephalic, Atraumatic Eyes: normal inspection, EOMI Neck: supple, Trachea midline Respiratory/Chest: Decreased breath sounds, CTA, No accessory muscle use Cardiovascular: Irregularly irregular, No murmur Abdomen/GI:Soft, Non tender, Bowel sounds present Extremities/Musculoskeletal:normal inspection, no edema Neurologic/Psych:AAOX3, grossly no focal neurological deficits Skin: normal color, warm Results & Data Results & Data ([facility]) Vital Signs (Past 12 Hours) Vital Signs Temp Pulse Pulse Resp BP Pulse Ox O2 Del Method 04/30/22 15:20 36.4 C L 117 H 18 123/84 94 Nasal Cannula 04/30/22 14:33 64 18 94 Nasal Cannula 04/30/22 11:47 36.9 C 85 18 130/75 93 Nasal Cannula 04/30/22 11:00 83 18 92 Nasal Cannula 04/30/22 07:35 Nasal Cannula 04/30/22 07:45 36.4 C L 85 20 160/96 H 96 Nasal Cannula 04/30/22 07:04 86 18 91 Nasal Cannula O2 Flow Rate 04/30/22 15:20 3 04/30/22 14:33 3 04/30/22 11:47 3 04/30/22 11:00 3 04/30/22 07:35 3 04/30/22 07:45 3 04/30/22 07:04 3 Laboratory Results [facility] 04/30/22 06:24 Sodium 139 Potassium 3.9 Chloride 102 Carbon Dioxide 31 BUN 25 H Creatinine 0.87 Glucose 73 Calcium 10.1
[2022-04-30] MEDS: ATORVASTATIN 40 MG TAB PO SCH (21:21)
[2022-04-30] MEDS ORDERED: POLYETHYLENE (MIRALAX) 17 GM PACK PO PRN (22:08)
[2022-05-01] MEDS: DOXYCYCLINE HYCLATE 100 MG CAP PO SCH ×2 (05:28→17:20)
[2022-05-01 06:04] LABS: Hematocrit (blood only) 48.9 % (42.0-52.0); Hemoglobin 17.8 g/dl (14.0-18.0); Mean Corpuscular Hemoglobin 31.7 pg (25.0-34.0); Mean Corpuscular Hgb Conc 36.4 g/dL (32.0-36.0); Mean Platelet Volume 10.1 fL (9.4-12.4); Nucleated RBC # (auto) 0.02 K/uL (0-0.12); Nucleated RBC % (auto) 0.1 %; Platelet Count 289 K/uL (130-400); RDW Standard Deviation 43.8 fL (36.4-46.3); Red Blood Count 5.62 M/uL (4.70-6.10); White Blood Count 17.36 K/ul (4.8-10.8)
[2022-05-01 06:20] LABS: BUN Creatinine Ratio 40.7 (10-20); Calcium 10.3 mg/dl (8.5-10.1); Creatinine Clr Calc Pharmacy 83.2 ml/min; Est GFR (African American) 100.1 ml/min; Est GFR (Non-African American) 86.3 ml/min; Potassium 3.8 mmol/L (3.5-5.1)
[2022-05-01] MEDS: IPRATROPIUM BROMIDE NEB SOLN 0.02% 2.5 ML VIAL INH PRN ×4 (07:07→19:21)
[2022-05-01] MEDS: LEVALBUTEROL 1.25MG/0.5ML NEB INH SCH ×4 (07:07→19:21)
--- NOTE | 2022-05-01 07:48 | Cardiology Progress Note ---
Date of Service May 01, 2022 Assessment & Plan (1) Atrial fibrillation with RVR: Plan: -Remain off of diltiazem due to recent episode of acute on chronic HFpEF. Continue metoprolol to tartrate 25 mg 4 times daily. -Volume status remains positive but trending downward, clinically patient's volume status improving. Responding well to IV Lasix. BUN elevated- Patient received 40 mg IV today. Will hold Lasix starting tomorrow. Prior to hospital treatment with HCTZ has been placed on hold. Continue spironolactone. -2 g sodium diet, daily standing weights. Strict I&O -Potassium goal of 4.0 mag goal of 2.0. Replete electrolytes as necessary. -Can anticipate as patient's respiratory and volume status improves heart rates will start to trend down. He is asymptomatic with AFIB- will continue rate control method at this time. Continue Eliquis 5 mg BID. (2) COPD exacerbation: Plan: - As per hospitalist service. (3) CAD (coronary artery disease): Plan: - Patient transition to our practice relatively recently having previously followed with Dr. Vázquez in [place]. Per Dr Chandler's outpatient note scanned to [employer], dated 07/27/2020, patient has a longstanding history of recurrent chest discomfort -2006, angioplasty and stenting of the circumflex coronary artery, [place]- seemingly he has been maintained on aspirin and clopidogrel since this intervention. -2009, repeat cardiac catheterization [place] 30% stenosis of LAD, 30% circumflex, 30% RCA -2016, cardiac catheterization, [place], 60% distal RCA stenosis, 50% distal circumflex in-stent stenosis-medical management recommended -Nonischemic dobutamine stress echocardiogram studies May 2021. -Continue aspirin 81 mg daily, atorvastatin, metoprolol. -Clopidogrel discontinued, in favor of Eliquis given development of atrial fibrillation. (4) HTN (hypertension): Plan: -Patient had not been taking his home lisinopril due to recent hypotension. -Metoprolol as noted above. -Otherwise patient is on furosemide and spironolactone. Plan Case discussed with Dr. Montalvo- will follow. Admission and Anticipated Discharge Date Admission Date: April 26, 2022 Supervising Physician Co-Signing Physician Notes Supervising Physician Attestation: I have personally performed a history and physical examination on the patient. I agree with the nurse practitioner's findings and plan as documented with the following additions. Subjective: Shortness of breath subjectively improved, lower extremity edema subjectively improved. Exam: Cardiovascular: Regular rhythm, no murmurs, trace pedal edema Data: BUN 33, creatinine 0.8 Assessment and Plan: Multifactorial shortness of breath with COPD exacerbation, new onset atrial fibrillation, acute heart failure with preserved ejection fraction -Hold a.m. furosemide 05/02/2022 pending results of labs, clinical assessment -Continue metoprolol for rate control, Eliquis for stroke prophylaxis -Elevated WBC count likely due to prednisone treatment. Eber Montalvo, DO Subjective 76 year old male with new onset PAF with RVR in the setting of COPD exacerbation/hypoxia. 04/27: Progressive shortness of breath/wheezing. Metoprolol stopped in favor of diltiazem drip. Was given 10 mg diltiazem bolus to start. Anticoagulated with heparin 04/28: Ventricular rates controlled on diltiazem drip. Metoprolol tartrate 25 mg twice daily restarted. Heparin transitioning to Eliquis. Plavix discontinued. Patient maintained on aspirin 81 mg daily 04/29: Acute on chronic diastolic CHF noted. Diltiazem discontinued. Metoprolol tartrate increased to 25 mg 4 times daily. Diuresed with 40 mg of IV Lasix- hydrochlorothiazide held. Spironolactone continued. 04/30: Ongoing diuresis with IV Lasix- vL status improving. Heart rates averaging in the 90-110s- asymptomatic. Ongoing rate control strategy over rhythm management due to lack of symptoms. 05/01: Patient seen an examined at bedside- chart and tele reviewed. Upon entrance into the room patient resting comfortably in bed- has been up and moving more. Feels better in regards to his sob- continues to wear supplemental oxygen. decrease in SOB. Voiding adequately with IV Lasix. No lower extremity edema. Remains on o2. Tele: AFIB with occasional PVCs 90-100s Weight: 98.6kg >> 90.4 kg (05/01) Review of Systems Review of Systems: All systems reviewed & are unremarkable except as noted in HPI & below Physical Exam Constitutional: WD/WN, vitals as above no acute distress Eyes: PERRL, conjunctivae normal, anicteric sclerae Neck: normal visual inspection and trachea midline Respiratory: + labored breathing and + cough; no respiratory distress Auscultation: + wheezes; no rales and no rhonchi Cardiovascular: Rate/Rhythm: + tachycardic and + irregularly irregular Vessels: no JVD Extremities: no edema Skin: no rashes, warm and dry Psychiatric: A+Ox3, euthymic affect Results & Data ([facility]) Vital Signs (Past 12 Hours) Vital Signs Temp Pulse Pulse Pulse Resp BP Pulse Ox 05/01/22 07:37 92 H 05/01/22 07:09 89 18 92 05/01/22 03:15 36.4 C L 97 H 20 128/82 93 04/30/22 22:07 112 H 04/30/22 20:45 04/30/22 22:48 36.4 C L 115 H 22 133/76 04/30/22 20:26 78 18 93 O2 Del Method O2 Flow Rate 05/01/22 07:37 05/01/22 07:09 Nasal Cannula 2 05/01/22 03:15 Nasal Cannula 2 04/30/22 22:07 04/30/22 20:45 Nasal Cannula 2 04/30/22 22:48 Nasal Cannula 2 04/30/22 20:26 Nasal Cannula 2 Laboratory Results CBC 05/01/22 Range/Units 05:43 WBC 17.36 H (4.8-10.8) K/ul RBC 5.62 (4.70-6.10) M/uL Hgb 17.8 (14.0-18.0) g/dl Hct 48.9 (42.0-52.0) % Plt Count 289 (130-400) K/uL Comprehensive Metabolic Panel 05/01/22 Range/Units 05:43 Sodium 137 (136-145) mmol/L Potassium 3.8 (3.5-5.1) mmol/L Chloride 102 (98-107) mmol/L Carbon Dioxide 27 (21-32) mmol/L BUN 33 H (6-23) mg/dl Creatinine 0.81 (0.6-1.4) mg/dl Glucose 70 (70-99(Fasting)) mg/dl Calcium 10.3 H (8.5-10.1) mg/dl Intake and Output 04/30/22 05/01/22 05/01/22 22:59 06:59 14:59 Intake Total 250 / 1150 300 / 1150 Output Total 800 / 3400 Balance -550 / -2250 300 / -2250 Intake: Oral 250 / 1150 300 / 1150 Output: Urine 800 / 3400 Other: Weight 90.4 kg Weight Measurement Method Built in [facility] Diagnostic Findings -ECHO 04/28/2022:Atrial fibrillation with ventricular rate in 90s to low 100s during echo study. Moderate asymmetric left ventricular hypertrophy. No regional wall motion abnormality. EF 55%. Right ventricle is normal size and function. Left atrium is mildly dilated. Mild mitral regurgitation. Left ventricular diastolic function is abnormal.
[2022-05-01] MEDS: INSULIN ASPART PER UNIT SC SCH ×4 (08:45→21:24)
[2022-05-01] MEDS: allopurinoL 300 MG TAB PO SCH (08:47)
[2022-05-01] MEDS: guaiFENesin 600 MG TABCR PO SCH ×2 (08:47→21:26)
[2022-05-01] MEDS: ADVANCED PROBIOTIC 1250 MG CAPSULE PO SCH (08:47)
[2022-05-01] MEDS: predniSONE 20 MG TAB PO SCH (08:47)
[2022-05-01] MEDS: ASPIRIN 81 MG ECTAB PO SCH (08:47)
[2022-05-01] MEDS: METOPROLOL TARTRATE 25 MG TAB PO SCH ×4 (08:47→21:25)
[2022-05-01] MEDS: SPIRONOLACTONE 12.5 MG TAB PO SCH (08:47)
[2022-05-01] MEDS: INSULIN HUMAN NPH SC SCH (08:48)
[2022-05-01] MEDS: FAMOTIDINE 20 MG TAB PO SCH ×2 (08:48→21:25)
[2022-05-01] MEDS: FUROSEMIDE 40 MG/4 ML VIAL IV SCH (08:48)
[2022-05-01] MEDS: APIXABAN 5 MG TABLET PO SCH ×2 (08:48→21:26)
[2022-05-01] MEDS: PREGABALIN 150 MG CAP PO SCH ×3 (08:55→21:25)
--- NOTE | 2022-05-01 17:00 | Hospitalist Progress Note ---
Date of Service May 01, 2022 Assessment & Plan (1) Atrial fibrillation with RVR: Plan: Acute on chronic respiratory failure with hypoxia Acute COPD Exacerbation Chronic Oxygen dependency: on 2L at baseline --CTA:Limited exam secondary to respiratory motion artifact. No pulmonary emboli identified. Bibasilar predominant groundglass densities suggest atelectasis. Hepatic steatosis. --Blood Cx: Negative to date --Procalcitonin <0.05 --Biofire: Negative --continue doxycycline, bronchodilators Continue supplemental Oxygen to keep Sats 88-92% Transition IV solu-medrol to prednisone Continue Pulmonary Hygiene May need 2 step prior to discharge We will complete prednisone taper course in 2 days Atrial fibrillation with RVR New Onset Elevated troponin--? Demand Ischemia due to COPD, Afib RVR [id number] score 5 -ECHO: Atrial fibrillation with ventricular rate in 90s to low 100s during echo study. Moderate asymmetric left ventricular hypertrophy. No regional wall motion abnormality. EF 55%. Right ventricle is normal size and function. Left atrium is mildly dilated. Mild mitral regurgitation. Left ventricular diastolic function is abnormal. On Cardizem drip--DCed IV heparin>>changed to Eliquis for anticoagulation Plavix discontinued Continue Metoprolol Appreciate cardiology input Checked cost for Eliquis $15 Transition to metoprolol succinate as able Acute on Chronic diastolic CHF CXR:Interval development of pulmonary vascular congestion with suspected mild pulmonary edema. Hold PO diuretics Monitor volume status IV Lasix-held Resume p.o. diuretics as able Diarrhea Check stool for C diff if re-occurs Currently resolved CAD (coronary artery disease): Continue aspirin, Lipitor Plavix discontinued as above Diabetes mellitus, type II: Last HbA1C: 8.4 hold home agents utilize Lantus and Novolog Glycemic pharmacy consulted Hypomagnesemia: Replace electrolytes as needed Monitor Elevated bilirubin: Likely hepatic steatosis DVT Px: Eliquis Admission and Anticipated Discharge Date Admission Date: April 26, 2022 Subjective Patient is seen and examined at bedside Feels better No complaints today Dyspnea, cough resolved Denies any chest pain, dizziness, nausea, abd pain Review of Systems Review of Systems: All systems reviewed & are unremarkable except as noted in Subjective Physical Exam Physical Exam: Physical Exam: Vitals signs as noted above General Appearance:Obese, no apparent distress Head: normocephalic, Atraumatic Eyes: normal inspection, EOMI Neck: supple, Trachea midline Respiratory/Chest: Decreased breath sounds, CTA, No accessory muscle use Cardiovascular: Irregularly irregular, No murmur Abdomen/GI:Soft, Non tender, Bowel sounds present Extremities/Musculoskeletal:normal inspection, no edema Neurologic/Psych:AAOX3, grossly no focal neurological deficits Skin: normal color, warm Results & Data Results & Data ([facility]) Vital Signs (Past 12 Hours) Vital Signs Temp Pulse Pulse Pulse Resp BP Pulse Ox 05/01/22 15:59 36.5 C 76 17 131/81 94 05/01/22 15:17 57 L 16 98 05/01/22 14:56 113 H 05/01/22 12:17 05/01/22 11:54 36.3 C L 90 18 156/83 H 92 05/01/22 11:00 80 18 05/01/22 07:55 36.3 C L 103 H 17 145/93 H 95 05/01/22 07:37 92 H 05/01/22 07:09 89 18 92 O2 Del Method O2 Flow Rate 05/01/22 15:59 Nasal Cannula 2 05/01/22 15:17 Nasal Cannula 2 05/01/22 14:56 05/01/22 12:17 Nasal Cannula 2 05/01/22 11:54 Nasal Cannula 2 05/01/22 11:00 Room Air 05/01/22 07:55 Nasal Cannula 2 05/01/22 07:37 05/01/22 07:09 Nasal Cannula 2 Laboratory Results Short CBC 05/01/22 Range/Units 05:43 WBC 17.36 H (4.8-10.8) K/ul Hgb 17.8 (14.0-18.0) g/dl Hct 48.9 (42.0-52.0) % Plt Count 289 (130-400) K/uL BMP 05/01/22 05:43 Sodium 137 Potassium 3.8 Chloride 102 Carbon Dioxide 27 BUN 33 H Creatinine 0.81 Glucose 70 Calcium 10.3 H
[2022-05-01] MEDS: ATORVASTATIN 40 MG TAB PO SCH (21:26)
[2022-05-02] MEDS: DOXYCYCLINE HYCLATE 100 MG CAP PO SCH ×2 (04:16→17:36)
[2022-05-02] MEDS: IPRATROPIUM BROMIDE NEB SOLN 0.02% 2.5 ML VIAL INH PRN ×3 (06:54→14:06)
[2022-05-02] MEDS: LEVALBUTEROL 1.25MG/0.5ML NEB INH SCH ×3 (06:54→14:07)
--- NOTE | 2022-05-02 07:38 | Cardiology Progress Note ---
Date of Service May 02, 2022 Assessment & Plan (1) Atrial fibrillation with RVR: Plan: -Remain off of diltiazem due to recent episode of acute on chronic HFpEF. Rates controlled- patient asymptomatic. Transition metoprolol tartrate 25 mg QID to metoprolol succinate 50 mg BID. -Continue ELiquis 5 mg BID for stroke prevention -Euvolemic on exam. Continue to hold Lasix [employer] HCTZ. Continue spironolactone- monitor potassium level (4.7 this am)- avoid K supplementation. -2 g sodium diet, daily standing weights. Strict I&O -Potassium goal of 4.0 mag goal of 2.0. Replete electrolytes as necessary. -Can anticipate as patient's respiratory and volume status improves heart rates will start to trend down. He is asymptomatic with AFIB- will continue rate control method at this time. Continue Eliquis 5 mg BID. -Once acute illness is resolved can consider cardioversion as an outpatient. (2) COPD exacerbation: Plan: - As per hospitalist service. (3) CAD (coronary artery disease): Plan: - Patient transition to our practice relatively recently having previously followed with Dr. Vázquez in [place]. Per Dr Chandler's outpatient note scanned to [facility], dated 07/27/2020, patient has a longstanding history of recurrent chest discomfort -2006, angioplasty and stenting of the circumflex coronary artery, [place]- seemingly he has been maintained on aspirin and clopidogrel since this intervention. -2009, repeat cardiac catheterization [place] 30% stenosis of LAD, 30% circ umflex, 30% RCA -2016, cardiac catheterization, [place], 60% distal RCA stenosis, 50% distal circumflex in-stent stenosis-medical management recommended -Nonischemic dobutamine stress echocardiogram studies May 2021. -Continue aspirin 81 mg daily, atorvastatin, metoprolol. -Clopidogrel discontinued, in favor of Eliquis given development of atrial fibrillation. (4) HTN (hypertension): Plan: -Patient had not been taking his home lisinopril due to recent hypotension. -Metoprolol as noted above. -Otherwise patient is on spironolactone, lasix on hold. Plan Case discussed with Dr. Montalvo- will follow. Admission and Anticipated Discharge Date Admission Date: April 26, 2022 Supervising Physician Co-Signing Physician Notes Cardiology attending: I personally performed a history and physical exam. Agree with findings and plan as outlined by MICHELET Babcock with additions as noted below. Subjective: Breathing improved Exam: Lungs clear to auscultation Cardiovascular irregular rhythm no murmurs, no edema Impression as above -Prior to hospital treatment with HCTZ to be transitioned to furosemide 20 mg daily. Continue spironolactone. Eliquis added for stroke prophylaxis this admission. Patient provided rebate card. Note: There is a typing error on his echocardiogram report this admission describing asymmetric left ventricular hypertrophy. This should be instead "moderate concentric left ventricular hypertrophy ". Subjective 76 year old male with new onset PAF with RVR in the setting of COPD exacerbation/hypoxia. 04/27: Progressive shortness of breath/wheezing. Metoprolol stopped in favor of diltiazem drip. Was given 10 mg diltiazem bolus to start. Anticoagulated with heparin. 04/28: Ventricular rates controlled on diltiazem drip. Metoprolol tartrate 25 mg twice daily restarted. Heparin transitioning to Eliquis. Plavix discontinued. Patient maintained on aspirin 81 mg daily. Echo technically limited-A. fib with ventricular rates in the 90s to low 100s. Moderate asymmetric left ventricular hypertrophy. No wall motion abnormalities. LVEF 55%. RV normal in size and function. Left atrium mildly dilated. Mild mitral regurg. No pulmonary hypertension. 04/29: Acute on chronic diastolic CHF noted. Diltiazem discontinued. Metoprolol tartrate increased to 25 mg 4 times daily. Diuresed with 40 mg of IV Lasix- hydrochlorothiazide held. Spironolactone continued. 04/30: Ongoing diuresis with IV Lasix- vL status improving. Heart rates averaging in the 90-110s- asymptomatic. Ongoing rate control strategy over rhythm management due to lack of symptoms. 05/01: Appears euvolemic on exam. labs trending towards being intravascularly dry- received IV Lasix held for 05/02.Blood cultures negative to date. 05/02: Patient seen an examined at bedside- chart and tele reviewed. Upon entrance into the room patient resting comfortably in bed- has been up and moving more. Feels better in regards to his sob- continues to wear supplemental oxygen. Decrease in SOB. No lower extremity edema. No acute CV concerns. Tele: AFIB with occasional PVCs 90-100s Weight: 98.6kg >> 92.6 kg (05/02) I&O: -344mL Review of Systems Review of Systems: All systems reviewed & are unremarkable except as noted in HPI & below Physical Exam Constitutional: WD/WN, vitals as above no acute distress Eyes: PERRL, conjunctivae normal, anicteric sclerae Neck: normal visual inspection and trachea midline Respiratory: normal respiratory effort; no respiratory distress and no cough Auscultation: no rales, no rhonchi and no wheezes Cardiovascular: Rate/Rhythm: + tachycardic and + irregularly irregular Vessels: no JVD Extremities: no edema Skin: no rashes, warm and dry Psychiatric: A+Ox3, euthymic affect Results & Data ([facility]) Vital Signs (Past 12 Hours) Vital Signs Temp Pulse Pulse Pulse Resp BP BP 05/02/22 06:54 104 H 20 05/02/22 03:31 36.3 C L 99 H 20 144/89 H 05/02/22 02:25 122 H 05/01/22 23:14 36.8 C 119 H 18 117/83 05/01/22 21:43 Pulse Ox O2 Del Method O2 Flow Rate 05/02/22 06:54 Room Air 05/02/22 03:31 92 Nasal Cannula 2.0 05/02/22 02:25 05/01/22 23:14 94 Nasal Cannula 2.0 05/01/22 21:43 Room Air Laboratory Results CBC 05/02/22 Range/Units 06:33 WBC 21.01 H (4.8-10.8) K/ul RBC 5.96 (4.70-6.10) M/uL Hgb 18.7 H (14.0-18.0) g/dl Hct 53.3 H (42.0-52.0) % Plt Count 308 (130-400) K/uL Comprehensive Metabolic Panel 05/02/22 Range/Units 06:33 Sodium 139 (136-145) mmol/L Potassium 4.7 D (3.5-5.1) mmol/L Chloride 102 (98-107) mmol/L Carbon Dioxide 31 (21-32) mmol/L BUN 35 H (6-23) mg/dl Creatinine 1.10 (0.6-1.4) mg/dl Glucose 143 H (70-99(Fasting)) mg/dl Calcium 10.4 H (8.5-10.1) mg/dl Intake and Output 05/01/22 05/02/22 05/02/22 22:59 06:59 14:59 Intake Total 755 / 805 50 / 805 Output Total 2302 / 2852 Balance -1547 / -2047 50 / -2047 Intake: Oral 755 / 805 50 / 805 Output: Urine 2300 / 2850 # Bowel Movements 2 / 2 Other: Weight 92.6 kg Weight Measurement Method Built in [facility]
[2022-05-02 07:48] LABS: Hematocrit (blood only) 53.3 % (42.0-52.0); Hemoglobin 18.7 g/dl (14.0-18.0); Mean Corpuscular Hemoglobin 31.4 pg (25.0-34.0); Mean Corpuscular Hgb Conc 35.1 g/dL (32.0-36.0); Mean Corpuscular Volume 89.4 fL (80.0-100.0); Platelet Count 308 K/uL (130-400); RDW Coefficient of Variation 14.5 % (11.5-14.5); Red Blood Count 5.96 M/uL (4.70-6.10); White Blood Count 21.01 K/ul (4.8-10.8)
[2022-05-02] MEDS: ASPIRIN 81 MG ECTAB PO SCH (08:15)
[2022-05-02] MEDS: guaiFENesin 600 MG TABCR PO SCH (08:16)
[2022-05-02] MEDS: ADVANCED PROBIOTIC 1250 MG CAPSULE PO SCH (08:16)
[2022-05-02] MEDS: FAMOTIDINE 20 MG TAB PO SCH (08:16)
[2022-05-02] MEDS: APIXABAN 5 MG TABLET PO SCH (08:16)
[2022-05-02] MEDS: allopurinoL 300 MG TAB PO SCH (08:16)
[2022-05-02] MEDS: METOPROLOL TARTRATE 25 MG TAB PO SCH (08:16)
[2022-05-02] MEDS ORDERED: CALCIUM CARBONATE 500 MG CHEWABLE TAB PO PRN (08:16)
[2022-05-02] MEDS: SPIRONOLACTONE 12.5 MG TAB PO SCH (08:16)
[2022-05-02 08:17] LABS: BUN Creatinine Ratio 31.8 (10-20); Calcium 10.4 mg/dl (8.5-10.1); Est GFR (African American) 75.2 ml/min; Est GFR (Non-African American) 64.9 ml/min; Potassium 4.7 mmol/L (3.5-5.1)
[2022-05-02] MEDS ORDERED: ALUMINUM/MAGNESIUM/SIMETH (MAALOX MAX) 30 ML UDC PO PRN (08:17)
[2022-05-02] MEDS: PREGABALIN 150 MG CAP PO SCH ×2 (08:25→13:48)
[2022-05-02] MEDS: INSULIN ASPART PER UNIT SC SCH ×3 (08:25→17:38)
[2022-05-02] MEDS ORDERED: INSULIN HUMAN NPH SC SCH (09:00)
[2022-05-02] MEDS ORDERED: predniSONE 20 MG TAB PO SCH (09:00)
[2022-05-02] MEDS ORDERED: COUGH DROP (SUGAR FREE) LOZ 24 LOZ/1 BOX BUCCAL ONE ×2 (09:43→09:44)
--- NOTE | 2022-05-02 10:27 | Pharmacy Report ---
Pharmacy Glycemic Short Note 2 - Date of Service May 02, 2022 - Glycemic Short BSG Results (Last 24 hours): 05/01/22 05/01/22 05/01/22 11:22 16:18 20:47 Glucose POC Glucose 161 H 138 H 157 H 05/02/22 05/02/22 06:33 07:17 Glucose 143 H POC Glucose 147 H OUTPATIENT ANTIDIABETIC REGIMEN: * Metformin ER 500 mg BID * Tresiba U-200: 26 units daily * Trulicity 1.5 mg subcutaneous injection weekly ASSESSMENT: 05/02/22 * Patient received total of 98 units of insulin yesterday, of which 40 units were NPH to help cover PO prednisone 40 mg * Fasting BSG 147 mg/dL - steroids decreased to 20 mg prednisone daily, therefore will decrease NPH by ~50% * Continue same CF/CR this morning, will loosen later today * May add scale for Lantus at HS time in case BSGs trending upward 04/30/22 * Patient received total of 205 units of insulin yesterday, of which 45 units were basal insulin * Patient continues on prednisone 40 mg daily - will change to NPH to provide better coverage for steroid effects. Will trial 0.4 units/kg daily NPH with prednisone 40 mg * BSGs yesterday trending down at HS time yesterday, had very tight novolog parameters - plan to loosen for this morning * Fasting BSG 87 mg/dL - feel that patient may require some basal as he is on basal at home. Will add conservative scale for HS of 0-10 units in case BSGs are rising today 04/29/22 * BSGs yesterday were [phone] mg/dL. Patient received 182 units of insulin (65 units of basal and 117 units of bolus - this represents a 65% increase in insulin from the previous day). * Fasting this AM is 188 mg/dL. * Patient received Solu-Medrol 40 mg IV yesterday and was transitioned to PO prednisone this AM. NPH was not given due to concern for extra basal given last evening. The extra basal did not cause hypoglycemia ... NPH 0.4 units/kg or 40 units ordered for tomorrow with PO prednisone. * For Lantus, give 45 units this AM then scale for this evening. Expect PO prednisone's effects to not last as long as IV solu-Medrol? Full weight-based stress of 3 or 50 units of Lantus for tomorrow morning with NPH. * Novolog is currently extremely tight due to rapidly increasing BSGs. Can loosen slightly with NPH. * Overnight checks to see how long PO prednisone effects last. 04/28/22 * BSGs yesterday were [phone] and overnight were 265-218 mg/dL. * BSGs today are 201-296 mg/dL. * Patient continues on Solu-Medrol 40 mg IV once daily in AM. * Yesterday patient received 110 units of insulin (30 units of basal and 80 units of bolus). * Will give Lantus 45 units this morning (dose determined from yesterday's dose + overnight Novolog administration). * Tighten Novolog substantially. BACKGROUND * Patient presented to the ED with shortness of breath likely due to sepsis/COPD exacerbation. Patient is currently on IV steroids (Solumedol 125 mg once on 04/26/22; now Solumedrol 40 mg daily). As of today, diet was changed to NPO status and Novolog schedule was adjusted to q6h. PLAN FOR INPATIENT GLYCEMIC CONTROL: * Hold outpatient oral diabetes medications * Basal insulin * NPH 25 units daily - with prednisone 20 mg daily * Lantus 0-10 units HS * Bolus insulin * NovoLog per scale Q6hrs while NPO * Goal Range: Low 100 mg/dL - High 140 mg/dL * Correction Factor: 10 mg/dL/unit * Nutritional / Prandial insulin per carb ratio of 1 unit per 3 grams CHO consumed
[2022-05-02] MEDS ORDERED: LANTUS PER UNIT CHARGE SQ ONE (12:00)
--- NOTE | 2022-05-02 13:21 | Hospitalist Progress Note ---
Date of Service May 02, 2022 Assessment & Plan (1) Atrial fibrillation with RVR: Plan: Acute on chronic respiratory failure with hypoxia Acute COPD Exacerbation Chronic Oxygen dependency: on 2L at baseline --CTA:Limited exam secondary to respiratory motion artifact. No pulmonary emboli identified. Bibasilar predominant groundglass densities suggest atelectasis. Hepatic steatosis. --Blood Cx: Negative to date --Procalcitonin <0.05 --Biofire: Negative --continue doxycycline, bronchodilators Continue supplemental Oxygen to keep Sats 88-92% Transitioned IV solu-medrol to prednisone Continue Pulmonary Hygiene Leukocytosis due to steoids 2 step: Needs 2 liters at rest and with activity Complete 7 day course of prednisone Atrial fibrillation with RVR New Onset Elevated troponin--? Demand Ischemia due to COPD, Afib RVR [id number] score 5 -ECHO: Atrial fibrillation with ventricular rate in 90s to low 100s during echo study. Moderate asymmetric left ventricular hypertrophy. No regional wall motion abnormality. EF 55%. Right ventricle is normal size and function. Left atrium is mildly dilated. Mild mitral regurgitation. Left ventricular diastolic function is abnormal. On Cardizem drip--DCed IV heparin>>changed to Eliquis for anticoagulation Plavix discontinued in favor of Eliquis Continue Metoprolol 50mg BID Appreciate cardiology input Checked cost for Eliquis $15 Cardiology to consider cardioversion as outpatient Needs follow up with Cardiology upon discharge Acute on Chronic diastolic CHF CXR:Interval development of pulmonary vascular congestion with suspected mild pulmonary edema. Monitor volume status Received IV Lasix Needs BMP 1 week upon discharge Plan to resume Lasix 20 mg daily and continue Aldactone 12.5 mg daily upon discharge Diarrhea Check stool for C diff if re-occurs Currently resolved CAD (coronary artery disease): Continue aspirin, Lipitor, metoprolol Plavix discontinued as above Diabetes mellitus, type II: Last HbA1C: 8.4 hold home agents utilize Lantus and Novolog Glycemic pharmacy consulted Hypomagnesemia: Replace electrolytes as needed Monitor Elevated bilirubin: Likely hepatic steatosis DVT Px: Eliquis Admission and Anticipated Discharge Date Admission Date: April 26, 2022 Subjective Patient is seen and examined at bedside No new complaints Had 2 step earlier today Dyspnea, cough resolved Denies any chest pain, dizziness, nausea, abd pain Plan to discharge home today Review of Systems Review of Systems: All systems reviewed & are unremarkable except as noted in Subjective Physical Exam Physical Exam: Physical Exam: Vitals signs as noted above General Appearance:Obese, no apparent distress Head: normocephalic, Atraumatic Eyes: normal inspection, EOMI Neck: supple, Trachea midline Respiratory/Chest: Decreased breath sounds, CTA, No accessory muscle use Cardiovascular: Irregularly irregular, No murmur Abdomen/GI:Soft, Non tender, Bowel sounds present Extremities/Musculoskeletal:normal inspection, no edema Neurologic/Psych:AAOX3, grossly no focal neurological deficits Skin: normal color, warm Results & Data Results & Data ([facility]) Vital Signs (Past 12 Hours) Vital Signs Temp Pulse Pulse Pulse Pulse Pulse Pulse 05/02/22 11:25 108 H 98 H 95 H 104 H 05/02/22 11:13 37.0 C 05/02/22 10:46 88 05/02/22 08:00 36.6 C 100 H 05/02/22 06:54 05/02/22 03:31 36.3 C L 99 H 05/02/22 02:25 122 H Pulse Resp Resp Resp Resp Resp BP 05/02/22 11:25 20 22 20 20 05/02/22 11:13 94 H 18 143/92 H 05/02/22 10:46 16 05/02/22 08:00 18 135/79 05/02/22 06:54 104 H 20 05/02/22 03:31 20 144/89 H 05/02/22 02:25 Pulse Ox Pulse Ox Pulse Ox Pulse Ox Pulse Ox O2 Del Method O2 Flow Rate 05/02/22 11:25 96 95 98 79 L 05/02/22 11:13 93 Room Air, Nasal Cannula 2 05/02/22 10:46 97 Nasal Cannula 2 05/02/22 08:00 97 Room Air 05/02/22 06:54 Room Air 05/02/22 03:31 92 Nasal Cannula 2.0 05/02/22 02:25 O2 Flow Rate O2 Flow Rate 05/02/22 11:25 2 2 05/02/22 11:13 05/02/22 10:46 05/02/22 08:00 05/02/22 06:54 05/02/22 03:31 05/02/22 02:25 Laboratory Results Short CBC 05/02/22 Range/Units 06:33 WBC 21.01 H (4.8-10.8) K/ul Hgb 18.7 H (14.0-18.0) g/dl Hct 53.3 H (42.0-52.0) % Plt Count 308 (130-400) K/uL [facility] 05/02/22 06:33 Sodium 139 Potassium 4.7 D Chloride 102 Carbon Dioxide 31 BUN 35 H Creatinine 1.10 Glucose 143 H Calcium 10.4 H
--- NOTE | 2022-05-02 13:41 | Discharge Summary ---
Date of Service May 02, 2022 Admission HPI Per Admitting Provider 76-year-old male with PMH DM type II, COPD, nocturnal hypoxia on 2 L of oxygen, CAD, chronic diastolic CHF, HTN, GERD, and other problems listed below who presents to the ED for evaluation of shortness of breath. Patient reports he has been feeling ill for the past 1 week. Reports progressive worsening shortness of breath. He has had a cough occasionally productive for thick, white mucus. Patient denies fevers and chills. He reports an occasional sharp left-sided chest pain. No specific causative or alleviating factors. Denies lightheadedness, dizziness, diaphoresis, syncopal events. Denies abdominal p ain, nausea, vomiting or diarrhea. No urinary symptoms. In the ED, patient was hypoxic in the high 80s on room air, currently requiring 3L to maintain saturations. Patient was also found to be in atrial fibrillation with RVR. Labs show WBC 15 K, HS troponin 231. CTA chest negative for pulmonary embolism. Patient was given nebulizer treatment, guaifenesin, magnesium replacement, IV Solu-Medrol, IV Zosyn, IVF. Admission Exam Per Admitting Provider Physical Exam Constitutional: WD/WN, vitals as above + ill appearing; no acute distress Eyes: PERRL, conjunctivae normal, anicteric sclerae ENMT: external ear and nose normal, oropharynx normal Respiratory: + labored breathing and able to speak in complete sentences Auscultation: + diminished lung sounds and + wheezes (expiratory) Cardiovascular: Rate/Rhythm: + tachycardic and + irregularly irregular Vessels: normal peripheral pulses Extremities: no edema Gastrointestinal (Abdomen): normal bowel sounds, soft, nontender, no hepatosplenomegaly Musculoskeletal: no cyanosis or clubbing, extremities motor strength 5/5 Skin: no rashes, warm and dry Neurologic: PERRL, EOMI, accommodation nl, no face palsy, no dysarthria Psychiatric: A+Ox3, euthymic affect Principal Diagnosis Acute on chronic respiratory failure with hypoxia Acute COPD Exacerbation Atrial fibrillation with RVR Acute on Chronic diastolic CHF Discharge Data Allergies Allergy/AdvReac Type Severity Reaction Status Date / Time No Known Allergies Allergy Verified 04/26/22 10:02 Consultations 04/26/22 11:34 ED Decision to Admit Stat 04/26/22 13:39 Consult Cardiology Routine Procedures Performed Laboratory Results WBC 21.01 K/ul (4.8-10.8) H 05/02/22 06:33 RBC 5.96 M/uL (4.70-6.10) 05/02/22 06:33 Hgb 18.7 g/dl (14.0-18.0) H 05/02/22 06:33 Hct 53.3 % (42.0-52.0) H 05/02/22 06:33 MCV 89.4 fL (80.0-100.0) 05/02/22 06:33 MCH 31.4 pg (25.0-34.0) 05/02/22 06:33 MCHC 35.1 g/dL (32.0-36.0) 05/02/22 06:33 RDW Std Deviation 45.0 fL (36.4-46.3) 05/02/22 06:33 RDW Coeff of Sheri 14.5 % (11.5-14.5) 05/02/22 06:33 Plt Count 308 K/uL (130-400) 05/02/22 06:33 MPV 10.0 fL (9.4-12.4) 05/02/22 06:33 Immature Gran % (Auto) 0.5 % 04/26/22 15:51 Neut % (Auto) 86.7 % 04/26/22 15:51 Lymph % (Auto) 11.7 % 04/26/22 15:51 [place] % (Auto) 0.9 % 04/26/22 15:51 Eos % (Auto) 0.1 % 04/26/22 15:51 Baso % (Auto) 0.1 % 04/26/22 15:51 Neut # (Auto) 7.48 K/uL (1.40-6.50) H 04/26/22 15:51 Lymph # (Auto) 1.01 K/uL (1.2-3.4) L 04/26/22 15:51 [place] # (Auto) 0.08 K/uL (0.11-0.59) L 04/26/22 15:51 Eos # (Auto) 0.01 K/uL (0-0.50) 04/26/22 15:51 Baso # (Auto) 0.01 K/uL (0-0.2) 04/26/22 15:51 Immature Gran # (Auto) 0.04 K/uL (0.01-0.20) 04/26/22 15:51 Absolute Nucleated RBC 0.02 K/uL (0-0.12) 05/01/22 05:43 Nucleated RBC % (auto) 0.1 % 05/01/22 05:43 PT 11.1 Seconds (9.0-12.0) 04/26/22 16:51 INR 1.0 (0.9-1.1) 04/26/22 16:51 APTT 52.3 Seconds (21.0-31.0) H* 04/28/22 06:03 PTT Ratio 1.9 04/28/22 06:03 ABG pH 7.44 (7.35-7.45) 04/26/22 12:13 ABG pCO2 35 mmHg (35-46) 04/26/22 12:13 ABG pO2 77 mmHg (80-95) L 04/26/22 12:13 ABG HCO3 24 mmol/L (19-24) 04/26/22 12:13 ABG O2 Saturation 97.2 % (90-95) H 04/26/22 12:13 ABG Base Excess 0.1 mEq/L (-9-1.8) 04/26/22 12:13 Saturnino Test Pos (Pos) 04/26/22 12:13 Oxygen Given 3L 04/26/22 12:13 Sodium 139 mmol/L (136-145) 05/02/22 06:33 Potassium 4.7 mmol/L (3.5-5.1) D 05/02/22 06:33 Chloride 102 mmol/L (98-107) 05/02/22 06:33 Carbon Dioxide 31 mmol/L (21-32) 05/02/22 06:33 Anion Gap 6 (3-11) 05/02/22 06:33 BUN 35 mg/dl (6-23) H 05/02/22 06:33 Creatinine 1.10 mg/dl (0.6-1.4) 05/02/22 06:33 Est Cr Clr Drug Dosing 62.0 ml/min 05/02/22 06:33 Est GFR ( Amer) 75.2 ml/min 05/02/22 06:33 Est GFR (Non-Af Amer) 64.9 ml/min 05/02/22 06:33 BUN/Creatinine Ratio 31.8 (10-20) H 05/02/22 06:33 Glucose 143 mg/dl (70-99(Fasting)) H 05/02/22 06:33 POC Glucose 312 mg/dl (70-99) H* 05/02/22 11:47 Lactate 3.9 mmol/L (0.4-2.0) H* 04/26/22 21:00 Calcium 10.4 mg/dl (8.5-10.1) H 05/02/22 06:33 Phosphorus 3.2 mg/dl (2.5-4.9) 04/26/22 09:12 Magnesium 2.0 mg/dl (1.7-2.4) 04/30/22 06:24 Total Bilirubin 2.7 mg/dl (0.2-1.0) H 04/26/22 09:12 AST 25 U/L (13-39) 04/26/22 09:12 ALT 32 U/L (7-52) 04/26/22 09:12 Alkaline Phosphatase 66 U/L (34-104) 04/26/22 09:12 Troponin I High Sens 237.2 pg/ml (0-20) H* D 04/27/22 06:42 B-Natriuretic Peptide 450 pg/ml (0-100) H 04/26/22 10:00 Total Protein 7.3 gm/dl (6.0-8.3) 04/26/22 09:12 Albumin 4.2 gm/dl (3.4-5.0) 04/26/22 09:12 Globulin 3.1 gm/dl (2.5-4.0) 04/26/22 09:12 Albumin/Globulin Ratio 1.4 (0.9-2) 04/26/22 09:12 Lipase 28 U/L (11-82) 04/26/22 09:12 Procalcitonin < 0.05 ng/ml (0-0.5) 04/26/22 12:06 Adenovirus (PCR) Not Detected (NotDetected) 04/26/22 18:00 B. pertussis DNA (PCR) Not Detected (NotDetected) 04/26/22 18:00 B.parapertussis DNA PCR Not Detected (NotDetected) 04/26/22 18:00 C. pneumoniae DNA (PCR) Not Detected (NotDetected) 04/26/22 18:00 Coronavirus OC43 (PCR) Not Detected (NotDetected) 04/26/22 18:00 Coronavirus HKU1 (PCR) Not Detected (NotDetected) 04/26/22 18:00 Coronavirus 229E (PCR) Not Detected (NotDetected) 04/26/22 18:00 SARS-CoV-2 (PCR) Not Detected (NotDetected) 04/26/22 18:00 Coronavirus NL63 (PCR) Not Detected (NotDetected) 04/26/22 18:00 Human Metapneumovir PCR Not Detected (NotDetected) 04/26/22 18:00 Influenza Type A (PCR) Not Detected (NotDetected) 04/26/22 18:00 Influenza Type B (PCR) Not Detected (NotDetected) 04/26/22 18:00 M. pneumoniae (PCR) Not Detected (NotDetected) 04/26/22 18:00 Parainfluenza 1 (PCR) Not Detected (NotDetected) 04/26/22 18:00 Parainfluenza 2 (PCR) Not Detected (NotDetected) 04/26/22 18:00 Parainfluenza 3 (PCR) Not Detected (NotDetected) 04/26/22 18:00 Parainfluenza 4 (PCR) Not Detected (NotDetected) 04/26/22 18:00 RSV (RT-PCR) Negative (Neg) 04/26/22 10:00 RSV (PCR) Not Detected (NotDetected) 04/26/22 18:00 Entero/Rhino (PCR) Not Detected (NotDetected) 04/26/22 18:00 Impressions Chest CTA 04/26/22 10:16 CT angio chest PE protocol CT DOSE: 765.95 mGy.cm HISTORY: 76 years-old Male with sob, r/o PE. Acute shortness of breath TECHNIQUE: Multiple CTA images of the chest were obtained after the intravenous administration of 112 ml Optiray. Coronal and sagittal MIPS were obtained from the axial data set and were submitted for review. All measurements were obtained according to NASCET criteria. A dose lowering technique was utilized adhering to the principles of ALARA. COMPARISON: CTA chest 09/06/2021 FINDINGS: CTA: Mild cardiomegaly without pericardial effusion. Extensive coronary artery calcifications. Atherosclerosis of the thoracic aorta without aneurysm. Study is degraded by respiratory motion artifact. No definite pulmonary emboli identified. CT CHEST: No thyroid nodule identified. Mildly enlarged right hilar lymph nodes measure up to 1.2 cm, nonspecific. Mild right hemidiaphragmatic elevation. No pneumothorax, pleural effusion or overt pulmonary edema. Subsegmental bibasilar groundglass densities are noted in conjunction with bronchial wall thickening. Central airways are patent. No acute process of the imaged upper abdomen. Hepatic steatosis. Unremarkable soft tissues. No acute fracture. Spondylitic spurring of the spine. IMPRESSION: 1. Limited exam secondary to respiratory motion artifact. No pulmonary emboli identified. 2. Bibasilar predominant groundglass densities suggest atelectasis. 3. Hepatic steatosis. ACT 112: Negative or not required by law. The above report was generated using voice recognition software. It may contain grammatical, syntax or spelling errors. Electronically signed by: Joey Schmidt M.D. 04/26/2022 11:24 AM Chest X-Ray 04/29/22 10:53 XR chest 1V portable CLINICAL HISTORY: dyspnea COMPARISON STUDY: Chest radiograph and chest CT April 26, 2022. FINDINGS: Lung volumes are mildly diminished. This is unchanged. No pneumothorax or pleural effusion is present. Interstitial thickening has developed. Cardiomediastinal silhouette is stable. No consolidation is identified. IMPRESSION: Interval development of pulmonary vascular congestion with suspected mild pulmonary edema. ACT 112: Negative or not required by law. Electronically signed by: Alden Ibarra M.D. 04/29/2022 11:54 AM Ordered Studies 04/26/22 10:16 CT angio chest PE protocol Stat Hospital Course (1) Atrial fibrillation with RVR: Acute on chronic respiratory failure with hypoxia Acute COPD Exacerbation Chronic Oxygen dependency: on 2L at baseline --CTA:Limited exam secondary to respiratory motion artifact. No pulmonary emboli identified. Bibasilar predominant groundglass densities suggest atelectasis. Hepatic steatosis. --Blood Cx: Negative to date --Procalcitonin <0.05 --Biofire: Negative --continue doxycycline, bronchodilators Continue supplemental Oxygen to keep Sats 88-92% Transitioned IV solu-medrol to prednisone Continue Pulmonary Hygiene Leukocytosis due to steoids 2 step: Needs 2 liters at rest and with activity Complete 7 day course of prednisone Atrial fibrillation with RVR New Onset Elevated troponin--? Demand Ischemia due to COPD, Afib RVR [id number] score 5 -ECHO: Atrial fibrillation with ventricular rate in 90s to low 100s during echo study. Moderate asymmetric left ventricular hypertrophy. No regional wall motion abnormality. EF 55%. Right ventricle is normal size and function. Left atrium is mildly dilated. Mild mitral regurgitation. Left ventricular diastolic function is abnormal. On Cardizem drip--DCed IV heparin>>changed to Eliquis for anticoagulation Plavix discontinued in favor of Eliquis Continue Metoprolol 50mg BID Appreciate cardiology input Checked cost for Eliquis $15 Cardiology to consider cardioversion as outpatient Needs follow up with Cardiology upon discharge Acute on Chronic diastolic CHF CXR:Interval development of pulmonary vascular congestion with suspected mild pu lmonary edema. Monitor volume status Received IV Lasix Needs BMP 1 week upon discharge Plan to resume Lasix 20 mg daily and continue Aldactone 12.5 mg daily upon discharge Diarrhea Check stool for C diff if re-occurs Currently resolved CAD (coronary artery disease): Continue aspirin, Lipitor, metoprolol Plavix discontinued as above Diabetes mellitus, type II: Last HbA1C: 8.4 hold home agents utilize Lantus and Novolog Glycemic pharmacy consulted Hypomagnesemia: Replace electrolytes as needed Monitor Elevated bilirubin: Likely hepatic steatosis DVT Px: Eliquis Total Time Total Time Spent Total Time Spent (In Minutes): 45 minutes Discharge Plan Discharge Items Patient Disposition: Home - Self-Care Reason For Visit: COPD EXACERBATION Discharge Diagnosis: Acute on chronic respiratory failure with hypoxia Acute COPD Exacerbation Atrial fibrillation with RVR Acute on Chronic diastolic CHF Activity: Per Instructions section Exercise/Sports: Wait until after follow-up appointment Non-emergency contact: Primary Care Provider and Divisional Human Resources Director Call non-emergency contact if: you have any medication questions, your symptoms worsen, your pain is concerning for you and you have a fever Follow-up/Referrals: Cristian Nixon MD [Primary Care Provider] - (Date & Time 05/07/2022 11:00 AM Provider Cristian Nixon MD Department [facility] ) Diet: Carb Consistent or DM2, Heart Healthy and Low Sodium (2gm) Addtl Attending Provider Instructions: Follow-up with your primary care physician on 05/07/2022 11:00 AM Follow-up with your biomass production manager Dr. Montalvo in 4 weeks as advised --Get Blood Test (Complete blood count and Basic Metabolic Panel) in 1 week and follow up with your primary care physician/biomass production manager as advised. --- Use supplemental oxygen 2 L at rest and with activity. Seek immediate medical attention if your symptoms reoccur or worsen Please take all medications as instructed on discharge list below. Please call if you have any questions or problems. You can reach a [facility] hospitalist on duty at [facility] 24 hours a day by calling [phone] Call your Primary Care doctor if any of the following symptoms or problems start or get worse: * Shortness of breath or difficulty breathing * Wake up at night short of breath * Chest pain * Cough * Swelling of your hands, feet, or legs * More fatigued or tired with your normal activity * Palpitations - sudden fast heart beats WEIGHT * Weigh yourself every morning after using the bathroom. * Use the same scale. * Wear the same amount of clothing. * Write your weight down on a chart. * Call your Primary Care doctor if you gain more than 2-3 pounds in 1-2 days. MEDICATIONS * Use this discharge instruction sheet for medication instructions. * Take your medications at the time your doctor ordered. * Do not skip a dose of your medicines. * If you miss a dose of medicine, take it as soon as possible, but DO NOT DOUBLE A DOSE. * Read your medicine information when you get home. * Know all of the side effects of your medicine. If in doubt, ask your pharmacist * Call your Primary Care doctor's office if you have any side effects. * Be sure all of your doctors know what medicine and herbs you take (including cold, flu, and herbal medicine). Take the following with you to your follow-up doctor appointments: * Weight Chart * Medication List * List of questions Do not drink excessive alcohol, beer or wine. Pending Studies at Discharge: No Stand-Alone Forms: My [facility], Smoking Cessation Medications and DC Order Prescriptions: New Eliquis 5 mg Tablet 5 mg PO BID Qty: 60 1RF metoprolol succinate 50 mg Tablet Extended Release 24 Hr 50 mg PO BID Qty: 60 2RF furosemide [Lasix] 20 mg tablet 20 mg PO DAILY Qty: 30 2RF fluticasone propion-salmeterol [Advair Diskus] 250-50 mcg/dose blister with device 1 inh inhalation BID Qty: 60 1RF Continued multivitamin Tablet 1 tab PO QAM aspirin [Lore Low Dose Aspirin] 81 mg Tablet,Delayed Release (Dr/Ec) 81 mg PO QAM allopurinol 300 mg tablet 300 mg PO QAM famotidine 20 mg tablet 20 mg PO BID pregabalin 100 mg capsule 150 mg PO TID Trulicity 0.75 mg/0.5 mL pen injector 1.5 mg SUBCUT WK Rx Instructions: TAKE THIS MED EVERY SATURDAY insulin degludec [Tresiba FlexTouch U-100] 100 unit/mL (3 mL) insulin pen 26 unit SUBCUT QDD Label Comments: provider increased dose from 24 units to 26 units prior to admit albuterol sulfate 90 mcg/actuation Hfa Aerosol Inhaler 2 puff INHALATION QID PRN (Reason: Shortness Of Breath Or Wheezing) atorvastatin 40 mg tablet 40 mg PO HS spironolactone 25 mg tablet 12.5 mg PO DAILY metformin 500 mg tablet extended release 24 hr 500 mg PO BID Discontinued clopidogrel 75 mg tablet 75 mg PO QAM metoprolol tartrate 25 mg tablet 25 mg PO QAM Rx Instructions: PER PT "ONLY TAKING IN AM", EXT MED HX "BID". hydrochlorothiazide 12.5 mg capsule 12.5 mg PO DAILY Discharge Orders: Discharge Order- CHF (Routine); Ordered 05/02/22 Ordered By: Lowell Hahn Admission Data Admit Date/Time: 04/26/22 11:35 Attending Provider: Lowell Hahn Admit Provider: González Rainey Primary Care Provider: Cristian Nixon Other Providers: González Rainey ; Iglesia Sharp
[2022-05-02] MEDS ORDERED: METOPROLOL SUCC 50MG EXT REL TAB PO SCH (21:00)
== END 2022-05-02 18:32 | disposition home or self-care (01) | DRG 871 ==
LOC: ED 08:54 → SUATTDRO 11:35 → EDINP 11:35 → 2S 14:21

== ENCOUNTER 2022-05-23 17:51 | Inpatient (IN) ==
--- NOTE | 2022-05-23 18:00 | ED Triage Note ---
Date of Service May 23, 2022 History of Present Illness This patient was briefly evaluated while in triage. An abbreviated physical exam was performed. This patient is a 76-year-old Male with past medical history of COPD, afib, CHF, DM, CAD who presents to the ED for evaluation of shortness of breath since Saturday increased oxygen from 2.5->3L elevated heart rate last night and chest tightness Physical Exam GENERAL: Ambulatory into triage with oxygen, mild conversational dyspnea CARDIOVASCULAR: RRR RESPIRATORY: diminished throughout, scattered wheezes ABDOMEN: BS x 4. Nontender to palpation. Initial orders for labs and / or imaging were placed and patient was placed in the waiting area until a bed is available. Please see further documentation for the full ED course.
[2022-05-23] MEDS ORDERED: LEVALBUTEROL HCL 0.63 MG/3 ML NEB NEB STA (18:20)
--- NOTE | 2022-05-23 18:56 | Emergency Department Note ---
History of Present Illness General Chief Complaint: Shortness of Breath/Dyspnea Stated Complaint: TROUBLE BREATHING Time Seen by Provider: 05/23/22 18:08 History of Present Illness Provider Complaint: shortness of breath Onset (ago): day(s) (3) Consistency/Duration: + progressively worsening Exacerbated By: + coughing; not by lying flat or not by exertion Known history of: COPD and congestive heart failure Associated symptoms: + wheezing, + sputum production (Blood-streaked) and + chest congestion; no chest pain, no orthopnea or no hemoptysis Treatment prior to arrival: oxygen Related Data Home oxygen amount: 2 liters Home Medications Medication Instructions Recorded Confirmed Type allopurinol 300 mg tablet 300 mg PO QAM 11/05/18 05/23/22 History aspirin 81 mg tablet,delayed 81 mg PO QA 11/05/18 05/23/22 History release (Lore Low Dose Aspirin) albuterol sulfate 90 mcg/actuation 2 puff inhalation Q4 PRN Shortness 02/21/20 05/23/22 History aerosol inhaler Of Breath Or Wheezing famotidine 20 mg tablet 20 mg PO [facility] 02/21/20 05/23/22 History insulin degludec 100 unit/mL (3 26 unit subcut QDD 02/21/20 05/23/22 History mL) subcutaneous pen (Tresiba FlexTouch U-100 insulin) atorvastatin 40 mg tablet 40 mg PO HS 06/18/21 05/23/22 History spironolactone 25 mg tablet 12.5 mg PO QAM 06/18/21 05/23/22 History metformin 500 mg tablet,extended 1,000 mg PO DAILY 02/17/22 05/23/22 History release 24 hr apixaban 5 mg tablet (Eliquis) 5 mg PO [facility] 05/23/22 05/23/22 History dulaglutide 1.5 mg/0.5 mL 1.5 mg subcut [facility] 05/23/22 05/23/22 History subcutaneous pen injector (Trulicity) fluticasone 250 mcg-salmeterol 50 1 inh inhalation [facility] 05/23/22 05/23/22 History mcg/dose blistr powdr for inhalation (Advair Diskus) furosemide 20 mg tablet (Lasix) 40 mg PO BID 05/23/22 05/23/22 History metoprolol succinate 50 mg 50 mg PO [facility] 05/23/22 05/23/22 History tablet,extended release 24 hr multivit,Ca,[id number]-GV-akratssx-lutn 1 tab PO DAILY 05/23/22 05/23/22 History 18 mg-500 mcg-300 mcg-250 mcg tablet pregabalin 150 mg capsule 150 mg PO TID 05/23/22 05/23/22 History Allergies Allergy/AdvReac Type Severity Reaction Status Date / Time No Known Allergies Allergy Verified 05/23/22 20:28 Past Med/Surg History Medical History Antiplatelet or antithrombotic long-term use CAD (coronary artery disease) status post coronary intervention with stent to the circumflex marginal branch 2006, moderate diffuse atherosclerosis nonobstructive 2014 Cardiac murmur Chronic diastolic CHF (congestive heart failure) COPD, mild Diabetes mellitus, type 2 Dyslipidemia Gout Herniated intervertebral disc [place] (hard of hearing) HTN (hypertension) Neuropathy JENNIFER (obstructive sleep apnea) does not tolerate CPAP/BiPAP Osteoarthritis Surgical History H/O heart artery stent x 1 (2006) - Follows w/ Dr. Chandler History of amputation of left thumb History of cardiac catheterization 2014 - [facility] - no stents 10/28/06 - [facility] to circumflex, marginal at [facility], Dr Hagan History of colonoscopy History of right cataract surgery Family History Brother Coronary heart disease Lung cancer Mother Family history of diabetes mellitus Other Hypertension Social History Smoking Status: Never smoker Tobacco Type: Cigarettes Cigarettes Per Day: Quit 1985, smoked 2ppd x 25 years; Second Hand Exposure: No; Hx Alcohol Use: Yes Alcohol type: beer Hx Substance Use: No Preferred Language: Maltese Communication Ability: Effective Top Tile Decorator Required: No Beliefs That Will Affect Care: None marital status: / Current Living Situation: Family Current Living Situation Comment: family next door current occupational status: retired How many Children do You have: 2 Feels Safe at Home: Yes Assistive Devices: Cane and Walker Physical Exam Vital Signs: Vital Signs - 24 hr 05/23/22 17:59 05/23/22 18:13 05/23/22 18:13 Temperature 36.8 C Temperature Source Temporal Artery Sc an Pulse Rate 100 H Pulse Rate [Apical ] Pulse Rate from Sp O2 Sensor Respiratory Rate 28 H Respiratory Effort / Characteristics SOB on Exertion Short of Breath Tr ipoding Blood Pressure 115/84 Blood Pressure [Le ft Arm] Blood Pressure Smitha n 94 Blood Pressure Smitha n [Left Arm] Pulse Oximetry 95 95 Oxygen Delivery Me thod Nasal Cannula Nasal Cannula Nasal Cannula Oxygen Flow Rate 3 3 Sepsis Recent Feve r Within 48 Hours No Sepsis New/Unexpla ined Change in Men yuli Status No Sepsis Action Take n by Nursing No Action Required 05/23/22 18:15 05/23/22 18:17 05/23/22 18:25 Temperature Temperature Source Pulse Rate 113 H Pulse Rate [Apical ] 135 H Pulse Rate from Sp O2 Sensor Respiratory Rate 16 Respiratory Effort / Characteristics SOB on Exertion Blood Pressure Blood Pressure [Le ft Arm] 122/89 Blood Pressure Smitha n Blood Pressure Smitha n [Left Arm] 100 Pulse Oximetry 96 96 Oxygen Delivery Me thod Nasal Cannula Nasal Cannula Oxygen Flow Rate 3 3 Sepsis Recent Feve r Within 48 Hours Sepsis New/Unexpla ined Change in Men yuli Status Sepsis Action Take n by Nursing 05/23/22 20:00 05/23/22 18:24 05/23/22 18:30 Temperature Temperature Source Pulse Rate 97 H 94 H Pulse Rate [Apical ] Pulse Rate from Sp O2 Sensor 109 H 91 H Respiratory Rate 24 15 Respiratory Effort / Characteristics Blood Pressure Blood Pressure [Le ft Arm] Blood Pressure Smitha n Blood Pressure Smitha n [Left Arm] Pulse Oximetry 95 96 Oxygen Delivery Me thod Nasal Cannula Oxygen Flow Rate 4 Sepsis Recent Feve r Within 48 Hours Sepsis New/Unexpla ined Change in Men yuli Status Sepsis Action Take n by Nursing 05/23/22 18:40 05/23/22 18:45 05/23/22 18:45 Temperature Temperature Source Pulse Rate 121 H 110 H Pulse Rate [Apical ] Pulse Rate from Sp O2 Sensor 118 H 108 H Respiratory Rate 17 23 Respiratory Effort / Characteristics Blood Pressure 135/101 H Blood Pressure [Le ft Arm] Blood Pressure Smitha n 112 Blood Pressure Smitha n [Left Arm] Pulse Oximetry 90 95 Oxygen Delivery Me thod Oxygen Flow Rate Sepsis Recent Feve r Within 48 Hours Sepsis New/Unexpla ined Change in Men yuli Status Sepsis Action Take n by Nursing 05/23/22 18:50 05/23/22 19:00 05/23/22 19:10 Temperature Temperature Source Pulse Rate 146 H 107 H 89 Pulse Rate [Apical ] Pulse Rate from Sp O2 Sensor 113 H 105 H 88 Respiratory Rate 23 23 23 Respiratory Effort / Characteristics Blood Pressure Blood Pressure [Le ft Arm] Blood Pressure Smitha n Blood Pressure Smitha n [Left Arm] Pulse Oximetry 94 95 95 Oxygen Delivery Me thod Oxygen Flow Rate Sepsis Recent Feve r Within 48 Hours Sepsis New/Unexpla ined Change in Men yuli Status Sepsis Action Take n by Nursing 05/23/22 19:20 05/23/22 19:30 05/23/22 19:40 Temperature Temperature Source Pulse Rate 93 H 102 H 87 Pulse Rate [Apical ] Pulse Rate from Sp O2 Sensor 95 H 95 H 88 Respiratory Rate 25 H 26 H 18 Respiratory Effort / Characteristics Blood Pressure Blood Pressure [Le ft Arm] Blood Pressure Smitha n Blood Pressure Smitha n [Left Arm] Pulse Oximetry 94 96 97 Oxygen Delivery Me thod Oxygen Flow Rate Sepsis Recent Feve r Within 48 Hours Sepsis New/Unexpla ined Change in Men yuli Status Sepsis Action Take n by Nursing 05/23/22 19:50 05/23/22 20:00 05/23/22 20:10 Temperature Temperature Source Pulse Rate 85 101 H 86 Pulse Rate [Apical ] Pulse Rate from Sp O2 Sensor 84 103 H 105 H Respiratory Rate 21 24 24 Respiratory Effort / Characteristics Blood Pressure Blood Pressure [Le ft Arm] Blood Pressure Smitha n Blood Pressure Smitha n [Left Arm] Pulse Oximetry 97 95 96 Oxygen Delivery Me thod Oxygen Flow Rate Sepsis Recent Feve r Within 48 Hours Sepsis New/Unexpla ined Change in Men yuli Status Sepsis Action Take n by Nursing 05/23/22 20:20 05/23/22 20:30 05/23/22 20:40 Temperature Temperature Source Pulse Rate 96 H 88 83 Pulse Rate [Apical ] Pulse Rate from Sp O2 Sensor 93 H 93 H 85 Respiratory Rate 19 23 18 Respiratory Effort / Characteristics Blood Pressure Blood Pressure [Le ft Arm] Blood Pressure Smitha n Blood Pressure Smitha n [Left Arm] Pulse Oximetry 97 97 96 Oxygen Delivery Me thod Oxygen Flow Rate Sepsis Recent Feve r Within 48 Hours Sepsis New/Unexpla ined Change in Men yuli Status Sepsis Action Take n by Nursing 05/23/22 20:44 05/23/22 20:44 05/23/22 20:50 Temperature Temperature Source Pulse Rate 88 91 H Pulse Rate [Apical ] Pulse Rate from Sp O2 Sensor 84 90 Respiratory Rate 15 19 Respiratory Effort / Characteristics Blood Pressure 115/70 Blood Pressure [Le ft Arm] Blood Pressure Smitha n 85 Blood Pressure Smitha n [Left Arm] Pulse Oximetry 96 95 Oxygen Delivery Me thod Oxygen Flow Rate Sepsis Recent Feve r Within 48 Hours Sepsis New/Unexpla ined Change in Men yuli Status Sepsis Action Take n by Nursing Physical Exam: Physical Exam GENERAL: He is oriented to person, place, and time. He appears well-developed and well-nourished. He does not appear distressed. HENT: Exam performed. - Head: Normocephalic and atraumatic. NECK: Normal range of motion. Neck supple. No JVD present. No spinous process tenderness present. CV: Normal rate, regular rhythm, normal heart sounds and intact distal pulses. There is no peripheral edema. Palpable radial pulses bue. PULM/CHEST: Expiratory wheezes and inspiratory rales at the bases. ABD: The abdomen is soft. NEURO: Motor and sensation grossly intact. Course Course 1808: The patient was evaluated in room C5. A complete history and physical exam was performed Cardiac monitoring: An order was placed for continuous cardiac monitoring. The monitor shows a rate of 110 with atrial fibrillation rhythm interpreted by me 2000: Vital signs stable on supplemental oxygen. Labs within normal limits with the exception of a BNP elevated at 210 imaging shows cardiomegaly and cephalization. Patient be treated with Lasix 40 mg admitted to the [facility] Hospitalist team Dr. Molina's team will be notified. Administered Medications Insulin Aspart (Insulin Aspart Per Unit) 0 units SC ACHS [facility] Stop: 06/22/22 21:49 Last Admin: 05/23/22 22:24 Dose: 4 units Documented By: RSL Co-signed By: MED Discontinued Medications Furosemide (Furosemide 40 Mg/4 Ml Vial) 40 mg IV ONE ONE Stop: 05/23/22 19:47 Last Admin: 05/23/22 20:46 Dose: 40 mg Documented By: RSL Furosemide (Furosemide 40 Mg/4 Ml Vial) 40 mg IV ONE ONE Stop: 05/23/22 19:55 Last Admin: 02/22/23 20:38 Dose: Not Given Documented By: BOSSMAN Insulin Glargine (Lantus Per Unit Charge) 20 units SQ NOW STA Stop: 05/23/22 21:48 Last Admin: 05/23/22 22:25 Dose: 20 units Documented By: BOSSMAN Co-signed By: JF Levalbuterol HCl (Levalbuterol Hcl 0.63 Mg/3 Ml Neb) 0.63 mg NEB NOW STA; Protocol Stop: 05/23/22 18:21 Last Admin: 05/23/22 18:30 Dose: 0.63 mg Documented By: BRANT Metoprolol Succinate (Metoprolol Succ 50mg Ext Rel Tab) 50 mg PO NOW STA Stop: 05/23/22 20:42 Last Admin: 05/23/22 22:24 Dose: 50 mg Documented By: BOSSMAN Medical Decision Making Laboratory Data Attestation: I reviewed the patient's lab results. 05/23/22 18:17 05/23/22 18:17 Lab Results 05/23/22 05/23/22 05/23/22 Range/Units 18:17 18:17 18:17 WBC 10.24 (4.8-10.8) K/ul RBC 4.50 L (4.70-6.10) M/uL Hgb 14.0 (14.0-18.0) g/dl Hct 39.8 L (42.0-52.0) % MCV 88.4 (80.0-100.0) fL MCH 31.1 (25.0-34.0) pg MCHC 35.2 (32.0-36.0) g/dL RDW Std Deviation 46.0 (36.4-46.3) fL RDW Coeff of Sheri 14.2 (11.5-14.5) % Plt Count 267 (130-400) K/uL MPV 10.2 (9.4-12.4) fL Immature Gran % (Auto) 0.4 % Neut % (Auto) 58.1 % Lymph % (Auto) 23.6 % Dale % (Auto) 11.7 % Eos % (Auto) 5.6 % Baso % (Auto) 0.6 % Neut # (Auto) 5.95 (1.40-6.50) K/uL Lymph # (Auto) 2.42 (1.2-3.4) K/uL Dale # (Auto) 1.20 H (0.11-0.59) K/uL Eos # (Auto) 0.57 H (0-0.50) K/uL Baso # (Auto) 0.06 (0-0.2) K/uL Immature Gran # (Auto) 0.04 (0.01-0.20) K/uL PT 11.4 (9.0-12.0) Seconds INR 1.1 (0.9-1.1) APTT 28.5 (21.0-31.0) Seconds PTT Ratio 1.0 VBG pH (7.36-7.41) VBG pCO2 (38-50) mmHg VBG pO2 mmHg VBG HCO3 mmol/L VBG O2 Saturation % VBG Base Excess mEq/L Sodium 136 (136-145) mmol/L Potassium 4.3 (3.5-5.1) mmol/L Chloride 102 (98-107) mmol/L Carbon Dioxide 27 (21-32) mmol/L Anion Gap 7 (3-11) BUN 22 (6-23) mg/dl Creatinine 0.89 (0.6-1.4) mg/dl Est Cr Clr Drug Dosing Not Reportable Est GFR ( Amer) 96.3 ml/min Est GFR (Non-Af Amer) 83.1 ml/min BUN/Creatinine Ratio 24.7 H (10-20) Glucose 383 H* (70-99(Fasting)) mg/dl POC Glucose (70-99) mg/dl Estimat Average Glucose mg/dl Hemoglobin A1c (4.5-5.6) % Calcium 9.3 (8.5-10.1) mg/dl Magnesium 1.7 (1.7-2.4) mg/dl Total Bilirubin 2.6 H (0.2-1.0) mg/dl AST 15 (13-39) U/L ALT 20 (7-52) U/L Alkaline Phosphatase 78 (34-104) U/L Troponin I High Sens 10.8 (0-20) pg/ml B-Natriuretic Peptide (0-100) pg/ml Total Protein 7.5 (6.0-8.3) gm/dl Albumin 4.2 (3.4-5.0) gm/dl Globulin 3.3 (2.5-4.0) gm/dl Albumin/Globulin Ratio 1.3 (0.9-2) SARS-CoV-2 (PCR) (Negative) Influenza Type A (PCR) (Neg) Influenza Type B (PCR) (Neg) RSV (RT-PCR) (Neg) 05/23/22 05/23/22 05/23/22 Range/Units 18:17 18:24 20:41 WBC (4.8-10.8) K/ul RBC (4.70-6.10) M/uL Hgb (14.0-18.0) g/dl Hct (42.0-52.0) % MCV (80.0-100.0) fL MCH (25.0-34.0) pg MCHC (32.0-36.0) g/dL RDW Std Deviation (36.4-46.3) fL RDW Coeff of Sheri (11.5-14.5) % Plt Count (130-400) K/uL MPV (9.4-12.4) fL Immature Gran % (Auto) % Neut % (Auto) % Lymph % (Auto) % Dale % (Auto) % Eos % (Auto) % Baso % (Auto) % Neut # (Auto) (1.40-6.50) K/uL Lymph # (Auto) (1.2-3.4) K/uL Dale # (Auto) (0.11-0.59) K/uL Eos # (Auto) (0-0.50) K/uL Baso # (Auto) (0-0.2) K/uL Immature Gran # (Auto) (0.01-0.20) K/uL PT (9.0-12.0) Seconds INR (0.9-1.1) APTT (21.0-31.0) Seconds PTT Ratio VBG pH (7.36-7.41) VBG pCO2 (38-50) mmHg VBG pO2 mmHg VBG HCO3 mmol/L VBG O2 Saturation % VBG Base Excess mEq/L Sodium (136-145) mmol/L Potassium (3.5-5.1) mmol/L Chloride (98-107) mmol/L Carbon Dioxide (21-32) mmol/L Anion Gap (3-11) BUN (6-23) mg/dl Creatinine (0.6-1.4) mg/dl Est Cr Clr Drug Dosing Est GFR ( Amer) ml/min Est GFR (Non-Af Amer) ml/min BUN/Creatinine Ratio (10-20) Glucose (70-99(Fasting)) mg/dl POC Glucose (70-99) mg/dl Estimat Average Glucose 214 mg/dl Hemoglobin A1c 9.1 H (4.5-5.6) % Calcium (8.5-10.1) mg/dl Magnesium (1.7-2.4) mg/dl Total Bilirubin (0.2-1.0) mg/dl AST (13-39) U/L ALT (7-52) U/L Alkaline Phosphatase (34-104) U/L Troponin I High Sens (0-20) pg/ml B-Natriuretic Peptide 210 H (0-100) pg/ml Total Protein (6.0-8.3) gm/dl Albumin (3.4-5.0) gm/dl Globulin (2.5-4.0) gm/dl Albumin/Globulin Ratio (0.9-2) SARS-CoV-2 (PCR) NEGATIVE (Negative) Influenza Type A (PCR) Negative (Neg) Influenza Type B (PCR) Negative (Neg) RSV (RT-PCR) Negative (Neg) 05/23/22 05/23/22 Range/Units 20:41 22:07 WBC (4.8-10.8) K/ul RBC (4.70-6.10) M/uL Hgb (14.0-18.0) g/dl Hct (42.0-52.0) % MCV (80.0-100.0) fL MCH (25.0-34.0) pg MCHC (32.0-36.0) g/dL RDW Std Deviation (36.4-46.3) fL RDW Coeff of Sheri (11.5-14.5) % Plt Count (130-400) K/uL MPV (9.4-12.4) fL Immature Gran % (Auto) % Neut % (Auto) % Lymph % (Auto) % Dale % (Auto) % Eos % (Auto) % Baso % (Auto) % Neut # (Auto) (1.40-6.50) K/uL Lymph # (Auto) (1.2-3.4) K/uL Dale # (Auto) (0.11-0.59) K/uL Eos # (Auto) (0-0.50) K/uL Baso # (Auto) (0-0.2) K/uL Immature Gran # (Auto) (0.01-0.20) K/uL PT (9.0-12.0) Seconds INR (0.9-1.1) APTT (21.0-31.0) Seconds PTT Ratio VBG pH 7.44 H (7.36-7.41) VBG pCO2 43 (38-50) mmHg VBG pO2 40 mmHg VBG HCO3 29 mmol/L VBG O2 Saturation 72.1 % VBG Base Excess 4.4 mEq/L Sodium (136-145) mmol/L Potassium (3.5-5.1) mmol/L Chloride (98-107) mmol/L Carbon Dioxide (21-32) mmol/L Anion Gap (3-11) BUN (6-23) mg/dl Creatinine (0.6-1.4) mg/dl Est Cr Clr Drug Dosing Est GFR ( Amer) ml/min Est GFR (Non-Af Amer) ml/min BUN/Creatinine Ratio (10-20) Glucose (70-99(Fasting)) mg/dl POC Glucose 224 H (70-99) mg/dl Estimat Average Glucose mg/dl Hemoglobin A1c (4.5-5.6) % Calcium (8.5-10.1) mg/dl Magnesium (1.7-2.4) mg/dl Total Bilirubin (0.2-1.0) mg/dl AST (13-39) U/L ALT (7-52) U/L Alkaline Phosphatase (34-104) U/L Troponin I High Sens (0-20) pg/ml B-Natriuretic Peptide (0-100) pg/ml Total Protein (6.0-8.3) gm/dl Albumin (3.4-5.0) gm/dl Globulin (2.5-4.0) gm/dl Albumin/Globulin Ratio (0.9-2) SARS-CoV-2 (PCR) (Negative) Influenza Type A (PCR) (Neg) Influenza Type B (PCR) (Neg) RSV (RT-PCR) (Neg) Imaging Data Attestation: I personally reviewed and interpreted this imaging study as follows: My Impression: Chest x-ray: Cardiomegaly Radiologist's Impression: Chest X-Ray 05/23/22 18:02 SINGLE VIEW CHEST CLINICAL HISTORY: Dyspnea FINDINGS: An AP, portable, upright chest radiograph is compared to study dated 04/29/2012 and correlated with chest CT dated 04/26/2022. The heart is enlarged noting atherosclerotic calcification of the thoracic aorta. There is pulmonary vascular congestion. There is mild chronic elevation of the right hemidiaphragm with bibasilar scarring/atelectasis. No airspace consolidation or large pleural effusion is identified. No pneumothorax is seen. The skeletal structures are osteopenic. The bony thorax is grossly intact. Calcific tendinopathy is noted in the right shoulder. IMPRESSION: Cardiomegaly with pulmonary vascular congestion. ACT 112: Negative or not required by law. Electronically signed by: Fei Tovar M.D. 05/23/2022 6:58 PM ECG Data Attestation: I personally reviewed and interpreted this ECG as follows: Interpretation: Atrial fibrillation with a rate of 111. QRS and QTc intervals within normal limits. No ST elevation or ST depression. [facility] Narrative 1808: The patient was evaluated in room C5. A complete history and physical exam was performed Cardiac monitoring: An order was placed for continuous cardiac monitoring. The monitor shows a rate of 110 with atrial fibrillation rhythm interpreted by me 2000: Vital signs stable on supplemental oxygen. Labs within normal limits with the exception of a BNP elevated at 210 imaging shows cardiomegaly and cephalization. Patient be treated with Lasix 40 mg admitted to the [facility] hospitalist team Dr. Molina's team will be notified. Impression & Plan Acute on chronic diastolic heart failure Discharge Plan Visit Data Chief Complaint: Shortness of Breath/Dyspnea Stated Complaint: TROUBLE BREATHING ED Provider: Karthikeyan Molina Discharge Problem: Acute on chronic diastolic heart failure Patient Disposition: Being Evaluated by Hospitalist Forms Stand Alone Forms: My [facility] Prescriptions Prescriptions: No Action aspirin [Lore Low Dose Aspirin] 81 mg Tablet,Delayed Release (Dr/Ec) 81 mg PO QAM allopurinol 300 mg tablet 300 mg PO QAM famotidine 20 mg tablet 20 mg PO [facility] insulin degludec [Tresiba FlexTouch U-100] 100 unit/mL (3 mL) insulin pen 26 unit SUBCUT QDD albuterol sulfate 90 mcg/actuation Hfa Aerosol Inhaler 2 puff INHALATION Q4 PRN (Reason: Shortness Of Breath Or Wheezing) atorvastatin 40 mg tablet 40 mg PO HS spironolactone 25 mg tablet 12.5 mg PO QAM metformin 500 mg tablet extended release 24 hr 1,000 mg PO DAILY furosemide [Lasix] 20 mg tablet 40 mg PO BID Eliquis 5 mg tablet 5 mg PO [facility] Trulicity 1.5 mg/0.5 mL pen injector 1.5 mg SUBCUT WK fluticasone propion-salmeterol [Advair Diskus] 250-50 mcg/dose blister with device 1 inh inhalation [facility] metoprolol succinate 50 mg tablet extended release 24 hr 50 mg PO [facility] Complete Multi [id number] Tablet 1 tab PO DAILY pregabalin 150 mg capsule 150 mg PO TID Referrals Referrals: Cristian Nixon MD [Primary Care Provider] -
[2022-05-23 18:59] LABS: Basophils # (auto) 0.06 K/uL (0-0.2); Basophils % (auto) 0.6 %; Eosinophils # (auto) 0.57 K/uL (0-0.50); Eosinophils % (auto) 5.6 %; Hematocrit (blood only) 39.8 % (42.0-52.0); Immature Granulocytes # (auto) 0.04 K/uL (0.01-0.20); Immature Granulocytes % (auto) 0.4 %; Lymphocytes # (auto) 2.42 K/uL (1.2-3.4); Lymphocytes % (auto) 23.6 %; Mean Corpuscular Hemoglobin 31.1 pg (25.0-34.0); Mean Corpuscular Hgb Conc 35.2 g/dL (32.0-36.0); Mean Corpuscular Volume 88.4 fL (80.0-100.0); Mean Platelet Volume 10.2 fL (9.4-12.4); Monocytes % (auto) 11.7 %; Neutrophils # (auto) 5.95 K/uL (1.40-6.50); Neutrophils % (auto) 58.1 %; Platelet Count 267 K/uL (130-400); RDW Coefficient of Variation 14.2 % (11.5-14.5); White Blood Count 10.24 K/ul (4.8-10.8)
--- NOTE | 2022-05-23 18:59 | XRay Report ---
SINGLE VIEW CHEST CLINICAL HISTORY: Dyspnea FINDINGS: An AP, portable, upright chest radiograph is compared to study dated 04/29/2012 and correlat ed with chest CT dated 04/26/2022. The heart is enlarged noting atherosclerotic calcification of the t horacic aorta. There is pulmonary vascular congestion. There is mild chronic elevation of the right h emidiaphragm with bibasilar scarring/atelectasis. No airspace consolidation or large pleural effusion is identified. No pneumothorax is seen. The skeletal structures are osteopenic. The bony thorax is g rossly intact. Calcific tendinopathy is noted in the right shoulder. IMPRESSION: Cardiomegaly with pulmonary vascular congestion. ACT 112: Negative or not required by law. Electronically signed by: Fei Tovar M.D. 05/23/2022 6:58 PM
[2022-05-23 19:11] LABS: Influenza A virus by PCR Negative (Neg); Influenza B virus by PCR Negative (Neg); RSV by PCR Negative (Neg); SARS CoV2 RNA(COVID-19) Ceph NEGATIVE (Negative)
[2022-05-23 19:22] LABS: INR 1.1 (0.9-1.1); Partial Thromboplastin Time 28.5 Seconds (21.0-31.0); Prothrombin Time 11.4 Seconds (9.0-12.0)
[2022-05-23 19:23] LABS: Alanine Aminotransferase 20 U/L (7-52); Albumin Globulin Ratio 1.3 (0.9-2); Albumin Level 4.2 gm/dl (3.4-5.0); Alkaline Phosphatase 78 U/L (34-104); Anion Gap 7 (3-11); Aspartate Aminotransferase 15 U/L (13-39); BUN Creatinine Ratio 24.7 (10-20); Bilirubin,Total 2.6 mg/dl (0.2-1.0); Blood Urea Nitrogen 22 mg/dl (6-23); Calcium 9.3 mg/dl (8.5-10.1); Carbon Dioxide 27 mmol/L (21-32); Chloride 102 mmol/L (98-107); Est GFR (African American) 96.3 ml/min; Est GFR (Non-African American) 83.1 ml/min; Globulin 3.3 gm/dl (2.5-4.0); Glucose 383 mg/dl (70-99(Fasting)); Potassium 4.3 mmol/L (3.5-5.1); Sodium 136 mmol/L (136-145); Total Protein 7.5 gm/dl (6.0-8.3); Troponin I High Sensitivity 10.8 pg/ml (0-20)
[2022-05-23] MEDS ORDERED: FUROSEMIDE 40 MG/4 ML VIAL IV ONE ×2 (19:46→19:54)
[2022-05-23] MEDS ORDERED: METOPROLOL SUCC 50MG EXT REL TAB PO STA (20:41)
--- NOTE | 2022-05-23 20:41 | History & Physical Report ---
Date of Service May 23, 2022 Assessment & Plan (1) Acute and chronic respiratory failure with hypoxia: (2) Acute on chronic diastolic heart failure: (3) COPD exacerbation: (4) Atrial fibrillation: (5) Diabetes mellitus, type II: (6) Hyperglycemia: (7) CAD (coronary artery disease): (8) HTN (hypertension): (9) Dyslipidemia: Plan: Assessment and plan per Dr. Hargrove History of Present Illness Chief Complaint: Shortness of breath Primary Care Provider: Cristian Nixon MD Patient is 76-year-old male with PMH COPD, chronic respiratory failure on chronic 2 L oxygen, atrial fibrillation anticoagulated on Eliquis, DM type II, CAD, chronic diastolic CHF, HTN, GERD presented to ER with complaint of shortness of breath x 4 days. History obtained from patient and chart review. History of hospitalization 04/26/2022-05/02/2022 for acute on chronic respiratory failure, COPD exacerbation, new onset atrial fibrillation with RVR and was discharged on 2 L oxygen to wear continuously. Patient states after discharge home was feeling well until approximately 4 days ago. States has noticed incre ased shortness of breath. States will have episodes of increased shortness of breath with associated tightness across chest. Symptoms can happen at rest or with exertion. He has not checked his pulse when these episodes occur. Patient does state does not wear his oxygen while ambulating through the house or outside as he did not want oxygen tubing throughout his house. Also states last couple days has had a cough productive of grayish colored sputum and has had a couple of episodes of blood-tinged sputum. Reports has had a couple of episodes of epistaxis. Has noted increased lower extremity. Patient's daughter thinks his abdomen looks more distended than usual. Recently seen by cardiology and his Lasix was increased from 40 mg daily to 40 mg twice daily. Denies known fever/chills, diaphoresis, N/V/D/C, ESQUIVEL, dizziness, syncope, vision changes, neck pain, CP, SOB, orthopnea, palpitations, cough, sore throat, choking, otalgia, rhinorrhea, abdominal pain, paresthesias, weakness, extremity weakness, extremity edema, rashes, urinary symptoms. Allergies Allergy/AdvReac Type Severity Reaction Status Date / Time No Known Allergies Allergy Verified 05/23/22 20:28 Home Medications Medication Instructions Recorded Confirmed Type allopurinol 300 mg tablet 300 mg PO QAM 11/05/18 05/23/22 History aspirin 81 mg tablet,delayed 81 mg PO QAM 11/05/18 05/23/22 History release (Lore Low Dose Aspirin) albuterol sulfate 90 mcg/actuation 2 puff inhalation Q4 PRN Shortness 02/21/20 05/23/22 History aerosol inhaler Of Breath Or Wheezing famotidine 20 mg tablet 20 mg PO AMHS 02/21/20 05/23/22 History insulin degludec 100 unit/mL (3 26 unit subcut QDD 02/21/20 05/23/22 History mL) subcutaneous pen (Tresiba FlexTouch U-100 insulin) atorvastatin 40 mg tablet 40 mg PO HS 06/18/21 05/23/22 History spironolactone 25 mg tablet 12.5 mg PO QAM 06/18/21 05/23/22 History metformin 500 mg tablet,extended 1,000 mg PO DAILY 02/17/22 05/23/22 History release 24 hr apixaban 5 mg tablet (Eliquis) 5 mg PO AMHS 05/23/22 05/23/22 History dulaglutide 1.5 mg/0.5 mL 1.5 mg subcut WK 05/23/22 05/23/22 History subcutaneous pen injector (Trulicity) fluticasone 250 mcg-salmeterol 50 1 inh inhalation AMHS 05/23/22 05/23/22 History mcg/dose blistr powdr for inhalation (Advair Diskus) furosemide 20 mg tablet (Lasix) 40 mg PO BID 05/23/22 05/23/22 History metoprolol succinate 50 mg 50 mg PO AMHS 05/23/22 05/23/22 History tablet,extended release 24 hr multivit,Ca,ebis-XK-gwydlzqe-lutn 1 tab PO DAILY 05/23/22 05/23/22 History 18 mg-500 mcg-300 mcg-250 mcg tablet pregabalin 150 mg capsule 150 mg PO TID 05/23/22 05/23/22 History Past Med/Surg History Medical History Antiplatelet or antithrombotic long-term use CAD (coronary artery disease) status post coronary intervention with stent to the circumflex marginal branch 2007, moderate diffuse atherosclerosis nonobstructive 2014 Cardiac murmur Chronic diastolic CHF (congestive heart failure) COPD, mild Diabetes mellitus, type 2 Dyslipidemia Gout Herniated intervertebral disc [place] (hard of hearing) HTN (hypertension) Neuropathy JENNIFER (obstructive sleep apnea) does not tolerate CPAP/BiPAP Osteoarthritis Surgical History H/O heart artery stent x 1 (2006) - Follows w/ Dr. Chandler History of amputation of left thumb History of cardiac catheterization 2014 - [facility] - no stents 10/28/06 - MARAH to circumflex, marginal at [facility], Dr Hagan History of colonoscopy History of right cataract surgery Family History Brother Coronary heart disease Lung cancer Mother Family history of diabetes mellitus Other Hypertension Social History Smoking Status: Never smoker Tobacco Type: Cigarettes Cigarettes Per Day: Quit 1985, smoked 2ppd x 25 years; Second Hand Exposure: No; Hx Alcohol Use: Yes Alcohol type: beer Hx Substance Use: No Preferred Language: American Communication Ability: Effective Screen Roller Required: No Beliefs That Will Affect Care: None marital status: / Current Living Situation: Family Current Living Situation Comment: family next door current occupational status: retired How many Children do You have: 2 Other Information That Helps Us Care for You: No Feels Safe at Home: Yes Safety Concerns: Feels Safe At This Time Assistive Devices: Cane, Oxygen - Continuous and Walker Review of Systems Review of Systems: All systems reviewed & are unremarkable except as noted in HPI & below Physical Exam Physical Exam: General: no distress, overweight Head: normocephalic, atraumatic Eyes: conjunctiva non-injected, anicteric ENT: normal inspection external ears, nose, mucous membranes moist Neck: supple, trachea midline Lungs: no respiratory distress on current 4L via NC, +diminished breath sounds with faint rales at bases, +scattered wheeze CV: irregularly irregular, 2+ pretibial edema Abd: normal BS, soft, non-tender Ext: no cyanosis, no calf tenderness Neuro: A&O x 3, no focal deficits noted, normal affect Skin: warm, dry Results & Data Results & Data ([facility]) Vital Signs (Past 12 Hours) Vital Signs Temp Pulse Pulse Resp BP BP Pulse Ox 05/23/22 18:25 113 H 05/23/22 18:17 96 05/23/22 18:15 135 H 16 122/89 96 05/23/22 18:13 95 05/23/22 18:13 05/23/22 17:59 36.8 C 100 H 28 H 115/84 95 O2 Del Method O2 Flow Rate 05/23/22 18:25 05/23/22 18:17 Nasal Cannula 3 05/23/22 18:15 Nasal Cannula 3 05/23/22 18:13 Nasal Cannula 3 05/23/22 18:13 Nasal Cannula 05/23/22 17:59 Nasal Cannula 3 Laboratory Results Short CBC 05/23/22 Range/Units 18:17 WBC 10.24 (4.8-10.8) K/ul Hgb 14.0 (14.0-18.0) g/dl Hct 39.8 L (42.0-52.0) % Plt Count 267 (130-400) K/uL BMP 05/23/22 18:17 Sodium 136 Potassium 4.3 Chloride 102 Carbon Dioxide 27 BUN 22 Creatinine 0.89 Glucose 383 H* Calcium 9.3 Liver Function 05/23/22 Range/Units 18:17 Total Bilirubin 2.6 H (0.2-1.0) mg/dl AST 15 (13-39) U/L ALT 20 (7-52) U/L Alkaline Phosphatase 78 (34-104) U/L Albumin 4.2 (3.4-5.0) gm/dl Diagnostic Findings Chest X-Ray 05/23/22 18:02 SINGLE VIEW CHEST CLINICAL HISTORY: Dyspnea FINDINGS: An AP, portable, upright chest radiograph is compared to study dated 04/29/2012 and correlated with chest CT dated 04/26/2022. The heart is enlarged noting atherosclerotic calcification of the thoracic aorta. There is pulmonary vascular congestion. There is mild chronic elevation of the right hemidiaphragm with bibasilar scarring/atelectasis. No airspace consolidation or large pleural effusion is identified. No pneumothorax is seen. The skeletal structures are osteopenic. The bony thorax is grossly intact. Calcific tendinopathy is noted in the right shoulder. IMPRESSION: Cardiomegaly with pulmonary vascular congestion. ACT 112: Negative or not required by law. Electronically signed by: Fei Tovar M.D. 05/23/2022 6:58 PM Supervising Physician Co-Signing Physician Notes IM ATTENDING : Patient seen and examined. History obtained from patient, family, and records. Preceding documentation by Ms. Jaz Duque PA-C reviewed. In addition, patient gives history of transient epistaxis with blood-tinged sputum a few days ago. No headache symptoms. FINAL ASSESSMENT AND PLAN as follows : Decompensated heart failure hx diastolic dysfunction Recurrent admission Possibly from inadequately untreated JENNIFER, CPAP noncompliance due to cost as per records, possible underlying pulmonary hypertension Atrial fibrillation, rate slightly uncontrolled secondary to above Transient hemoptysis/epistaxis, patient predisposed by antiplatelet/Eliquis Rx hx CAD status post stent Chronic respiratory failure secondary to COPD on home O2, lung status at baseline post neb treatment at the ER hypertension, stable hyperlipidemia on statin Rx DM2 insulin requiring, suboptimal control as of recent hemoglobin A1c of 8.4 last January 2022 Chronic anemia, hemoglobin at baseline Mild cognitive impairment, recent outpatient evaluation by neurology past tobacco abuse PCU Diuretic Rx Strict I/Os, daily weights, CHF education, fluid restriction Cardiology consult Re: Decompensated heart failure Outpatient Sleep Medicine follow-up (Patient cognizant of need for CPAP and is willing to try appliance again.) CT chest Re: Hemoptysis Antitussives as needed for now Appropriate to hold aspirin and Eliquis for now, resume in a.m. no concerns on CT imaging, if hemoptysis resolved, and H&H stable Basal bolus insulin, ISS BG goal 1 10-1 40, carb count coverage, update hemoglobin A1c DVT prophylaxis. SCDs while Eliquis on hold Full code Patient daughter requesting updates from providers. Ms. Liuindalissa Browning, contact #[phone]. Text document was generated using [employer] voice recognition software. It may contain grammatical or spelling errors. Kindly contact undersigned for clarification of any documentation item in question.
[2022-05-23 20:58] LABS: Base Excess VBG 4.4 mEq/L; HCO3 VBG 29 mmol/L; Oxygen Saturation VBG 72.1 %; PCO2 VBG 43 mmHg (38-50); PO2 VBG 40 mmHg; pH VBG 7.44 (7.36-7.41)
[2022-05-23 21:09] LABS: Magnesium 1.7 mg/dl (1.7-2.4)
[2022-05-23 21:35] LABS: Estimated Average Glucose 214 mg/dl; Hemoglobin A1C 9.1 % (4.5-5.6)
[2022-05-23] MEDS ORDERED: LANTUS PER UNIT CHARGE SQ STA (21:47)
[2022-05-23] MEDS ORDERED: CARBOHYDRATES FOR HYPOGLYCEMIA PO PRN (21:47)
[2022-05-23] MEDS ORDERED: GLUCAGON FOR INJ 1 MG VIAL SQ PRN (21:47)
[2022-05-23] MEDS ORDERED: GLUCOSE 10 TAB/TUBE PO PRN (21:47)
[2022-05-23] MEDS ORDERED: DEXTROSE 50% 50 ML SYRINGE IV PRN (21:47)
[2022-05-23] MEDS ORDERED: GLUCOSE 40% GEL 15 GM TUBE PO PRN (21:47)
[2022-05-23] MEDS ORDERED: BENZONATATE 100 MG CAPSULE PO ONE (22:21)
[2022-05-23] MEDS: INSULIN ASPART PER UNIT SC SCH (22:24)
[2022-05-23] MEDS ORDERED: BENZONATATE 100 MG CAPSULE PO PRN (23:15)
[2022-05-23] MEDS ORDERED: ACETAMINOPHEN 325 MG TAB PO PRN (23:15)
[2022-05-23] MEDS ORDERED: NITROGLYCERIN SL 0.4 MG/TAB TAB SL PRN (23:15)
[2022-05-23] MEDS: MAGNESIUM SULFATE / D5W 1 GM/100 ML BAG IV SCH (23:19)
[2022-05-24] MEDS: MAGNESIUM SULFATE / D5W 1 GM/100 ML BAG IV SCH (01:19)
[2022-05-24 06:39] LABS: Basophils # (auto) 0.07 K/uL (0-0.2); Basophils % (auto) 0.7 %; Eosinophils # (auto) 0.66 K/uL (0-0.50); Eosinophils % (auto) 6.4 %; Hemoglobin 13.5 g/dl (14.0-18.0); Immature Granulocytes # (auto) 0.05 K/uL (0.01-0.20); Immature Granulocytes % (auto) 0.5 %; Lymphocytes # (auto) 2.52 K/uL (1.2-3.4); Lymphocytes % (auto) 24.3 %; Mean Corpuscular Hemoglobin 31.1 pg (25.0-34.0); Mean Corpuscular Hgb Conc 35.5 g/dL (32.0-36.0); Mean Corpuscular Volume 87.6 fL (80.0-100.0); Monocytes # (auto) 1.38 K/uL (0.11-0.59); Monocytes % (auto) 13.3 %; Neutrophils % (auto) 54.8 %; Platelet Count 255 K/uL (130-400); RDW Standard Deviation 44.9 fL (36.4-46.3); Red Blood Count 4.34 M/uL (4.70-6.10); White Blood Count 10.38 K/ul (4.8-10.8)
[2022-05-24 06:55] LABS: Calcium 9.3 mg/dl (8.5-10.1); Creatinine Clr Calc Pharmacy 77.3 ml/min; Est GFR (African American) 95.8 ml/min; Est GFR (Non-African American) 82.7 ml/min; Potassium 3.5 mmol/L (3.5-5.1)
[2022-05-24] MEDS ORDERED: POTASSIUM CHLORIDE CRTAB 20 MEQ TABCR PO ONE (07:29)
--- NOTE | 2022-05-24 07:31 | Cardiology Consultation ---
Date of Consultation May 24, 2022 Assessment & Plan (1) Acute on chronic diastolic heart failure: (2) Acute and chronic respiratory failure with hypoxia: (3) Atrial fibrillation: (4) CAD (coronary artery disease): (5) JENNIFER (obstructive sleep apnea): Plan 76-year-old male who represented to [facility] emergency department due to a 4-day history of progressive shortness of breath and chest tightness. Previously admitted at the end of April due to a COPD exacerbation with hypoxia. At this time he was diagnosed with new onset atrial fibrillation with RVR- CHF exacerbation occurred in the setting of rapid ventricular rates and diltiazem use. This admission treated with IV Lasix. Rates in atrial fibrillation remain elevated as high as 150 with activity. Noncompliant with CPAP due to intolerance. 1. Poorly controlled ventricular rates with AFIB- patient denies palpitations. Increase metoprolol succinate to 75 mg BID. 2. Restart Eliquis 5 mg BID for stroke prevention with AFIB. 3. Mildly hypervolemic on exam- continue IV Lasix 40 mg BID. Monitor renal function electrolytes. Potassium goal of 4.0- replaced as needed. 4. Patient states that he is a symptomatic with his atrial fibrillation however I am suspicious that the worsening shortness of breath could be from uncontrolled A-fib. Future considerations of inpatient versus outpatient cardioversion. Should inpatient cardioversion be elected will need to proceed with LENORA prior to rule out LA thrombus. Eliquis was started on 04/28-patient has not missed any doses. Will make n.p.o. at midnight. Case discussed with Dr. Blue. Will follow. Supervising Physician Co-Signing Physician Notes I have reviewed the advanced practitioner documentation and agree. I saw and evaluated the patient on date of service referenced in note and have performed the following medically appropriate history and/or exam:at this point his afib is likely a significant contributor to his ongoing shortness of breath. Unfortunately, it's been less than 30 days since he started Eliquis. Will likely proceed with LENORA guided cardioversion in AM. History of Present Illness Reason for Consultation: Decompensated diastolic CHF Requesting Physician: Joe pro Attending Physician: Lowell Hahn MD History of Present Illness Medically complex 76-year-old male who initially presented to [facility] emergency dep artment due to 4-day history of progressive shortness of breath and chest tightness. BNP was minimally elevated at 210, he was treated with 40 mg of IV Lasix. Rates were borderline controlled around 110 bpm. HS trop negative x1 (10.8). Previously admitted from 04/26 to 05/02 due to new onset A-fib RVR in the setting of COPD exacerbation and hypoxia. During his hospitalization he was started on diltiazem which initially improved rates however because of fluid retention this medication was discontinued. He was transitioned to metoprolol tartrate then ultimately metoprolol succinate 50 mg twice daily. Anticoagulated with Eliquis. In regards to his volume status he was diuresed with IV Lasix and discharged home on 20 mg daily. In follow-up on 05/15 patient was mildly short of breath. Lab work was obtained. Lasix was increased to 40 mg daily on 05/17. Troponins were elevated last admission thought to be due to a demand ischemia with A-fib RVR and hypoxia. Patient was scheduled for a nuclear stress test outpatient however this has not been completed yet. Upon entrance to the room patient resting comfortably in bed. Notes that his shortness of breath has improved. No further episodes of hemoptysis. Denies chest pain. No palpitations, dizziness or syncope. Head of the bed elevated at approximately 30 degrees, denying orthopnea. No PND. No lower extremity edema. Telemetry: At rest A-fib in the 80s to 110s, with activity can go as high as 150 bpm. PMH: 1. Chronic ischemic heart disease status post coronary intervention with stent to the circumflex marginal branch 2006, moderate diffuse atherosclerosis nonobstructive 2014, Nonischemic DSE 05/15/2021 - On ASA and Plavix 2. Dyslipidemia 3. Chronic obstructive lung disease with dyspnea 4. Hypertension with diastolic dysfunction 5. Obstructive sleep apnea not on CPAP 6. Conduction system disease, first-degree AV block, left anterior fascicular block , incomplete right bundle-branch block 7. Persistent atrial fibrillation, diagnosed inpatient in the setting of a COPD exacerbation, started on Eliquis 04/29/2022. [id number] score of 5 Allergies Allergy/AdvReac Type Severity Reaction Status Date / Time No Known Allergies Allergy Verified 05/23/22 20:28 Home Medications Medication Instructions Recorded Confirmed Type allopurinol 300 mg tablet 300 mg PO QAM 11/05/18 05/23/22 History aspirin 81 mg tablet,delayed 81 mg PO QAM 11/05/18 05/23/22 History release (Lore Low Dose Aspirin) albuterol sulfate 90 mcg/actuation 2 puff inhalation Q4 PRN Shortness 02/21/20 05/23/22 History aerosol inhaler Of Breath Or Wheezing famotidine 20 mg tablet 20 mg PO AMHS 02/21/20 05/23/22 History insulin degludec 100 unit/mL (3 26 unit subcut QDD 02/21/20 05/23/22 History mL) subcutaneous pen (Tresiba FlexTouch U-100 insulin) atorvastatin 40 mg tablet 40 mg PO HS 06/18/21 05/23/22 History spironolactone 25 mg tablet 12.5 mg PO QAM 06/18/21 05/23/22 History metformin 500 mg tablet,extended 1,000 mg PO DAILY 02/17/22 05/23/22 History release 24 hr apixaban 5 mg tablet (Eliquis) 5 mg PO AMHS 05/23/22 05/23/22 History dulaglutide 1.5 mg/0.5 mL 1.5 mg subcut WK 05/23/22 05/23/22 History subcutaneous pen injector (Trulicity) fluticasone 250 mcg-salmeterol 50 1 inh inhalation AMHS 05/23/22 05/23/22 History mcg/dose blistr powdr for inhalation (Advair Diskus) furosemide 20 mg tablet (Lasix) 40 mg PO BID 05/23/22 05/23/22 History metoprolol succinate 50 mg 50 mg PO AMHS 05/23/22 05/23/22 History tablet,extended release 24 hr multivit,Ca,atrn-JF-jgbvyrqt-lutn 1 tab PO DAILY 05/23/22 05/23/22 History 18 mg-500 mcg-300 mcg-250 mcg tablet pregabalin 150 mg capsule 150 mg PO TID 05/23/22 05/23/22 History Patient History Medical History Antiplatelet or antithrombotic long-term use CAD (coronary artery disease) status post coronary intervention with stent to the circumflex marginal branch 2006, moderate diffuse atherosclerosis nonobstructive 2014 Cardiac murmur Chronic diastolic CHF (congestive heart failure) COPD, mild Diabetes mellitus, type 2 Dyslipidemia Gout Herniated intervertebral disc [place] (hard of hearing) HTN (hypertension) Neuropathy JENNIFER (obstructive sleep apnea) does not tolerate CPAP/BiPAP Osteoarthritis Surgical History H/O heart artery stent x 1 (2006) - Follows w/ Dr. Chandler History of amputation of left thumb History of cardiac catheterization 2014 - [facility] - no stents 10/28/06 - MARAH to circumflex, marginal at [facility], Dr Hagan History of colonoscopy History of right cataract surgery Family History Brother Coronary heart disease Lung cancer Mother Family history of diabetes mellitus Other Hypertension Social History Smoking Status: Never smoker Tobacco Type: Cigarettes Cigarettes Per Day: Quit 1985, smoked 2ppd x 25 years; Second Hand Exposure: No; Hx Alcohol Use: Yes Alcohol type: beer Hx Substance Use: No Preferred Language: Yakut Communication Ability: Effective Chicken Picker Required: No Beliefs That Will Affect Care: None marital status: / Current Living Situation: Family Current Living Situation Comment: family next door current occupational status: retired How many Children do You have: 2 Other Information That Helps Us Care for You: No Feels Safe at Home: Yes Safety Concerns: Feels Safe At This Time Assistive Devices: Cane and Oxygen - Continuous Review of Systems Review of Systems: All systems reviewed & are unremarkable except as noted in HPI & below Physical Exam Constitutional: WD/WN, vitals as above no acute distress Neck: normal visual inspection and trachea midline Respiratory: normal respiratory effort; no cough Auscultation: no rales, no rhonchi and no wheezes Cardiovascular: Rate/Rhythm: + tachycardic and + irregularly irregular Heart Sounds: normal S1 and normal S2 Vessels: no JVD Extremities: no edema Gastrointestinal (Abdomen): normal bowel sounds, soft, nontender, no hepatosplenomegaly Skin: no rashes, warm and dry Psychiatric: A+Ox3, euthymic affect Results & Data ([facility]) Vital Signs (Past 12 Hours) Vital Signs Temp Pulse Pulse Resp BP BP Pulse Ox 05/24/22 05:00 36.4 C L 79 18 115/73 94 05/23/22 23:20 05/23/22 23:22 36.3 C L 87 21 122/82 95 05/23/22 20:50 91 H 19 95 05/23/22 20:44 88 15 96 05/23/22 20:44 115/70 05/23/22 20:40 83 18 96 05/23/22 20:30 88 23 97 05/23/22 20:20 96 H 19 97 05/23/22 20:10 86 24 96 05/23/22 20:00 101 H 24 95 05/23/22 19:50 85 21 97 05/23/22 19:40 87 18 97 05/23/22 19:30 102 H 26 H 96 05/23/22 20:00 O2 Del Method O2 Flow Rate 05/24/22 05:00 Room Air 05/23/22 23:20 Nasal Cannula 4 05/23/22 23:22 Nasal Cannula 4 05/23/22 20:50 05/23/22 20:44 05/23/22 20:44 05/23/22 20:40 05/23/22 20:30 05/23/22 20:20 05/23/22 20:10 05/23/22 20:00 05/23/22 19:50 05/23/22 19:40 05/23/22 19:30 05/23/22 20:00 Nasal Cannula 4 Laboratory Results Cardiac Enzymes 05/23/22 05/23/22 Range/Units 18:17 20:41 AST 15 (13-39) U/L Troponin I High Sens 10.8 (0-20) pg/ml B-Natriuretic Peptide 210 H (0-100) pg/ml Coagulation 05/23/22 05/23/22 Range/Units 18:17 20:41 PT 11.4 (9.0-12.0) Seconds APTT 28.5 (21.0-31.0) Seconds B-Natriuretic Peptide 210 H (0-100) pg/ml CBC 05/23/22 05/24/22 Range/Units 18:17 06:05 WBC 10.24 10.38 (4.8-10.8) K/ul RBC 4.50 L 4.34 L (4.70-6.10) M/uL Hgb 14.0 13.5 L (14.0-18.0) g/dl Hct 39.8 L 38.0 L (42.0-52.0) % Plt Count 267 255 (130-400) K/uL Neut # (Auto) 5.95 5.70 (1.40-6.50) K/uL Lymph # (Auto) 2.42 2.52 (1.2-3.4) K/uL [place] # (Auto) 1.20 H 1.38 H (0.11-0.59) K/uL Eos # (Auto) 0.57 H 0.66 H (0-0.50) K/uL Baso # (Auto) 0.06 0.07 (0-0.2) K/uL Comprehensive Metabolic Panel 05/23/22 05/24/22 Range/Units 18:17 06:05 Sodium 136 139 (136-145) mmol/L Potassium 4.3 3.5 (3.5-5.1) mmol/L Chloride 102 101 (98-107) mmol/L Carbon Dioxide 27 34 H (21-32) mmol/L BUN 22 18 (6-23) mg/dl Creatinine 0.89 0.90 (0.6-1.4) mg/dl Glucose 383 H* 179 H (70-99(Fasting)) mg/dl Calcium 9.3 9.3 (8.5-10.1) mg/dl AST 15 (13-39) U/L ALT 20 (7-52) U/L Alkaline Phosphatase 78 (34-104) U/L Total Protein 7.5 (6.0-8.3) gm/dl Albumin 4.2 (3.4-5.0) gm/dl Intake and Output 05/23/22 05/24/22 05/24/22 22:59 06:59 14:59 Intake Total 450 / 450 Balance 450 / 450 Intake: IV 200 / 200 Magnesium Sulfate / D5w 1 gm In 200 / 200 100 ml @ 50 mls/hr IV Q2H [facility] Rx#:[id number] Oral 250 / 250 Other: Other Intake Source sips # Unmeasured Voids 1 Weight 98.8 kg 96.5 kg Weight Measurement Method Chair Scale Built in [facility]
--- NOTE | 2022-05-24 08:11 | CT Scan Report ---
CT chest diagnostic wo con CLINICAL HISTORY: hemoptysis TECHNIQUE: Multidetector row helical CT of the chest was performed. Coronal and sagittal reformations were obtained. Automated dose lowering techniques and/or adjustment according to patient size were u tilized for this exam. CT DOSE: 599.21 mGy.cm Comparison: Comparison is made to CT chest 04/26/2022 FINDINGS: Lungs and pleura: Atelectasis versus scarring is seen in the dependent portions of the lungs. Heart and pericardium: Cardiomegaly is seen with biatrial enlargement. Vessels: Severe atherosclerotic changes in the aorta and coronary arteries. Mediastinum and bridger: Unremarkable. Chest wall and lower neck: Unremarkable. Abdomen: Unremarkable. Bones: Degenerative changes in the thoracic spine. IMPRESSION: 1. Interstitial scarring is seen without evidence for suspicious masses in this patient with history of hemoptysis. 2. Atherosclerosis. ACT 112: Negative or not required by law. Electronically signed by: Vito Connell M.D. 05/24/2022 8:09 AM
[2022-05-24] MEDS: allopurinoL 300 MG TAB PO SCH (08:25)
[2022-05-24] MEDS: FAMOTIDINE 20 MG TAB PO SCH ×2 (08:25→21:01)
[2022-05-24] MEDS: FUROSEMIDE 40 MG/4 ML VIAL IV SCH ×3 (08:26→18:31)
[2022-05-24] MEDS: FLUTICASONE/VILANTEROL 100/25MCG 14 PUFFS/INHALER INH SCH (08:26)
[2022-05-24] MEDS: PREGABALIN 150 MG CAP PO SCH ×3 (08:28→21:00)
[2022-05-24] MEDS: SPIRONOLACTONE 12.5 MG TAB PO SCH (08:28)
[2022-05-24] MEDS: CEROVITE ADV FORMULA TAB PO SCH (08:28)
[2022-05-24] MEDS: INSULIN ASPART PER UNIT SC SCH ×4 (08:30→21:13)
[2022-05-24] MEDS ORDERED: METOPROLOL SUCC 50MG EXT REL TAB PO SCH (09:00)
[2022-05-24] MEDS ORDERED: FLUTICASONE/SALMETEROL 250/50 (ADVAIR) 14 PUFF/1 INHALER INH SCH (09:00)
[2022-05-24] MEDS ORDERED: METOPROLOL SUCC 25MG EXT REL TAB PO STA (10:08)
--- NOTE | 2022-05-24 11:03 | Electrocardiogram Report ---
Test Reason : Blood Pressure : / mmHG Vent. Rate : 111 BPM Atrial Rate : 086 BPM P-R Int : 000 ms QRS Dur : 090 ms QT Int : 340 ms P-R-T Axes : 000 266 011 degrees QTc Int : 462 ms Atrial fibrillation with rapid ventricular response Poor R wave progression, consider anterior IL vs. lead placement vs. LVH Abnormal ECG Confirmed by Brain Lei ([id number]) on 05/24/2022 11:02:31 AM Referred By: REFERRED SELF Confirmed By:Stiven Lei
[2022-05-24] MEDS: APIXABAN 5 MG TABLET PO SCH ×2 (11:09→21:01)
--- NOTE | 2022-05-24 14:31 | Hospitalist Progress Note ---
Date of Service May 24, 2022 Assessment & Plan (1) Acute and chronic respiratory failure with hypoxia: (2) Acute on chronic diastolic heart failure: (3) COPD exacerbation: (4) Atrial fibrillation: (5) Diabetes mellitus, type II: (6) Hyperglycemia: (7) CAD (coronary artery disease): (8) HTN (hypertension): (9) Dyslipidemia: Plan Acute on chronic diastolic heart failure Acute and chronic respiratory failure with hypoxia JENNIFER: Noncompliant with CPAP due to intolerance Chronic oxygen dependency: on 2-3 L supplemental oxygen at baseline --CT chest:Interstitial scarring is seen without evidence for suspicious masses in this patient with history of hemoptysis. Atherosclerosis. --ECHO Apr 2022: Moderate asymmetric LVH, no regional wall motion abnormality. EF 55%. Left atrium is mildly dilated. Mild mitral regurgitation. LV diastolic function is abnormal, could not be assessed due to atrial fibrillation CHF exacerbation likely due to uncontrolled A-fib Continue IV Lasix 40 mg twice a day Also on Aldactone Monitor and replace electrolytes as needed Monitor I's and O's, daily weight, volume status Appreciate cardiology input N.p.o. after midnight for possible LENORA/cardioversion Atrial fibrillation Increased metoprolol dose to 75 mg twice daily On Eliquis for anticoagulation Transient hemoptysis/epistaxis In setting of antiplatelet/Eliquis use Currently no issues of bleeding Eliquis resumed We will resume aspirin as well if no recurrence of bleeding CAD s/p Stent Continue metoprolol, statin Resume aspirin as able COPD Chronic respiratory failure with hypoxia JENNIFER Continue home inhalers Continue supplemental oxygen to maintain sats 88 to 92% Needs outpatient sleep study follow-up Hypertension Hyperlipidemia Continue home medications DM II Last HbA1c 8.4 Hold p.o. medications Continue insulin while hospitalized Monitor BGs Mild cognitive impairment Recent outpatient evaluation by neurology Stable DVT Px On Eliquis CODE STATUS Full code Admission and Anticipated Discharge Date Admission Date: May 23, 2022 Subjective Patient is seen and examined at bedside Less dyspnea today Reports chronic cough which is unchanged Denies any chest pain, nausea, vomiting, abdominal pain No other complaints Review of Systems Review of Systems: All systems reviewed & are unremarkable except as noted in Subjective Physical Exam Physical Exam: Physical Exam: Vitals signs as noted above General Appearance:Obese, no apparent distress Head: normocephalic, Atraumatic Eyes: normal inspection, EOMI Neck: supple, Trachea midline Respiratory/Chest: Normal breath sounds, minimal basal crackles, No accessory muscle use Cardiovascular: Irregularly irregular, No murmur Abdomen/GI:Soft, Non tender, Bowel sounds present Extremities/Musculoskeletal:normal inspection, 1+ pedal edema Neurologic/Psych:AAOX3, grossly no focal neurological deficits Skin: normal color, warm Results & Data Results & Data ([facility]) Vital Signs (Past 12 Hours) Vital Signs Temp Pulse Pulse Resp BP Pulse Ox O2 Del Method 05/24/22 13:39 84 05/24/22 12:25 36.7 C 91 H 18 104/70 95 Nasal Cannula 05/24/22 08:00 Nasal Cannula 05/24/22 08:00 36.5 C 86 18 121/77 93 Nasal Cannula 05/24/22 05:00 36.4 C L 79 18 115/73 94 Room Air O2 Flow Rate 05/24/22 13:39 05/24/22 12:25 4 05/24/22 08:00 4 05/24/22 08:00 4 05/24/22 05:00 Laboratory Results Short CBC 05/23/22 05/24/22 Range/Units 18:17 06:05 WBC 10.24 10.38 (4.8-10.8) K/ul Hgb 14.0 13.5 L (14.0-18.0) g/dl Hct 39.8 L 38.0 L (42.0-52.0) % Plt Count 267 255 (130-400) K/uL BMP 05/23/22 05/24/22 18:17 06:05 Sodium 136 139 Potassium 4.3 3.5 Chloride 102 101 Carbon Dioxide 27 34 H BUN 22 18 Creatinine 0.89 0.90 Glucose 383 H* 179 H Calcium 9.3 9.3 Liver Function 05/23/22 Range/Units 18:17 Total Bilirubin 2.6 H (0.2-1.0) mg/dl AST 15 (13-39) U/L ALT 20 (7-52) U/L Alkaline Phosphatase 78 (34-104) U/L Albumin 4.2 (3.4-5.0) gm/dl
[2022-05-24] MEDS: ATORVASTATIN 40 MG TAB PO SCH (21:01)
[2022-05-24] MEDS: METOPROLOL SUCC 25MG EXT REL TAB PO SCH (21:02)
[2022-05-24] MEDS: POTASSIUM CHLORIDE 10 MEQ TABCR PO SCH (21:03)
[2022-05-24] MEDS: LANTUS PER UNIT CHARGE SQ SCH (21:13)
[2022-05-25 06:43] LABS: Hematocrit (blood only) 42.3 % (42.0-52.0); Hemoglobin 14.8 g/dl (14.0-18.0); Mean Corpuscular Hemoglobin 31.1 pg (25.0-34.0); Mean Corpuscular Volume 88.9 fL (80.0-100.0); Mean Platelet Volume 9.9 fL (9.4-12.4); Platelet Count 280 K/uL (130-400); RDW Coefficient of Variation 14.3 % (11.5-14.5); RDW Standard Deviation 46.3 fL (36.4-46.3); Red Blood Count 4.76 M/uL (4.70-6.10)
[2022-05-25 06:47] LABS: Potassium 4.4 mmol/L (3.5-5.1)
[2022-05-25 07:48] LABS: BUN Creatinine Ratio 25.3 (10-20); Calcium 9.7 mg/dl (8.5-10.1); Creatinine Clr Calc Pharmacy 69.4 ml/min; Est GFR (African American) 85.4 ml/min; Est GFR (Non-African American) 73.7 ml/min; Magnesium 2.1 mg/dl (1.7-2.4)
--- NOTE | 2022-05-25 07:59 | Cardiology Progress Note ---
Date of Service May 25, 2022 Assessment & Plan (1) Acute on chronic diastolic heart failure: (2) Acute and chronic respiratory failure with hypoxia: (3) Atrial fibrillation: (4) CAD (coronary artery disease): (5) JENNIFER (obstructive sleep apnea): Plan 76-year-old male who represented to [facility] emergency department due to a 4-day history of progressive shortness of breath and chest tightness. Previously admitted at the end of April due to a COPD exacerbation with hypoxia. At this time he was diagnosed with new onset atrial fibrillation with RVR- CHF exacerbation occurred in the setting of rapid ventricular rates and diltiazem use. This admission treated with IV Lasix. Rates in atrial fibrillation remain elevated as high as 150 with activity. Noncompliant with CPAP due to intolerance. 1. Poorly controlled ventricular rates with AFIB- patient denies palpitations. Increase metoprolol succinate to 100 mg BID. 2. Continue Eliquis 5 mg BID for stroke prevention with AFIB. 3. Volume status appears well compensated, Restart home dose of PO Lasix 40 mg daily tomorrow. Monitor renal function electrolytes. Potassium goal of 4.0- replaced as needed. 4. Patient states that he is a symptomatic with his atrial fibrillation however I am suspicious that the worsening shortness of breath could be from uncontrolled A-fib. Patient agreeable to LENORA guided DCCV- Personally spoke with the daughter, Summer- was she updated and also agreeable. 5. CHF education- 2g sodium diet. Standing daily weights. 6. Recommend follow up with sleep med outpatient- noncompliance with CPAP can be contributing to his symptoms. Case discussed with Dr. Blue. Will follow. Admission and Anticipated Discharge Date Admission Date: May 23, 2022 Supervising Physician Co-Signing Physician Notes I have reviewed the advanced practitioner documentation and agree. I saw and evaluated the patient on date of service referenced in note and have performed the following medically appropriate history and/or exam: Status post successful LENORA guided cardioversion to normal sinus rhythm with significant first-degree AV block. We will continue to monitor on telemetry overnight and reassess in the a.m. Recover per protocol. May need to lower dose of metoprolol now is back in sinus rhythm. Subjective Medically complex 76-year-old male who initially presented to the [facility] emergency department due to a 4-day history of progressive shortness of breath. Patient carries a history of COPD with chronic dyspnea as well as ischemic heart disease. 05/24: Patient appeared hypervolemic on exam and was treated with IV Lasix 40 mg x2 doses. Atrial fibrillation rates elevated as high as 150s with activity-there is concern that patient is not actually tolerating his atrial fibrillation despite stating that he is asymptomatic. Metoprolol succinate increased to 75 mg twice daily Eliquis continued, initially started on 04/28/202205/25: Telemetry: AFIB 80-90s Labs: Serum creatinine stable. BUN/creatinine ratio mildly elevated. Upon entrance into the room patient resting comfortably in bed- no acute distress. SOB remains. No chest pain or palpitations. Review of Systems Review of Systems: All systems reviewed & are unremarkable except as noted in HPI & below Physical Exam Constitutional: WD/WN, vitals as above no acute distress Neck: normal visual inspection and trachea midline Respiratory: normal respiratory effort; no cough Auscultation: no rales, no rhonchi and no wheezes Cardiovascular: Rate/Rhythm: regular rate and + irregularly irregular Heart Sounds: normal S1 and normal S2 Vessels: no JVD Extremities: no edema Gastrointestinal (Abdomen): normal bowel sounds, soft, nontender, no hepatosplenomegaly Skin: no rashes, warm and dry Psychiatric: A+Ox3, euthymic affect Results & Data ([facility]) Vital Signs (Past 12 Hours) Vital Signs Temp Pulse Pulse Pulse Resp BP BP 05/25/22 07:41 36.4 C L 88 18 121/79 05/25/22 03:20 36.5 C 73 18 118/75 05/24/22 23:41 36.5 C 82 18 104/67 05/24/22 21:58 95 H 05/24/22 21:15 Pulse Ox O2 Del Method O2 Flow Rate 05/25/22 07:41 95 Nasal Cannula 3 05/25/22 03:20 93 Nasal Cannula 3.0 05/24/22 23:41 92 Nasal Cannula 3.0 05/24/22 21:58 05/24/22 21:15 Nasal Cannula 3 Laboratory Results CBC 05/25/22 Range/Units 05:55 WBC 9.60 (4.8-10.8) K/ul RBC 4.76 (4.70-6.10) M/uL Hgb 14.8 (14.0-18.0) g/dl Hct 42.3 (42.0-52.0) % Plt Count 280 (130-400) K/uL Comprehensive Metabolic Panel 05/25/22 Range/Units 05:55 Sodium 140 (136-145) mmol/L Potassium 4.4 D (3.5-5.1) mmol/L Chloride 101 (98-107) mmol/L Carbon Dioxide 34 H (21-32) mmol/L BUN 25 H (6-23) mg/dl Creatinine 0.99 (0.6-1.4) mg/dl Glucose 156 H (70-99(Fasting)) mg/dl Calcium 9.7 (8.5-10.1) mg/dl Intake and Output 05/24/22 05/25/22 05/25/22 22:59 06:59 14:59 Intake Total 515 / 815 50 / 815 Balance 515 / 815 50 / 815 Intake: Oral 515 / 815 50 / 815 Other: # Unmeasured Voids 1 1 Weight 94.2 kg Weight Measurement Method Built in [facility]
[2022-05-25] MEDS: METOPROLOL SUCC 25MG EXT REL TAB PO SCH (08:29)
[2022-05-25] MEDS: POTASSIUM CHLORIDE 10 MEQ TABCR PO SCH ×2 (08:29→21:39)
[2022-05-25] MEDS: INSULIN ASPART PER UNIT SC SCH ×5 (08:30→21:35)
[2022-05-25] MEDS: FAMOTIDINE 20 MG TAB PO SCH ×2 (08:30→21:37)
[2022-05-25] MEDS: SPIRONOLACTONE 12.5 MG TAB PO SCH (08:31)
[2022-05-25] MEDS: allopurinoL 300 MG TAB PO SCH (08:31)
[2022-05-25] MEDS: PREGABALIN 150 MG CAP PO SCH ×3 (08:31→21:37)
[2022-05-25] MEDS: APIXABAN 5 MG TABLET PO SCH ×2 (08:32→21:38)
[2022-05-25] MEDS: FLUTICASONE/VILANTEROL 100/25MCG 14 PUFFS/INHALER INH SCH (08:32)
[2022-05-25] MEDS: CEROVITE ADV FORMULA TAB PO SCH (08:33)
[2022-05-25] MEDS ORDERED: METOPROLOL SUCC 25MG EXT REL TAB PO STA (09:55)
[2022-05-25] MEDS ORDERED: MIDAZOLAM HCL 5 MG/ML 1 ML VIAL ONE (10:38)
[2022-05-25] MEDS ORDERED: BENZOCAINE/TETRACAIN/BUTAM 50 APPLN/5 GM CAN EXT ONE (10:39)
[2022-05-25] MEDS ORDERED: fentaNYL citrate 100 MCG/2 ML VIAL ONE (10:40)
--- NOTE | 2022-05-25 10:43 | Pre Anesthesia Assessment ---
Date of Service May 25, 2022 Pre Sedation Assessment Vital Signs Temp Pulse Pulse Pulse Resp BP BP 05/25/22 10:32 127 H 90 18 120/78 05/25/22 07:41 36.4 C L 88 18 121/79 05/25/22 03:20 36.5 C 73 18 118/75 05/24/22 23:41 36.5 C 82 18 104/67 05/24/22 21:58 95 H 05/24/22 19:02 36.3 C L 93 H 20 150/92 H 05/24/22 21:15 05/24/22 18:05 05/24/22 16:49 36.8 C 101 H 18 107/70 05/24/22 16:44 85 05/24/22 13:39 84 05/24/22 12:25 36.7 C 91 H 18 104/70 Pulse Ox O2 Del Method O2 Flow Rate 05/25/22 10:32 05/25/22 07:41 95 Nasal Cannula 3 05/25/22 03:20 93 Nasal Cannula 3.0 05/24/22 23:41 92 Nasal Cannula 3.0 05/24/22 21:58 05/24/22 19:02 94 Nasal Cannula 3.0 05/24/22 21:15 Nasal Cannula 3 05/24/22 18:05 98 Nasal Cannula 4 05/24/22 16:49 93 Nasal Cannula 3 05/24/22 16:44 05/24/22 13:39 05/24/22 12:25 95 Nasal Cannula 4 Pre-Sedation Airway Assessment Smoking Status: Never smoker Short, Thick Neck: No Thyromental Distance: > or= 3.5 Finger Breadths Oral Cavity: + Dentures Mallampati Class: III ASA: ASA3 NPO Status Date of Last Intake of Fluids: 05/25/22 Time of Last Intake of Fluids: 07:00 Date of Last Intake of Solid Food: 05/24/22 Time of Last Intake of Solid Foods: 17:00 Notes The planned sedation has been discussed with the patient. Informed Consent was obtained. I have identified the patient, determined the appropriateness of sedation and have assessed the patient immediately prior to the procedure. All medicine(s) and interventions are by my order.
--- NOTE | 2022-05-25 11:15 | Post Anesthesia Assessment ---
Date of Service May 25, 2022 Post Sedation Assessment Vital Signs Temp Pulse Pulse Pulse Resp BP BP 05/25/22 11:10 68 20 107/76 05/25/22 11:05 80 20 116/77 05/25/22 11:04 80 20 116/77 05/25/22 11:07 80 20 116/77 05/25/22 11:02 82 20 125/82 05/25/22 10:32 127 H 90 18 120/78 05/25/22 07:41 36.4 C L 88 18 121/79 05/25/22 03:20 36.5 C 73 18 118/75 05/24/22 23:41 36.5 C 82 18 104/67 05/24/22 21:58 95 H 05/24/22 19:02 36.3 C L 93 H 20 150/92 H 05/24/22 21:15 05/24/22 18:05 05/24/22 16:49 36.8 C 101 H 18 107/70 05/24/22 16:44 85 05/24/22 13:39 84 05/24/22 12:25 36.7 C 91 H 18 104/70 Pulse Ox O2 Del Method O2 Flow Rate 05/25/22 11:10 98 Nasal Cannula 3 05/25/22 11:05 96 Nasal Cannula 3 05/25/22 11:04 96 Nasal Cannula 3 05/25/22 11:07 96 Nasal Cannula 3 05/25/22 11:02 96 Nasal Cannula 3 05/25/22 10:32 05/25/22 07:41 95 Nasal Cannula 3 05/25/22 03:20 93 Nasal Cannula 3.0 05/24/22 23:41 92 Nasal Cannula 3.0 05/24/22 21:58 05/24/22 19:02 94 Nasal Cannula 3.0 05/24/22 21:15 Nasal Cannula 3 05/24/22 18:05 98 Nasal Cannula 4 05/24/22 16:49 93 Nasal Cannula 3 05/24/22 16:44 05/24/22 13:39 05/24/22 12:25 95 Nasal Cannula 4 Discharge Sedation Level of Care: Fast Track Phase II Post Sedation Plan On clinical assessment, the patient appears to have tolerated the sedation without complications. Patient is recovering as anticipated. Patient will continue to be monitored by nursing and may be discharged when sedation discharge criteria are met per below protocol. Upon Completions of procedure up to 15 minutes continue every 5 minute vital signs and the P.A.R. score; then discharge to a Phase I or Fast Track to Phase II per the following guidelines: * Discharge Patient to appropriate Phase II area if PAR is 8 or greater or return to pre- procedure baseline. The post - procedure orders will be as directed. * If PAR score is less than 8 or not return to pre-procedure baseline then patient will follow Phase I monitoring till PAR is reached for Phase II. The Phase I may be done in procedure room or may call to secure a Phase I area. * If naloxone or flumazenil are used for reversal, hold in Phase I for continued monitoring from when last reversal dose was given for a minimum of 60 minutes or longer pending the nurse and/or physician discretion of patient condition before discharge to Phase II. Please call the Sedation Physician to re-evaluate and complete post-note for discharge to Phase II area. Do NOT discharge from procedure sedation or Phase 1 until post- sedation evaluation note is complete by procedure /sedation MD Sedation Discharge Instructions to be given to the patient at discharge to home.
--- NOTE | 2022-05-25 11:25 | Operative Report ---
Post Operative Report Pre & Post Diagnosis Operation Date: 05/25/22 10:30 <No data on this case meets the specified criteria> I identified the patient and participated in the time-out.: Yes Procedure Operation Date: 05/25/22 10:30 Actual Procedures s Echo Color Flow - Aldair Blue, DO s Echo Doppler Complete - Aldair Blue, DO s Echo Transesophageal - Aldair Bleu, DO p Cardioversion - Aldair Blue, Surgeon Aldair Blue, Housekeeper Home Ana RN Estimated Blood Loss 0 Findings Consistent with Post-Op Diagnosis no REEMA thrombus Specimens none Description of Procedure Informed consent obtained. Patient prepped Adequate moderate sedation achieved with fentanyl 50 mcg and Versed 2 mg. Limited transesophageal echocardiogram due to apnea and transient hypoxia revealed no left atrial appendage thrombus Patient repositioned Successful DC cardioversion with 360 J of energy to normal sinus rhythm with significant first-degree AV block Patient tolerated well I met with his daughters in the waiting room and updated them on the success of the procedure Start time: 1106 Stop time: 1110 Plan: Recover per protocol Return to telemetry and continue to monitor overnight I attest to the content of the Intraoperative Record and any orders documented therein. Any exceptions are noted below.
--- NOTE | 2022-05-25 16:21 | Electrocardiogram Report ---
Test Reason : Blood Pressure : / mmHG Vent. Rate : 066 BPM Atrial Rate : 066 BPM P-R Int : 330 ms QRS Dur : 094 ms QT Int : 416 ms P-R-T Axes : 044 -48 009 degrees QTc Int : 436 ms Sinus rhythm with 1st degree A-V block Left axis deviation Poor R wave progression, consider anterior MS vs. lead placement vs. LVH possible old inferior MS Abnormal ECG When compared with ECG of 23-MAY-2022 18:10, Sinus rhythm has replaced Atrial fibrillation Vent. rate has decreased BY 45 BPM Confirmed by Brain Lei ([id number]) on 05/25/2022 4:21:18 PM Referred By: REFERRED SELF Confirmed By:Stiven Lei
--- NOTE | 2022-05-25 17:05 | Hospitalist Progress Note ---
Date of Service May 25, 2022 Assessment & Plan (1) Acute and chronic respiratory failure with hypoxia: (2) Acute on chronic diastolic heart failure: (3) COPD exacerbation: (4) Atrial fibrillation: (5) Diabetes mellitus, type II: (6) Hyperglycemia: (7) CAD (coronary artery disease): (8) HTN (hypertension): (9) Dyslipidemia: Plan Acute on chronic diastolic heart failure Acute and chronic respiratory failure with hypoxia JENNIFER: Noncompliant with CPAP due to intolerance Chronic oxygen dependency: on 2-3 L supplemental oxygen at baseline --CT chest:Interstitial scarring is seen without evidence for suspicious masses in this patient with history of hemoptysis. Atherosclerosis. --ECHO Apr 2022: Moderate asymmetric LVH, no regional wall motion abnormality. EF 55%. Left atrium is mildly dilated. Mild mitral regurgitation. LV diastolic function is abnormal, could not be assessed due to atrial fibrillation CHF exacerbation likely due to uncontrolled A-fib Received IV Lasix Also on Aldactone Monitor and replace electrolytes as needed Monitor I's and O's, daily weight, volume status Appreciate cardiology input Plan to restart p.o. Lasix tomorrow Atrial fibrillation S/P successful LENORA guided cardioversion. Currently in sinus Metoprolol dose increased to 100 mg twice daily On Eliquis for anticoagulation Transient hemoptysis/epistaxis In setting of antiplatelet/Eliquis use Currently no issues of bleeding Eliquis resumed No recurrence of bleeding Resume aspirin tomorrow CAD s/p Stent Continue metoprolol, statin Resume aspirin COPD Chronic respiratory failure with hypoxia JENNIFER Continue home inhalers Continue supplemental oxygen to maintain sats 88 to 92% Needs outpatient sleep study follow-up Hypertension Hyperlipidemia Continue home medications DM II Last HbA1c 8.4 Hold p.o. medications Continue insulin while hospitalized Monitor BGs Mild cognitive impairment Recent outpatient evaluation by neurology Stable DVT Px On Eliquis CODE STATUS Full code Admission and Anticipated Discharge Date Admission Date: May 23, 2022 Subjective Patient is seen and examined at bedside Drowsy during my encounter Patient had cardioversion earlier today Post cardioversion, patient feels well Denies any dyspnea, chest pain, dizziness, nausea, abdominal pain Discussed with patient's family at bedside Review of Systems Review of Systems: All systems reviewed & are unremarkable except as noted in Subjective Physical Exam Physical Exam: Physical Exam: Vitals signs as noted above General Appearance:Obese, no apparent distress Head: normocephalic, Atraumatic Eyes: normal inspection, EOMI Neck: supple, Trachea midline Respiratory/Chest: Normal breath sounds, minimal basal crackles, No accessory muscle use Cardiovascular: S1, S2, No murmur Abdomen/GI:Soft, Non tender, Bowel sounds present Extremities/Musculoskeletal:normal inspection, 1+ pedal edema Neurologic/Psych:AAOX3, grossly no focal neurological deficits Skin: normal color, warm Results & Data Results & Data ([facility]) Vital Signs (Past 12 Hours) Vital Signs Temp Pulse Pulse Pulse Resp BP BP 05/25/22 16:19 76 05/25/22 16:18 76 05/25/22 14:55 36.4 C L 77 18 126/71 05/25/22 14:06 36.5 C 81 18 107/63 05/25/22 11:59 36.5 C 71 18 100/64 05/25/22 11:45 36.5 C 65 18 119/74 05/25/22 11:36 36.5 C 65 18 119/74 05/25/22 08:00 05/25/22 11:10 68 20 107/76 05/25/22 11:05 80 20 116/77 05/25/22 11:04 80 20 116/77 05/25/22 11:27 66 20 107/68 05/25/22 11:15 66 20 111/70 05/25/22 11:07 80 20 116/77 05/25/22 11:02 82 20 125/82 05/25/22 10:32 127 H 90 18 120/78 05/25/22 07:41 36.4 C L 88 18 121/79 Pulse Ox O2 Del Method O2 Flow Rate 05/25/22 16:19 05/25/22 16:18 05/25/22 14:55 97 Nasal Cannula 4 05/25/22 14:06 94 Nasal Cannula 4 05/25/22 11:59 96 Nasal Cannula 4 05/25/22 11:45 95 Nasal Cannula 4 05/25/22 11:36 95 Nasal Cannula 3.5 05/25/22 08:00 Nasal Cannula 3 05/25/22 11:10 98 Nasal Cannula 3 05/25/22 11:05 96 Nasal Cannula 3 05/25/22 11:04 96 Nasal Cannula 3 05/25/22 11:27 96 Nasal Cannula 3 05/25/22 11:15 96 Nasal Cannula 3 05/25/22 11:07 96 Nasal Cannula 3 05/25/22 11:02 96 Nasal Cannula 3 05/25/22 10:32 05/25/22 07:41 95 Nasal Cannula 3 Laboratory Results Short CBC 05/25/22 Range/Units 05:55 WBC 9.60 (4.8-10.8) K/ul Hgb 14.8 (14.0-18.0) g/dl Hct 42.3 (42.0-52.0) % Plt Count 280 (130-400) K/uL BMP 05/25/22 05:55 Sodium 140 Potassium 4.4 D Chloride 101 Carbon Dioxide 34 H BUN 25 H Creatinine 0.99 Glucose 156 H Calcium 9.7
[2022-05-25] MEDS: LANTUS PER UNIT CHARGE SQ SCH (21:35)
[2022-05-25] MEDS: METOPROLOL SUCC 50MG EXT REL TAB PO SCH (21:37)
[2022-05-25] MEDS: ATORVASTATIN 40 MG TAB PO SCH (21:37)
[2022-05-26 06:33] LABS: Calcium 9.2 mg/dl (8.5-10.1); Creatinine Clr Calc Pharmacy 66.5 ml/min; Est GFR (African American) 80.5 ml/min; Est GFR (Non-African American) 69.4 ml/min; Potassium 4.5 mmol/L (3.5-5.1)
[2022-05-26] MEDS: POTASSIUM CHLORIDE 10 MEQ TABCR PO SCH ×2 (08:09→21:20)
[2022-05-26] MEDS: APIXABAN 5 MG TABLET PO SCH ×2 (08:10→21:20)
[2022-05-26] MEDS: PREGABALIN 150 MG CAP PO SCH ×3 (08:10→21:19)
[2022-05-26] MEDS: FUROSEMIDE 40 MG TAB PO SCH (08:10)
[2022-05-26] MEDS: SPIRONOLACTONE 12.5 MG TAB PO SCH (08:10)
[2022-05-26] MEDS: FAMOTIDINE 20 MG TAB PO SCH ×2 (08:11→21:19)
[2022-05-26] MEDS: METOPROLOL SUCC 50MG EXT REL TAB PO SCH ×2 (08:11→21:19)
[2022-05-26] MEDS: FLUTICASONE/VILANTEROL 100/25MCG 14 PUFFS/INHALER INH SCH (08:12)
[2022-05-26] MEDS: CEROVITE ADV FORMULA TAB PO SCH (08:13)
[2022-05-26] MEDS: allopurinoL 300 MG TAB PO SCH (08:13)
[2022-05-26] MEDS: INSULIN ASPART PER UNIT SC SCH ×4 (08:31→21:20)
[2022-05-26] MEDS: ASPIRIN 81 MG ECTAB PO SCH (09:17)
--- NOTE | 2022-05-26 12:51 | Cardiology Progress Note ---
Date of Service May 26, 2022 Assessment & Plan (1) Acute on chronic diastolic heart failure: (2) Acute and chronic respiratory failure with hypoxia: (3) Atrial fibrillation: (4) CAD (coronary artery disease): (5) JENNIFER (obstructive sleep apnea): Plan The patient was successfully cardioverted and has been maintaining sinus rhythm. No additional recommendations at this time. Admission and Anticipated Discharge Date Admission Date: May 23, 2022 Subjective The patient is comfortable. He had an uneventful night. He is currently eating lunch. Review of Systems Review of Systems: Review of Systems: See HPI for pertinent positives. All other 10 point review of systems are negative. Physical Exam Physical Exam: General: no acute distress and stated age Head: normocephalic, no masses, lesions, tenderness or abnormalities Eyes: conjunctiva are pink and non-injected, sclera clear Neck: supple, no adenopathy, no bruits, normal jugular venous pulse, no hepatojugular reflux Chest: normal shape and normal respiratory effort Lungs: clear to auscultation and percussion Cardiac Exam: - regular rate & rhythm, no murmurs gallops or rubs - normal S1, normal S2 Pulses: 2(+) throughout Abdomen: abdomen soft, non-tender, no abnormal masses and no hepatosplenomegaly Musculoskeletal: no gait disturbance, no joint inflammation, no deforming arthri tis Extremities: no edema and no cyanosis Neuro: grossly normal exam Results & Data ([facility]) Vital Signs (Past 12 Hours) Vital Signs Temp Pulse Pulse Resp BP Pulse Ox O2 Del Method 05/26/22 11:38 36.8 C 69 18 131/81 94 Nasal Cannula 05/26/22 11:14 71 05/26/22 08:00 Nasal Cannula 05/26/22 07:57 36.4 C L 68 18 124/87 94 Nasal Cannula 05/26/22 03:45 36.6 C 72 16 118/69 94 Nasal Cannula O2 Flow Rate 05/26/22 11:38 4 05/26/22 11:14 05/26/22 08:00 3 05/26/22 07:57 4 05/26/22 03:45 4.0 Laboratory Results Laboratory Results - last 24 hr 05/25/22 05/25/22 05/26/22 16:44 20:22 06:00 Sodium 138 Potassium 4.5 Chloride 103 Carbon Dioxide 31 Anion Gap 4 BUN 26 H Creatinine 1.04 Est Cr Clr Drug Dosing 66.5 Est GFR ( Amer) 80.5 Est GFR (Non-Af Amer) 69.4 BUN/Creatinine Ratio 25.0 H Glucose 179 H POC Glucose 223 H 207 H Calcium 9.2 05/26/22 05/26/22 07:46 11:38 Sodium Potassium Chloride Carbon Dioxide Anion Gap BUN Creatinine Est Cr Clr Drug Dosing Est GFR ( Amer) Est GFR (Non-Af Amer) BUN/Creatinine Ratio Glucose POC Glucose 154 H 217 H Calcium Medications Administered Current Inpatient Medications Acetaminophen (Acetaminophen 325 Mg Tab) 650 mg PO Q4H PRN PRN Reason: Pain or Fever Stop: 06/22/22 23:14 Allopurinol (Allopurinol 300 Mg Tab) 300 mg PO [facility] Stop: 06/23/22 08:59 Last Admin: 05/26/22 08:13 Dose: 300 mg Apixaban (Apixaban 5 Mg Tablet) 5 mg PO BID [facility] Stop: 06/23/22 10:29 Last Admin: 05/26/22 08:10 Dose: 5 mg Aspirin (Aspirin 81 Mg Ectab) 81 mg PO QAM [facility] Stop: 06/25/22 08:59 Last Admin: 05/26/22 09:17 Dose: 81 mg Atorvastatin Calcium (Atorvastatin 40 Mg Tab) 40 mg PO HS [facility] Stop: 06/23/22 20:59 Last Admin: 05/25/22 21:37 Dose: 40 mg Benzonatate (Benzonatate 100 Mg Capsule) 100 mg PO TID PRN PRN Reason: Cough Stop: 06/22/22 23:14 Dextrose (Dextrose 50% 50 Ml Syringe) 25 - 50 ml IV UD PRN; Protocol PRN Reason: Hypoglycemia Protocol Stop: 06/22/22 21:46 Famotidine (Famotidine 20 Mg Tab) 20 mg PO [facility] Stop: 06/23/22 08:59 Last Admin: 05/26/22 08:11 Dose: 20 mg Fluticasone/Vilanterol (Fluticasone/Vilanterol 100/25mcg 14 Puffs/Inhaler) 1 puffs INH DAILY NATASHA Stop: 06/23/22 08:59 Last Admin: 05/26/22 08:12 Dose: 1 puffs Furosemide (Furosemide 40 Mg Tab) 40 mg PO [facility]AM [facility] Stop: 06/25/22 08:59 Last Admin: 05/26/22 08:10 Dose: 40 mg Glucagon (Glucagon For Inj 1 Mg Vial) 1 mg SQ UD PRN; Protocol PRN Reason: Hypoglycemia Protocol Stop: 06/22/22 21:46 Glucose (Glucose 10 Tab/Tube) 4 - 8 tab PO UD PRN; Protocol PRN Reason: Hypoglycemia Treatment Stop: 06/22/22 21:46 Glucose (Glucose 40% Gel 15 Gm Tube) 15 - 30 gm PO UD PRN; Protocol PRN Reason: Hypoglycemia Protocol Stop: 06/22/22 21:46 Insulin Aspart (Insulin Aspart Per Unit) 0 units SC ACHS NATASHA Stop: 06/22/22 21:49 Last Admin: 05/26/22 08:31 Dose: 5 units Insulin Glargine (Lantus Per Unit Charge) 40 units SQ HS [facility] Stop: 06/23/22 20:59 Last Admin: 05/25/22 21:35 Dose: 40 units Metoprolol Succinate (Metoprolol Succ 50mg Ext Rel Tab) 100 mg PO AMHS NATASHA Stop: 06/24/22 20:59 Last Admin: 05/26/22 08:11 Dose: 100 mg Miscellaneous (Carbohydrates For Hypoglycemia ) 15 - 30 gm PO UD PRN PRN Reason: Hypoglycemia Protocol Stop: 06/22/22 21:46 Multivitamins/Minerals (Cerovite Adv Formula Tab) 1 tab PO DAILY NATASHA Stop: 06/23/22 08:59 Last Admin: 05/26/22 08:13 Dose: 1 tab Nitroglycerin (Nitroglycerin Sl 0.4 Mg/Tab Tab) 0.4 mg SL Q5M PRN PRN Reason: Chest Pain Stop: 06/22/22 23:14 Potassium Chloride (Potassium Chloride 10 Meq Tabcr) 10 meq PO BID NATASHA Stop: 06/23/22 20:59 Last Admin: 05/26/22 08:09 Dose: 10 meq Pregabalin (Pregabalin 150 Mg Cap) 150 mg PO TID NATASHA Stop: 06/23/22 08:59 Last Admin: 05/26/22 08:10 Dose: 150 mg Spironolactone (Spironolactone 12.5 Mg Tab) 12.5 mg PO QAM NATASHA Stop: 06/23/22 08:59 Last Admin: 05/26/22 08:10 Dose: 12.5 mg
--- NOTE | 2022-05-26 17:46 | Hospitalist Progress Note ---
Date of Service May 26, 2022 Assessment & Plan (1) Acute and chronic respiratory failure with hypoxia: (2) Acute on chronic diastolic heart failure: (3) COPD exacerbation: (4) Atrial fibrillation: (5) Diabetes mellitus, type II: (6) Hyperglycemia: (7) CAD (coronary artery disease): (8) HTN (hypertension): (9) Dyslipidemia: Plan Acute on chronic diastolic heart failure Acute and chronic respiratory failure with hypoxia JENNIFER: Noncompliant with CPAP due to intolerance Chronic oxygen dependency: on 2-3 L supplemental oxygen at baseline --CT chest:Interstitial scarring is seen without evidence for suspicious masses in this patient with history of hemoptysis. Atherosclerosis. --ECHO Apr 2022: Moderate asymmetric LVH, no regional wall motion abnormality. EF 55%. Left atrium is mildly dilated. Mild mitral regurgitation. LV diastolic function is abnormal, could not be assessed due to atrial fibrillation CHF exacerbation likely due to uncontrolled A-fib Received IV Lasix Also on Aldactone Monitor and replace electrolytes as needed Monitor I's and O's, daily weight, volume status Appreciate cardiology input Restarted Lasix 40 mg daily PT/OT prior to discharge Atrial fibrillation S/P successful LENORA guided cardioversion. Currently in sinus Metoprolol dose increased to 100 mg twice daily On Eliquis for anticoagulation Needs follow-up with cardiology upon discharge Transient hemoptysis/epistaxis In setting of antiplatelet/Eliquis use Currently no issues of bleeding Eliquis resumed No recurrence of bleeding Resumed aspirin CAD s/p Stent Continue Aspirin, metoprolol, statin COPD Chronic respiratory failure with hypoxia JENNIFER Continue home inhalers Continue supplemental oxygen to maintain sats 88 to 92% Needs outpatient sleep study follow-up Hypertension Hyperlipidemia Continue home medications DM II Last HbA1c 8.4 Hold p.o. medications Continue insulin while hospitalized Monitor BGs Mild cognitive impairment Recent outpatient evaluation by neurology Stable DVT Px On Eliquis CODE STATUS Full code Disposition PT OT prior to discharge Admission and Anticipated Discharge Date Admission Date: May 23, 2022 Subjective Patient is seen and examined at bedside States feeling well today No new complaints Denies any dyspnea, chest pain, dizziness, nausea, abdominal pain Review of Systems Review of Systems: All systems reviewed & are unremarkable except as noted in Subjective Physical Exam Physical Exam: Physical Exam: Vitals signs as noted above General Appearance:Obese, no apparent distress Head: normocephalic, Atraumatic Eyes: normal inspection, EOMI Neck: supple, Trachea midline Respiratory/Chest: Normal breath sounds, minimal basal crackles, No accessory muscle use Cardiovascular: S1, S2, No murmur Abdomen/GI:Soft, Non tender, Bowel sounds present Extremities/Musculoskeletal:normal inspection, 1+ pedal edema Neurologic/Psych:AAOX3, grossly no focal neurological deficits Skin: normal color, warm Results & Data Results & Data ([facility]) Vital Signs (Past 12 Hours) Vital Signs Temp Pulse Pulse Resp BP Pulse Ox O2 Del Method 05/26/22 16:52 65 05/26/22 15:59 36.6 C 69 18 124/78 95 Nasal Cannula 05/26/22 11:38 36.8 C 69 18 131/81 94 Nasal Cannula 05/26/22 11:14 71 05/26/22 08:00 Nasal Cannula 05/26/22 07:57 36.4 C L 68 18 124/87 94 Nasal Cannula O2 Flow Rate 05/26/22 16:52 05/26/22 15:59 4 05/26/22 11:38 4 05/26/22 11:14 05/26/22 08:00 3 05/26/22 07:57 4 Laboratory Results [facility] 05/26/22 06:00 Sodium 138 Potassium 4.5 Chloride 103 Carbon Dioxide 31 BUN 26 H Creatinine 1.04 Glucose 179 H Calcium 9.2
[2022-05-26] MEDS: ATORVASTATIN 40 MG TAB PO SCH (21:19)
[2022-05-26] MEDS: LANTUS PER UNIT CHARGE SQ SCH (21:20)
[2022-05-27 06:20] LABS: Calcium 9.6 mg/dl (8.5-10.1)
[2022-05-27 06:26] LABS: BUN Creatinine Ratio 29.3 (10-20); Creatinine Clr Calc Pharmacy 83.8 ml/min; Est GFR (African American) 99.6 ml/min; Est GFR (Non-African American) 85.9 ml/min
[2022-05-27] MEDS: FUROSEMIDE 40 MG TAB PO SCH (08:15)
[2022-05-27] MEDS: APIXABAN 5 MG TABLET PO SCH (08:15)
[2022-05-27] MEDS: ASPIRIN 81 MG ECTAB PO SCH (08:15)
[2022-05-27] MEDS: SPIRONOLACTONE 12.5 MG TAB PO SCH (08:16)
[2022-05-27] MEDS: POTASSIUM CHLORIDE 10 MEQ TABCR PO SCH (08:17)
[2022-05-27] MEDS: METOPROLOL SUCC 50MG EXT REL TAB PO SCH (08:17)
[2022-05-27] MEDS: allopurinoL 300 MG TAB PO SCH (08:17)
[2022-05-27] MEDS: FLUTICASONE/VILANTEROL 100/25MCG 14 PUFFS/INHALER INH SCH (08:18)
[2022-05-27] MEDS: FAMOTIDINE 20 MG TAB PO SCH (08:18)
[2022-05-27] MEDS: CEROVITE ADV FORMULA TAB PO SCH (08:18)
[2022-05-27] MEDS: PREGABALIN 150 MG CAP PO SCH ×2 (08:19→14:31)
[2022-05-27] MEDS: INSULIN ASPART PER UNIT SC SCH ×2 (08:20→12:28)
--- NOTE | 2022-05-27 11:40 | Hospitalist Progress Note ---
Date of Service May 27, 2022 Assessment & Plan (1) Acute and chronic respiratory failure with hypoxia: (2) Acute on chronic diastolic heart failure: (3) COPD exacerbation: (4) Atrial fibrillation: (5) Diabetes mellitus, type II: (6) Hyperglycemia: (7) CAD (coronary artery disease): (8) HTN (hypertension): (9) Dyslipidemia: Plan Acute on chronic diastolic heart failure Acute and chronic respiratory failure with hypoxia JENNIFER: Noncompliant with CPAP due to intolerance Chronic oxygen dependency: on 2-3 L supplemental oxygen at baseline --CT chest:Interstitial scarring is seen without evidence for suspicious masses in this patient with history of hemoptysis. Atherosclerosis. --ECHO Apr 2022: Moderate asymmetric LVH, no regional wall motion abnormality. EF 55%. Left atrium is mildly dilated. Mild mitral regurgitation. LV diastolic function is abnormal, could not be assessed due to atrial fibrillation CHF exacerbation likely due to uncontrolled A-fib Received IV Lasix>>. Transitioned to PO lasix Also on Aldactone Monitor and replace electrolytes as needed Monitor I's and O's, daily weight, volume status Appreciate cardiology input Advised to follow up with Cardiology upon discharge Atrial fibrillation S/P successful LENORA guided cardioversion. Currently in sinus Metoprolol dose increased to 100 mg twice daily On Eliquis for anticoagulation Needs follow-up with cardiology upon discharge Transient hemoptysis/epistaxis In setting of antiplatelet/Eliquis use Currently no issues of bleeding Eliquis resumed No recurrence of bleeding Resumed aspirin CAD s/p Stent Continue Aspirin, metoprolol, statin COPD Chronic respiratory failure with hypoxia JENNIFER Continue home inhalers Continue supplemental oxygen to maintain sats 88 to 92% Needs outpatient sleep study follow-up Hypertension Hyperlipidemia Continue home medications DM II Last HbA1c 8.4 Hold p.o. medications Continue insulin while hospitalized Monitor BGs Mild cognitive impairment Recent outpatient evaluation by neurology Stable DVT Px On Eliquis CODE STATUS Full code Admission and Anticipated Discharge Date Admission Date: May 23, 2022 Subjective Patient is seen and examined at bedside Reports dry nose but otherwise feels well Denies any dyspnea, chest pain, dizziness, nausea, abdominal pain Discussed with cardiology today Plan to be discharged home today Review of Systems Review of Systems: All systems reviewed & are unremarkable except as noted in Subjective Physical Exam Physical Exam: Physical Exam: Vitals signs as noted above General Appearance:Obese, no apparent distress Head: normocephalic, Atraumatic Eyes: normal inspection, EOMI Neck: supple, Trachea midline Respiratory/Chest: Normal breath sounds, CTA, No accessory muscle use Cardiovascular: S1, S2, No murmur Abdomen/GI:Soft, Non tender, Bowel sounds present Extremities/Musculoskeletal:normal inspection, 1+ pedal edema Neurologic/Psych:AAOX3, grossly no focal neurological deficits Skin: normal color, warm Results & Data Results & Data ([facility]) Vital Signs (Past 12 Hours) Vital Signs Temp Pulse Resp BP Pulse Ox O2 Del Method O2 Flow Rate 05/27/22 11:10 36.3 C L 67 18 118/71 95 Nasal Cannula 4 05/27/22 07:51 36.6 C 64 20 124/78 93 Nasal Cannula 4 05/27/22 04:06 36.6 C 64 18 132/80 96 Nasal Cannula 4.0 Laboratory Results [facility] 05/27/22 05:37 Sodium 136 Potassium 4.0 Chloride 101 Carbon Dioxide 31 BUN 24 H Creatinine 0.82 Glucose 159 H Calcium 9.6
--- NOTE | 2022-05-27 11:55 | Discharge Summary ---
Date of Service May 27, 2022 Admission HPI Per Admitting Provider Patient is 76-year-old male with PMH COPD, chronic respiratory failure on chronic 2 L oxygen, atrial fibrillation anticoagulated on Eliquis, DM type II, CAD, chronic diastolic CHF, HTN, GERD presented to ER with complaint of shortness of breath x 4 days. History obtained from patient and chart review. History of hospitalization 04/26/2022-05/02/2022 for acute on chronic respiratory failure, COPD exacerbation, new onset atrial fibrillation with RVR and was discharged on 2 L oxygen to wear continuously. Patient states after discharge home was feeling well until approximately 4 days ago. States has noticed increa sed shortness of breath. States will have episodes of increased shortness of breath with associated tightness across chest. Symptoms can happen at rest or with exertion. He has not checked his pulse when these episodes occur. Patient does state does not wear his oxygen while ambulating through the house or outside as he did not want oxygen tubing throughout his house. Also states last couple days has had a cough productive of grayish colored sputum and has had a couple of episodes of blood-tinged sputum. Reports has had a couple of episodes of epistaxis. Has noted increased lower extremity. Patient's daughter thinks his abdomen looks more distended than usual. Recently seen by cardiology and his Lasix was increased from 40 mg daily to 40 mg twice daily. Denies known fever/chills, diaphoresis, N/V/D/C, ESQUIVEL, dizziness, syncope, vision changes, neck pain, CP, SOB, orthopnea, palpitations, cough, sore throat, choking, otalgia, rhinorrhea, abdominal pain, paresthesias, weakness, extremity weakness, extremity edema, rashes, urinary symptoms. Admission Exam Per Admitting Provider Physical Exam Physical Exam: General: no distress, overweight Head: normocephalic, atraumatic Eyes: conjunctiva non-injected, anicteric ENT: normal inspection external ears, nose, mucous membranes moist Neck: supple, trachea midline Lungs: no respiratory distress on current 4L via NC, +diminished breath sounds with faint rales at bases, +scattered wheeze CV: irregularly irregular, 2+ pretibial edema Abd: normal BS, soft, non-tender Ext: no cyanosis, no calf tenderness Neuro: A&O x 3, no focal deficits noted, normal affect Skin: warm, dry Principal Diagnosis Acute on chronic diastolic heart failure Acute and chronic respiratory failure with hypoxia Atrial fibrillation Discharge Data Allergies Allergy/AdvReac Type Severity Reaction Status Date / Time No Known Allergies Allergy Verified 05/23/22 20:28 Consultations 05/23/22 19:54 ED Decision to Admit Stat 05/23/22 23:15 Consult Cardiology Routine Procedures Performed Operation Date: 05/25/22 10:30 Actual Procedures s Echo Color Flow - Aldair Blue, s Echo Doppler Complete - Aldair Blue, s Echo Transesophageal - Aldair Blue DO p Cardioversion - Aldair Blue DO Ordered Studies 05/23/22 21:47 CT chest diagnostic wo con Stat Laboratory Results WBC 9.60 K/ul (4.8-10.8) 05/25/22 05:55 RBC 4.76 M/uL (4.70-6.10) 05/25/22 05:55 Hgb 14.8 g/dl (14.0-18.0) 05/25/22 05:55 Hct 42.3 % (42.0-52.0) 05/25/22 05:55 MCV 88.9 fL (80.0-100.0) 05/25/22 05:55 MCH 31.1 pg (25.0-34.0) 05/25/22 05:55 MCHC 35.0 g/dL (32.0-36.0) 05/25/22 05:55 RDW Std Deviation 46.3 fL (36.4-46.3) 05/25/22 05:55 RDW Coeff of Sheri 14.3 % (11.5-14.5) 05/25/22 05:55 Plt Count 280 K/uL (130-400) 05/25/22 05:55 MPV 9.9 fL (9.4-12.4) 05/25/22 05:55 Immature Gran % (Auto) 0.5 % 05/24/22 06:05 Neut % (Auto) 54.8 % 05/24/22 06:05 Lymph % (Auto) 24.3 % 05/24/22 06:05 [place] % (Auto) 13.3 % 05/24/22 06:05 Eos % (Auto) 6.4 % 05/24/22 06:05 Baso % (Auto) 0.7 % 05/24/22 06:05 Neut # (Auto) 5.70 K/uL (1.40-6.50) 05/24/22 06:05 Lymph # (Auto) 2.52 K/uL (1.2-3.4) 05/24/22 06:05 [place] # (Auto) 1.38 K/uL (0.11-0.59) H 05/24/22 06:05 Eos # (Auto) 0.66 K/uL (0-0.50) H 05/24/22 06:05 Baso # (Auto) 0.07 K/uL (0-0.2) 05/24/22 06:05 Immature Gran # (Auto) 0.05 K/uL (0.01-0.20) 05/24/22 06:05 PT 11.4 Seconds (9.0-12.0) 05/23/22 18:17 INR 1.1 (0.9-1.1) 05/23/22 18:17 APTT 28.5 Seconds (21.0-31.0) 05/23/22 18:17 PTT Ratio 1.0 05/23/22 18:17 VBG pH 7.44 (7.36-7.41) H 05/23/22 20:41 VBG pCO2 43 mmHg (38-50) 05/23/22 20:41 VBG pO2 40 mmHg 05/23/22 20:41 VBG HCO3 29 mmol/L 05/23/22 20:41 VBG O2 Saturation 72.1 % 05/23/22 20:41 VBG Base Excess 4.4 mEq/L 05/23/22 20:41 Sodium 136 mmol/L (136-145) 05/27/22 05:37 Potassium 4.0 mmol/L (3.5-5.1) 05/27/22 05:37 Chloride 101 mmol/L (98-107) 05/27/22 05:37 Carbon Dioxide 31 mmol/L (21-32) 05/27/22 05:37 Anion Gap 4 (3-11) 05/27/22 05:37 BUN 24 mg/dl (6-23) H 05/27/22 05:37 Creatinine 0.82 mg/dl (0.6-1.4) 05/27/22 05:37 Est Cr Clr Drug Dosing 83.8 ml/min 05/27/22 05:37 Est GFR ( Amer) 99.6 ml/min 05/27/22 05:37 Est GFR (Non-Af Amer) 85.9 ml/min 05/27/22 05:37 BUN/Creatinine Ratio 29.3 (10-20) H 05/27/22 05:37 Glucose 159 mg/dl (70-99(Fasting)) H 05/27/22 05:37 POC Glucose 154 mg/dl (70-99) H 05/27/22 07:50 Estimat Average Glucose 214 mg/dl 05/23/22 18:17 Hemoglobin A1c 9.1 % (4.5-5.6) H 05/23/22 18:17 Calcium 9.6 mg/dl (8.5-10.1) 05/27/22 05:37 Magnesium 2.1 mg/dl (1.7-2.4) 05/25/22 05:55 Total Bilirubin 2.6 mg/dl (0.2-1.0) H 05/23/22 18:17 AST 15 U/L (13-39) 05/23/22 18:17 ALT 20 U/L (7-52) 05/23/22 18:17 Alkaline Phosphatase 78 U/L (34-104) 05/23/22 18:17 Troponin I High Sens 10.8 pg/ml (0-20) 05/23/22 18:17 B-Natriuretic Peptide 210 pg/ml (0-100) H 05/23/22 20:41 Total Protein 7.5 gm/dl (6.0-8.3) 05/23/22 18:17 Albumin 4.2 gm/dl (3.4-5.0) 05/23/22 18:17 Globulin 3.3 gm/dl (2.5-4.0) 05/23/22 18:17 Albumin/Globulin Ratio 1.3 (0.9-2) 05/23/22 18:17 Procalcitonin < 0.05 ng/ml (0-0.5) 05/25/22 05:55 SARS-CoV-2 (PCR) NEGATIVE (Negative) 05/23/22 18:24 Influenza Type A (PCR) Negative (Neg) 05/23/22 18:24 Influenza Type B (PCR) Negative (Neg) 05/23/22 18:24 RSV (RT-PCR) Negative (Neg) 05/23/22 18:24 Impressions Chest X-Ray 05/23/22 18:02 SINGLE VIEW CHEST CLINICAL HISTORY: Dyspnea FINDINGS: An AP, portable, upright chest radiograph is compared to study dated 04/29/2012 and correlated with chest CT dated 04/26/2022. The heart is enlarged noting atherosclerotic calcification of the thoracic aorta. There is pulmonary vascular congestion. There is mild chronic elevation of the right hemidiaphragm with bibasilar scarring/atelectasis. No airspace consolidation or large pleural effusion is identified. No pneumothorax is seen. The skeletal structures are osteopenic. The bony thorax is grossly intact. Calcific tendinopathy is noted in the right shoulder. IMPRESSION: Cardiomegaly with pulmonary vascular congestion. ACT 112: Negative or not required by law. Electronically signed by: Fei Tovar M.D. 05/23/2022 6:[address] 05/23/22 21:47 CT chest diagnostic wo con CLINICAL HISTORY: hemoptysis TECHNIQUE: Multidetector row helical CT of the chest was performed. Coronal and sagittal reformations were obtained. Automated dose lowering techniques and/or adjustment according to patient size were utilized for this exam. CT DOSE: 599.21 mGy.cm Comparison: Comparison is made to CT chest 04/26/2022 FINDINGS: Lungs and pleura: Atelectasis versus scarring is seen in the dependent portions of the lungs. Heart and pericardium: Cardiomegaly is seen with biatrial enlargement. Vessels: Severe atherosclerotic changes in the aorta and coronary arteries. Mediastinum and bridger: Unremarkable. Chest wall and lower neck: Unremarkable. Abdomen: Unremarkable. Bones: Degenerative changes in the thoracic spine. IMPRESSION: 1. Interstitial scarring is seen without evidence for suspicious masses in this patient with history of hemoptysis. 2. Atherosclerosis. ACT 112: Negative or not required by law. Electronically signed by: Vito Connell M.D. 05/24/2022 8:09 AM Hospital Course (1) Acute and chronic respiratory failure with hypoxia: (2) Acute on chronic diastolic heart failure: (3) COPD exacerbation: (4) Atrial fibrillation: (5) Diabetes mellitus, type II: (6) Hyperglycemia: (7) CAD (coronary artery disease): (8) HTN (hypertension): (9) Dyslipidemia: Plan Acute on chronic diastolic heart failure Acute and chronic respiratory failure with hypoxia JENNIFER: Noncompliant with CPAP due to intolerance Chronic oxygen dependency: on 2-3 L supplemental oxygen at baseline --CT chest:Interstitial scarring is seen without evidence for suspicious masses in this patient with history of hemoptysis. Atherosclerosis. --ECHO Apr 2022: Moderate asymmetric LVH, no regional wall motion abnormality. EF 55%. Left atrium is mildly dilated. Mild mitral regurgitation. LV diastolic function is abnormal, could not be assessed due to atrial fibrillation CHF exacerbation likely due to uncontrolled A-fib Received IV Lasix>>. Transitioned to PO lasix Also on Aldactone Monitor and replace electrolytes as needed Monitor I's and O's, daily weight, volume status Appreciate cardiology input Advised to follow up with Cardiology upon discharge Atrial fibrillation S/P successful LENORA guided cardioversion. Currently in sinus Metoprolol dose increased to 100 mg twice daily On Eliquis for anticoagulation Needs follow-up with cardiology upon discharge Transient hemoptysis/epistaxis In setting of antiplatelet/Eliquis use Currently no issues of bleeding Eliquis resumed No recurrence of bleeding Resumed aspirin CAD s/p Stent Continue Aspirin, metoprolol, statin COPD Chronic respiratory failure with hypoxia JENNIFER Continue home inhalers Continue supplemental oxygen to maintain sats 88 to 92% Needs outpatient sleep study follow-up Hypertension Hyperlipidemia Continue home medications DM II Last HbA1c 8.4 Hold p.o. medications Continue insulin while hospitalized Monitor BGs Mild cognitive impairment Recent outpatient evaluation by neurology Stable DVT Px On Eliquis CODE STATUS Full code Total Time Total Time Spent Total Time Spent (In Minutes): 58 minutes Discharge Plan Discharge Items Patient Disposition: Home - Home Health Services Reason For Visit: CHF Discharge Diagnosis: Acute on chronic diastolic heart failure Acute and chronic respiratory failure with hypoxia Atrial fibrillation Activity: Per Instructions section Exercise/Sports: Wait until after follow-up appointment Non-emergency contact: Primary Care Provider and Retail Seasonal Specialist Call non-emergency contact if: you have any medication questions, your symptoms worsen, your pain is concerning for you and you have a fever Follow-up/Referrals: Cristian Nixon MD [Primary Care Provider] - Diet: Carb Consistent or DM2 and Heart Healthy Fluids: 2000ml (8 cups) Addtl Attending Provider Instructions: Follow-up with your primary care physician Dr. Nixon in 1 week Follow-up with your nail technician / in 2-4 weeks --- Your metoprolol succinate dose is increased to 100 mg twice a day. Seek immediate medical attention if your symptoms reoccur or worsen Please take all medications as instructed on discharge list below. Please call if you have any questions or problems. You can reach a [facility] hospitalist on duty at [facility] 24 hours a day by calling [phone] Call your Primary Care doctor if any of the following symptoms or problems start or get worse: * Shortness of breath or difficulty breathing * Wake up at night short of breath * Chest pain * Cough * Swelling of your hands, feet, or legs * More fatigued or tired with your normal activity * Palpitations - sudden fast heart beats WEIGHT * Weigh yourself every morning after using the bathroom. * Use the same scale. * Wear the same amount of clothing. * Write your weight down on a chart. * Call your Primary Care doctor if you gain more than 2-3 pounds in 1-2 days. MEDICATIONS * Use this discharge instruction sheet for medication instructions. * Take your medications at the time your doctor ordered. * Do not skip a dose of your medicines. * If you miss a dose of medicine, take it as soon as possible, but DO NOT DOUBLE A DOSE. * Read your medicine information when you get home. * Know all of the side effects of your medicine. If in doubt, ask your pharmacist * Call your Primary Care doctor's office if you have any side effects. * Be sure all of your doctors know what medicine and herbs you take (including cold, flu, and herbal medicine). Take the following with you to your follow-up doctor appointments: * Weight Chart * Medication List * List of questions Do not drink excessive alcohol, beer or wine. Pending Studies at Discharge: No Stand-Alone Forms: My [facility] DiObex, Smoking Cessation Medications and DC Order Prescriptions: New metoprolol succinate 100 mg tablet extended release 24 hr 100 mg PO BID Qty: 60 1RF Continued aspirin [Lore Low Dose Aspirin] 81 mg Tablet,Delayed Release (Dr/Ec) 81 mg PO QAM allopurinol 300 mg tablet 300 mg PO QAM famotidine 20 mg tablet 20 mg PO AMHS insulin degludec [Tresiba FlexTouch U-100] 100 unit/mL (3 mL) insulin pen 26 unit SUBCUT QDD albuterol sulfate 90 mcg/actuation Hfa Aerosol Inhaler 2 puff INHALATION Q4 PRN (Reason: Shortness Of Breath Or Wheezing) atorvastatin 40 mg tablet 40 mg PO HS spironolactone 25 mg tablet 12.5 mg PO QAM metformin 500 mg tablet extended release 24 hr 1,000 mg PO DAILY furosemide [Lasix] 20 mg tablet 40 mg PO BID Eliquis 5 mg tablet 5 mg PO [facility]HS Trulicity 1.5 mg/0.5 mL pen injector 1.5 mg SUBCUT WK fluticasone propion-salmeterol [Advair Diskus] 250-50 mcg/dose blister with device 1 inh inhalation [facility]HS Complete Multi [id number] Tablet 1 tab PO DAILY pregabalin 150 mg capsule 150 mg PO TID Discontinued metoprolol succinate 50 mg tablet extended release 24 hr 50 mg PO AMHS Discharge Orders: Discharge Order (Routine); Ordered 05/27/22 Ordered By: Lowell Hahn Admission Data Admit Date/Time: 05/23/22 22:02 Attending Provider: Lowell Hahn Admit Provider: Moses Hargrove Primary Care Provider: Cristian Nixon Other Providers: Moses Hargrove ; Key Grissom ; Aldair Blue ; Eber Montalvo ; Timothy Juan ; Arcadio Mcfadden ; AronIglesia vargas ; Kevin Yip ; Jennifer Blank ; Tequila Zendejas ; Key Han ; Tj Benitez
--- NOTE | 2022-06-04 13:41 | Coding Query ---
CODING QUERY To promote full compliance with coding requirements relating to patient care, provider participation is requested in all cases of network specialist uncertainty. Please assist us with the question(s) below: Coding Question(s): Please specify below, in your clinical opinion, the diagnosis most responsible for occasioning the inpatient admission: (x ) Acute on Chronic Diastolic heart failure (x ) Atrial Fibrillation ( ) Other: Please Specify Physician's Response(s): Thank you Viki Barbosa Principal Diagnosis: "that condition established after study, to be chiefly responsible for occasioning the admission of the patient to the hospital for care." Co-Existing Principal Diagnosis: "when two or more diagnoses equally meet the criteria for principal diagnosis as determined by the circumstances of admission, diagnostic work up, and/or therapy provided, and the Alphabetic Index, Tabular List, or another coding guideline does not provide sequencing direction, any one of the diagnoses may be sequenced first." "When the physician has documented what appears to be a current diagnosis in the body of the record, but has not included the diagnosis in the final diagnostic statement, the physician should be asked whether the diagnosis should be added." (Source Coding Clinic 2 QTR90. p3-4) IRENE
== END 2022-05-27 16:38 | disposition home health service (06) | DRG 291 ==
LOC: ED 17:51 → 4W 22:02

== ENCOUNTER 2022-07-11 18:35 | Inpatient (IN) ==
[2022-07-11] MEDS ORDERED: ONDANSETRON INJ 2 MG/ML 2 ML VIAL IV STA (18:48)
[2022-07-11] MEDS ORDERED: MoRPHine SULFATE 2 MG/ML CARP IV STA (18:48)
[2022-07-11] MEDS ORDERED: ACETAMINOPHEN 1,000 MG/100 ML VIAL IV STA (18:48)
--- NOTE | 2022-07-11 18:56 | Emergency Department Note ---
Impression & Plan SOB (shortness of breath), CHF (congestive heart failure), Tachycardia, Leukocytosis, Vomiting, Acute electrocardiogram changes ED Provider Note NAME: VA CHAVIRA AGE: 76 SEX: M : 1945 ARRIVES VIA: Walk-In INFORMANT: [Patient][family] ED PROVIDER(S): [Fei Ruiz MD] CHIEF COMPLAINT: Tachycardia, short of breath HISTORY OF PRESENT ILLNESS: The patient is a 76-year-old male with a history of atrial fibrillation. He also has a history of CHF. The patient states that for 2 days, he has had some nausea with some occasional vomiting. He has had a faster heart rate up to 147 at 1 point. He feels somewhat more short of breath and has noticed some increased swelling of his legs. He has not had chest pain. No abdominal pain. No fever. The patient was in our hospital in May, 2 months ago, he was in for A-fib as well as CHF. The patient is not typically in A-fib, he did undergo a cardioversion. PMHx/PSHx: See Below SOCIAL HISTORY: See Below. PHYSICAL EXAM: GENERAL: Patient is in no acute distress. HEENT: No acute trauma, normocephalic atraumatic, mucous membranes moist, no nasal congestion. NECK: No stridor, no adenopathy, no meningismus, trachea is midline. LUNGS: Crackles heard bilaterally, no respiratory distress, no wheeze. HEART: 2/6 systolic murmur heard best at the right sternal border, regular rate and rhythm. ABDOMEN: Soft, nontender, bowel sounds positive, no peritonitis. EXTREMITIES: No cyanosis, mild bilateral pedal edema, full range of motion of all the joints without pain or difficulty, no signs for acute trauma. NEUROLOGIC: Oriented x 3, no acute motor or sensory deficits, no focal weakness. SKIN: No rash, no jaundice, no diaphoresis. Pale. DIFFERENTIAL DIAGNOSIS: A-fib or a flutter, CHF, [place], anemia, electrolyte imbalance, infection, among others. EMERGENCY DEPARTMENT COURSE/PROCEDURES: Prior/Outside records reviewed: Latest discharge summary. ECG per my interpretation: Indication was shortness of breath. The ECG shows what appears to be a sinus tachycardia with a first-degree AV block. The rate is 104. There is some baseline artifact present. There are inverted T waves in the high lateral leads. There is no ST elevation. An old inferior infarct was noted. There was an old anterior infarct noted. QTc was 426. Compared to an ECG from 25 May 2002, the rate has increased, the T wave inversion laterally is new. The rate has increased. Continuous Cardiac Monitoring per my interpretation: An order was placed for continuous cardiac monitoring. The monitor shows a rate of 98 with sinus rhythm with a first review block. Critical Care Note: I have personally spent 37 minutes of critical care time in the direct management of this patient. This includes bedside care, interpretation of diagnostic studies, and testing, discussion with consultants, patient, and family members, and other required patient management activities. This 37 minutes is in excess of all separately billable procedures. MEDICAL DECISION MAKING: There is a moderate leukocytosis, this could be consistent with the stress of his presentation or potentially infection. There was a normal hemoglobin and platelet count. No coagulopathy. No renal failure. Lactic acid level is elevated, this could be consistent with infection or potentially, mismatch from hypoxia. Total bilirubin was slightly elevated, the remaining liver enzymes were unremarkable. BNP was elevated consistent with CHF and fluid overload. ECG showed a sinus tachycardia with a first-degree AV block. No obvious ischemia. There were some inverted T waves seen in the high lateral leads. No ST elevation. Cardiac enzyme testing x1 was slightly elevated. This cardiac troponin elevation could be secondary to cardiac injury or potentially mismatch. Urinalysis showed glucose, no infection. COVID test returned negative. Chest film does show some mild CHF per my review, no pneumonia. On exam, the patient did have some pedal edema, some crackles were heard with lung auscultation. The patient was given IV Tylenol, IV cefepime, IV furosemide, IV morphine and IV Zofran. The antibiotics were given for empiric antibiotic coverage. The patient presents short of breath with some pedal edema. He has been tachycardic, he has had some nausea and vomiting. The patient is in need of a hospital stay. He has some ECG changes, he has a mildly elevated troponin, he has an elevated lactic acid level, he has evidence for CHF and fluid overload. I spoke with the patient and case management, the on-call hospitalist was consulted. DISPOSITION: Patient's presentation and findings warrant a hospital stay. Past Med/Surg History Medical History Antiplatelet or antithrombotic long-term use CAD (coronary artery disease) status post coronary intervention with stent to the circumflex marginal branch 2006, moderate diffuse atherosclerosis nonobstructive 2014 Cardiac murmur Chronic diastolic CHF (congestive heart failure) COPD, mild Diabetes mellitus, type 2 Dyslipidemia Gout Herniated intervertebral disc UTE (hard of hearing) HTN (hypertension) Neuropathy JENNIFER (obstructive sleep apnea) does not tolerate CPAP/BiPAP Osteoarthritis Surgical History H/O heart artery stent x 1 (2006) - Follows w/ Dr. Chandler History of amputation of left thumb History of cardiac catheterization 2014 - [facility] - no stents 10/28/06 - [facility] to circumflex, marginal at [facility], Dr Hagan History of colonoscopy History of right cataract surgery Family History Brother Coronary heart disease Lung cancer Mother Family history of diabetes mellitus Other Hypertension Social History Smoking Status: Unknown if ever smoked Tobacco Type: Cigarettes Cigarettes Per Day: Quit 1985, smoked 2ppd x 25 years; Second Hand Exposure: No; Hx Alcohol Use: Yes Alcohol type: beer Hx Substance Use: No Preferred Language: Moroccan Communication Ability: Effective Ranch Hand Supervisor Required: No Beliefs That Will Affect Care: None marital status: / Current Living Situation: Family Current Living Situation Comment: family next door current occupational status: retired How many Children do You have: 2 Feels Safe at Home: Yes Assistive Devices: Cane and Oxygen - Continuous Allergies Allergies Allergy/AdvReac Type Severity Reaction Status Date / Time No Known Allergies Allergy Verified 07/11/22 19:33 Home Meds Home Medications Medication Instructions Recorded Confirmed allopurinol 300 mg tablet 300 mg PO QAM 11/05/18 07/11/22 aspirin 81 mg tablet,delayed 81 mg PO QAM 11/05/18 07/11/22 release (Lore Low Dose Aspirin) albuterol sulfate 90 mcg/actuation 2 puff inhalation Q4 PRN Shortness 02/21/20 07/11/22 aerosol inhaler Of Breath Or Wheezing famotidine 20 mg tablet 20 mg PO AMHS 02/21/20 07/11/22 insulin degludec 100 unit/mL (3 30 unit subcut QDD 02/21/20 07/11/22 mL) subcutaneous pen (Tresiba FlexTouch U-100 insulin) atorvastatin 40 mg tablet 40 mg PO HS 06/18/21 07/11/22 spironolactone 25 mg tablet 12.5 mg PO QAM 06/18/21 07/11/22 metformin 500 mg tablet,extended 1,000 mg PO DAILY 02/17/22 07/11/22 release 24 hr apixaban 5 mg tablet (Eliquis) 5 mg PO AMHS 05/23/22 07/11/22 dulaglutide 1.5 mg/0.5 mL 1.5 mg subcut WK 05/23/22 07/11/22 subcutaneous pen injector (Trulicity) fluticasone 250 mcg-salmeterol 50 1 inh inhalation AMHS 05/23/22 07/11/22 mcg/dose blistr powdr for inhalation (Advair Diskus) furosemide 20 mg tablet (Lasix) 40 mg PO BID 05/23/22 07/11/22 multivit,Ca,alnv-AL-iovyekib-lutn 1 tab PO DAILY 05/23/22 07/11/22 18 mg-500 mcg-300 mcg-250 mcg tablet empagliflozin 10 mg tablet 10 mg PO DAILY 07/11/22 07/11/22 (Jardiance) Previous Rx's Medication Instructions Recorded metoprolol succinate 100 mg 100 mg PO BID #60 tabs 05/27/22 tablet,extended release 24 hr Results & Data (ED) Vital Signs Vital Signs - 24 hr 07/11/22 18:37 07/11/22 18:54 07/11/22 19:32 Temperature 36.8 C Temperature Source Temporal Artery Scan Pulse Rate 113 H 105 H 100 H Pulse Rhythm Regular Respiratory Rate 16 18 Blood Pressure 165/90 H Blood Pressure Mean 115 Pulse Oximetry 92 94 Oxygen Delivery Method Room Air Room Air Sepsis Recent Fever Within 48 Hours No Sepsis New/Unexplained Change in Mental Status N/A Sepsis Action Taken by Nursing No Action Required 07/11/22 19:00 07/11/22 19:28 07/11/22 20:00 Temperature Temperature Source Pulse Rate 98 H 99 H 100 H Pulse Rhythm Respiratory Rate 20 20 18 Blood Pressure 121/67 125/87 122/86 Blood Pressure Mean 85 99 98 Pulse Oximetry 92 93 92 Oxygen Delivery Method Sepsis Recent Fever Within 48 Hours Sepsis New/Unexplained Change in Mental Status Sepsis Action Taken by Nursing 07/11/22 21:00 Temperature Temperature Source Pulse Rate 100 H Pulse Rhythm Respiratory Rate 18 Blood Pressure 125/72 Blood Pressure Mean 89 Pulse Oximetry 94 Oxygen Delivery Method Sepsis Recent Fever Within 48 Hours Sepsis New/Unexplained Change in Mental Status Sepsis Action Taken by Assisted Medications Current Medication List: was personally reviewed by me Laboratory Data Attestation: I reviewed the patient's lab results. 07/11/22 18:50 07/11/22 18:50 Lab Results 07/11/22 07/11/22 07/11/22 Range/Units 18:50 18:50 18:50 WBC 14.24 H (4.8-10.8) K/ul RBC 5.27 (4.70-6.10) M/uL Hgb 16.2 (14.0-18.0) g/dl Hct 46.3 (42.0-52.0) % MCV 87.9 (80.0-100.0) fL MCH 30.7 (25.0-34.0) pg MCHC 35.0 (32.0-36.0) g/dL RDW Std Deviation 48.4 H (36.4-46.3) fL RDW Coeff of Sheri 15.2 H (11.5-14.5) % Plt Count 266 (130-400) K/uL MPV 10.2 (9.4-12.4) fL Immature Gran % (Auto) 0.3 % Neut % (Auto) 58.1 % Lymph % (Auto) 30.5 % [place] % (Auto) 9.3 % Eos % (Auto) 1.2 % Baso % (Auto) 0.6 % Neut # (Auto) 8.28 H (1.40-6.50) K/uL Lymph # (Auto) 4.34 H (1.2-3.4) K/uL [place] # (Auto) 1.33 H (0.11-0.59) K/uL Eos # (Auto) 0.17 (0-0.50) K/uL Baso # (Auto) 0.08 (0-0.2) K/uL Immature Gran # (Auto) 0.04 (0.01-0.20) K/uL PT 11.1 (9.0-12.0) Seconds INR 1.0 (0.9-1.1) APTT 28.0 (21.0-31.0) Seconds PTT Ratio 1.0 Sodium (136-145) mmol/L Potassium (3.5-5.1) mmol/L Chloride (98-107) mmol/L Carbon Dioxide (21-32) mmol/L Anion Gap (3-11) BUN (6-23) mg/dl Creatinine (0.6-1.4) mg/dl Est Cr Clr Drug Dosing ml/min Est GFR ( Amer) ml/min Est GFR (Non-Af Amer) ml/min BUN/Creatinine Ratio (10-20) Glucose (70-99(Fasting)) mg/dl Lactate (0.4-2.0) mmol/L Calcium (8.6-10.3) mg/dl Magnesium (1.7-2.4) mg/dl Total Bilirubin (0.2-1.0) mg/dl AST (13-39) U/L ALT (7-52) U/L Alkaline Phosphatase (34-104) U/L Troponin I High Sens (0-20) pg/ml B-Natriuretic Peptide 269 H (0-100) pg/ml Total Protein (6.0-8.3) gm/dl Albumin (3.4-5.0) gm/dl Globulin (2.5-4.0) gm/dl Albumin/Globulin Ratio (0.9-2) Urine Color Urine Appearance (Clear) Urine pH (4.5-7.5) Ur Specific [place] (1.000-1.030) Urine Protein (Negative) Urine Glucose (UA) (Negative) Urine Ketones (Negative) Urine Blood (Negative) Urine Nitrite (Negative) Urine Bilirubin (Negative) Urine Urobilinogen (Negative) Ur Leukocyte Esterase (Negative) SARS-CoV-2, RNA, NAAT (NEGATIVE) 07/11/22 07/11/22 07/11/22 Range/Units 18:50 19:01 19:25 WBC (4.8-10.8) K/ul RBC (4.70-6.10) M/uL Hgb (14.0-18.0) g/dl Hct (42.0-52.0) % MCV (80.0-100.0) fL MCH (25.0-34.0) pg MCHC (32.0-36.0) g/dL RDW Std Deviation (36.4-46.3) fL RDW Coeff of Sheri (11.5-14.5) % Plt Count (130-400) K/uL MPV (9.4-12.4) fL Immature Gran % (Auto) % Neut % (Auto) % Lymph % (Auto) % [place] % (Auto) % Eos % (Auto) % Baso % (Auto) % Neut # (Auto) (1.40-6.50) K/uL Lymph # (Auto) (1.2-3.4) K/uL [place] # (Auto) (0.11-0.59) K/uL Eos # (Auto) (0-0.50) K/uL Baso # (Auto) (0-0.2) K/uL Immature Gran # (Auto) (0.01-0.20) K/uL PT (9.0-12.0) Seconds INR (0.9-1.1) APTT (21.0-31.0) Seconds PTT Ratio Sodium 139 (136-145) mmol/L Potassium 4.1 (3.5-5.1) mmol/L Chloride 102 (98-107) mmol/L Carbon Dioxide 24 (21-32) mmol/L Anion Gap 13 H (3-11) BUN 15 (6-23) mg/dl Creatinine 1.05 (0.6-1.4) mg/dl Est Cr Clr Drug Dosing 64.2 ml/min Est GFR ( Amer) 79.5 ml/min Est GFR (Non-Af Amer) 68.6 ml/min BUN/Creatinine Ratio 14.3 (10-20) Glucose 193 H (70-99(Fasting)) mg/dl Lactate (0.4-2.0) mmol/L Calcium 9.9 (8.6-10.3) mg/dl Magnesium 2.0 (1.7-2.4) mg/dl Total Bilirubin 2.2 H (0.2-1.0) mg/dl AST 27 (13-39) U/L ALT 40 (7-52) U/L Alkaline Phosphatase 62 (34-104) U/L Troponin I High Sens 73.8 H* (0-20) pg/ml B-Natriuretic Peptide (0-100) pg/ml Total Protein 7.7 (6.0-8.3) gm/dl Albumin 4.4 (3.4-5.0) gm/dl Globulin 3.3 (2.5-4.0) gm/dl Albumin/Globulin Ratio 1.3 (0.9-2) Urine Color Yellow Urine Appearance Clear (Clear) Urine pH 5.0 (4.5-7.5) Ur Specific [place] 1.036 H (1.000-1.030) Urine Protein Negative (Negative) Urine Glucose (UA) 3+ H (Negative) Urine Ketones Trace H (Negative) Urine Blood Negative (Negative) Urine Nitrite Negative (Negative) Urine Bilirubin Negative (Negative) Urine Urobilinogen Negative (Negative) Ur Leukocyte Esterase Negative (Negative) SARS-CoV-2, RNA, NAAT NEGATIVE (NEGATIVE) 07/11/22 Range/Units 20:06 WBC (4.8-10.8) K/ul RBC (4.70-6.10) M/uL Hgb (14.0-18.0) g/dl Hct (42.0-52.0) % MCV (80.0-100.0) fL MCH (25.0-34.0) pg MCHC (32.0-36.0) g/dL RDW Std Deviation (36.4-46.3) fL RDW Coeff of Sheri (11.5-14.5) % Plt Count (130-400) K/uL MPV (9.4-12.4) fL Immature Gran % (Auto) % Neut % (Auto) % Lymph % (Auto) % [place] % (Auto) % Eos % (Auto) % Baso % (Auto) % Neut # (Auto) (1.40-6.50) K/uL Lymph # (Auto) (1.2-3.4) K/uL [place] # (Auto) (0.11-0.59) K/uL Eos # (Auto) (0-0.50) K/uL Baso # (Auto) (0-0.2) K/uL Immature Gran # (Auto) (0.01-0.20) K/uL PT (9.0-12.0) Seconds INR (0.9-1.1) APTT (21.0-31.0) Seconds PTT Ratio Sodium (136-145) mmol/L Potassium (3.5-5.1) mmol/L Chloride (98-107) mmol/L Carbon Dioxide (21-32) mmol/L Anion Gap (3-11) BUN (6-23) mg/dl Creatinine (0.6-1.4) mg/dl Est Cr Clr Drug Dosing ml/min Est GFR ( Amer) ml/min Est GFR (Non-Af Amer) ml/min BUN/Creatinine Ratio (10-20) Glucose (70-99(Fasting)) mg/dl Lactate 3.0 H* (0.4-2.0) mmol/L Calcium (8.6-10.3) mg/dl Magnesium (1.7-2.4) mg/dl Total Bilirubin (0.2-1.0) mg/dl AST (13-39) U/L ALT (7-52) U/L Alkaline Phosphatase (34-104) U/L Troponin I High Sens (0-20) pg/ml B-Natriuretic Peptide (0-100) pg/ml Total Protein (6.0-8.3) gm/dl Albumin (3.4-5.0) gm/dl Globulin (2.5-4.0) gm/dl Albumin/Globulin Ratio (0.9-2) Urine Color Urine Appearance (Clear) Urine pH (4.5-7.5) Ur Specific [place] (1.000-1.030) Urine Protein (Negative) Urine Glucose (UA) (Negative) Urine Ketones (Negative) Urine Blood (Negative) Urine Nitrite (Negative) Urine Bilirubin (Negative) Urine Urobilinogen (Negative) Ur Leukocyte Esterase (Negative) SARS-CoV-2, RNA, NAAT (NEGATIVE) Administered Medications Discontinued Medications Furosemide (Furosemide 40 Mg/4 Ml Vial) 40 mg IV ONE ONE Stop: 07/11/22 19:38 Last Admin: 07/11/22 19:51 Dose: 40 mg Documented By: MARGARITA Acetaminophen (Ofirmev) 1,000 mg in 100 mls @ 400 mls/hr IV NOW STA Stop: 07/11/22 19:02 Last Infusion: 07/11/22 19:25 Dose: 0 mls/hr Documented By: Admin: 07/11/22 19:08 Dose: 400 mls/hr Documented By: MARGARITA Cefepime HCl (Maxipime) 2,000 mg in 20 mls @ 5 mls/min IV NOW STA; Protocol Stop: 07/11/22 19:42 Last Admin: 07/11/22 20:41 Dose: 5 mls/min Documented By: MARGARITA Ketorolac Tromethamine (Ketorolac Tromethamine 15 Mg/Ml Vial) 15 mg IV NOW ONE Stop: 07/11/22 20:37 Last Admin: 07/11/22 20:41 Dose: Not Given Documented By: MARGARITA Morphine Sulfate (Morphine Sulfate 2 Mg/Ml Carp) 2 mg IV NOW STA Stop: 07/11/22 18:49 Last Admin: 07/11/22 19:08 Dose: 2 mg Documented By: MARGARITA Ondansetron HCl (Ondansetron Inj 2 Mg/Ml 2 Ml Vial) 4 mg IV NOW STA Stop: 07/11/22 18:49 Last Admin: 07/11/22 19:08 Dose: 4 mg Documented By: MARGARITA Imaging Data Radiologist's Impression: Chest X-Ray 07/11/22 18:49 SINGLE VIEW CHEST CLINICAL HISTORY: Dyspnea FINDINGS: An AP, portable, upright chest radiograph is compared to chest x-ray and chest CT dated 05/23/2022. The heart is enlarged noting atherosclerotic calci fication of the thoracic aorta. There is prominence of the pulmonary vasculature. Emphysema and chronic interstitial thickening similar to previous. Scarring/atelectasis is noted at the lung bases. No airspace consolidation, large pleural effusion, or pneumothorax is seen. The skeletal structures are osteopenic. The bony thorax is grossly intact. Arthritic change is noted in the shoulders. IMPRESSION: Cardiomegaly with prominence of the pulmonary vasculature. Correlate clinically for evidence of fluid overload/mild congestive change. ACT 112: Negative or not required by law. Electronically signed by: Fei Tovar M.D. 07/11/2022 7:31 PM Discharge Plan Visit Data Chief Complaint: Tachycardia Stated Complaint: HIGH HEART RATE,NAUSEA,VOMIT,A FIB ED Provider: Fei Ruiz Discharge Problem: SOB (shortness of breath), CHF (congestive heart failure), Tachycardia, Leukocytosis, Vomiting, Acute electrocardiogram changes Patient Disposition: Admitted As Inpatient Condition: Fair Forms Stand Alone Forms: My [facility] Prescriptions Prescriptions: No Action aspirin [Lore Low Dose Aspirin] 81 mg Tablet,Delayed Release (Dr/Ec) 81 mg PO QAM allopurinol 300 mg tablet 300 mg PO QAM famotidine 20 mg tablet 20 mg PO AMHS insulin degludec [Tresiba FlexTouch U-100] 100 unit/mL (3 mL) insulin pen 30 unit SUBCUT QDD albuterol sulfate 90 mcg/actuation Hfa Aerosol Inhaler 2 puff INHALATION Q4 PRN (Reason: Shortness Of Breath Or Wheezing) atorvastatin 40 mg tablet 40 mg PO HS spironolactone 25 mg tablet 12.5 mg PO QAM Jardiance 10 mg tablet 10 mg PO DAILY metformin 500 mg tablet extended release 24 hr 1,000 mg PO DAILY furosemide [Lasix] 20 mg tablet 40 mg PO BID Eliquis 5 mg tablet 5 mg PO AMHS Trulicity 1.5 mg/0.5 mL pen injector 1.5 mg SUBCUT WK Rx Instructions: TAKE ON MON fluticasone propion-salmeterol [Advair Diskus] 250-50 mcg/dose blister with device 1 inh inhalation AMHS multivit,Ca,wxho-YQ-lxhnut-lut [id number] Tablet 1 tab PO DAILY metoprolol succinate 100 mg tablet extended release 24 hr 100 mg PO BID Qty: 60 1RF Referrals Referrals: Cristian Nixon MD [Primary Care Provider] -
[2022-07-11 19:18] LABS: Basophils # (auto) 0.08 K/uL (0-0.2); Basophils % (auto) 0.6 %; Eosinophils # (auto) 0.17 K/uL (0-0.50); Eosinophils % (auto) 1.2 %; Hematocrit (blood only) 46.3 % (42.0-52.0); Hemoglobin 16.2 g/dl (14.0-18.0); Immature Granulocytes # (auto) 0.04 K/uL (0.01-0.20); Immature Granulocytes % (auto) 0.3 %; Lymphocytes # (auto) 4.34 K/uL (1.2-3.4); Lymphocytes % (auto) 30.5 %; Mean Corpuscular Hemoglobin 30.7 pg (25.0-34.0); Mean Corpuscular Volume 87.9 fL (80.0-100.0); Mean Platelet Volume 10.2 fL (9.4-12.4); Monocytes # (auto) 1.33 K/uL (0.11-0.59); Monocytes % (auto) 9.3 %; Neutrophils # (auto) 8.28 K/uL (1.40-6.50); Neutrophils % (auto) 58.1 %; Platelet Count 266 K/uL (130-400); RDW Coefficient of Variation 15.2 % (11.5-14.5); RDW Standard Deviation 48.4 fL (36.4-46.3); Red Blood Count 5.27 M/uL (4.70-6.10); White Blood Count 14.24 K/ul (4.8-10.8)
[2022-07-11 19:29] LABS: Albumin Globulin Ratio 1.3 (0.9-2); Albumin Level 4.4 gm/dl (3.4-5.0); BUN Creatinine Ratio 14.3 (10-20); Bilirubin,Total 2.2 mg/dl (0.2-1.0); Calcium 9.9 mg/dl (8.6-10.3); Creatinine Clr Calc Pharmacy 64.2 ml/min; Est GFR (African American) 79.5 ml/min; Est GFR (Non-African American) 68.6 ml/min; Globulin 3.3 gm/dl (2.5-4.0); Potassium 4.1 mmol/L (3.5-5.1); Total Protein 7.7 gm/dl (6.0-8.3)
--- NOTE | 2022-07-11 19:32 | XRay Report ---
SINGLE VIEW CHEST CLINICAL HISTORY: Dyspnea FINDINGS: An AP, portable, upright chest radiograph is compared to chest x-ray and chest CT dated 05/03. The heart is enlarged noting atherosclerotic calcification of the thoracic aorta. There is pr ominence of the pulmonary vasculature. Emphysema and chronic interstitial thickening similar to previ ous. Scarring/atelectasis is noted at the lung bases. No airspace consolidation, large pleural effusi on, or pneumothorax is seen. The skeletal structures are osteopenic. The bony thorax is grossly intac t. Arthritic change is noted in the shoulders. IMPRESSION: Cardiomegaly with prominence of the pulmonary vasculature. Correlate clinically for evide nce of fluid overload/mild congestive change. ACT 112: Negative or not required by law. Electronically signed by: Fei Tovar M.D. 07/11/2022 7:31 PM
[2022-07-11] MEDS ORDERED: FUROSEMIDE 40 MG/4 ML VIAL IV ONE (19:37)
[2022-07-11] MEDS ORDERED: CEFEPIME 2,000 MG/20 ML VIAL IV STA (19:39)
[2022-07-11 19:46] LABS: Appearance Urine Clear (Clear); Bilirubin Urine Negative (Negative); Blood Urine Negative (Negative); Color Urine Yellow; Glucose Urine UA 3+ (Negative); Ketones Urine Trace (Negative); Leukocyte Esterase Urine Negative (Negative); Nitrite Urine Negative (Negative); Protein Urine Negative (Negative); Specific Gravity Urine 1.036 (1.000-1.030); Urobilinogen Urine Negative (Negative)
[2022-07-11 19:48] LABS: Troponin I High Sensitivity 73.8 pg/ml (0-20)
[2022-07-11 19:49] LABS: Prothrombin Time 11.1 Seconds (9.0-12.0)
[2022-07-11] MEDS ORDERED: KETOROLAC TROMETHAMINE 15 MG/ML VIAL IV ONE (20:36)
[2022-07-11] MEDS ORDERED: GLUCOSE 10 TAB/TUBE PO PRN (22:13)
[2022-07-11] MEDS ORDERED: GLUCAGON FOR INJ 1 MG VIAL SQ PRN (22:13)
[2022-07-11] MEDS ORDERED: ALBUTEROL HFA 8 GM INHALER INH PRN (22:13)
[2022-07-11] MEDS ORDERED: NITROGLYCERIN SL 0.4 MG/TAB TAB SL PRN (22:13)
[2022-07-11] MEDS ORDERED: CARBOHYDRATES FOR HYPOGLYCEMIA PO PRN (22:13)
[2022-07-11] MEDS ORDERED: DEXTROSE 50% 50 ML SYRINGE IV PRN (22:13)
[2022-07-11] MEDS ORDERED: GLUCOSE 40% GEL 15 GM TUBE PO PRN (22:13)
[2022-07-11] MEDS ORDERED: ONDANSETRON INJ 2 MG/ML 2 ML VIAL IV PRN (22:13)
[2022-07-11] MEDS ORDERED: ACETAMINOPHEN 325 MG TAB PO PRN (22:13)
[2022-07-11] MEDS: PIPERACILLIN/TAZOBACTAM 3.375 GM in DEXTROSE 5% 100 ML IV SCH (23:29)
[2022-07-11] MEDS: METOPROLOL SUCC 50MG EXT REL TAB PO SCH (23:31)
[2022-07-11] MEDS: APIXABAN 5 MG TABLET PO SCH (23:32)
--- NOTE | 2022-07-12 00:53 | History and Physical Report ---
DATE OF ADMISSION: 07/11/2022. CHIEF COMPLAINT: Nausea, vomiting, and tachycardia. HISTORY OF PRESENT ILLNESS: A 76-year-old male with past medical history significant for type 2 diabetes, hyperlipidemia, history of chronic respiratory failure with oxygen generally used in the nighttime, history of COPD, interstitial lung disease, CAD status post angioplasty, chronic diastolic CHF, paroxysmal atrial fibrillation, hypertension, GERD, gout arthropathy, who lives at home with his son, daughter lives close by. Ambulates with a cane. Presents with nausea, vomiting and when he checked his pulse ox, oxygen saturation was okay, but his heart rate was ranging from 100-140, that is the reason he came here. Here, his heart rate is in the low 100s and his white count was 14. Lactate was 3. It looks like he has chronic elevation in lactate. BNP was 269. Troponin I was 73. Urinalysis was negative. Chest x-ray shows possible congestion. COVID negative. It looks like the patient 3 weeks ago had sore throat and he was treated with prednisone and azithromycin. The sore throat has resolved, but since then he is having lack of taste that still is not getting better. Denies any fevers. Currently, sore throat improved. No cough, no chest pain. Denies any shortness of breath. No headache, no blurred visions, no earaches. Appetite is down today. Still nauseous. No abdominal pain, no diarrhea or constipation, no blood in the stools or black stools. Normal bladder movements. No hematuria. It looks like he has some increased swelling in the lower extremities. ALLERGIES: No known drug allergies. PAST MEDICAL HISTORY: As mentioned above. PAST SURGICAL HISTORY: Cardiac catheterization, amputation of the left thumb, cardiac stent placement. MEDICATIONS: The patient is on albuterol 2 puffs inhalation q. 4 hours p.r.n., allopurinol 300 mg p.o. daily, aspirin 81 mg p.o. daily, atorvastatin 40 mg p.o. at bedtime, Eliquis 5 mg p.o. b.i.d., Jardiance 10 mg p.o. daily, famotidine 20 mg p.o. b.i.d., Advair Diskus one inhalation b.i.d., Lasix 40 mg p.o. daily, insulin 30 units subcutaneous daily, metformin 1000 mg p.o. daily, metoprolol succinate 100 mg p.o. b.i.d., multivitamins 1 tablet p.o. daily, spironolactone 12.5 mg p.o. daily, Trulicity 1.5 mg subcutaneous weekly. FAMILY HISTORY: Significant for brother has brain cancer, lung cancer, coronary stents; mother has hypertension. SOCIAL HISTORY: , lives with his son. Quit smoking in 1995, smoked 2 packs a day for 25 years. Alcohol, beer once a while. No drug use. REVIEW OF SYSTEMS: As per HPI. Rest of the review of systems is negative. PHYSICAL EXAMINATION: GENERAL: The patient is of moderate build, not in acute distress. VITAL SIGNS: Temperature 36.8, pulse 100, respiratory rate 18, blood pressure 125/72, oxygen 94% on room air. HEENT: Pupils equal, round and reactive to light. Oral mucosa moist. NECK: No JVD, no neck masses. CARDIOVASCULAR: S1 and S2 heard, regular rate and rhythm. No murmur, no gallop. RESPIRATORY SYSTEM: Normal AP diameter. No accessory muscle use. No wheezing, no crackles. ABDOMEN: Soft, bowel sounds present, nontender, no distention. CENTRAL NERVOUS SYSTEM: Alert and oriented. Speech is clear. No facial droop. Obeys simple commands. Moves extremities. EXTREMITIES: Mild lower extremity pedal edema present, no erythema seen. LABORATORY DATA: WBC 14.2, hemoglobin 16.2, hematocrit 46.3, platelets 266. PT 11.1, INR 1, APTT 28. Sodium 139, potassium 4.1, chloride 102, bicarbonate 24, BUN 15, creatinine 1.05, serum glucose 193. Lactate 3, calcium 9.9, magnesium 2, total bilirubin 2.2, AST 27, ALT 40, alkaline phosphatase 62. Troponin I high sensitivity 73.8. BNP 269. Urinalysis negative. SARS-CoV-2 rapid test negative. IMAGING DATA: Chest x-ray: Cardiomegaly with prominence of pulmonary vasculature. EKG: Sinus tachycardia with a first-degree AV block at a rate of 104, left axis deviation, incomplete right bundle-branch block. ASSESSMENT AND PLAN: This is a 76-year-old male who presents with nausea, vomiting, and tachycardia. 1. Nausea, vomiting, possible gastroenteritis: The patient has leukocytosis, but previously was on prednisone. Blood cultures ordered in the ER. He was given empirically cefepime. Will continue with Zosyn until cultures are available. Clear liquid diet for now. Antiemetics. Closely monitor in the hospital. 2. Possible [id number] diastolic congestive heart failure with increased lower extremity edema and some tachycardia and also some congestion in chest x- ray. Received a dose of IV Lasix in the ER, but will hold off on any further IV Lasix for now. Continue his home diuretics. Will monitor in the tele and consult cardiology for further recommendations. 3. Elevated lactic acid: Seems to be chronically elevated lactic acid. May need to discontinue metformin. Will follow the repeat lactic acid levels. Does not seem to be in sepsis. Will closely monitor. 4. Elevated troponins: Will follow serial cardiac enzymes. Most likely demand ischemia. Will follow the echocardiogram. Repeat EKGs. 5. History of diabetes: Hold metformin, Trulicity. Continue his insulin. Hold Jardiance. Placed on insulin sliding scale. Follow the blood sugars. 6. History of gout: Continue allopurinol. 7. History of coronary artery disease, status post stent: Continue atorvastatin, aspirin, and metoprolol succinate. 8. History of atrial fibrillation. His EKG shows sinus rhythm. Will continue with his metoprolol succinate, Eliquis. 9. Hyperlipidemia: On statin. 10. History of chronic obstructive pulmonary disease, interstitial lung disease, history of chronic respiratory failure: Uses mostly his oxygen in the nighttime, which will be continued. 11. Hypertension. Continue his home medications of metoprolol and diuretics. Will monitor the blood pressure. 12. Gastroesophageal reflux disease: Continue his famotidine. 13. Deep venous thrombosis prophylaxis: On Eliquis. DISPOSITION: Closely monitor in the tele floor. Level 1 full code. PT/OT prior to discharge. Social service to help with discharge planning. Job ID: [id number] [facility]
[2022-07-12 06:10] LABS: Basophils # (auto) 0.08 K/uL (0-0.2); Basophils % (auto) 0.8 %; Eosinophils # (auto) 0.37 K/uL (0-0.50); Eosinophils % (auto) 3.6 %; Hematocrit (blood only) 42.6 % (42.0-52.0); Hemoglobin 15.3 g/dl (14.0-18.0); Immature Granulocytes # (auto) 0.04 K/uL (0.01-0.20); Immature Granulocytes % (auto) 0.4 %; Lymphocytes % (auto) 33.9 %; Mean Corpuscular Hemoglobin 31.2 pg (25.0-34.0); Mean Corpuscular Hgb Conc 35.9 g/dL (32.0-36.0); Mean Corpuscular Volume 86.8 fL (80.0-100.0); Mean Platelet Volume 10.1 fL (9.4-12.4); Monocytes # (auto) 1.27 K/uL (0.11-0.59); Monocytes % (auto) 12.3 %; Neutrophils # (auto) 5.07 K/uL (1.40-6.50); Platelet Count 222 K/uL (130-400); RDW Coefficient of Variation 15.5 % (11.5-14.5); RDW Standard Deviation 48.6 fL (36.4-46.3); Red Blood Count 4.91 M/uL (4.70-6.10); White Blood Count 10.33 K/ul (4.8-10.8)
[2022-07-12 06:15] LABS: BUN Creatinine Ratio 17.2 (10-20); Calcium 9.2 mg/dl (8.6-10.3); Creatinine Clr Calc Pharmacy 71.5 ml/min; Est GFR (African American) 92.1 ml/min; Est GFR (Non-African American) 79.5 ml/min; Potassium 3.5 mmol/L (3.5-5.1)
[2022-07-12] MEDS: APIXABAN 5 MG TABLET PO SCH ×2 (08:13→21:19)
[2022-07-12] MEDS: METOPROLOL SUCC 50MG EXT REL TAB PO SCH ×2 (08:13→21:20)
[2022-07-12] MEDS: PIPERACILLIN/TAZOBACTAM 3.375 GM in DEXTROSE 5% 100 ML IV SCH ×3 (08:13→23:36)
[2022-07-12] MEDS: CEROVITE ADV FORMULA TAB PO SCH (08:13)
[2022-07-12] MEDS: SPIRONOLACTONE 12.5 MG TAB PO SCH (08:13)
[2022-07-12] MEDS: ASPIRIN 81 MG ECTAB PO SCH (08:14)
[2022-07-12] MEDS: FAMOTIDINE 20 MG TAB PO SCH ×2 (08:14→21:19)
[2022-07-12] MEDS: allopurinoL 300 MG TAB PO SCH (08:14)
[2022-07-12] MEDS: FLUTICASONE/VILANTEROL 200/25MCG 14 PUFFS/INHALER INH SCH (08:14)
[2022-07-12] MEDS: INSULIN ASPART PER UNIT CHARGE SC SCH ×4 (08:18→21:19)
[2022-07-12] MEDS ORDERED: POTASSIUM CHLORIDE CRTAB 20 MEQ TABCR PO STA (08:27)
--- NOTE | 2022-07-12 08:30 | Hospitalist Progress Note ---
Date of Service July 12, 2022 Assessment & Plan (1) Leukocytosis: (2) Nausea: (3) Tachycardia: Plan: This is a 76-year-old male who presents with nausea, vomiting, and tachycardia. 1. Nausea, vomiting, possible gastroenteritis: The patient has leukocytosis, but previously was on prednisone. Blood cultures ordered in the ER. He was given empirically cefepime. Will continue with Zosyn until cultures are available. Clear liquid diet initially, will advance now. KUB - normal No hx of diarrhea per pt, will obtain stool study WBC now normalized. Antiemetics. Closely monitor in the hospital. 2. Possible [id number] diastolic congestive heart failure with increased lower extremity edema and some tachycardia and also some congestion in chest x- ray. Received a dose of IV Lasix in the ER, but will hold off on any further IV Lasix for now. Continue his home diuretics. Will monitor in the tele and consult cardiology for further recommendations. Pt appears euvolemic. Cont home lasix. Afib w/ RVR at night noted - Pt see by cardiology today - pt already in sinus rhythm- cont. metoprolol, home eliquis Tachycardia and afib likely due to underlying illness 3. Elevated lactic acid: Seems to be chronically elevated lactic acid. May need to discontinue metformin. Will follow the repeat lactic acid levels.He is not septic. Will closely monitor. 4. Elevated troponins:follow serial cardiac enzymes. Most likely demand ischemia.ECG and Echo obtained, seen by cardiology Echo Compared to prior study, there is no significant change. EF 55 to 60%. There is moderate concentric LVH. Grade 1 diastolic dysfunction. Mild aortic regurg 5. History of diabetes: Hold metformin, Trulicity. Continue his insulin. Hold Jardiance. Placed on insulin sliding scale. Follow the blood sugars. 6. History of gout: Continue allopurinol. 7. History of coronary artery disease, status post stent: Continue atorvastatin, aspirin, and metoprolol succinate. 8. History of atrial fibrillation. His EKG shows sinus rhythm. Will continue with his metoprolol succinate, Eliquis. As above. 9. Hyperlipidemia: On statin. 10.COPD, interstitial lung disease, history of chronic respiratory failure: Uses mostly his oxygen in the nighttime, which will be continued. 11. Hypertension. Continue his home medications of metoprolol and diuretics. Will monitor the blood pressure. 12. Gastroesophageal reflux disease: Continue his famotidine. DVTprophylaxis: On Eliquis. DISPOSITION:tele floor.PT/OT prior to discharge. Code: Full Admission and Anticipated Discharge Date Admission Date: July 11, 2022 Subjective Pt seen in follow up of nausea, vom., elevated HR in 140s at home Currently laying in bed, in no acute distress Reports nausea and dry heaving much improved, interested in advancing diet Denies any abdominal pain denies any diarrhea No fevers chills, no sick contacts, no shortness of breath or chest pain, or palpitations Last night w/ Afib w/ RVR - seen by cardiology today Review of Systems Review of Systems: All systems reviewed & are unremarkable except as noted in Subjective Physical Exam Physical Exam: GENERAL: The patient is of moderate build, not in acute distress. HEENT: NC/AT. EOMI. Pupils equal, round and reactive to light. Oral mucosa moist. NECK: No JVD, no neck masses. CARDIOVASCULAR: S1 and S2 heard, regular rate and rhythm. No murmur, no gallop. RESPIRATORY: Normal AP diameter. No accessory muscle use. No wheezing, no cr ackles. ABDOMEN: Soft, bowel sounds present, nontender, no distention. NEURO: Alert and oriented. Speech is clear. No facial droop. Obeys simple commands. Moves extremities. EXTREMITIES: Mild lower extremity pedal edema present, no erythema seen. Results & Data Results & Data Vital Signs (Past 12 Hours) Vital Signs Temp Pulse Pulse Resp BP BP Pulse Ox 07/12/22 07:00 72 07/12/22 07:30 36.6 C 62 18 124/75 93 07/12/22 03:26 36.6 C 71 16 115/70 93 07/11/22 23:40 142 H 20 124/88 94 07/11/22 22:05 07/11/22 22:11 102 H 07/11/22 22:20 37.0 C 101 H 15 148/93 H 92 07/11/22 21:00 100 H 18 125/72 94 O2 Del Method O2 Flow Rate 07/12/22 07:00 07/12/22 07:30 Room Air 07/12/22 03:26 Nasal Cannula 2 07/11/22 23:40 Room Air 07/11/22 22:05 Room Air 07/11/22 22:11 07/11/22 22:20 Room Air 07/11/22 21:00 Laboratory Results 07/12/22 07/12/22 07/12/22 Range/Units 07:09 05:25 05:25 WBC (4.8-10.8) K/ul RBC (4.70-6.10) M/uL Hgb (14.0-18.0) g/dl Hct (42.0-52.0) % MCV (80.0-100.0) fL MCH (25.0-34.0) pg MCHC (32.0-36.0) g/dL RDW Std Deviation (36.4-46.3) fL RDW Coeff of Sheri (11.5-14.5) % Plt Count (130-400) K/uL MPV (9.4-12.4) fL Immature Gran % (Auto) % Neut % (Auto) % Lymph % (Auto) % Talbot % (Auto) % Eos % (Auto) % Baso % (Auto) % Neut # (Auto) (1.40-6.50) K/uL Lymph # (Auto) (1.2-3.4) K/uL Talbot # (Auto) (0.11-0.59) K/uL Eos # (Auto) (0-0.50) K/uL Baso # (Auto) (0-0.2) K/uL Immature Gran # (Auto) (0.01-0.20) K/uL PT (9.0-12.0) Seconds INR (0.9-1.1) APTT (21.0-31.0) Seconds PTT Ratio Sodium 139 (136-145) mmol/L Potassium 3.5 (3.5-5.1) mmol/L Chloride 102 (98-107) mmol/L Carbon Dioxide 27 (21-32) mmol/L Anion Gap 10 (3-11) BUN 16 (6-23) mg/dl Creatinine 0.93 (0.6-1.4) mg/dl Est Cr Clr Drug Dosing 71.5 ml/min Est GFR ( Amer) 92.1 ml/min Est GFR (Non-Af Amer) 79.5 ml/min BUN/Creatinine Ratio 17.2 (10-20) Glucose 150 H (70-99(Fasting)) mg/dl POC Glucose 137 H (70-99) mg/dl Estimat Average Glucose Pending Hemoglobin A1c Pending Lactate (0.4-2.0) mmol/L Calcium 9.2 (8.6-10.3) mg/dl Magnesium 2.0 (1.7-2.4) mg/dl Total Bilirubin (0.2-1.0) mg/dl AST (13-39) U/L ALT (7-52) U/L Alkaline Phosphatase (34-104) U/L Troponin I High Sens (0-20) pg/ml B-Natriuretic Peptide (0-100) pg/ml Total Protein (6.0-8.3) gm/dl Albumin (3.4-5.0) gm/dl Globulin (2.5-4.0) gm/dl Albumin/Globulin Ratio (0.9-2) Urine Color Urine Appearance (Clear) Urine pH (4.5-7.5) Ur Specific [place] (1.000-1.030) Urine Protein (Negative) Urine Glucose (UA) (Negative) Urine Ketones (Negative) Urine Blood (Negative) Urine Nitrite (Negative) Urine Bilirubin (Negative) Urine Urobilinogen (Negative) Ur Leukocyte Esterase (Negative) SARS-CoV-2, RNA, NAAT (NEGATIVE) 07/12/22 07/12/22 07/11/22 Range/Units 05:25 05:25 22:23 WBC 10.33 (4.8-10.8) K/ul RBC 4.91 (4.70-6.10) M/uL Hgb 15.3 (14.0-18.0) g/dl Hct 42.6 (42.0-52.0) % MCV 86.8 (80.0-100.0) fL MCH 31.2 (25.0-34.0) pg MCHC 35.9 (32.0-36.0) g/dL RDW Std Deviation 48.6 H (36.4-46.3) fL RDW Coeff of Sheri 15.5 H (11.5-14.5) % Plt Count 222 (130-400) K/uL MPV 10.1 (9.4-12.4) fL Immature Gran % (Auto) 0.4 % Neut % (Auto) 49.0 % Lymph % (Auto) 33.9 % Talbot % (Auto) 12.3 % Eos % (Auto) 3.6 % Baso % (Auto) 0.8 % Neut # (Auto) 5.07 (1.40-6.50) K/uL Lymph # (Auto) 3.50 H (1.2-3.4) K/uL Talbot # (Auto) 1.27 H (0.11-0.59) K/uL Eos # (Auto) 0.37 (0-0.50) K/uL Baso # (Auto) 0.08 (0-0.2) K/uL Immature Gran # (Auto) 0.04 (0.01-0.20) K/uL PT (9.0-12.0) Seconds INR (0.9-1.1) APTT (21.0-31.0) Seconds PTT Ratio Sodium (136-145) mmol/L Potassium (3.5-5.1) mmol/L Chloride (98-107) mmol/L Carbon Dioxide (21-32) mmol/L Anion Gap (3-11) BUN (6-23) mg/dl Creatinine (0.6-1.4) mg/dl Est Cr Clr Drug Dosing ml/min Est GFR ( Amer) ml/min Est GFR (Non-Af Amer) ml/min BUN/Creatinine Ratio (10-20) Glucose (70-99(Fasting)) mg/dl POC Glucose (70-99) mg/dl Estimat Average Glucose Hemoglobin A1c Lactate 2.6 H* (0.4-2.0) mmol/L Calcium (8.6-10.3) mg/dl Magnesium (1.7-2.4) mg/dl Total Bilirubin (0.2-1.0) mg/dl AST (13-39) U/L ALT (7-52) U/L Alkaline Phosphatase (34-104) U/L Troponin I High Sens 50.6 H* D (0-20) pg/ml B-Natriuretic Peptide (0-100) pg/ml Total Protein (6.0-8.3) gm/dl Albumin (3.4-5.0) gm/dl Globulin (2.5-4.0) gm/dl Albumin/Globulin Ratio (0.9-2) Urine Color Urine Appearance (Clear) Urine pH (4.5-7.5) Ur Specific [place] (1.000-1.030) Urine Protein (Negative) Urine Glucose (UA) (Negative) Urine Ketones (Negative) Urine Blood (Negative) Urine Nitrite (Negative) Urine Bilirubin (Negative) Urine Urobilinogen (Negative) Ur Leukocyte Esterase (Negative) SARS-CoV-2, RNA, NAAT (NEGATIVE) 07/11/22 07/11/22 07/11/22 Range/Units 22:10 20:06 19:25 WBC (4.8-10.8) K/ul RBC (4.70-6.10) M/uL Hgb (14.0-18.0) g/dl Hct (42.0-52.0) % MCV (80.0-100.0) fL MCH (25.0-34.0) pg MCHC (32.0-36.0) g/dL RDW Std Deviation (36.4-46.3) fL RDW Coeff of Sheri (11.5-14.5) % Plt Count (130-400) K/uL MPV (9.4-12.4) fL Immature Gran % (Auto) % Neut % (Auto) % Lymph % (Auto) % Talbot % (Auto) % Eos % (Auto) % Baso % (Auto) % Neut # (Auto) (1.40-6.50) K/uL Lymph # (Auto) (1.2-3.4) K/uL Talbot # (Auto) (0.11-0.59) K/uL Eos # (Auto) (0-0.50) K/uL Baso # (Auto) (0-0.2) K/uL Immature Gran # (Auto) (0.01-0.20) K/uL PT (9.0-12.0) Seconds INR (0.9-1.1) APTT (21.0-31.0) Seconds PTT Ratio Sodium (136-145) mmol/L Potassium (3.5-5.1) mmol/L Chloride (98-107) mmol/L Carbon Dioxide (21-32) mmol/L Anion Gap (3-11) BUN (6-23) mg/dl Creatinine (0.6-1.4) mg/dl Est Cr Clr Drug Dosing ml/min Est GFR ( Amer) ml/min Est GFR (Non-Af Amer) ml/min BUN/Creatinine Ratio (10-20) Glucose (70-99(Fasting)) mg/dl POC Glucose 162 H (70-99) mg/dl Estimat Average Glucose Hemoglobin A1c Lactate 3.0 H* (0.4-2.0) mmol/L Calcium (8.6-10.3) mg/dl Magnesium (1.7-2.4) mg/dl Total Bilirubin (0.2-1.0) mg/dl AST (13-39) U/L ALT (7-52) U/L Alkaline Phosphatase (34-104) U/L Troponin I High Sens (0-20) pg/ml B-Natriuretic Peptide (0-100) pg/ml Total Protein (6.0-8.3) gm/dl Albumin (3.4-5.0) gm/dl Globulin (2.5-4.0) gm/dl Albumin/Globulin Ratio (0.9-2) Urine Color Yellow Urine Appearance Clear (Clear) Urine pH 5.0 (4.5-7.5) Ur Specific [place] 1.036 H (1.000-1.030) Urine Protein Negative (Negative) Urine Glucose (UA) 3+ H (Negative) Urine Ketones Trace H (Negative) Urine Blood Negative (Negative) Urine Nitrite Negative (Negative) Urine Bilirubin Negative (Negative) Urine Urobilinogen Negative (Negative) Ur Leukocyte Esterase Negative (Negative) SARS-CoV-2, RNA, NAAT (NEGATIVE) 07/11/22 07/11/22 07/11/22 Range/Units 19:01 18:50 18:50 WBC (4.8-10.8) K/ul RBC (4.70-6.10) M/uL Hgb (14.0-18.0) g/dl Hct (42.0-52.0) % MCV (80.0-100.0) fL MCH (25.0-34.0) pg MCHC (32.0-36.0) g/dL RDW Std Deviation (36.4-46.3) fL RDW Coeff of Sheri (11.5-14.5) % Plt Count (130-400) K/uL MPV (9.4-12.4) fL Immature Gran % (Auto) % Neut % (Auto) % Lymph % (Auto) % Talbot % (Auto) % Eos % (Auto) % Baso % (Auto) % Neut # (Auto) (1.40-6.50) K/uL Lymph # (Auto) (1.2-3.4) K/uL Talbot # (Auto) (0.11-0.59) K/uL Eos # (Auto) (0-0.50) K/uL Baso # (Auto) (0-0.2) K/uL Immature Gran # (Auto) (0.01-0.20) K/uL PT 11.1 (9.0-12.0) Seconds INR 1.0 (0.9-1.1) APTT 28.0 (21.0-31.0) Seconds PTT Ratio 1.0 Sodium 139 (136-145) mmol/L Potassium 4.1 (3.5-5.1) mmol/L Chloride 102 (98-107) mmol/L Carbon Dioxide 24 (21-32) mmol/L Anion Gap 13 H (3-11) BUN 15 (6-23) mg/dl Creatinine 1.05 (0.6-1.4) mg/dl Est Cr Clr Drug Dosing 64.2 ml/min Est GFR ( Amer) 79.5 ml/min Est GFR (Non-Af Amer) 68.6 ml/min BUN/Creatinine Ratio 14.3 (10-20) Glucose 193 H (70-99(Fasting)) mg/dl POC Glucose (70-99) mg/dl Estimat Average Glucose Hemoglobin A1c Lactate (0.4-2.0) mmol/L Calcium 9.9 (8.6-10.3) mg/dl Magnesium 2.0 (1.7-2.4) mg/dl Total Bilirubin 2.2 H (0.2-1.0) mg/dl AST 27 (13-39) U/L ALT 40 (7-52) U/L Alkaline Phosphatase 62 (34-104) U/L Troponin I High Sens 73.8 H* (0-20) pg/ml B-Natriuretic Peptide (0-100) pg/ml Total Protein 7.7 (6.0-8.3) gm/dl Albumin 4.4 (3.4-5.0) gm/dl Globulin 3.3 (2.5-4.0) gm/dl Albumin/Globulin Ratio 1.3 (0.9-2) Urine Color Urine Appearance (Clear) Urine pH (4.5-7.5) Ur Specific [place] (1.000-1.030) Urine Protein (Negative) Urine Glucose (UA) (Negative) Urine Ketones (Negative) Urine Blood (Negative) Urine Nitrite (Negative) Urine Bilirubin (Negative) Urine Urobilinogen (Negative) Ur Leukocyte Esterase (Negative) SARS-CoV-2, RNA, NAAT NEGATIVE (NEGATIVE) 07/11/22 07/11/22 Range/Units 18:50 18:50 WBC 14.24 H (4.8-10.8) K/ul RBC 5.27 (4.70-6.10) M/uL Hgb 16.2 (14.0-18.0) g/dl Hct 46.3 (42.0-52.0) % MCV 87.9 (80.0-100.0) fL MCH 30.7 (25.0-34.0) pg MCHC 35.0 (32.0-36.0) g/dL RDW Std Deviation 48.4 H (36.4-46.3) fL RDW Coeff of Sheri 15.2 H (11.5-14.5) % Plt Count 266 (130-400) K/uL MPV 10.2 (9.4-12.4) fL Immature Gran % (Auto) 0.3 % Neut % (Auto) 58.1 % Lymph % (Auto) 30.5 % Talbot % (Auto) 9.3 % Eos % (Auto) 1.2 % Baso % (Auto) 0.6 % Neut # (Auto) 8.28 H (1.40-6.50) K/uL Lymph # (Auto) 4.34 H (1.2-3.4) K/uL [place]bot # (Auto) 1.33 H (0.11-0.59) K/uL Eos # (Auto) 0.17 (0-0.50) K/uL Baso # (Auto) 0.08 (0-0.2) K/uL Immature Gran # (Auto) 0.04 (0.01-0.20) K/uL PT (9.0-12.0) Seconds INR (0.9-1.1) APTT (21.0-31.0) Seconds PTT Ratio Sodium (136-145) mmol/L Potassium (3.5-5.1) mmol/L Chloride (98-107) mmol/L Carbon Dioxide (21-32) mmol/L Anion Gap (3-11) BUN (6-23) mg/dl Creatinine (0.6-1.4) mg/dl Est Cr Clr Drug Dosing ml/min Est GFR ( Amer) ml/min Est GFR (Non-Af Amer) ml/min BUN/Creatinine Ratio (10-20) Glucose (70-99(Fasting)) mg/dl POC Glucose (70-99) mg/dl Estimat Average Glucose Hemoglobin A1c Lactate (0.4-2.0) mmol/L Calcium (8.6-10.3) mg/dl Magnesium (1.7-2.4) mg/dl Total Bilirubin (0.2-1.0) mg/dl AST (13-39) U/L ALT (7-52) U/L Alkaline Phosphatase (34-104) U/L Troponin I High Sens (0-20) pg/ml B-Natriuretic Peptide 269 H (0-100) pg/ml Total Protein (6.0-8.3) gm/dl Albumin (3.4-5.0) gm/dl Globulin (2.5-4.0) gm/dl Albumin/Globulin Ratio (0.9-2) Urine Color Urine Appearance (Clear) Urine pH (4.5-7.5) Ur Specific [place] (1.000-1.030) Urine Protein (Negative) Urine Glucose (UA) (Negative) Urine Ketones (Negative) Urine Blood (Negative) Urine Nitrite (Negative) Urine Bilirubin (Negative) Urine Urobilinogen (Negative) Ur Leukocyte Esterase (Negative) SARS-CoV-2, RNA, NAAT (NEGATIVE) Medications Administered Current Inpatient Medications Acetaminophen (Acetaminophen 325 Mg Tab) 650 mg PO Q4H PRN PRN Reason: Pain or Fever Stop: 08/10/22 22:12 Albuterol (Albuterol Hfa 8 Gm Inhaler) 2 puffs INH Q4 PRN PRN Reason: Shortness Of Breath Or Wheezin Stop: 08/10/22 22:12 Allopurinol (Allopurinol 300 Mg Tab) 300 mg PO QAM [facility] Stop: 08/11/22 08:59 Last Admin: 07/12/22 08:14 Dose: 300 mg Apixaban (Apixaban 5 Mg Tablet) 5 mg PO BID [facility] Stop: 08/10/22 22:59 Last Admin: 07/12/22 08:13 Dose: 5 mg Aspirin (Aspirin 81 Mg Ectab) 81 mg PO QAM [facility] Stop: 08/11/22 08:59 Last Admin: 07/12/22 08:14 Dose: 81 mg Atorvastatin Calcium (Atorvastatin 40 Mg Tab) 40 mg PO HS [facility] Stop: 08/11/22 20:59 Dextrose (Dextrose 50% 50 Ml Syringe) 25 - 50 ml IV UD PRN; Protocol PRN Reason: Hypoglycemia Protocol Stop: 08/10/22 22:12 Famotidine (Famotidine 20 Mg Tab) 20 mg PO BID [facility] Stop: 08/11/22 08:59 Last Admin: 07/12/22 08:14 Dose: 20 mg Fluticasone/Vilanterol (Fluticasone/Vilanterol 200/25mcg 14 Puffs/Inhaler) 1 puffs INH DAILY NATASHA Stop: 08/11/22 08:59 Last Admin: 07/12/22 08:14 Dose: 1 puffs Glucagon (Glucagon For Inj 1 Mg Vial) 1 mg SQ UD PRN; Protocol PRN Reason: Hypoglycemia Protocol Stop: 08/10/22 22:12 Glucose (Glucose 10 Tab/Tube) 4 - 8 tab PO UD PRN; Protocol PRN Reason: Hypoglycemia Treatment Stop: 08/10/22 22:12 Glucose (Glucose 40% Gel 15 Gm Tube) 15 - 30 gm PO UD PRN; Protocol PRN Reason: Hypoglycemia Protocol Stop: 08/10/22 22:12 Piperacillin Sod/Tazobactam (Sod 3.375 gm/ Dextrose) 115 mls @ 28.75 mls/hr IV Q8H NATASHA; Protocol Stop: 07/21/22 22:59 Last Admin: 07/12/22 08:13 Dose: 28.8 mls/hr Insulin Aspart (Insulin Aspart Per Unit Charge) 0 units SC ACHS [facility] Stop: 08/11/22 07:29 Last Admin: 07/12/22 08:18 Dose: Not Given Insulin Glargine (Lantus Per Unit Charge) 30 units SQ QDD [facility] Stop: 08/11/22 16:29 Metoprolol Succinate (Metoprolol Succ 50mg Ext Rel Tab) 100 mg PO BID [facility] Stop: 08/10/22 22:12 Last Admin: 07/12/22 08:13 Dose: 100 mg Miscellaneous (Carbohydrates For Hypoglycemia ) 15 - 30 gm PO UD PRN PRN Reason: Hypoglycemia Protocol Stop: 08/10/22 22:12 Multivitamins/Minerals (Cerovite Adv Formula Tab) 1 tab PO DAILY [facility] Stop: 08/11/22 08:59 Last Admin: 07/12/22 08:13 Dose: 1 tab Nitroglycerin (Nitroglycerin Sl 0.4 Mg/Tab Tab) 0.4 mg SL UD PRN PRN Reason: Chest Pain Stop: 08/10/22 22:12 Ondansetron HCl (Ondansetron Inj 2 Mg/Ml 2 Ml Vial) 4 mg IV Q6H PRN PRN Reason: Nausea Stop: 08/10/22 22:12 Spironolactone (Spironolactone 12.5 Mg Tab) 12.5 mg PO QAM [facility] Stop: 08/11/22 08:59 Last Admin: 07/12/22 08:13 Dose: 12.5 mg (1) Leukocytosis Leukocytosis type: unspecified Qualified Code(s): D72.829 - Elevated white blood cell count, unspecified
--- NOTE | 2022-07-12 08:38 | Cardiology Consultation ---
Date of Consultation July 12, 2022 Assessment & Plan (1) Atrial fibrillation: (2) Nausea: (3) Vomiting: (4) Acute on chronic diastolic heart failure: Plan Patient admitted after one day of nausea/vomiting, poor PO intake with elevated HR's at home, possible afib?. Upon arrival, EKG demonstrated sinus tachycardia. Started on antibiotics for possible gastroenteritis with elevated WBC and lactate level There was initial concern regarding possible CHF exacerbation, HFpEF, given mild LE edema and pulm congestion on xray. He received one dose IV lasix. Currently appears euvolemic. No edema on exam. SOB at baseline per patient. Would resume oral furosemide 40 mg daily when PO intake improves. Monitor volume status. He had one episode of afib RVR last night, lasting about 1 hour in setting of nausea and vomiting. Converted spontaneously to NSR. Continue metoprolol 100 mg BID Continue Eliquis 5 mg BID for stroke prophylaxis. No anginal complaints. Continue home medications of ASA, statin, metoprolol. Case discussed with Dr. Montalvo. Will follow Supervising Physician Co-Signing Physician Notes Supervising Physician Attestation: I have personally performed a history and physical examination on the patient. I agree with the physician intellectual property legal assistant's findings and plan as documented with the following additions. Subjective: Patient feeling subjectively improved from an upset stomach standpoint at present. Telemetry reveals an episode of atrial fibrillation that lasted approximately an hour last night from 11:30 PM until 12:30 AM. Sinus rhythm with first-degree AV block with heart rate in 60s noted this morning. Exam: Cardiovascular: Regular rhythm, no murmurs, no edema Pulmonary: Lungs clear to auscultation bilaterally Data: EKG performed 07/11/2022 at 1841 and independently reviewed: Sinus tachycardia at 104 bpm with long first-degree AV block, OR interval 248 ms. Incomplete right bundle branch block, age-indeterminate inferior infarct pattern, poor R wave p rogression in the precordial leads. Compared to the previous tracing performed 05/25/2022, no significant change with age-indeterminate inferior infarct pattern noted at that time, poor R wave progression in the precordial leads noted that time, and long first-degree AV block noted at that time, OR interval at that time 330 ms. EKG performed today 07/12/2022 at 10:27 AM: Reviewed independently/interpreted independently: Sinus rhythm at 64 bpm with long first-degree AV block, OR interval 274 ms. Age-indeterminate inferior infarct, poor R wave progression in the precordial leads. Stable findings High-sensitivity troponin: 74.8--> 50.6--> repeat measurement obtained at 1128 this morning currently pending. Transthoracic echocardiogram performed 04/28/2022: LVEF 55% at that time. Chest x-ray performed 07/11/2022: Radiology report reviewed, image reviewed/interpreted independently. -Enlargement of the cardiac silhouette noted. Mildly increased vascular markings consistent with mild interstitial edema Assessment and Plan: -Assessment as noted above. Mildly elevated troponin likely due to myocardial strain in the setting of noncardiac illness. Continue current cardiac medications including Eliquis 5 mg twice daily, metoprolol succinate 100 mg twice daily, aspirin 81 mg daily, atorvastatin 40 mg daily, spironolactone 12.5 mg daily. Pulm status stable at present having received a dose of diuretic therapy on presentation. DVT prophylaxis: He is on full anticoagulation with Eliquis. Eber Montalvo, DO History of Present Illness Reason for Consultation: CHF? Requesting Physician: Dr. Rainey Attending Physician: Dr. Montalvo History of Present Illness Patient is a complex 76 year old male, known to [facility], Dr. Juan/MICHELET Babcock for complex history of 1. Paroxysmal atrial fibrillation, diagnosed inpatient in the setting of a COPD exacerbation, started on Eliquis 04/29/2022. Recurrent afib May 2022 in setting of acute respiratory failure, HFpEF requiring LENORA/CV. a. [id number] score of 5 2. Chronic ischemic heart disease, status post PCI to the left circumflex 2006 a. Moderate diffuse atherosclerosis nonobstructive, per cardiac catheterization 2014. b. Nonischemic dobutamine stress echo 05/15/2021 3. Dyslipidemia 4. Hypertension with diastolic dysfunction 5. COPD with chronic respiratory failure 6. JENNIFER, not on CPAP 7. Conduction system disease, first-degree AV block, left anterior fascicular block, incomplete right bundle branch block Patient reports he was doing well over the last month since discharge end of May 2022 without recurrent palpitations or elevated HR's on pulse oximeter. Taking meds as prescribed. 2 days ago, patient began to have issues with significant nausea, vomiting, dry heaving, poor PO intake of food/liquids. He started monitoring his HR's at home and noted wide fluctuations of his HR ranging 80-140's. He was asymptomatic with tachycardia, but felt poorly due to GI issues, vomiting and came to ER for evaluation. On arrival, EKG demonstrated sinus tachycardia without acute changes. WBC was mildly elevated, along with lactate, concerns for sepsis and started on antibiotics with clear liquid diet for possible gastroenteritis. There was concern regarding mild LE edema and pulm vascular congestion on chest xray. He was treated with one dose IV lasix. Last evening around 11:30 PM, patient developed recurrent atrial fibrillation with RVR, lasting about 1 hour. He was given PM dose of metoprolol around that time and converted to NSR. Patient is not sure he took morning metoprolol with GI upset. At time of consult, patient maintaining NSR this morning. He reports ongoing nausea and dry heaving. Also + sputum production, green mucus. He reports his SOB is at baseline. No edema today. No chest pain. No abdominal pain this morning. He just "doesn't feel right". Allergies Allergy/AdvReac Type Severity Reaction Status Date / Time No Known Allergies Allergy Verified 07/11/22 19:33 Home Medications Medication Instructions Recorded Confirmed Type allopurinol 300 mg tablet 300 mg PO QAM 11/05/18 07/11/22 History aspirin 81 mg tablet,delayed 81 mg PO QAM 11/05/18 07/11/22 History release (Lore Low Dose Aspirin) albuterol sulfate 90 mcg/actuation 2 puff inhalation Q4 PRN Shortness 02/21/20 07/11/22 History aerosol inhaler Of Breath Or Wheezing famotidine 20 mg tablet 20 mg PO AMHS 02/21/20 07/11/22 History insulin degludec 100 unit/mL (3 30 unit subcut QDD 02/21/20 07/11/22 History mL) subcutaneous pen (Tresiba FlexTouch U-100 insulin) atorvastatin 40 mg tablet 40 mg PO HS 06/18/21 07/11/22 History spironolactone 25 mg tablet 12.5 mg PO QAM 06/18/21 07/11/22 History metformin 500 mg tablet,extended 1,000 mg PO DAILY 02/17/22 07/11/22 History release 24 hr apixaban 5 mg tablet (Eliquis) 5 mg PO AMHS 05/23/22 07/11/22 History dulaglutide 1.5 mg/0.5 mL 1.5 mg subcut WK 05/23/22 07/11/22 History subcutaneous pen injector (Trulicity) fluticasone 250 mcg-salmeterol 50 1 inh inhalation AMHS 05/23/22 07/11/22 History mcg/dose blistr powdr for inhalation (Advair Diskus) furosemide 20 mg tablet (Lasix) 40 mg PO DAILY 05/23/22 07/11/22 History multivit,Ca,qxlo-EV-yvsikqsa-lutn 1 tab PO DAILY 05/23/22 07/11/22 History 18 mg-500 mcg-300 mcg-250 mcg tablet metoprolol succinate 100 mg 100 mg PO BID #60 tabs 05/27/22 07/11/22 Rx tablet,extended release 24 hr empagliflozin 10 mg tablet 10 mg PO DAILY 07/11/22 07/11/22 History (Jardiance) Patient History Medical History Antiplatelet or antithrombotic long-term use CAD (coronary artery disease) status post coronary intervention with stent to the circumflex marginal branch 2007, moderate diffuse atherosclerosis nonobstructive 2014 Cardiac murmur Chronic diastolic CHF (congestive heart failure) COPD, mild Diabetes mellitus, type 2 Dyslipidemia Gout Herniated intervertebral disc KALTAG (hard of hearing) HTN (hypertension) Neuropathy JENNIFER (obstructive sleep apnea) does not tolerate CPAP/BiPAP Osteoarthritis Surgical History H/O heart artery stent x 1 (2006) - Follows w/ Dr. Chandler History of amputation of left thumb History of cardiac catheterization 2015 - [facility] - no stents 10/28/06 - MARAH to circumflex, marginal at [facility], Dr Hagan History of colonoscopy History of right cataract surgery Family History Brother Coronary heart disease Lung cancer Mother Family history of diabetes mellitus Other Hypertension Social History Smoking Status: Former smoker Tobacco Type: Cigarettes Cigarettes Per Day: Quit 1985, smoked 2ppd x 25 years; Second Hand Exposure: No; Do You Dip or Chew Tobacco: No; Tobacco Cessation Education Requested by Patient: No Hx Alcohol Use: Yes Alcohol type: wine Hx Substance Use: No Preferred Language: Kinyarwanda Communication Ability: Effective Sole Stainer Required: No Beliefs That Will Affect Care: None marital status: / Current Living Situation: Family Current Living Situation Comment: family next door current occupational status: retired How many Children do You have: 2 Other Information That Helps Us Care for You: No Feels Safe at Home: Yes Safety Concerns: Feels Safe At This Time Assistive Devices: Cane and Oxygen - Continuous Review of Systems Review of Systems: All systems reviewed & are unremarkable except as noted in HPI & below Physical Exam Constitutional: WD/WN, vitals as above well developed; no acute distress Neck: trachea midline, no thyromegaly Respiratory: normal respiratory effort, lungs clear to auscultation Cardiovascular: Rate/Rhythm: regular rate and regular rhythm Heart Sounds: normal S1 and normal S2; no murmur Vessels: no JVD Extremities: no edema Gastrointestinal (Abdomen): normal bowel sounds, soft, nontender, no hepatosplenomegaly Skin: no rashes, warm and dry Neurologic: PERRL, EOMI, accommodation nl, no face palsy, no dysarthria Psychiatric: A+Ox3, euthymic affect Results & Data Vital Signs (Past 12 Hours) Vital Signs Temp Pulse Pulse Resp BP BP Pulse Ox 07/12/22 07:00 72 07/12/22 07:30 36.6 C 62 18 124/75 93 07/12/22 03:26 36.6 C 71 16 115/70 93 07/11/22 23:40 142 H 20 124/88 94 07/11/22 22:05 07/11/22 22:11 102 H 07/11/22 22:20 37.0 C 101 H 15 148/93 H 92 07/11/22 21:00 100 H 18 125/72 94 O2 Del Method O2 Flow Rate 07/12/22 07:00 07/12/22 07:30 Room Air 07/12/22 03:26 Nasal Cannula 2 07/11/22 23:40 Room Air 07/11/22 22:05 Room Air 07/11/22 22:11 07/11/22 22:20 Room Air 07/11/22 21:00 Laboratory Results Cardiac Enzymes 07/11/22 07/11/22 07/12/22 Range/Units 18:50 18:50 05:25 AST 27 (13-39) U/L Troponin I High Sens 73.8 H* 50.6 H* D (0-20) pg/ml B-Natriuretic Peptide 269 H (0-100) pg/ml Coagulation 07/11/22 07/11/22 Range/Units 18:50 18:50 PT 11.1 (9.0-12.0) Seconds APTT 28.0 (21.0-31.0) Seconds B-Natriuretic Peptide 269 H (0-100) pg/ml CBC 07/11/22 07/12/22 Range/Units 18:50 05:25 WBC 14.24 H 10.33 (4.8-10.8) K/ul RBC 5.27 4.91 (4.70-6.10) M/uL Hgb 16.2 15.3 (14.0-18.0) g/dl Hct 46.3 42.6 (42.0-52.0) % Plt Count 266 222 (130-400) K/uL Neut # (Auto) 8.28 H 5.07 (1.40-6.50) K/uL Lymph # (Auto) 4.34 H 3.50 H (1.2-3.4) K/uL [place] # (Auto) 1.33 H 1.27 H (0.11-0.59) K/uL Eos # (Auto) 0.17 0.37 (0-0.50) K/uL Baso # (Auto) 0.08 0.08 (0-0.2) K/uL Comprehensive Metabolic Panel 07/11/22 07/12/22 Range/Units 18:50 05:25 Sodium 139 139 (136-145) mmol/L Potassium 4.1 3.5 (3.5-5.1) mmol/L Chloride 102 102 (98-107) mmol/L Carbon Dioxide 24 27 (21-32) mmol/L BUN 15 16 (6-23) mg/dl Creatinine 1.05 0.93 (0.6-1.4) mg/dl Glucose 193 H 150 H (70-99(Fasting)) mg/dl Calcium 9.9 9.2 (8.6-10.3) mg/dl AST 27 (13-39) U/L ALT 40 (7-52) U/L Alkaline Phosphatase 62 (34-104) U/L Total Protein 7.7 (6.0-8.3) gm/dl Albumin 4.4 (3.4-5.0) gm/dl Intake and Output 07/11/22 07/12/22 07/12/22 22:59 06:59 14:59 Intake Total 100 / 575 475 / 575 Output Total 230 / 230 Balance 100 / 345 245 / 345 Intake: IV 100 / 215 115 / 215 Acetaminophen 1,000 mg In 100 100 / 100 ml @ 400 mls/hr IV NOW STA Rx#: [id number] Piperacillin/Tazobactam 3.375 115 / 115 gm In Dextrose 5% 100 ml @ 28. 75 mls/hr IV Q8H [facility] Rx#: [id number] Oral 360 / 360 Output: Urine 230 / 230 Other: Weight 87.997 kg Weight Measurement Method Built in [facility] Diagnostic Findings Telemetry reviewed: Currently NSR in the 70-80's. Last night he had one hour of afib RVR from 11:30-12:30 PM. Chest X-Ray 07/11/22 18:49 SINGLE VIEW CHEST CLINICAL HISTORY: Dyspnea FINDINGS: An AP, portable, upright chest radiograph is compared to chest x-ray and chest CT dated 05/23/2022. The heart is enlarged noting atherosclerotic ca lcification of the thoracic aorta. There is prominence of the pulmonary vasculature. Emphysema and chronic interstitial thickening similar to previous. Scarring/atelectasis is noted at the lung bases. No airspace consolidation, large pleural effusion, or pneumothorax is seen. The skeletal structures are osteopenic. The bony thorax is grossly intact. Arthritic change is noted in the shoulders. IMPRESSION: Cardiomegaly with prominence of the pulmonary vasculature. Correlate clinically for evidence of fluid overload/mild congestive change. ACT 112: Negative or not required by law. Electronically signed by: Fei Tovar M.D. 07/11/2022 7:31 PM Echo at [facility] 04/28/2022 Patient was in AFib with a ventricular rate of 90-100 during study LVEF 55% No wall motion abnormalities Moderate asymmetric LVH- reviewed with Dr. Montalvo moderate concentric LVH noted. RV normal in size and function Left atrium mildly dilated Mild MR No pulmonary hypertension Medications Administered Current Inpatient Medications Acetaminophen (Acetaminophen 325 Mg Tab) 650 mg PO Q4H PRN PRN Reason: Pain or Fever Stop: 08/10/22 22:12 Albuterol (Albuterol Hfa 8 Gm Inhaler) 2 puffs INH Q4 PRN PRN Reason: Shortness Of Breath Or Wheezin Stop: 08/10/22 22:12 Allopurinol (Allopurinol 300 Mg Tab) 300 mg PO QAM NATASHA Stop: 08/11/22 08:59 Last Admin: 07/12/22 08:14 Dose: 300 mg Apixaban (Apixaban 5 Mg Tablet) 5 mg PO BID NATASHA Stop: 08/10/22 22:59 Last Admin: 07/12/22 08:13 Dose: 5 mg Aspirin (Aspirin 81 Mg Ectab) 81 mg PO QAM NATASHA Stop: 08/11/22 08:59 Last Admin: 07/12/22 08:14 Dose: 81 mg Atorvastatin Calcium (Atorvastatin 40 Mg Tab) 40 mg PO HS NATASHA Stop: 08/11/22 20:59 Dextrose (Dextrose 50% 50 Ml Syringe) 25 - 50 ml IV UD PRN; Protocol PRN Reason: Hypoglycemia Protocol Stop: 08/10/22 22:12 Famotidine (Famotidine 20 Mg Tab) 20 mg PO BID NATASHA Stop: 08/11/22 08:59 Last Admin: 07/12/22 08:14 Dose: 20 mg Fluticasone/Vilanterol (Fluticasone/Vilanterol 200/25mcg 14 Puffs/Inhaler) 1 puffs INH DAILY NATASHA Stop: 08/11/22 08:59 Last Admin: 07/12/22 08:14 Dose: 1 puffs Glucagon (Glucagon For Inj 1 Mg Vial) 1 mg SQ UD PRN; Protocol PRN Reason: Hypoglycemia Protocol Stop: 08/10/22 22:12 Glucose (Glucose 10 Tab/Tube) 4 - 8 tab PO UD PRN; Protocol PRN Reason: Hypoglycemia Treatment Stop: 08/10/22 22:12 Glucose (Glucose 40% Gel 15 Gm Tube) 15 - 30 gm PO UD PRN; Protocol PRN Reason: Hypoglycemia Protocol Stop: 08/10/22 22:12 Piperacillin Sod/Tazobactam (Sod 3.375 gm/ Dextrose) 115 mls @ 28.75 mls/hr IV Q8H [facility]; Protocol Stop: 07/21/22 22:59 Last Admin: 07/12/22 08:13 Dose: 28.8 mls/hr Insulin Aspart (Insulin Aspart Per Unit Charge) 0 units SC ACHS [facility] Stop: 08/11/22 07:29 Last Admin: 07/12/22 08:18 Dose: Not Given Insulin Glargine (Lantus Per Unit Charge) 30 units SQ QDD [facility] Stop: 08/11/22 16:29 Metoprolol Succinate (Metoprolol Succ 50mg Ext Rel Tab) 100 mg PO BID [facility] Stop: 08/10/22 22:12 Last Admin: 07/12/22 08:13 Dose: 100 mg Miscellaneous (Carbohydrates For Hypoglycemia ) 15 - 30 gm PO UD PRN PRN Reason: Hypoglycemia Protocol Stop: 08/10/22 22:12 Multivitamins/Minerals (Cerovite Adv Formula Tab) 1 tab PO DAILY [facility] Stop: 08/11/22 08:59 Last Admin: 07/12/22 08:13 Dose: 1 tab Nitroglycerin (Nitroglycerin Sl 0.4 Mg/Tab Tab) 0.4 mg SL UD PRN PRN Reason: Chest Pain Stop: 08/10/22 22:12 Ondansetron HCl (Ondansetron Inj 2 Mg/Ml 2 Ml Vial) 4 mg IV Q6H PRN PRN Reason: Nausea Stop: 08/10/22 22:12 Spironolactone (Spironolactone 12.5 Mg Tab) 12.5 mg PO QAM [facility] Stop: 08/11/22 08:59 Last Admin: 07/12/22 08:13 Dose: 12.5 mg (3) Vomiting Nausea presence: with nausea Vomiting type: unspecified Qualified Code(s): R11.2 - Nausea with vomiting, unspecified
[2022-07-12 09:41] LABS: Estimated Average Glucose 192 mg/dl; Hemoglobin A1C 8.3 % (4.5-5.6)
--- NOTE | 2022-07-12 16:20 | XRay Report ---
KUB CLINICAL HISTORY: Nausea and vomiting. FINDINGS: An AP supine abdominal radiograph is obtained. No prior studies are available for compariso n at the time of dictation. There is a nonobstructed abdominal bowel gas pattern. Mild to moderate fe carisa retention is noted throughout the colon. No evidence of intraperitoneal free air is seen on this supine image. There are no abnormal abdominal calcifications. A phlebolith is seen in the left hemipe lvis. The skeletal structures are osteopenic and appear intact. There is moderate lumbosacral spondyl osis. IMPRESSION: No acute abnormality is identified. Electronically signed by: Fei Tovar M.D. 07/12/2022 4:19 PM
[2022-07-12] MEDS: LANTUS PER UNIT CHARGE SQ SCH (17:38)
[2022-07-12 19:56] LABS: Adenovirus PCR Not Detected (NotDetected); Bordetella parapertussis PCR Not Detected (NotDetected); Bordetella pertussis PCR Not Detected (NotDetected); Chlamydia pneumoniae PCR Not Detected (NotDetected); Coronavirus 229E PCR Not Detected (NotDetected); Coronavirus CoV-2 (COVID19)PCR Not Detected (NotDetected); Coronavirus HKU1 PCR Not Detected (NotDetected); Coronavirus NL63 PCR Not Detected (NotDetected); Coronavirus OC43PCR Not Detected (NotDetected); Human Metapneumovirus PCR Not Detected (NotDetected); Influenza A PCR Not Detected (NotDetected); Influenza B PCR Not Detected (NotDetected); Mycoplasma pneumoniae PCR Not Detected (NotDetected); Parainfluenza Virus 1 PCR Not Detected (NotDetected); Parainfluenza Virus 2 PCR Not Detected (NotDetected); Parainfluenza Virus 3 PCR Not Detected (NotDetected); Parainfluenza Virus 4 PCR Not Detected (NotDetected); Respiratory Syncytial VirusPCR Not Detected (NotDetected)
[2022-07-12 20:03] LABS: Rhinovirus/Enterovirus PCR DETECTED (NotDetected)
[2022-07-12] MEDS: ATORVASTATIN 40 MG TAB PO SCH (21:19)
[2022-07-13] MEDS: PIPERACILLIN/TAZOBACTAM 3.375 GM in DEXTROSE 5% 100 ML IV SCH ×2 (06:36→15:50)
[2022-07-13 07:00] LABS: Hematocrit (blood only) 41.9 % (42.0-52.0); Hemoglobin 14.8 g/dl (14.0-18.0); Mean Corpuscular Hemoglobin 31.1 pg (25.0-34.0); Mean Corpuscular Hgb Conc 35.3 g/dL (32.0-36.0); Mean Platelet Volume 9.6 fL (9.4-12.4); Platelet Count 208 K/uL (130-400); RDW Coefficient of Variation 15.5 % (11.5-14.5); RDW Standard Deviation 49.3 fL (36.4-46.3); Red Blood Count 4.76 M/uL (4.70-6.10); White Blood Count 10.88 K/ul (4.8-10.8)
[2022-07-13 07:28] LABS: BUN Creatinine Ratio 15.5 (10-20); Creatinine Clr Calc Pharmacy 68.6 ml/min; Est GFR (African American) 87.5 ml/min; Est GFR (Non-African American) 75.5 ml/min; Magnesium 2.1 mg/dl (1.7-2.4); Phosphorus 3.5 mg/dl (2.5-4.9); Potassium 4.5 mmol/L (3.5-5.1)
[2022-07-13] MEDS: FAMOTIDINE 20 MG TAB PO SCH ×2 (08:45→19:51)
[2022-07-13] MEDS: allopurinoL 300 MG TAB PO SCH (08:46)
[2022-07-13] MEDS: ASPIRIN 81 MG ECTAB PO SCH (08:46)
[2022-07-13] MEDS: INSULIN ASPART PER UNIT CHARGE SC SCH ×4 (08:46→20:21)
[2022-07-13] MEDS: METOPROLOL SUCC 50MG EXT REL TAB PO SCH ×2 (08:46→19:51)
[2022-07-13] MEDS: SPIRONOLACTONE 12.5 MG TAB PO SCH (08:46)
[2022-07-13] MEDS: CEROVITE ADV FORMULA TAB PO SCH (08:46)
[2022-07-13] MEDS: APIXABAN 5 MG TABLET PO SCH ×2 (08:46→19:50)
[2022-07-13] MEDS: FLUTICASONE/VILANTEROL 200/25MCG 14 PUFFS/INHALER INH SCH (08:46)
--- NOTE | 2022-07-13 09:14 | Cardiology Progress Note ---
Date of Service July 13, 2022 Assessment & Plan (1) Atrial fibrillation: (2) Nausea: (3) Vomiting: (4) Acute on chronic diastolic heart failure: Plan Patient admitted after one day of nausea/vomiting, poor PO intake with elevated HR's at home, possible afib?. Upon arrival, EKG demonstrated sinus tachycardia. Started on antibiotics for possible gastroenteritis with elevated WBC and lactate level +For rhino/entero virus. Antibiotics stopped. N/V improved. There was initial concern regarding possible CHF exacerbation, HFpEF, given mild LE edema and pulm congestion on xray. He received one dose IV lasix. Currently appears euvolemic. No edema on exam. SOB at baseline per patient. Would resume oral furosemide 40 mg daily when PO intake improves. Monitor volume status. He had one episode of afib RVR upon admission. Converted spontaneously to NSR. Continue metoprolol 100 mg BID Continue Eliquis 5 mg BID for stroke prophylaxis. Minimally elevated troponin on admission without acute EKG changes. echo with preserved LVEF, no wall motion abnormalities. Likely cardiac strain with acute illness. Stable cardiac symptoms. No further cardiac testing. Continue home cardiac medications. Case discussed with Dr. Montalvo. will sign off. Please notify director of content and programming provider with any additional questions or concerns. Admission and Anticipated Discharge Date Admission Date: July 11, 2022 Supervising Physician Co-Signing Physician Notes Supervising Physician Attestation: I have personally performed a history and physical examination on the patient. I agree with the physician fleet administrative assistant's findings and plan as documented with the following additions. Subjective: Patient subjectively improving. Sinus rhythm in the 60s noted on telemetry. Exam: Cardiovascular: Regular rhythm no murmurs, no edema Pulmonary: Lungs clear to auscultation bilaterally Data: PCR test positive for entero-/rhinovirus Assessment and Plan: -As noted above. Continue Eliquis 5 mg twice daily. Continue metoprolol succinate 100 mg twice daily. Continue spironolactone 12.5 mg daily. When oral intake felt to have improved, or at time of discharge, resume furosemide 40 mg by mouth daily Eber Montalvo, DO Subjective Patient resting in bed. Feeling much better. No recurrent nausea or vomiting. Tolerating diet. Still notes "water does not taste good". No chest pain or SOB. No edema. No sense of palpitations or tachypalpitations. Review of Systems Review of Systems: All systems reviewed & are unremarkable except as noted in HPI & below Physical Exam Constitutional: WD/WN, vitals as above well developed; no acute distress Neck: trachea midline, no thyromegaly Respiratory: normal respiratory effort, lungs clear to auscultation Cardiovascular: Rate/Rhythm: regular rate and regular rhythm Heart Sounds: normal S1 and normal S2; no murmur Vessels: no JVD Extremities: no edema Gastrointestinal (Abdomen): normal bowel sounds, soft, nontender, no hepatosplenomegaly Skin: no rashes, warm and dry Neurologic: PERRL, EOMI, accommodation nl, no face palsy, no dysarthria Psychiatric: A+Ox3, euthymic affect Results & Data Vital Signs (Past 12 Hours) Vital Signs Temp Pulse Pulse Resp BP Pulse Ox O2 Del Method 07/13/22 07:55 37 C 65 16 122/71 98 Room Air 07/13/22 07:26 63 07/13/22 03:46 36.6 C 54 L 18 113/59 L 94 Nasal Cannula 07/13/22 00:28 57 L 07/12/22 23:09 36.7 C 61 18 121/74 94 Room Air O2 Flow Rate 07/13/22 07:55 07/13/22 07:26 07/13/22 03:46 2 07/13/22 00:28 07/12/22 23:09 Laboratory Results Cardiac Enzymes 07/12/22 07/12/22 Range/Units 11:28 16:29 Troponin I High Sens 38.1 H D 30.0 H (0-20) pg/ml CBC 07/13/22 Range/Units 06:44 WBC 10.88 H (4.8-10.8) K/ul RBC 4.76 (4.70-6.10) M/uL Hgb 14.8 (14.0-18.0) g/dl Hct 41.9 L (42.0-52.0) % Plt Count 208 (130-400) K/uL Comprehensive Metabolic Panel 07/13/22 Range/Units 06:44 Sodium 138 (136-145) mmol/L Potassium 4.5 D (3.5-5.1) mmol/L Chloride 102 (98-107) mmol/L Carbon Dioxide 30 (21-32) mmol/L BUN 15 (6-23) mg/dl Creatinine 0.97 (0.6-1.4) mg/dl Glucose 154 H (70-99(Fasting)) mg/dl Calcium 9.0 (8.6-10.3) mg/dl Intake and Output 07/12/22 07/13/22 07/13/22 22:59 06:59 14:59 Intake Total 315 / 1025 115 / 1025 Balance 315 / 1023 115 / 1023 Intake: IV 115 / 345 115 / 345 Piperacillin/Tazobactam 3.375 115 / 345 115 / 345 gm In Dextrose 5% 100 ml @ 28. 75 mls/hr IV Q8H [facility] Rx#: [id number] Oral 200 / 680 Other: # Unmeasured Voids 2 Weight 87.997 kg Diagnostic Findings Telemetry reviewed: Sinus with HR's ranging 50-70 bpm. No recurrent atrial fibrillation. Echo report reviewed dated 07/12/22: Compared to prior study, there is no significant change. EF 55-60% Moderate concentric LVH Grade I diastolic dysfunction. Mild AI Medications Administered Current Inpatient Medications Acetaminophen (Acetaminophen 325 Mg Tab) 650 mg PO Q4H PRN PRN Reason: Pain or Fever Stop: 08/10/22 22:12 Albuterol (Albuterol Hfa 8 Gm Inhaler) 2 puffs INH Q4 PRN PRN Reason: Shortness Of Breath Or Wheezin Stop: 08/10/22 22:12 Allopurinol (Allopurinol 300 Mg Tab) 300 mg PO QAM [facility] Stop: 08/11/22 08:59 Last Admin: 07/13/22 08:46 Dose: 300 mg Apixaban (Apixaban 5 Mg Tablet) 5 mg PO BID [facility] Stop: 08/10/22 22:59 Last Admin: 07/13/22 08:46 Dose: 5 mg Aspirin (Aspirin 81 Mg Ectab) 81 mg PO QAM [facility] Stop: 08/11/22 08:59 Last Admin: 07/13/22 08:46 Dose: 81 mg Atorvastatin Calcium (Atorvastatin 40 Mg Tab) 40 mg PO HS [facility] Stop: 08/11/22 20:59 Last Admin: 07/12/22 21:19 Dose: 40 mg Dextrose (Dextrose 50% 50 Ml Syringe) 25 - 50 ml IV UD PRN; Protocol PRN Reason: Hypoglycemia Protocol Stop: 08/10/22 22:12 Famotidine (Famotidine 20 Mg Tab) 20 mg PO BID [facility] Stop: 08/11/22 08:59 Last Admin: 07/13/22 08:45 Dose: 20 mg Fluticasone/Vilanterol (Fluticasone/Vilanterol 200/25mcg 14 Puffs/Inhaler) 1 puffs INH DAILY [facility] Stop: 08/11/22 08:59 Last Admin: 07/13/22 08:46 Dose: 1 puffs Glucagon (Glucagon For Inj 1 Mg Vial) 1 mg SQ UD PRN; Protocol PRN Reason: Hypoglycemia Protocol Stop: 08/10/22 22:12 Glucose (Glucose 10 Tab/Tube) 4 - 8 tab PO UD PRN; Protocol PRN Reason: Hypoglycemia Treatment Stop: 08/10/22 22:12 Glucose (Glucose 40% Gel 15 Gm Tube) 15 - 30 gm PO UD PRN; Protocol PRN Reason: Hypoglycemia Protocol Stop: 08/10/22 22:12 Piperacillin Sod/Tazobactam (Sod 3.375 gm/ Dextrose) 115 mls @ 28.75 mls/hr IV Q8H [facility]; Protocol Stop: 07/21/22 22:59 Last Admin: 07/13/22 06:36 Dose: 28.8 mls/hr Insulin Aspart (Insulin Aspart Per Unit Charge) 0 units SC ACHS [facility] Stop: 08/11/22 07:29 Last Admin: 07/13/22 08:46 Dose: Not Given Insulin Glargine (Lantus Per Unit Charge) 30 units SQ QDD [facility] Stop: 08/11/22 16:29 Last Admin: 07/12/22 17:38 Dose: 30 units Metoprolol Succinate (Metoprolol Succ 50mg Ext Rel Tab) 100 mg PO BID [facility] Stop: 08/10/22 22:12 Last Admin: 07/13/22 08:46 Dose: 100 mg Miscellaneous (Carbohydrates For Hypoglycemia ) 15 - 30 gm PO UD PRN PRN Reason: Hypoglycemia Protocol Stop: 08/10/22 22:12 Multivitamins/Minerals (Cerovite Adv Formula Tab) 1 tab PO DAILY [facility] Stop: 08/11/22 08:59 Last Admin: 07/13/22 08:46 Dose: 1 tab Nitroglycerin (Nitroglycerin Sl 0.4 Mg/Tab Tab) 0.4 mg SL UD PRN PRN Reason: Chest Pain Stop: 08/10/22 22:12 Ondansetron HCl (Ondansetron Inj 2 Mg/Ml 2 Ml Vial) 4 mg IV Q6H PRN PRN Reason: Nausea Stop: 08/10/22 22:12 Spironolactone (Spironolactone 12.5 Mg Tab) [facility] Stop: 08/11/22 08:59 Last Admin: 07/13/22 08:46 Dose: 12.5 mg (3) Vomiting Nausea presence: with nausea Vomiting type: unspecified Qualified Code(s): R11.2 - Nausea with vomiting, unspecified
[2022-07-13] MEDS: LANTUS PER UNIT CHARGE SQ SCH (16:46)
--- NOTE | 2022-07-13 17:06 | Discharge Summary ---
Date of Service July 13, 2022 Admission HPI Per Admitting Provider A 76-year-old male with past medical history significant for type 2 diabetes, hyperlipidemia, history of chronic respiratory failure with oxygen generally used in the nighttime, history of COPD, interstitial lung disease, CAD status post angioplasty, chronic diastolic CHF, paroxysmal atrial fibrillation, hypertension, GERD, gout arthropathy, who lives at home with his son, daughter lives close by. Ambulates with a cane. Presents with nausea, vomiting and when he checked his pulse ox, oxygen saturation was okay, but his heart rate was ranging from 100-140, that is the reason he came here. Here, his heart rate is in the low 100s and his white count was 14. Lactate was 3. It looks like he has chronic elevation in lactate. BNP was 269. Troponin I was 73. Urinalysis was negative. Chest x-ray shows possible congestion. COVID negative. It looks like the patient 3 weeks ago had sore throat and he was treated with prednisone and azithromycin. The sore throat has resolved, but since then he is having lac k of taste that still is not getting better. Denies any fevers. Currently, sore throat improved. No cough, no chest pain. Denies any shortness of breath. No headache, no blurred visions, no earaches. Appetite is down today. Still nauseous. No abdominal pain, no diarrhea or constipation, no blood in the stools or black stools. Normal bladder movements. No hematuria. It looks like he has some increased swelling in the lower extremities. Admission Exam Per Admitting Provider GENERAL: The patient is of moderate build, not in acute distress. VITAL SIGNS: Temperature 36.8, pulse 100, respiratory rate 18, blood pressure 125/72, oxygen 94% on room air. HEENT: Pupils equal, round and reactive to light. Oral mucosa moist. NECK: No JVD, no neck masses. CARDIOVASCULAR: S1 and S2 heard, regular rate and rhythm. No murmur, no gallop. RESPIRATORY SYSTEM: Normal AP diameter. No accessory muscle use. No wheezing, no crackles. ABDOMEN: Soft, bowel sounds present, nontender, no distention. CENTRAL NERVOUS SYSTEM: Alert and oriented. Speech is clear. No facial droop. Obeys simple commands. Moves extremities. EXTREMITIES: Mild lower extremity pedal edema present, no erythema seen. Principal Diagnosis nausea, tachycardia + Entero/Rhinovirus Discharge Exam GENERAL: The patient is of moderate build, not in acute distress. HEENT: NC/AT. EOMI. Pupils equal, round and reactive to light. Oral mucosa mo ist. NECK: No JVD, no neck masses. CARDIOVASCULAR: S1 and S2 heard, regular rate and rhythm. No murmur, no gallop. RESPIRATORY: Normal AP diameter. No accessory muscle use. No wheezing, no crackles. ABDOMEN: Soft, bowel sounds present, nontender, no distention. NEURO: Alert and oriented. Speech is clear. No facial droop. Obeys simple commands. Moves extremities. EXTREMITIES: Mild lower extremity pedal edema present, no erythema seen. Discharge Data Allergies Allergy/AdvReac Type Severity Reaction Status Date / Time No Known Allergies Allergy Verified 07/11/22 19:33 Consultations 07/11/22 19:59 ED Decision to Admit Stat 07/12/22 08:00 Consult Cardiology Routine Hospital Course (1) Leukocytosis: (2) Nausea: (3) Tachycardia: This is a 76-year-old male who presents with nausea, vomiting, and tachycardia. 1. Nausea, vomiting, possible gastroenteritis: + Entero/Rhinovirus The patient has leukocytosis on admission, but previously was on prednisone. Blood cultures ordered in the ER. He was given empirically cefepime. Continued with Zosyn while inpt. Blood cultx negat. so far. Clear liquid diet initially, advanced diet and pt is tolerating w/o any issues KUB - normal No hx of diarrhea per pt, stool study ordered - but uncollected Resp. biofire positive for + Entero/Rhinovirus WBC now normalized. Pt now feels much improved, no more nausea. Tolerating diet. NSR on tele monitor. 2. Possible [id number] diastolic congestive heart failure with increased lower extremity edema and some tachycardia and also some congestion in chest x- ray. Received a dose of IV Lasix in the ER, but will hold off on any further IV Lasix for now. Continue his home diuretics. Monitored in the tele and consulted cardiology for further recommendations. Pt appears euvolemic. Cont home lasix on discharge. Afib w/ RVR at night of admission - Pt seen by cardiology - pt already in sinus rhythm- cont. metoprolol, home eliquis Tachycardia and afib likely due to underlying illness 3. Elevated lactic acid: Seems to be chronically elevated lactic acid. May need to discontinue me tformin.He is not septic. 4. Elevated troponins:followed serial cardiac enzymes. Most likely demand ischemia.ECG and Echo obtained, seen by cardiology Echo - Compared to prior study, there is no significant change. EF 55 to 60%. There is moderate concentric LVH. Grade 1 diastolic dysfunction. Mild aortic regurg 5. History of diabetes: Hold metformin, Trulicity. Continue his insulin. Hold Jardiance. Placed on insulin sliding scale. Follow the blood sugars. 6. History of gout: Continue allopurinol. 7. History of coronary artery disease, status post stent: Continue atorvasta tin, aspirin, and metoprolol succinate. 8. History of atrial fibrillation. His EKG shows sinus rhythm. Will continue with his metoprolol succinate, Eliquis. As above. 9. Hyperlipidemia: On statin. 10.COPD, interstitial lung disease, history of chronic respiratory failure: Uses mostly his oxygen in the nighttime, which will be continued. 11. Hypertension. Continue his home medications of metoprolol and spironolactone. Will monitor the blood pressure. 12. Gastroesophageal reflux disease: Continue his famotidine. Total Time Total Time Spent Total Time Spent (In Minutes): 40 Discharge Plan Discharge Items Patient Disposition: Home - Self-Care Reason For Visit: TACHYCARDIA Discharge Diagnosis: nausea, tachycardia + Entero/Rhinovirus Condition on Discharge: Fair Activity: Per Instructions section Non-emergency contact: Primary Care Provider Call non-emergency contact if: you have any medication questions and your symptoms worsen Follow-up/Referrals: Cristian Nixon MD [Primary Care Provider] - (Date & Time 07/19/2022 11:20 AM Provider Naya Ariza MD Department Family Medicine [facility] ) Diet: Carb Consistent or DM2 and Heart Healthy Addtl Attending Provider Instructions: Follow-up with your primary care doctor, the appointment was scheduled for you for July 19. Restart taking your furosemide/Lasix on Saturday or Saturday. Pending Studies at Discharge: Yes Studies:: final results of blood cultx Stand-Alone Forms: My Bareed[employer], Smoking Cessation Medications and DC Order Prescriptions: Continued aspirin [Lore Low Dose Aspirin] 81 mg Tablet,Delayed Release (Dr/Ec) 81 mg PO QAM allopurinol 300 mg tablet 300 mg PO QAM famotidine 20 mg tablet 20 mg PO [facility] insulin degludec [Tresiba FlexTouch U-100] 100 unit/mL (3 mL) insulin pen 30 unit SUBCUT QDD albuterol sulfate 90 mcg/actuation Hfa Aerosol Inhaler 2 puff INHALATION Q4 PRN (Reason: Shortness Of Breath Or Wheezing) atorvastatin 40 mg tablet 40 mg PO HS spironolactone 25 mg tablet 12.5 mg PO QAM Jardiance 10 mg tablet 10 mg PO DAILY metformin 500 mg tablet extended release 24 hr 1,000 mg PO DAILY furosemide [Lasix] 20 mg tablet 40 mg PO DAILY Eliquis 5 mg tablet 5 mg PO [facility] Trulicity 1.5 mg/0.5 mL pen injector 1.5 mg SUBCUT WK Rx Instructions: TAKE ON MON fluticasone propion-salmeterol [Advair Diskus] 250-50 mcg/dose blister with device 1 inh inhalation [facility] multivit,Ca,[id number] Tablet 1 tab PO DAILY metoprolol succinate 100 mg tablet extended release 24 hr 100 mg PO BID Qty: 60 1RF Discharge Orders: Discharge Order (Routine); Ordered 07/13/22 Ordered By: Joseph Alan/Other Patient Handouts: Managing Type 2 Diabetes, Special Foot Care for Diabetes Admission Data Admit Date/Time: 07/11/22 21:26 Attending Provider: Joseph Bragg Admit Provider: González Rainey Primary Care Provider: Cristian Nixon Other Providers: González Rainey ; Key Grissom ; Aldair Blue ; Eber Montalvo ; Timothy Juan ; Arcadio Mcfadden ; Iglesia Sharp ; Kevin Yip ; Jennifer Blank ; Tequila Zendejas ; Key Han ; Tj Benitez ; Flaco Gillette
--- NOTE | 2022-07-13 19:07 | Electrocardiogram Report ---
Test Reason : Blood Pressure : / mmHG Vent. Rate : 104 BPM Atrial Rate : 104 BPM P-R Int : 248 ms QRS Dur : 096 ms QT Int : 324 ms P-R-T Axes : 011 -84 084 degrees QTc Int : 426 ms Sinus tachycardia with 1st degree A-V block Left axis deviation Incomplete right bundle branch block Inferior infarct , age undetermined Anterior infarct (cited on or before 11-JUL-2022) Abnormal ECG When compared with ECG of 25-MAY-2022 11:12, T wave inversion now evident in Lateral leads Confirmed by Fred Presley ([id number]) on 07/13/2022 7:06:32 PM Referred By: REFERRED SELF Confirmed By:Fred Presley
[2022-07-13] MEDS: ATORVASTATIN 40 MG TAB PO SCH (19:51)
--- NOTE | 2022-07-13 21:49 | Electrocardiogram Report ---
Test Reason : Blood Pressure : / mmHG Vent. Rate : 064 BPM Atrial Rate : 064 BPM P-R Int : 274 ms QRS Dur : 088 ms QT Int : 448 ms P-R-T Axes : 041 -65 075 degrees QTc Int : 462 ms Sinus rhythm with 1st degree A-V block Left axis deviation Septal infarct (cited on or before 11-JUL-2022) Anterior infarct Inferior infarct (cited on or before 11-JUL-2022) Nonspecific T wave abnormality Abnormal ECG When compared with ECG of 11-JUL-2022 18:41, Vent. rate has decreased BY 40 BPM Incomplete right bundle branch block is no longer Present Questionable change in initial forces of Septal leads Confirmed by Fred Presley ([id number] on 07/13/2022 9:49:06 PM Referred By: REFERRED SELF Confirmed By:Fred Presley
== END 2022-07-13 20:26 | disposition home or self-care (01) | DRG 391 ==
LOC: ED 18:35 → 2E 21:26